=== PATIENT | female | born 1955 | race Caucasian/White ===

== ENCOUNTER 2020-05-05 17:29 | Emergency (ER) | payer MEDICARE, MEDICAID, SELFPAY ==
--- NOTE | ~2020-05-05 | CT_ITS ---
EXAMINATION: CT brain wo con EXAM DATE: 05/05/2020 19:37 INDICATION: Headache. Neck pain. TECHNIQUE: Spiral CT of the head was performed without contrast. Axial, coronal and sagittal images were reviewed. The dose-length product (DLP) for this examination was 605.33 mGy-cm. The exposure w as tailored according to patient size, and iterative reconstruction (ASIR) was used as additional dos e reduction technique. Comparison is made to prior examination from 10/31/2016. FINDINGS: There is no acute intraparenchymal hemorrhage. No evidence of intraparenchymal brain mass lesion. No evidence of acute infarction. There is no mass effect or midline shift. The ventricles are normal in size. There are no extra-axial collections. There are no acute calvarial fractures. T he orbits are unremarkable. Soft tissue is unremarkable. The visualized sinuses and mastoid air jimena ls are well aerated. IMPRESSION: 1. No acute intracranial findings. Reviewed, dictated and finalized at location A.
--- NOTE | ~2020-05-05 | CT_ITS ---
EXAMINATION: CT cervical spine [facility] EXAM DATE: 05/05/2020 19:37 INDICATION: Neck pain. Prior surgery. TECHNIQUE: Spiral CT of the cervical spine was performed without contrast. Axial images were reviewe d. Coronal and sagittal reformatted images were also reviewed. The dose-length product (DLP) for thi s examination was 509.01 mGy-cm. The exposure was tailored according to patient size (auto mA exposu re control), and iterative reconstruction (ASIR) was used as additional dose reduction technique. ere is no prior study for comparison. FINDINGS: No endplate erosive change, no evidence of discitis/osteomyelitis. Posterior elements are f used at the C2-3 level. There is moderate reversal of the normal cervical lordosis which may be posit ional or spasm. There is moderate to severe disc disease at C3-4, moderate at C2-3 and C4-5. The odo ntoid process is intact. The lateral masses of C1 line up with C2. Prevertebral soft tissue and pre- dens space are within normal limits. Level by level evaluation: C2-C3: Disc does not extend beyond the endplate margin. Uncovertebral joint arthropathy: None. Facet joint arthropathy: Fused. Neural foraminal stenosis: No stenosis. Central canal stenosis: No stenosis. C3-C4: There is a mild diffuse disc bulge. Uncovertebral joint arthropathy: Mild to moderate left, mild right. Facet joint arthropathy: Mild bilateral. Neural foraminal stenosis: Mild right. Central canal stenosis: No stenosis. C4-C5: There is a mild diffuse disc bulge. Uncovertebral joint arthropathy: Mild to moderate bilateral. Facet joint arthropathy: Mild to moderate bilateral. Neural foraminal stenosis: No stenosis. Central canal stenosis: No stenosis. C5-C6: There is a mild diffuse disc bulge. Uncovertebral joint arthropathy: Mild to moderate right, mild left. Facet joint arthropathy: Mild bilateral. Neural foraminal stenosis: Mild right. Central canal stenosis: No stenosis. C6-C7: There is a minimal diffuse disc bulge. Uncovertebral joint arthropathy: None. Facet joint arthropathy: Mild bilateral. Neural foraminal stenosis: No stenosis. Central canal stenosis: No stenosis. C7-T1: Disc does not extend beyond the endplate margin. Uncovertebral joint arthropathy: None. Facet joint arthropathy: Mild to moderate bilateral. Neural foraminal stenosis: No stenosis. Central canal stenosis: No stenosis. IMPRESSION: 1. C2-3 posterior fusion, moderate to severe disc disease. 2. Otherwise overall mild to moderate spondylosis. Reviewed, dictated and finalized at location A.
[2020-05-05 17:31] VITALS: BP 162/75; PULSE 70; RESP 18; TEMP 36.1; O2SAT 98
--- NOTE | 2020-05-05 18:50 | ED.HA ---
HPI - Headache General Chief Complaint: Headache Stated Complaint: headache & neck pain x 3 months Time Seen by Provider: 05/05/20 18:39 Source: patient Mode of arrival: ambulatory Limitations: no limitations History of Present Illness HPI Narrative: This is a 65-year-old female that presents emergency department for headaches x3 months. Does report history of migraines. Reports her headaches have been worse than usual. Reports minimal relief with [id number] medication. Also reports neck pain. Reports of history of cervical spine surgery. No new injuries or trauma. Denies fever, vision changes, numbness, weakness, or stiff neck. Related Data Allergies Allergy/AdvReac Type Severity Reaction Status Date / Time ampicillin Allergy Unknown Hives Verified 05/05/20 18:54 codeine Allergy Unknown Vomiting Verified 05/05/20 18:54 Penicillins Allergy Unknown Hives Verified 05/05/20 18:54 Review of Systems Review of Systems: Narrative: CONSTITUTIONAL: Denies fever EYES: Denies visual changes GASTROINTESTINAL: Denies vomiting MUSCULOSKELETAL: Reports joint pain and myalgia. NEUROLOGIC: Reports headache. Denies numbness, or weakness. All systems reviewed & are unremarkable except as noted in HPI and below PMFSH Past Medical History Medical History (Updated 05/05/20 @ 20:51 by Venecia Valle PA-C) History of depression History of hyperlipidemia History of hypertension History of thyroid cancer Surgical History Surgical History (Updated 05/05/20 @ 18:53 by Venecia Valle PA-C) History of cervical spinal surgery Family History Family History (Updated 09/02/18 @ 09:53 by DOCTOR UNKNOWN) Father Family history of cardiovascular disease Family history of sleep apnea Mother Family history of cardiovascular disease Social History Social History (Updated 05/05/20 @ 18:54 by Venecia Valle PA-C) Smoking status: Never smoker Substance use: current Substance use type: marijuana Exam Narrative: Exam Narrative: GENERAL: Well-appearing, well-nourished, and in no acute distress. HEAD: Normocephalic, atraumatic. EYES: PERRLA and EOMI. ENT: Nares clear, no rhinorrhea or epistaxis. Mucous membranes moist. Oropharynx without tonsillar hypertrophy exudate or other lesions. Bilateral TMs pearly chisholm non-bulging NECK: Supple. No adenopathy or masses. Tender to palpation of the trapezius musculature bilaterally CHEST: Clear to auscultation. No respiratory distress. No wheezes rales or rhonchi HEART: Regular rate and rhythm. No murmur heard. Normal peripheral pulses. EXTREMITIES: Normal range of motion. No edema. Strength equal in bilateral upper extremities (5/5) SKIN: Warm, dry, no rash. NEURO: No focal deficits. Alert and oriented x3. Cranial nerves II through XII grossly intact. Normal [id number] PSYCH: Normal mood and affect Course Vital Signs Vital signs: Vital Signs Temperature 97.0 F L 05/05/20 17:31 Pulse Rate 70 05/05/20 17:31 Respiratory Rate 18 05/05/20 17:31 Blood Pressure 162/75 H 05/05/20 17:31 Pulse Oximetry 98 05/05/20 17:31 Temperature 97.0 F L 05/05/20 17:31 Pulse Rate 70 05/05/20 17:31 Respiratory Rate 18 05/05/20 17:31 Blood Pressure 162/75 H 05/05/20 17:31 Pulse Oximetry 98 05/05/20 17:31 MDM - Headache MDM Narrative Medical decision making narrative: Patient presents to the emergency department for headache and neck pain. She is afebrile and nontoxic-appearing. Patient is neurologically intact. Reports relief with migraine cocktail. CT scan of the brain is without acute findings. CT scan of the cervical spine shows intact C2/3 posterior fusion. No acute findings. Patient was updated on case findings. She is stable and felt appropriate for further outpatient evaluation. Reports she would like to follow-up with a neurologist for her migraines. She will be given Dr. Esqueda for follow-up. She was given warnings to return to the ER Imag
[2020-05-05] MEDS: METOCLOPRAMIDE HCL INJ 10 MG/2 ML VIAL IV PUSH (19:00)
[2020-05-05] MEDS: diphenhydrAMINE HCl INJ 50 MG/ML VIAL 25 MG IV PUSH (19:00)
[2020-05-05] MEDS: KETOROLAC 30 MG/ML VIAL (*BKC) IV PUSH (19:00)
[2020-05-05] MEDS: SODIUM CHLORIDE 0.9% IV 1,000 ML 999 ML IV CONT (19:02)
[2020-05-05 20:48] VITALS: BP 128/66; PULSE 58; RESP 20; O2SAT 97
== END 2020-05-05 21:15 | disposition home or self-care (01) ==
PROVIDERS: Emergency Provider Emergency Medicine; PCP Emergency Medicine
DX: G43.909 Migraine, unspecified, not intractable, without status migrainosus (principal); F32.9 Major depressive disorder, single episode, unspecified; E78.5 Hyperlipidemia, unspecified; I10 Essential (primary) hypertension
CPT/HCPCS: 70450; 72125; 96361; 96365; 96375; 99284; J0131; J1100; J1200; J1885; J2765; J7030

== ENCOUNTER 2020-12-07 15:53 | Outpatient (CLI) | payer MEDICARE, MEDICAID, SELFPAY ==
--- NOTE | ~2020-12-07 | MM_ITS ---
EXAMINATION: MM screening [facility] BI w kathy HISTORY: Screening TECHNIQUE: Craniocaudal and mediolateral oblique 3-D tomosynthesis images were obtained and synthetic 2-D images were generated. CAD analysis was submitted and interpreted. COMPARISON: Comparison to multiple prior studies sequentially, with oldest reviewed study dated 10/2009. BREAST PARENCHYMAL COMPOSITION: There are scattered areas of fibroglandular density. FINDINGS: There is no evidence of suspicious mass, calcification, or architectural distortion to sugg est malignancy in either breast. There has been no suspicious interval change. IMPRESSION: 1. No mammographic evidence of malignancy. 2. Recommend routine screening mammography in one year. BI-RADS Category 1: Negative Reviewed, dictated and finalized at location A.
== END 2020-12-07 15:54 | disposition home or self-care (01) ==
LOC: ANHIMG 15:59
PROVIDERS: PCP Emergency Medicine; Visit Provider Emergency Medicine
DX: Z12.31 Encounter for screening mammogram for malignant neoplasm of breast (principal)
CPT/HCPCS: 77063; 77067

== ENCOUNTER → 2021-08-20 00:20 | Outpatient (CLI) | payer MEDICARE, MEDICAID, SELFPAY ==
[2021-08-20 19:57] LABS: SARS-CoV-2 RNA PCR Negative
== END ==
PROVIDERS: PCP Emergency Medicine; Visit Provider Emergency Medicine
DX: R05.9 Cough, unspecified (principal); Z20.822 Contact with and (suspected) exposure to COVID-19
CPT/HCPCS: C9803; U0003; U0005

== ENCOUNTER → 2021-10-01 10:51 | Outpatient (CLI) | payer MEDICARE, MEDICAID, SELFPAY ==
[2021-10-02 16:23] LABS: SARS-CoV-2 RNA PCR Negative
== END ==
PROVIDERS: PCP Emergency Medicine; Visit Provider Emergency Medicine
DX: J06.9 Acute upper respiratory infection, unspecified (principal); Z20.822 Contact with and (suspected) exposure to COVID-19
CPT/HCPCS: C9803; U0003; U0005

== ENCOUNTER 2022-04-07 07:31 | Outpatient (CLI) | payer MEDICARE, MEDICAID, SELFPAY ==
--- NOTE | 2022-05-02 14:02 | WPDSLEEPSTUD ---
Sleep Study Date of Study: 04/07/22 Ordering Provider: Anjel Shah APRN Interpreting Physician: Kusum Duffy MD Sleep Study Type: Split Polysomnogram Height: 1.73 m Weight: 111.13 kg Body Mass Index: 37.2 Neck Circumference (inches): 16.5 [place]: 0 Reason for Sleep Study She has obstructive sleep apnea, her machine is really old, needs repeat testing * 09/28/2017 CPAP titration; optimum pressure at 7cm H2O. Was not started on treatment. Seen Dr. Hernandez during this time. * 08/2018 Split night PSG moderate TESSA, AHI 20.7, loud continuous snowing and multiple oxygen desaturations. Difficult titration with CPAP. * 09/2018 CPAP/BiPAP Titration - inadequate titration with CPAP, then a BiPAP titration was attempted. Significant central apnea were noted, exacerbated more with BiPAP. * 02/2019 Repeat Bilevel Titration again shows no optimal pressure, increased number of central apneas which worsened with BiPAP. ASV recommended. * 05/2019 ASV Titration was inadequate. Central apneas were controlled, obstructive hypopneas remained. Apnea-hypopnea index remained elevated between 22 and 32 at the higher pressures. Sleep efficiency was not satisfactory. * 02/05/19 Echo: EF 70%, moderate aortic stenosis Sleep History Margret Stallings is a 67 year old female with a history of obstructive sleep apnea with treatment emergent central apnea, previously called complex sleep apnea. She has worn CPAP as well as BiPAP There is also a family history with her dad using PAP therapy. She occasionally awakens from sleep feeling short of breath. She does not awaken at night with heartburn, belching or coughing. She constantly snores and it is really loud. She constantly has trouble sleeping with a cold and wakes up gasping for breath at night. She constantly has breathing problems at night observed by others. She constantly sweats at night and notices her heart pounding or beating irregularly at night. She does no fall asleep during the day, does not fall asleep involuntarily or while driving. She does not have loss of muscle tone with strong emotion. She does not have daytime difficulties due to excessive sleepiness. She does not feel paralyzed on waking or falling asleep, nor does she have vivid dreams on waking or falling asleep. Occasionally she feels frayed to go to sleep. She occasionally has nightmares, occasionally remembers her dreams. She occasionally has racing thoughts. She occasionally feels sad, depressed and anxious. She does not have muscular tension. She does not notice parts of her body jerking. She does not kick at night. She does not have crawling and aching feelings in her legs. She does not have any kind of leg pain at night. She does not have morning jaw pain. She does not grind her teeth at night. She is not awakened by pain at night. She does not wake up feeling stiff in the morning. She does not wake up with sore achy muscles. She occasionally wakes up with pain in the neck and spine. She has constant morning headaches, fatigue, and nightmares. Normal bedtime is 9:30 p.m., falling asleep within 10 minutes, waking once at night to go to the bathroom. She wakes in the morning by 10:00 a.m.. Her weekend schedule is the same. She estimates getting 12 hours of sleep at night. She does not take naps. A short nap is not refreshing. She feels better in the evening compared other times of day. She never awakens feeling refreshed. Habits: Never smoked tobacco. No caffeine, alcohol or recreational drugs. [facility] Past Medical History Medical History Arthritis Bipolar 1 disorder Bipolar disease, chronic Body mass index [BMI] 37.0-37.9, adult (09/02/18) Diabetes 1.5, managed as type 2 Essential hypertension FHx: cholecystectomy Glaucoma Gout History of depression History of hyperlipidemia History of hypertension History of IBS History of thyroid cancer Migraine TESSA (obstructi
[2022-05-02 18:59] VITALS: BMI 37.2
== END 2022-04-08 06:27 | disposition home or self-care (01) ==
LOC: ANHCSM 07:33
PROVIDERS: PCP Emergency Medicine; Visit Provider Nurse Practitioner Family
DX: G47.9 Sleep disorder, unspecified (principal); G47.31 Primary central sleep apnea
CPT/HCPCS: 95811

== ENCOUNTER 2022-06-06 10:41 | Emergency (ER) | payer MEDICARE, MEDICAID, SELFPAY ==
--- NOTE | ~2022-06-06 | XR_ITS ---
EXAMINATION: XR chest 1V portable DATE: 06/06/2022 12:55 INDICATION: Tremor. TECHNIQUE: A single frontal view of the chest was obtained. COMPARISON: Chest 2 views 05/28/2019 FINDINGS: There is mild atelectasis in the lower lung zones. No pleural effusion or pneumothorax. Car diomegaly is noted. IMPRESSION: 1. Mild atelectasis in the lower lung zones. 2. Cardiomegaly. Reviewed, dictated and finalized at location A.
--- NOTE | ~2022-06-06 | CT_ITS ---
EXAMINATION: CT brain wo con INDICATION: Tremors COMPARISON: 05/05/2020 TECHNIQUE: Standard unenhanced head CT. The dose-length product (DLP) was 529.67 mGy-cm. The mA was a djusted according to patient size. Iterative reconstruction technique was employed. FINDINGS: There is no acute intraparenchymal hemorrhage. No evidence of mass lesion. No evidence of a cute infarction. There is mild periventricular and subcortical hypodensity probably related to small vessel ischemic disease. There is mild prominence of the sulci and ventricles related to cerebral atr ophy. Intracranial calcified cerebral atherosclerosis is noted. There are no extra-axial collections. There is no mass effect or midline shift. The orbits and soft tissues are unremarkable. The visualiz ed sinuses and mastoid air cells are well aerated. IMPRESSION: 1. No acute intracranial abnormality. 2. Age related findings. Reviewed, dictated and finalized at location B.
[2022-06-06 10:44] VITALS: BP 156/93; PULSE 97; RESP 16; TEMP 36.4; O2SAT 99
[2022-06-06 11:57] VITALS: BP 182/82; PULSE 65; RESP 14; O2SAT 99
--- NOTE | 2022-06-06 12:06 | ED.NEUROSD ---
HPI - Neuro Symptoms/Deficit General Chief Complaint: Neuro Symptoms/Deficit Stated Complaint: tremors for 3 weeks Time Seen by Provider: 06/06/22 12:03 Source: patient Mode of arrival: ambulatory Limitations: no limitations History of Present Illness HPI Narrative: The patient is a 67-year-old female with a history of hypertension, hyperlipidemia, thyroid cancer, hypothyroidism, acid reflux, presenting to the emergency department for evaluation of tremor activity. Patient states that she has had tremors constantly over the past 3 weeks. She states that she has all over body tremors without associated numbness, tingling, weakness. She has been ambulatory without recent fall or injury. She denies headache, vision changes, chest pain, cough or shortness of breath. Patient was seen by her primary care physician today and referred to this facility for evaluation. Patient states that there is a history of Parkinson's dementia in her family. She denies any recent illnesses or medication changes. Related Data Home Medications Medication Instructions Recorded Confirmed amlodipine 10 mg tablet 10 mg PO DAILY 01/11/21 03/28/22 atorvastatin 40 mg tablet 40 mg PO DAILY 01/11/21 03/28/22 brimonidine 0.2 %-timolol 0.5 % 1 drp EACH EYE Q12H 01/11/21 03/28/22 eye drops (Combigan) carvedilol 6.25 mg tablet 6.25 mg PO Q12H 01/11/21 03/28/22 diclofenac sodium 75 mg 75 mg PO BID 01/11/21 03/28/22 tablet,delayed release duloxetine 20 mg capsule,delayed 20 mg PO BID 01/11/21 03/28/22 release levothyroxine 125 mcg capsule 125 mcg PO DAILY 01/11/21 03/28/22 losartan 100 mg tablet 100 mg PO DAILY 01/11/21 03/28/22 lurasidone 20 mg tablet (Latuda) 10 mg PO DAILY 01/11/21 03/28/22 pantoprazole 40 mg tablet,delayed 40 mg PO QAM 01/11/21 03/28/22 release timolol maleate 0.25 % eye drops 1 drp EACH EYE Q12H 01/11/21 03/28/22 travoprost 0.004 % eye drops 1 drp EACH EYE QPM 01/11/21 03/28/22 (Travatan Z) trazodone 50 mg tablet 50 mg PO QHS PRN 01/11/21 03/28/22 Allergies Allergy/AdvReac Type Severity Reaction Status Date / Time ampicillin Allergy Unknown Hives Verified 06/06/22 11:57 codeine Allergy Unknown Vomiting Verified 06/06/22 11:57 Penicillins Allergy Unknown Hives Verified 06/06/22 11:57 Review of Systems Review of Systems: CONSTITUTIONAL: Denies fever, chills, or sweats. EYES: Denies visual changes, redness, or discharge. ENT: Denies rhinorrhea, congestion, sore throat, or otalgia. CARDIOVASCULAR: Denies chest pain, palpitations, or edema. RESPIRATORY: Denies cough or dyspnea. GASTROINTESTINAL: Denies abdominal pain, nausea, vomiting, or diarrhea. GENITOURINARY: Denies dysuria or hematuria. SKIN: Denies rash or itching. MUSCULOSKELETAL: Denies back pain, joint pain, or myalgia. NEUROLOGIC: Denies headache, numbness, or weakness. Reports tremors of the upper and lower extremities, thorax PMFSH Past Medical History Medical History Arthritis Bipolar 1 disorder Bipolar disease, chronic Body mass index [BMI] 37.0-37.9, adult (09/02/18) Diabetes 1.5, managed as type 2 Essential hypertension FHx: cholecystectomy Glaucoma Gout History of depression History of hyperlipidemia History of hypertension History of IBS History of thyroid cancer Migraine TESSA (obstructive sleep apnea) Shingles Thyroid cancer Surgical History Surgical History H/O abdominal hysterectomy History of ankle surgery History of cervical spinal surgery History of left knee replacement S/P right unicompartmental knee replacement Family History Family History Father Family history of cardiovascular disease Family history of sleep apnea Mother Family history of cardiovascular disease Social History Social History Smoking status: C
--- NOTE | 2022-06-06 12:19 | ECG_ITS ---
Rate GA QRSd QT QTc P QRS T 66 213 86 403 424 33 0 15 SINUS RHYTHM WITH FIRST DEGREE AV BLOCK CANNOT RULE OUT SEPTAL INFARCT, AGE INDETERMINATE BASELINE ARTIFACT- I, II, AVR, AVL, V1 ABNORMAL ECG COMPARED TO ECG 05/28/2019 11:52:02 SINUS RHYTHM NOW PRESENT FIRST DEGREE AV BLOCK NOW PRESENT MYOCARDIAL INFARCT FINDING NOW PRESENT Electronically Signed On 06-06-2022 13:39:46 CDT by Luis Carlos SAXENA
--- NOTE | 2022-06-06 12:26 | PC.NURSE ---
Pt to CT.
[2022-06-06 12:47] VITALS: BP 144/77; PULSE 67; RESP 14; O2SAT 98
[2022-06-06 12:56] LABS: Basophils Percent Auto 0.4 % (0.2-1.2); Eosinophils Absolute Auto 0.2 K/mm3 (0-0.3); Eosinophils Percent Auto 2.2 % (0-4.4); Hematocrit 40.2 % (37.0-47.0); Hemoglobin 13.2 g/dL (12.0-15.0); Immature Granulocyte Absolute 0.01 K/mm3 (0.00-0.031); Immature Granulocyte Percent A 0.1 % (0-0.5); Lymphocytes Absolute Auto 3.93 K/mm3 (0.9-3.2); Lymphocytes Percent Auto 54.2 % (18.3-44.2); Mean Corpuscular HGB Conc 32.8 g/dl (32-36); Mean Corpuscular Hemoglobin 28.8 pg (26-34); Mean Corpuscular Volume 87.8 fl (80-100); Mean Platelet Volume 10.1 fl (7.4-10.4); Monocytes Absolute Auto 0.8 K/mm3 (0.1-0.6); Neutrophils Absolute Auto 2.3 K/mm3 (1.3-6.7); Neutrophils Percent Auto 32.1 % (45.5-73.1); Platelet Count Result 232 k/mm3 (150-375); Red Blood Count 4.58 M/mm3 (4.2-5.4); Red Cell Distribution Width 14.2 % (11.5-14.5); White Blood Count 7.3 K/mm3 (4.5-10.0)
[2022-06-06 13:02] LABS: Alanine Aminotransferase 20 U/L (6-35); Albumin Level 4.2 g/dL (3.5-5.1); Alkaline Phosphatase 84 U/L (38-126); Anion Gap 11 mmol/L (8-16); Aspartate Amino Transferase 23 U/L (14-36); Bilirubin,Total 0.5 mg/dL (0.2-1.3); Blood Urea Nitrogen 17 mg/dL (7-17); Calcium 9.2 mg/dL (8.4-10.2); Carbon Dioxide 27 mmol/L (22-30); Chloride 103 mmol/L (98-107); Estimated CRCL calculation 57 ml/min; Estimated Glomerular Filt Rate 49; Glucose 92 mg/dL (65-110); Potassium 3.9 mmol/L (3.4-5.0); Sodium 141 mmol/L (137-145)
[2022-06-06 13:14] LABS: Troponin I < 0.012 ng/mL (0.000-0.034)
[2022-06-06 14:11] VITALS: BP 151/64; PULSE 66; RESP 16; O2SAT 99
[2022-06-06 14:20] VITALS: BP 161/76; PULSE 93; RESP 14; O2SAT 96
== END 2022-06-06 14:20 | disposition home or self-care (01) ==
PROVIDERS: Emergency Provider Emergency Medicine; PCP Emergency Medicine
DX: R25.1 Tremor, unspecified (principal); I10 Essential (primary) hypertension; E78.5 Hyperlipidemia, unspecified; K21.9 Gastro-esophageal reflux disease without esophagitis; E03.9 Hypothyroidism, unspecified; F31.9 Bipolar disorder, unspecified; E13.9 Other specified diabetes mellitus without complications; H40.9 Unspecified glaucoma; M10.9 Gout, unspecified; G47.33 Obstructive sleep apnea (adult) (pediatric); Z85.850 Personal history of malignant neoplasm of thyroid; F17.200 Nicotine dependence, unspecified, uncomplicated; F12.90 Cannabis use, unspecified, uncomplicated
CPT/HCPCS: 36415; 70450; 71045; 80053; 84484; 85025; 93005; 99284

== ENCOUNTER → 2022-06-23 09:07 | Outpatient (CLI) | payer MEDICARE, MEDICAID, SELFPAY ==
--- NOTE | ~2022-06-23 | DEXA_ITS ---
Bone Density Report Name: EDY BENNETT Age: 67 Sex: Female Ethnicity: White Date of : 1955 Indication: postmenopausal; screening for osteoporosis; parental hip fracture; height loss; prior fracture; hysterectomy; Referring Provider: JOHANNA MADERA Study: Bone densitometry was performed. Exam Date: June 23, 2022 Accession number: [id number] Bone Density: Region BMD T-score Z-score Classification AP Spine (L1-L4) 0.878 -1.5 0.5 Osteopenia Femoral Neck (Left) 0.686 -1.5 0.2 Osteopenia Total Hip (Left) 0.788 -1.3 0.1 Osteopenia Femoral Neck (Right) 0.624 -2.0 -0.3 Osteopenia Total Hip (Right) 0.737 -1.7 -0.3 Osteopenia Total Hip Mean 0.763 -1.5 -0.1 Osteopenia World Health Organization criteria for BMD impression classify patients as: Normal (T-score at or above -1.0), Osteopenia (T-score between -1.0 and -2.5), or Osteoporosis (T-score at or below -2.5). 10-year Fracture Risk: FRAX not reported because: Prior hip or vertebral fracture Clinical Information Provided by Patient: Have had a previous hip or vertebral fracture Has had a low trauma fracture Parent has had a hip fracture Has the following medical conditions: Hysterectomy, Thyroid cancer 2009, Stage 3 Kidney disease, IBS-no meds Patient maximum height was 69 Menopause Age: 27 No regular weight bearing exercise Onset of menses at age 12 Number of children 1 Impression: The patient has low bone mass, based on the Right Femoral Neck T-score. The patient has risk factors, including: parental hip fracture, previous fracture. Discussion: INCREASED RISK OF FRACTURE DUE TO HISTORY OF FRACTURE. The patient's previous fracture puts the patient at high risk of a future fracture. In untreated patients, the risk of osteoporotic fracture increases approximately two-fold for each 1.0 SD decrease in T-score. Low bone density is not the only risk factor for fracture; also consider factors such as patient's age, frailty or poor health, risk of falling, risk of injury, previous osteoporotic fracture, family history of osteoporosis, cigarette smoking, low body weight, etc. Not everyone with a low trauma fracture has osteoporosis; osteomalacia and other metabolic bone disorders should also be considered. Patients who have osteoporosis should be evaluated for specific diseases and conditions (secondary causes) that may cause or contribute to bone loss and fracture risk. National Osteoporosis Foundation (NOF) recommends pharmacologic intervention for patients with a prior hip or vertebral fracture regardless of BMD T-score. The patient should follow a healthful lifestyle (good nutrition with adequate calcium and vitamin D, and appropriate weight-bearing exercise). Follow-Up: Consider a repeat BMD and Vertebral Fracture Assessment (VFA) exam in 2 years or sooner i
== END ==
PROVIDERS: PCP Emergency Medicine; Visit Provider Emergency Medicine
DX: M81.0 Age-related osteoporosis without current pathological fracture (principal); M85.88 Other specified disorders of bone density and structure, other site; M85.852 Other specified disorders of bone density and structure, left thigh; M85.851 Other specified disorders of bone density and structure, right thigh
CPT/HCPCS: 77080

== ENCOUNTER 2022-08-02 10:51 | Emergency (ER) | payer MEDICARE, MEDICAID, SELFPAY ==
--- NOTE | ~2022-08-02 | XR_ITS ---
EXAMINATION: XR ankle RT min 3V DATE: 08/02/2022 11:40 INDICATION: Right ankle pain and swelling. TECHNIQUE: 4 views of right ankle were obtained. COMPARISON: None. FINDINGS: Bone alignment is normal. No fracture. There is mild ankle joint osteoarthritis. There is m ild midfoot osteoarthritis. There is an enthesophyte at plantar aspect of calcaneal tuberosity. Ankle soft tissue swelling is noted. IMPRESSION: 1. Mild polyarticular osteoarthritis. Reviewed, dictated and finalized at location A. EL ENGINE ENGINEER
--- NOTE | ~2022-08-02 | XR_ITS ---
EXAMINATION: XR foot RT min 3V DATE: 08/02/2022 11:40 INDICATION: Right foot pain and swelling. TECHNIQUE: 4 views of right foot were obtained. COMPARISON: None. FINDINGS: Bone alignment is normal. No fracture. There is mild osteoarthritis of first and second met atarsophalangeal joints and many of the midfoot joints and interphalangeal joints. There is an enthes ophyte at plantar aspect of calcaneal tuberosity. IMPRESSION: 1. Mild polyarticular osteoarthritis. Reviewed, dictated and finalized at location A. NT SOLUTIONS MANAGER
--- NOTE | ~2022-08-02 | US_ITS ---
EXAMINATION: US venous doppler LE RT DATE: 08/02/2022 13:52 INDICATION: right foot/ankle swelling, elevated d dimer . TECHNIQUE: Grayscale images without and with compression and Doppler images of the right lower extrem ity veins were obtained. COMPARISON: None FINDINGS: The right common femoral vein, profunda (deep) femoral vein, femoral vein, popliteal vein, peroneal v ein, and posterior tibial veins are patent. IMPRESSION: 1. Patent right lower extremity veins. No evidence of deep venous thrombosis. Reviewed, dictated and finalized at location K. COVERER
[2022-08-02 11:21] VITALS: BP 146/78; PULSE 79; RESP 15; TEMP 36.4; O2SAT 100
--- NOTE | 2022-08-02 11:30 | PC.NURSE ---
Pt to XRAY via w/c at this time.
--- NOTE | 2022-08-02 12:24 | ED.LOWEXIN ---
HPI - Extremity Injury (Lower) General Chief Complaint: Extremity Injury, Lower Stated Complaint: Right foot pain after fall Time Seen by Provider: 08/02/22 11:41 History of Present Illness HPI Narrative: 67-year-old female with a history of gout presents to the emergency room for evaluation of right foot and ankle pain that has been present for 2 weeks. Patient denies any known injury or trauma. States that she saw her primary care physician 10 days ago for the same issue. [facility] PCP collected a uric acid level which was within normal range. Patient states has been taking Tylenol with no relief of symptoms. Currently on allopurinol for gout Related Data Home Medications Medication Instructions Recorded Confirmed amlodipine 10 mg tablet 10 mg PO DAILY 01/11/21 06/28/22 atorvastatin 40 mg tablet 40 mg PO DAILY 01/11/21 06/28/22 brimonidine 0.2 %-timolol 0.5 % 1 drp EACH EYE Q12H 01/11/21 06/28/22 eye drops (Combigan) carvedilol 6.25 mg tablet 6.25 mg PO Q12H 01/11/21 06/28/22 diclofenac sodium 75 mg 75 mg PO BID 01/11/21 06/28/22 tablet,delayed release duloxetine 20 mg capsule,delayed 20 mg PO BID 01/11/21 06/28/22 release levothyroxine 125 mcg capsule 125 mcg PO DAILY 01/11/21 06/28/22 losartan 100 mg tablet 100 mg PO DAILY 01/11/21 06/28/22 lurasidone 20 mg tablet (Latuda) 10 mg PO DAILY 01/11/21 06/28/22 pantoprazole 40 mg tablet,delayed 40 mg PO QAM 01/11/21 06/28/22 release timolol maleate 0.25 % eye drops 1 drp EACH EYE Q12H 01/11/21 06/28/22 travoprost 0.004 % eye drops 1 drp EACH EYE QPM 01/11/21 06/28/22 (Travatan Z) trazodone 50 mg tablet 50 mg PO QHS PRN 01/11/21 06/28/22 Allergies Allergy/AdvReac Type Severity Reaction Status Date / Time ampicillin Allergy Unknown Hives Verified 08/02/22 11:25 codeine Allergy Unknown Vomiting Verified 08/02/22 11:25 Penicillins Allergy Unknown Hives Verified 08/02/22 11:25 Review of Systems Review of Systems: CONSTITUTIONAL: Denies fever, chills, or sweats. EYES: Denies visual changes, redness, or discharge. ENT: Denies rhinorrhea, congestion, sore throat, or otalgia. CARDIOVASCULAR: Denies chest pain, palpitations, or edema. RESPIRATORY: Denies cough or dyspnea. GASTROINTESTINAL: Denies abdominal pain, nausea, vomiting, or diarrhea. GENITOURINARY: Denies dysuria or hematuria. SKIN: Denies rash or itching. MUSCULOSKELETAL: Reports pain and swelling to right ankle and right foot NEUROLOGIC: Denies headache, numbness, dizziness, or weakness. PSYCHIATRIC: Denies anxiety or depression. [facility] Past Medical History Medical History Arthritis Bipolar 1 disorder Bipolar disease, chronic Body mass index [BMI] 37.0-37.9, adult (09/02/18) Diabetes 1.5, managed as type 2 Essential hypertension FHx: cholecystectomy Glaucoma Gout History of depression History of hyperlipidemia History of hypertension History of IBS History of thyroid cancer Migraine TESSA (obstructive sleep apnea) Shingles Thyroid cancer Surgical History Surgical History H/O abdominal hysterectomy History of ankle surgery History of cervical spinal surgery History of left knee replacement S/P right unicompartmental knee replacement Family History Family History Father Family history of cardiovascular disease Family history of sleep apnea Mother Family history of cardiovascular disease Social History Social History Smoking status: Never smoker Smokeless tobacco user: other Substance use: current Substance use type: marijuana Exam Narrative: GENERAL: Well-appearing, well-nourished, no physical limitations, and in no acute distress. HEAD: Normocephalic, atraumatic. EYES: Conjunctivae normal, PERRLA and EOMI. CHEST: Clear to auscultation. No respiratory distre
[2022-08-02 12:55] LABS: Alanine Aminotransferase 18 U/L (6-35); Albumin Level 4.3 g/dL (3.5-5.1); Alkaline Phosphatase 82 U/L (38-126); Anion Gap 6 mmol/L (8-16); Aspartate Amino Transferase 21 U/L (14-36); Bilirubin,Total 0.6 mg/dL (0.2-1.3); Blood Urea Nitrogen 15 mg/dL (7-17); Calcium 9.6 mg/dL (8.4-10.2); Carbon Dioxide 34 mmol/L (22-30); Chloride 101 mmol/L (98-107); Estimated CRCL calculation 52 ml/min; Estimated Glomerular Filt Rate 45; Glucose 88 mg/dL (65-110); Potassium 4.2 mmol/L (3.4-5.0); Sodium 141 mmol/L (137-145)
[2022-08-02 13:04] LABS: NT Pro B Type Natriuretic Pept 47 pg/mL (5-100)
[2022-08-02 13:17] LABS: D Dimer 1.19 ug/mL (<0.48)
[2022-08-02 13:46] VITALS: BP 138/88; PULSE 84; RESP 17; O2SAT 97
== END 2022-08-02 14:30 | disposition home or self-care (01) ==
PROVIDERS: Emergency Provider Nurse Practitioner Family; PCP Emergency Medicine
DX: M10.9 Gout, unspecified (principal); I10 Essential (primary) hypertension; E13.39 Other specified diabetes mellitus with other diabetic ophthalmic complication; H42 Glaucoma in diseases classified elsewhere; E78.5 Hyperlipidemia, unspecified; Z85.850 Personal history of malignant neoplasm of thyroid; G47.33 Obstructive sleep apnea (adult) (pediatric); K58.9 Irritable bowel syndrome, unspecified; F31.9 Bipolar disorder, unspecified; Z90.710 Acquired absence of both cervix and uterus; Z96.652 Presence of left artificial knee joint; M19.071 Primary osteoarthritis, right ankle and foot
CPT/HCPCS: 36415; 73610; 73630; 80053; 83880; 85380; 93971; 96372; 99284; J1100

== ENCOUNTER 2023-01-17 09:53 | Outpatient (CLI) | payer MEDICARE, MEDICAID, SELFPAY ==
--- NOTE | ~2023-01-17 | XR_ITS ---
XR chest 2V DATE: 01/17/2023 10:30 INDICATION: Cough for one week TECHNIQUE: PA and lateral views COMPARISON: 06/06/2022 portable AP chest borderline heart size. FINDINGS: borderline heart size. Aortic arch calcification. No hilar or mediastinal enlargement. No p ulmonary infiltrate or consolidation, pleural effusion or pulmonary vascular congestion or pneumothor ax. There is diffuse osteopenia. Surgical clips, right upper quadrant, consistent with cholecystectomy. IMPRESSION: Borderline heart size No active pulmonary disease Osteopenia Status post cholecystectomy Reviewed, dictated and finalized at location A.
[2023-01-17 11:25] LABS: Cholesterol 134 mg/dL (0-200); HDL Direct 45 mg/dL; Triglycerides 125 mg/dL (<150)
[2023-01-17 11:36] LABS: LDL Cholesterol Direct 56 mg/dL
[2023-01-17 11:41] LABS: Hemoglobin A1C 5.7 % (<5.7)
[2023-01-17 11:42] LABS: Creatinine Urine 289.6 mg/dL
[2023-01-17 11:46] LABS: MALB Creatinine Ratio 12.2 mg/g (0-30); Microalbumin Urine Random 35.2 mg/L (0-16.7)
[2023-01-17 11:55] LABS: Thyroid Stimulating Hormone 0.089 uIU/mL (0.465-4.680)
[2023-01-17 11:56] LABS: Free T4 Free Thyroxine 1.57 ng/mL (0.78-2.19); Vitamin D 25 Hydroxy 37.4 ng/mL
== END 2023-01-17 09:54 | disposition home or self-care (01) ==
LOC: ANHIMG 10:19
PROVIDERS: PCP Emergency Medicine; Visit Provider Emergency Medicine
DX: R05.9 Cough, unspecified (principal); M85.80 Other specified disorders of bone density and structure, unspecified site; E11.9 Type 2 diabetes mellitus without complications; E78.5 Hyperlipidemia, unspecified; Z90.49 Acquired absence of other specified parts of digestive tract
CPT/HCPCS: 36415; 71046; 80061; 82043; 82306; 83036; 84439; 84443

== ENCOUNTER 2023-02-01 08:57 | Outpatient (CLI) | payer MEDICARE, MEDICAID, SELFPAY ==
--- NOTE | ~2023-02-01 | MM_ITS ---
EXAMINATION: MM screening [facility] BI w kathy HISTORY: Screening mammogram TECHNIQUE: Craniocaudal and mediolateral oblique 3-D tomosynthesis images were obtained and synthetic 2-D images were generated. CAD analysis was submitted and interpreted. COMPARISON: 12/07/2020, 06/19/2018, 05/05/2016 BREAST PARENCHYMAL COMPOSITION: There are scattered areas of fibroglandular density. FINDINGS: Stable focal asymmetry is noted in the upper outer quadrant of the right breast. No suspici ous mass, calcification, or architectural distortion are identified in either breast to suggest malig onesimo. There has been no suspicious interval change. IMPRESSION: 1. No mammographic evidence of malignancy. 2. Recommend routine screening mammography in one year. BI-RADS Category 2: Benign finding(s). Reviewed, dictated and finalized at location A.
== END 2023-02-01 08:58 | disposition home or self-care (01) ==
LOC: ANHIMG 08:58
PROVIDERS: PCP Emergency Medicine; Visit Provider Emergency Medicine
DX: Z12.31 Encounter for screening mammogram for malignant neoplasm of breast (principal)
CPT/HCPCS: 77063; 77067

== ENCOUNTER → 2023-08-01 14:34 | Outpatient (CLI) | payer MEDICARE, MEDICAID, SELFPAY ==
--- NOTE | ~2023-08-01 | XR_ITS ---
EXAMINATION: XR wrist RT min 3V DATE: 08/01/2023 15:01 INDICATION: Right wrist pain. Injury 2 months ago. TECHNIQUE: 4 views of right wrist were obtained. COMPARISON: None. FINDINGS: Bone alignment is normal. No fracture. There is mild osteoarthritis of first carpometacarpa l joint and first and second metacarpophalangeal joints. IMPRESSION: 1. Mild polyarticular osteoarthritis. Reviewed, dictated and finalized at location E. GATION SPECIALIST
--- NOTE | ~2023-08-01 | XR_ITS ---
EXAMINATION: XR forearm RT 2V DATE: 08/01/2023 15:01 INDICATION: Right forearm pain. Injury 2 months ago. TECHNIQUE: 2 views of right forearm were obtained. COMPARISON: None. FINDINGS: Bone alignment is normal. No fracture. There is mild osteoarthritis of first carpometacarpa l joint. No elbow joint effusion. IMPRESSION: 1. No fracture. Reviewed, dictated and finalized at location E. INTERN IMPRESSION: 1. No fracture.
== END ==
PROVIDERS: PCP Emergency Medicine; Referring Provider Emergency Medicine; Visit Provider Emergency Medicine
DX: M19.031 Primary osteoarthritis, right wrist (principal)
CPT/HCPCS: 73090; 73110

== ENCOUNTER 2024-11-02 10:53 | Emergency (ER) | payer MEDICARE, MEDICAID, SELFPAY ==
--- NOTE | ~2024-11-02 | XR_ITS ---
EXAMINATION: XR chest 2V DATE: 11/02/2024 11:32 INDICATION: Shortness of breath with cough TECHNIQUE: PA and lateral views of the chest were obtained. COMPARISON: Chest radiograph dated 01/17/2023 FINDINGS: Unchanged small calcified nodules in the right middle lobe consistent with old granulomatous disease. The lungs remain otherwise clear with no focal airspace opacities, pulmonary edema, pleural effusion or pneumothorax. Heart size is normal. Aortic valve repair. Visualized bones and soft tissues are un remarkable. IMPRESSION: 1. No acute cardiopulmonary disease. Reviewed, dictated and finalized at location [facility]. [facility]
--- NOTE | 2024-11-02 10:55 | ECG_ITS ---
Test Date: 2024-11-02 10:58:10 Measurements Intervals [place] Rate: 60 P: 55 IN: 213 QRS: -16 QRSD: 101 T: 30 QT: 428 QTc: 428 Interpretive Statements SINUS RHYTHM WITH FIRST DEGREE AV BLOCK CANNOT R/O SEPTAL INFARCT, AGE INDETERMINATE ABNORMAL ECG No previous ECG available for comparison Electronically Signed On 11-02-2024 11:08:18 DIVIDEND CLERK by Luis Carlos Arrington D.O.
--- OUTSIDE RECORDS SUMMARY | 2024-11-02 10:56 | XMS_ITS | Continuity of Care Document ---
Author Organization [facility] Address [address] [place] [address] Phone Care Team Providers Care Travel Journalist Name Role Phone Shahid Spivey Unavailable Unavailable Procedures Procedure Date Office/outpatient Visit, Est Optic Nerve Topography-Professional Optic Nerve Topography-Professional Optic Nerve Topography Optic Nerve Topography Visual Field Examination-Professional Mason Visual Field Examination(s) Office/outpatient Visit, Est Optic Nerve Head Eval Dilated Retinal Exam W Interpretation No Script Office/outpatient Visit, Est Optic Nerve Head Eval No Script Visual Field Examination(s) Eye Exam, New Patient Corneal Pachymetry Refraction Advance Directives Directive Yes / No Effective Date File Name No Information Encounters Encounter Description Practice Location Reason(s) For Visit Diagnoses Date Provider Providers Copied on Encounter Office/outpat ient Visit, Est [facility] [place] [facility], [address], [place], [place], [id number], [place] tel:[phone] [facility] No Information 0-201 0 Patric Shahid. [address], [place], [address], [place]. tel:[phone] [facility] [place] [facility], [address], [place], [place], [id number], [place] tel:[phone] SEC [facility] No Information 3-201 0 Krishnasamy Shahid. [address], [place], [place], [facility], [place]. tel:[phone] Referring Provider: Shahid mistry, [facility] [address], [place], [facility]. tel:[phone] [facility], [address], [place], [place], [id number], [place] tel:[phone] [facility] No Information 0 Krishnasamy Shahid. [address], [place], [place], [facility], [place]. tel:[phone] Referring Provider: Shahid mistry, [facility] [address], [place], [facility]. tel:[phone] [facility], [address], [place], [place], [id number], [place] tel:[phone] SEC [facility] No Information 0 Krishnasamy Shahid. [facility] [address] [place], [place], [facility], [place]. tel:[phone] Referring Provider: Shahid mistry, [facility] [address], [place], [facility]. tel:[phone] [facility], [address], [place], [place], [id number], [place] tel:[phone] SEC [facility] No Information 0 Krishnasamy Shahid. [address] [place], [place], [facility], [place]. tel:[phone] Referring Provider: Shahid mistry, [facility] [address], [facility]. tel:[phone] Office/outpat ient Visit, [facility], [address] [place] [address] [address], [place], [place], [id number], [place] tel:[phone] [facility] [place] No Information 5-201 0 Krishnasamy Shahid. [address] [place] [address], [facility], [place]. tel:[phone] [facility]pat ient [facility], [facility], [address] [place] [address] [address], [place], [place], [id number], [place] tel:[phone] SEC [facility] No Information 4-200 9 Krishnasamy Shahid. [address] [place] [address], [facility], [place]. tel:[phone] [facility], [address] [place] [address] [address], [place], [place], [id number], [place] tel:[phone] SEC [facility] No Information 8-200 9 Krishnasamy Shahid. [address] [place] [address], [facility], [place]. tel:[phone] Referring Provider: Shahid mistry, [address] [place] [address], [facility]. tel:[phone] [facility], [address] [place] [address] [address], [place], [place], [id number], [place] tel:[phone] SEC [facility] No Information 7-200 8 Krishnasamy Shahid. [address] [place] [address], [facility], [place]. tel:[phone] Referring Provider: Shahid mistry, [address] [place] [address], [facility]. tel:[phone] Family History Family Member Type Diagnosis Age At Onset No Information Payers Payer name Insurance type Covered democrat ID Authoriza tion(s) Medicare [facility] [id number] Medicaid [facility] [id number] Social History Type Description Quantity Date Captured Comments Sex Female Smoking Status No Information Chief Complaint And Reason For Visit No Information Reason For Referral Reason For Referral No Information History Of Present Illness Encounter Date Complaint History Of Prese nt Illness No Information Functional Status Date Functional Assessmen t No Information Instructions Date Instruction Additional Infor mation No Information Assessments Type Assessment Date No Information Patient Care Teams Name Effective Dates (start - stop) Status Members No Information
--- OUTSIDE RECORDS SUMMARY | 2024-11-02 10:56 | XMS_ITS | Clinical Summary ---
Author Organization [facility] Address [address] [place] [address] Care Team Providers Care Channel Marketing Manager Name Role Phone Idalmis Khan Provider Primary Care Provider Unavailable Allergies Active Allergy Reactions Criticality Noted Date Comments Ampicillin Rash Low 02/06/2017 Codeine Nausea and Vomiting Low 02/06/2017 Penicillins Rash Low 02/06/2017 Medications lisinopril (PRINIVIL) 20 mg tablet Take 20 mg by mouth daily. Active lamoTRIgine (LaMICtal) 200 mg tablet Take 200 mg by mouth daily. Active lithium carbonate 300 mg tablet Take 300 mg by mouth every 12 hours . Active amLODIPine (NORVASC) 10 mg tablet Take 5 mg by mouth daily . Active LORazepam (ATIVAN) 1 mg tablet Take 1 mg by mouth every 8 hours as needed for Anxiety. Active traZODone (DESYREL) 100 mg tablet Take 200 mg by mouth daily at bedtime. Active venlafaxine (EFFEXOR XR) 150 mg Extended Release 24 hour capsule Take 150 mg by mouth daily. Active QUEtiapine (SEROquel) 50 mg tablet Take 100 mg by mouth daily . Active allopurinol (ZYLOPRIM) 300 mg tablet Take 300 mg by mouth daily. Active SYNTHROID 137 mcg tablet Take 1 Tablet (137 mcg) by mouth daily installation & maintenance executive. 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 Family History Medical History Relation Name Comments Diabetes Father Heart Disease Father Hypertension Mother Healthy Sister Relation Name Status Comments Father Mother Alive Sister Alive Social History Tobacco Use Types Packs/Day Years Used Date Smoking Tobacco: Former Cigarettes Comments:marijuana Alcohol Use Standard Drinks/Week Comments No 0 (1 standard drink = 0.6 oz pur e alcohol) Comments No Sex and Gender Information Value Date Recorded Sex Assigned at Not on file Legal Sex Female 10:54 AM CDT Gender Identity Not on file Sexual Orientation Not on file Last Filed Vital Signs Vital Sign Reading Time Taken Comments Blood Pressure 145/74 10/17/2017 11:26 AM SIDEHAND Pulse 62 10/17/2017 11:26 AM SIDEHAND Temperature 36.8 C (98.3 F) 10/17/2017 11:26 AM SIDEHAND Respiratory Rate 18 07/18/2017 9:18 AM CDT Oxygen Saturation - - Inhaled Oxygen Concentration - - Weight 115.2 kg (254 lb) 10/17/2017 11:26 AM SIDEHAND Height 175.3 cm (5' 9 ) 10/17/2017 11:26 AM SIDEHAND Body Mass Index 37.51 10/17/2017 11:26 AM SIDEHAND Plan of Treatment Health Maintenance Due Date Last Done Comments DTAP/TDAP/TD VACCINES (1 - Tdap) 1973 BREAST CANCER SCREENING 1994 FIT-DNA Q 3 years 1999 FIT/FOBT Q 1 year 1999 Flex Sig/CT Colonography Q 5 years 1999 PNEUMOCOCCAL VACCINE 65+ YEARS (1 of 1 - PCV) 02/01/20 04 ZOSTER VACCINE (1 of 2) 02/01/2004 OSTEOPOROSIS SCREENING 2019 INFLUENZA VACCINE (#1) 2024 COLORECTAL SCREENING 08/21/2028 08/21/2018 Colorectal Cancer Screening 08/21/2028 RSV VACCINE (60+ or ) (1 - 1-dose 75+ series) 2029 Insurance MEDICARE PART A AND B Care Teams Channel Marketing Manager Relationship Specialty Start Date End Date Idalmis Khan Provider PCP - General 10/17/17
--- OUTSIDE RECORDS SUMMARY | 2024-11-02 10:56 | XMS_ITS | Clinical Summary ---
Author Organization [facility] Address [address] [place] [address] Phone Care Team Providers Care Rabies Inspector Name Role Phone Anders Kendrick MD Primary Care Provider [phone] Allergies Active Allergy Reactions Criticality Noted Date Comments Ampicillin 06/26/2019 Codeine 06/26/2019 Penicillins 06/26/2019 Medications Medication Sig Dispensed Refills Start Date End Date Status levothyroxine (SYNTHROID) 125 MCG tablet Take 125 mcg by mouth daily 06/27/2018 Active pantoprazole (PROTONIX) 40 MG EC tablet Take 40 mg by mouth daily 04/17/2019 Active losartan (COZAAR) 100 MG tablet Take 100 mg by mouth daily Active docusate sodium (COLACE) 100 MG capsule Take 100 mg by mouth 2 (two) times a day Active aspirin (ST RIA) 81 MG EC tablet Take 81 mg by mouth 1 (one) time each day Active Dulaglutide (Trulicity) 1.5 MG/0.5ML solution pen-injector Inject under the skin Active carvedilol (COREG) 6.25 MG tablet Take 6.25 mg by mouth 2 (two) times a day with meals Active DULoxetine (CYMBALTA) [address] capsule Take 20 mg by mouth 1 (one) time each day Do not crush or chew. Active NIFEdipine CC (ADALAT CC) 30 MG 24 hr tablet Take 30 mg by mouth 1 (one) time each day before breakfast Do not crush, chew, or split. Active TraZODone & Diet Manage Prod (TRAZAMINE PO) Take by mouth Active lurasidone (LATUDA) 40 MG tablet Take 40 mg by mouth 1 (one) time each day with breakfast Active Dentifrices (BIOTENE DRY MOUTH DT) Apply to teeth Active alendronate (FOSAMAX) 35 MG tablet Take 35 mg by mouth every 7 (seven) days Take in the morning with a full glass of water, on an empty stomach, and do not take anything else by mouth or lie down for the next 30 min. Active allopurinol (ZYLOPRIM) 100 MG tablet Take 100 mg by mouth 1 (one) time each day Active BIOTIN PO Take 500 mg by mouth 1 (one) time each day Active Active Problems Problem Noted Date Diagnosed Date Chronic kidney disease 03/07/2021 Diabetes mellitus 07/01/2019 Essential (primary) hypertension 07/01/2019 Resolved Problems Problem Noted Date Diagnosed Date Resolved Date Urinary incontinence 03/07/2021 023 [place]y stopped 10/28/2019 03/07/2021 Abnormal renal function test 07/01/2019 03/07/2021 Family History Medical History Relation Comments Diabetes Father Cancer Mother Relation Status Comments Father Mother Social History Tobacco Use Types Packs/Day Years Used Date Smoking Tobacco: Unknown Smokeless Tobacco: Never Alcohol Use Standard Drinks/Week Comments Never 0 (1 standard drink = 0.6 oz pur e alcohol) AUDIT-C Answer Date Recorded Frequency of Alcohol Consumption Never 06/26/2019 Average Number of Drinks Not on file 019 Frequency of Binge Drinking Not on file 11/2018 Sex and Gender Information Value Date Recorded Sex Assigned at Not on file Gender Identity Not on file Sexual Orientation Not on file Last Filed Vital Signs Vital Sign Reading Time Taken Comments Blood Pressure 149/75 01/02/2023 1:03 PM CDT Pulse 67 09/06/2021 1:07 PM EDUCATIONAL INSTITUTION CURATOR Temperature 36.4 C (97.6 F) 09/06/2021 1:07 PM EDUCATIONAL INSTITUTION CURATOR Respiratory Rate - - Oxygen Saturation - - Inhaled Oxygen Concentration - - Weight 111 kg (245 lb) 01/02/2023 1:03 PM CDT Height 172.7 cm (5' 8 ) 01/01/2023 1:08 PM CDT Body Mass Index 37.25 01/01/2023 1:08 PM CDT Plan of Treatment Health Maintenance Due Date Last Done Comments Pneumococcal PPSV23/PCV13 65 + Years / High and Highest Risk (1 of 4 - PCV) 02/01/1960 Diabetic Foot Exam 02/01/1964 Ophthalmology Exam 02/01/1964 Influenza Vaccine (#1) 2024 Care Teams Rabies Inspector Relationship Specialty Start Date End Date Anders Kendrick MD PCP - General 05/29/19
--- OUTSIDE RECORDS SUMMARY | 2024-11-02 10:56 | XMS_ITS | Referral Summary ---
Author Organization [facility] Address [address] [place] [address] Care Team Providers Care Customer Marketing Assistant Name Role Phone Anders Kendrick MD Primary Care Provider [phone] Ryne Hoffman MD Unavailable [phone] 1 Allergies Active Allergy Reactions Criticality Noted Date Comments Adhesive Itching Low 05/02/2018 Transparent tape causes a rash Ampicillin Codeine Hydrocodone-Acetaminophen Itching High 12/11/2018 Opioids - Morphine Analogues Penicillins Rash Medium 11/09/2020 Medications traZODone (DESYREL) 100 mg tablet Take 1 tablet (100 mg total) by mouth nightly 0 04/01/2018 Active Trulicity 0.75 mg/0.5 mL pen injector Inject 0.5 mL (0.75 mg total) under the skin once a week On Sunday11/22/2021 Active losartan (COZAAR) 100 mg tablet Take 1 tablet (100 mg total) by mouth every morning 11/29/2021 Active rosuvastatin (CRESTOR) 40 mg tablet Take 1 tablet (40 mg total) by mouth every morning 11/26/[address] (CYMBALTA) 20 mg capsule Take 1 capsule (20 mg total) by mouth every morning 10/05/2021 Active Latuda 40 mg tablet Take 1 tablet (40 mg total) by mouth nightly 11/23/2021 Active Jardiance 10 mg tablet Take 1 tablet (10 mg total) by mouth every morning 11/06/2023 Active carvediloL (COREG) 12.5 mg tablet Take 1 tablet (12.5 mg total) by mouth 2 (two) times a day 12/24/2023 Active aspirin 81 mg chewable tabletIndicatio ns:coronary artery disease Take 1 tablet (81 mg total) by mouth daily 90 tablet 3 03/20/2024 Active clopidogreL (PLAVIX) 75 mg tabletIndicatio ns:coronary artery disease Take 1 tablet (75 mg total) by mouth daily 90 tablet 3 03/20/2024 5 Active levothyroxine (SYNTHROID) 137 mcg tablet TAKE 1 TABLET BY MOUTH EVERY MORNING. 90 tablet 3 06/06/2024 Active Active Problems Problem Noted Date Diagnosed Date S/P TAVR (transcatheter aortic valve replacement ) 03/18/2024 Atherosclerosis of renal artery 03/11/2024 Angina pectoris 03/11/2024 Chest pain, unspecified 03/11/2024 Malignant tumor of thyroid gland 03/11/2024 Overview (03/11/2024): s/p iodine ablation and thyroidectomy Aortic stenosis, severe 03/04/2024 CHF (congestive heart failure) ([facility]) 024 Pain in both feet 01/22/2024 Dyslipidemia 01/21/2024 Assessment & Plan (01/21/2024 2:48 PM CDT): Discussed lifestyle modifications Continue statin therapy Will check lipid panel Asthma 08/29/2023 Enthesopathy of hip region 08/29/2023 Obstructive sleep apnea syndrome 08/29/2023 Osteoarthritis 08/29/2023 Pyuria 08/29/2023 Radiotherapy follow-up 08/29/2023 Synovitis and tenosynovitis 08/29/2023 Urinary incontinence 08/29/2023 Urinary tract infectious disease 08/29/2023 Right wrist pain 08/29/2023 De Quervain's disease (radial styloid tenosynovi tis) 08/29/2023 Contusion of right shoulder 06/28/2023 Impingement syndrome of right shoulder region Pain in joint of right shoulder 05/31/2023 Sprain of left ankle 03/15/2023 Peroneal tendinitis of right lower extremity Chronic diastolic heart failure 08/08/2022 Diabetic peripheral neuropathy (CMS/HCC) 022 Hammer toe 07/13/2022 Soft tissue lesion of foot 11/23/2021 Dry skin 06/13/2021 Chronic kidney disease 03/07/2021 Dystrophia unguium 12/13/2020 Chest pain 10/07/2020 Foot callus 10/28/2019 Diabetes mellitus 07/01/2019 Assessment & Plan (01/21/2024 2:48 PM CDT): On Trulicity Will check renal function, A1c , lipid profile and BMP Essential (primary) hypertension 07/01/2019 Post-surgical hypothyroidism 04/02/2019 Assessment & Plan (01/21/2024 2:49 PM CDT): Continue current levothyroxine dose. Will check thyroid function test and adjust levothyroxine dose accordingly. TSH goal lower normal Assessment & Plan (07/24/2022 3:34 PM CDT): Continue current levothyroxine dose. Assessment & Plan (07/20/2020 12:05 PM CDT): Patient reports having labs drawn on 07/[facility], will follow- up these lab results. TSH goal is lower end of normal Last TSH 07/05/20: 0.113 (low) Patient reports feeling hot most of the time. - will decrease levothyroxine dose 150 -> 125 mcg daily - repeat thyroid function tests in 3 months Assessment & Plan (06/08/2020 1:57 PM CDT): Will check TSH today and adjust dose accordingly TSH goal is lower normal Assessment & Plan (04/02/2019 1:53 PM CDT): Continue levothyroxine 150 mcg daily Will check TSH today and adjust dose accordingly TSH goal is lower normal Thyroid cancer 04/02/2019 Assessment & Plan (07/20/2020 10:17 AM CDT): Patient reports having labs drawn last week to check biochemical markers including thyroid tumor markers. Will follow-up lab results. - thyroid ultrasound ordered Assessment & Plan (06/08/2020 2:04 PM CDT): Will check biochemical markers including thyroid tumor markers Will arrange for labs and in person visit for further discussion of patient concerns - she was scheduled for Zoom call today and she is facing difficulty with the technology - we switched on phone call Mrs Stallings prefers in person visit to discuss more - Will arrange for this and will review labs as well then Assessment & Plan (04/02/2019 2:40 PM CDT): Will check biochemical markers including thyroid tumor markers Obtain neck US for evaluation of neck Nonrheumatic aortic valve stenosis 02/25/2019 Marijuana smoker 01/27/2019 Anxiety disorder 10/30/2018 Attention deficit hyperactivity disorder 019 Gout 10/30/2018 Headache 10/30/2018 Hypercholesterolemia 10/30/2018 Depressive disorder 10/29/2018 Depression 07/22/2018 Intrinsic sphincter deficiency (ISD) 07/16/2018 Overactive bladder 07/16/2018 Cerebrovascular accident (CVA) 03/17/2018 Aortic stenosis 10/02/2017 Palpitations 09/12/2017 Shortness of breath 09/12/2017 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 Cancer Staging:Clinical:Stage I(cT1, cNX, cM0, Age at diagnosis: < 55 years) - Signed by Tejal Claudio, NUCLEAR WASTE PROCESS OPERATOR on 04/09/2018 Assessment & Plan (01/21/2024 2:50 PM CDT): No evidence of tumor recurrence so far pending this year tumor markers Given right LNs on exam and patient noted for last 2 months, will obtain neck US Obtain Tg/Tg Abs as well as TFT Assessment & Plan (07/24/2022 3:34 PM CDT): No evidence of tumor recurrence so far pending this year tumor markers TFT at goal Follow up labs in one year Morbid obesity with BMI of 40.0-44.9, adult 02/23 Myofascial pain 03/17/2016 Rectocele 03/17/2016 Female stress incontinence 03/17/2016 Hypothyroidism 01/03/2012 Sleep apnea 08/21/2011 Overview (03/11/2024): Mild TESSA Nontoxic single thyroid nodule 07/14/2009 Mixed hypercholesterolemia and hypertriglyceride dianne 09/24/1960 Resolved Problems Problem Noted Date Diagnosed Date Resolved Date 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 No 03/19/2024 Social Connection and Isolat ion Panel [NHANES] Answer Date Recorded In a typical week, how many times do you talk on the phone with family, friends, or neighbors? More than three times a week 03/19/2024 How often do you get togethe r with friends or relatives? More than three times a week 03/19/2024 How often do you attend chur ch or sikh services? Never 03/19/2024 Do you belong to any clubs o r organizations such as tenriism groups, unions, fraternal or athletic groups, or school groups? No 03/19/2024 How often do you attend meet ings of the clubs or organizations you belong to? Never 03/19/2024 Are you , , di vorced, , never , or living with a partner? 03/19/2024 AUDIT-C Answer Date Recorded Q1: How often do you have a drink containing alcohol? Never 03/18/2024 Q2: How many drinks containi ng alcohol do you have on a typical day when you are drinking? Patient does not drink Q3: How often do you have si x or more drinks on one occasion? Never 03/18/2024 Overall Financial Resource Strain (CARDIA) Answe r Date Recorded How hard is it for you to pa y for the very basics like food, housing, medical care, and heating? Not hard at all 03/19/2024 Hunger Vital Sign Answer Date Recorded Within the past 12 months, y ou worried that your food would run out before you got the money to buy more. Never true 03/19/20 24 Within the past 12 months, t he food you bought just didn't last and you didn't have money to get more. Never true 03/19/2024 PRAPARE - Transportation Answer Date Re corded In the past 12 months, has l ack of transportation kept you from medical appointments or from getting medications? No 02/23 In the past 12 months, has l ack of transportation kept you from meetings, work, or from getting things needed for daily living? No 03/19/2024 Housing Stability Vital Sign Answer Eleazar e Recorded In the last 12 months, was t here a time when you were not able to pay the mortgage or rent on time? No 03/19/2024 In the past 12 months, how m any times have you moved where you were living? 1 03/19/2024 At any time in the past 12 m [facility], were you homeless or living in a fpc (including now)? No 03/19/2024 Personal Safety Answer Date Recorded Have you ever been in or are you currently in a harmful physical or emotional relationship or is someone making you feel afraid or unsafe? Denies 03/18/2024 Comments No Sex and Gender Information Value Date Recorded Sex Assigned at Not on file Legal Sex Female 3:38 AM [employer] Gender Identity Female 04/07/2020 7:32 PM CDT Sexual Orientation Straight 04/07/2020 7: 32 PM CDT Last Filed Vital Signs Vital Sign Reading Time Taken Comments Blood Pressure 163/67 03/19/2024 12:07 PM CDT Pulse 61 03/19/2024 8:00 AM CDT Temperature 36.3 C (97.3 F) 03/19/2024 4:50 AM CDT Respiratory Rate 16 03/19/2024 12:07 PM CDT Oxygen Saturation 94% 03/19/2024 12:07 PM CDT Inhaled Oxygen Concentration - - Weight 105.2 kg (232 lb) 03/18/2024 4:09 PM CDT Height 172.7 cm (5' 7.99 ) 03/18/2024 4:09 PM CD T Body Mass Index 35.28 03/18/2024 4:09 PM CDT Plan of Treatment Not on file Medical Devices Implanted Type Area Tax Services Manager Device Identifier Shelf Expiration Date Model / Serial / Lot [employer] System Closure Repair Femoral Artery Suture Mediated Perclose Prostyle 38473-70 - [id number] Implanted:Qty: 1 on 03/18/2024 by Ryne Hoffman MD at [facility] [employer] 12/22/2025 [id number] / / [id number] [employer] Closure Repair Femoral Artery Suture Mediated Perclose Prostyle 76604-15 - [id number] Implanted:Qty: 1 on 03/18/2024 by Ryne Hoffman MD at [facility] [employer] 12/22/2025 [id number] / / [id number] [id number] Valve Aortic Trnscath Shaggy 3 Ultra Resilia 23mm [id number] - [id number] - [id number] Implanted:Qty: 1 on 03/18/2024 by Ryne Hoffman MD at [facility] [employer] 04/11/2026 [id number] / [id number] / [employer] System Closure Repair Femoral Artery Suture Mediated Perclose Prostyle 90590-06 - [id number] Implanted:Qty: 1 on 03/18/2024 by Ryne Hoffman MD at [facility] [employer] 12/22/2025 [id number] / / [id number] Procedures Procedure Name Priority Date/Time Associated Diagnosis Comments LIPID PANEL Routine 03/19/2024 9:27 PM CDT EGFR Routine 03/19/2024 5:00 AM CDT HEMOGLOBIN A1C Routine 03/11/2024 9:42 AM CDT Pre-operative exam Type 2 diabetes mellitus with other specified complication, without long-term current use of insulin (HCC) from Last 3 Months or Most Recently Relevant to Health Maintenance Results * Lipid Panel (03/19/2024 9:27 PM CDT) us Historical Provider LAB BLOOD ORDERABLES Jeannie l Result EXTERNAL LAB * (ABNORMAL) eGFR (03/19/2024 5:00 AM CDT) eGFR 44(L) >=60 mL/min/1. 73 m2 Comment: Interpretive Data Reference Interval Normal >/= 90 mL/min/1.73m2 Mildly decreased* 60 - 89 mL/min/1.73m2 Mildly to moderately decreased 45 - 59 mL/min/1.73m2 Moderately to severely decreased 30 - 44 mL/min/1.73m2 Severely decreased 15 - 29 mL/min/1.73m2 Kidney Failure < 15 mL/min/1.73m2 *Relative to young adult level Estimated glomerular filtration rate is determined by the 2020 CKD-EPI equation recommended by the National Kidney Foundation (A Unifying Approach to GFR Estimation: Recommendations of the NKF-ASK Task Force on Reassessing the Inclusion of Race in Diagnosing Kidney Disease, JASN 2020). The CKD-EPI equation should not be used for patients with unstable renal function and has not been validated in children and those over 70. Current interpretive data was last reviewed 2021. Blood 03/19/2024 5:00 AM CDT 03/19/2024 5:20 AM CDT Ryne Hoffman MD LAB BLOOD ORDERABLES Final Resu lt Performing Organization Address City/[facility]/ZIP Co de Phone Number JACKIE COHEN [id number] [place] [address] * Hemoglobin A1c (03/11/2024 9:42 AM CDT) Hgb A1C 5.3 4.0 - 5.6 % Estimated Average Glucose 105 mg/dL JACKIE COHEN Comment: The ADA recommends reporting an estimated Average Glucose (eAG) with all Hemoglobin A1c results using the equation derived from a study of 507 normal and diabetic adults. Minority populations were underrepresented and children were not included. (Diabetes Care 31:8768-2435, 2008). The eAG is not equivalent to a fasting glucose. Blood 03/11/2024 9:42 AM CDT 03/11/2024 9:45 AM CDT Ryne Hoffman MD LAB BLOOD ORDERABLES Final Resu lt JACKIE COHEN [id number] Department [place] [address] from Last 3 Months or Most Recently Relevant to Health Maintenance Insurance [employer] MED[employer]ARE SOLUTIONS IDPA MEDICARE Responsys MEDICARE SOLUTIONS IDPA Advance Directives For more information, please contact: [phone] Healthcare Agents on File Name Relationship Healthcare Agent Relationshi p Communication Brenda Kelechi Sister Health Care Agent Care Teams Customer Marketing Assistant Relationship Specialty Start Date End Date Anders Kendrick MD PCP - General Emergency Medicine 01/01/19 Ryne Hoffman MD [address] [place] [address] Consulting Physician Interventional Cardiology 03/19/24
--- OUTSIDE RECORDS SUMMARY | 2024-11-02 10:56 | XMS_ITS | CONTINUITY OF CARE DOCUMENT ---
Author Name rancho, rancho Address Unknown Organization [facility] Address [address] [place] [address] Phone [phone] Care Team Providers Care Motion Picture Actor Name Role Phone Alonzo Zaragoza MD Unavailable JOHANNA MADERA MD Unavailable [phone] JOHANNA MADERA MD Unavailable [phone] PROBLEMS Condition Status Date Provider Notes ANGINA PECTORIS completed - Khanh Chaudhari MD HTN ESSENTIAL - 09/03 RENAL DUP NEG active Silverio Hess Hypercholesterolemia, mixed active Khanh Chaudhari MD OBESITY active ? Khanh Chaudhari MD SLEEP APNEA active Khanh Chaudhari MD CHEST PAIN-08/06 NUC NEG active ? 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 Symptoms significantly better and she is very happy. CVA active Alonzo Zaragoza MD Diastolic heart failure, chronic active Alonzo Zaragoza MD ENCOUNTERS Date Type Provider Location Encounter Diag nosis 5 - 5 In-person encounter Office Visit Alonzo Zaragoza MD [place] [facility] 7 - 7 In-person encounter Office Visit Ryne Hoffman MD [facility] Aortic stenosis s/p 23 S3 Reselia 9 - 0 In-person encounter Office Visit Alonzo Zaragoza MD [place] [facility] 6 - 6 In-person encounter Office Visit Alonzo Zaragoza MD [place] [facility] 3 - 3 In-person encounter Office Visit Alonzo Zaragoza MD [place] [facility] 4 - 5 In-person encounter Office Visit Alonzo Zaragoza MD [place] [facility] 6 - 8 In-person encounter Office Visit Alonzo Zaragoza MD [place] [facility] 5 - 5 In-person encounter Office Visit Alonzo Zaragoza MD [place] [facility] Diastolic heart failure, chronic 6 - 6 In-person encounter Office Visit Alonzo Zaragoza MD [place] [facility] 0 - 0 In-person encounter Office Visit Alonzo Zaragoza MD [place] [facility] CVA 9 - 1 In-person encounter Office Visit Alonzo Zaragoza MD [place] [facility] 1 - 3 In-person encounter Office Visit Khanh Chaudhari MD [place] [facility] Aortic stenosis s/p 23 S3 Reselia 0 - 2 In-person encounter Office Visit Khanh Chaudhari MD [place] [facility] ANGINA PECTORISHTN ESSENTIAL - 09/03 RENAL DUP NEGHypercholesterolemia, mixedRENAL ARTERY STENOSIS-09/03 KATHERYN DUP NEGShortness of breathPalpitationsHypothyroidism 5 - 2 In-person encounter Office Visit Khanh Chaudhari MD [facility] 0 - 1 In-person encounter Office Visit Khanh Chaudhari MD [facility] 5 - 5 In-person encounter Office Visit Khanh Chaudhari MD [facility] 8 - 4 In-person encounter Office Visit Khanh Chaudhari MD [place] [facility] 0 - 1 In-person encounter Office Visit Khanh Chaudhari MD [place] [facility] 3 - 4 In-person encounter Office Visit Khanh Chaudhari MD [place] [facility] HTN ESSENTIAL - 09/03 RENAL DUP NEGCHEST PAIN-08/06 NUC NEG 1 - 4 In-person encounter Office Visit Khanh Chaudhari MD [facility] 7 - 7 In-person encounter Office Visit Khanh Chaudhari MD [facility] 1 - 1 In-person encounter Office Visit Khanh Chaudhari MD [facility] DIABETES MELLITUS, TYPE II, CONTROLLED 2 - 2 In-person encounter Office Visit Khanh Chaudhari MD [facility] 8 - 8 In-person encounter Office Visit Khanh Chaudhari MD [facility] SLEEP APNEACHEST PAIN-08/06 NUC NEG 9 - 9 In-person encounter Office Visit Khanh Chaudhari MD [facility] HTN ESSENTIAL - 09/03 RENAL DUP NEGHypercholesterolemia, mixedOBESITY VITAL SIGNS Date Observation Value Provider Body Mass Index (Ratio) 33.81 kg/m2 Claudy Zaragoza MD blood pressure, diastolic 95 mm[Hg] Elena Lamb blood pressure, systolic 153 mm[Hg] Cristela Lamb oxygen saturation, oximetry 96 % Tiffany Lamb respiratory rate E&M 12 /min Tiffany Lamb pulse rate 54 /min Tiffany Lamb weight E&M 229 [lb_av] Tiffany Lamb height E&M 69 [in_i] Tiffany Lamb blood pressure, cuff size regular Elena alva Adonis Body Mass Index (Ratio) 35.14 kg/m2 David Hoffman MD blood pressure, cuff size large Ke virginiai Leetomjimmy blood pressure, diastolic 70 mm[Hg] Ke rri Katrinajimmy blood pressure, systolic 116 mm[Hg] Mor ri Debbie oxygen saturation, oximetry 97 % Jina Debbie respiratory rate E&M 16 /min Jina Larissa [facility] pulse rate 70 /min Jina Alex [facility] weight E&M 238 [lb_av] Jina Alex height E&M 69 [in_i] Jina Alex Body Mass Index (Ratio) 34.99 kg/m2 Claudy Zaragoza MD blood pressure, diastolic 91 mm[Hg] Ja rret blood pressure, systolic 158 mm[Hg] Jar ret pulse rate 57 /min Eric ergabriella y blood pressure, cuff size regular Ja rret respiratory rate E&M 14 /min Eric oxygen saturation, oximetry 96 % Eric weight E&M 237 [lb_av] Eric da y height E&M 69 [in_i] Eric erda y Body Mass Index (Ratio) 34.55 kg/m2 Claudy Zaragoza MD blood pressure, cuff size regular Ja rret blood pressure, diastolic 88 mm[Hg] Ja rret blood pressure, systolic 143 mm[Hg] Jar ret pulse rate 61 /min Eric y oxygen saturation, oximetry 94 % Eric respiratory rate E&M 16 /min Eric weight E&M 234 [lb_av] Eric y height E&M 69 [in_i] Eric y Body Mass Index (Ratio) 35.59 kg/m2 Claudy Zaragoza MD blood pressure, cuff size regular rret blood pressure, diastolic 94 mm[Hg] Ja rret blood pressure, systolic 180 mm[Hg] Jar ret pulse rate 64 /min Eric oxygen saturation, oximetry 96 % Eric respiratory rate E&M 12 /min Eric weight E&M 241 [lb_av] Eric height E&M 69 [in_i] Eric y Body Mass Index (Ratio) 36.32 kg/m2 Claudy Zaragoza MD blood pressure, diastolic 95 mm[Hg] Jigna nkLog blood pressure, systolic 182 mm[Hg] Laura kLogic blood pressure, cuff size regular rret blood pressure, diastolic 95 mm[Hg] Ja rret blood pressure, systolic 182 mm[Hg] Jar ret pulse rate 58 /min Eric y oxygen saturation, oximetry 94 % Eric respiratory rate E&M 16 /min Eric weight E&M 246 [lb_av] Eric y height E&M 69 [in_i] Eric y Body Mass Index (Ratio) 37.06 kg/m2 Claudy Zaragoza MD blood pressure, diastolic 97 mm[Hg] St shasta Howell blood pressure, systolic 167 mm[Hg] Vasile sage Howell oxygen saturation, oximetry 68 % Tejalsage Howell pulse rate 92 /min Tejalsage Howell respiratory rate E&M 18 /min Tejal lee weight E&M 251 [lb_av] Tejalsage Howell height E&M 69 [in_i] Tejalsage Howell Body Mass Index (Ratio) 34.70 kg/m2 Claudy Zaragoza MD blood pressure, diastolic 86 mm[Hg] St shasta Howell blood pressure, systolic 172 mm[Hg] Vasile Howell oxygen saturation, oximetry 95 % Tejal Howell pulse rate 70 /min Tejal Howell weight E&M 235 [lb_av] Tejalsage Howell respiratory rate E&M 16 /min Tejal lee height E&M 69 [in_i] Tejal Howell Body Mass Index (Ratio) 37.80 kg/m2 Claudy Zaragoza MD blood pressure, cuff size large Ia benjamín [place] blood pressure, diastolic 76 mm[Hg] Ia benjamín [place] blood pressure, systolic 130 mm[Hg] [facility] [place] oxygen saturation, oximetry 99 % Gaby [place] pulse rate 69 /min Gaby low respiratory rate E&M 16 /min Padma [place] weight E&M 256 [lb_av] Gaby low height E&M 69 [in_i] Gaby low Body Mass Index (Ratio) 38.10 kg/m2 Claudy Zaragoza MD blood pressure, cuff size regular Cy brenna Dias blood pressure, diastolic 80 mm[Hg] Cy brenna Dias blood pressure, systolic 144 mm[Hg] April Dias oxygen saturation, oximetry 94 % Edelmira Dias respiratory rate E&M 16 /min Edelmira Dias pulse rate 63 /min Edelmira tiwari weight E&M 258 [lb_av] Edelmira Suoth l height E&M 69 [in_i] Edelmira tiwari Body Mass Index (Ratio) 37.80 kg/m2 Claudy Zaragoza MD blood pressure, diastolic 80 mm[Hg] Jigna nkLogodalys blood pressure, systolic 130 mm[Hg] Laura kLog blood pressure, resting No Dorian carmen Krzysztof blood pressure, diastolic 80 mm[Hg] jeremy Blankenship blood pressure, systolic 130 mm[Hg] She [facility] Blankenship pulse rate 82 /min Rigo Obdulia aquino oxygen saturation, oximetry 95 % Rigo Blankenship respiratory rate E&M 18 /min Shirley fernández Krzysztof weight E&M 256 [lb_av] Rigo Obdulia aquino height E&M 69 [in_i] Rigo Steiner aquino Body Mass Index (Ratio) 37.51 kg/m2 Suleiman Hess blood pressure, diastolic, left arm 70 mm [Hg] blood pressure, systolic, left arm 130 mm [Hg] blood pressure, diastolic, right arm 60 m m[Hg] Trueam blood pressure, systolic, right arm 138 m m[Hg] True blood pressure, diastolic 60 mm[Hg] Ki ll blood pressure, systolic 138 mm[Hg] Salvador lorenzo Keller oxygen saturation, oximetry 97 % [place] Keller respiratory rate E&M 16 /min True Keller pulse rate 69 /min [place] weight E&M 254 [lb_av] [place] Keller height E&M 69 [in_i] [facility] Body Mass Index (Ratio) 37.95 kg/m2 Suleiman ruiz [facility] blood pressure, resting Yes [facility] blood pressure, cuff size large Ke rri [facility] blood pressure, diastolic 85 mm[Hg] Ke rri [facility] blood pressure, systolic 160 mm[Hg] Mor zackery Galomethodist [facility] oxygen saturation, oximetry 98 % Jina Debbie respiratory rate E&M 20 /min Jina G lesleymethodist [facility] pulse rate 88 /min Jina Johnson [facility] weight E&M 257 [lb_av] Jina Johnson [facility] height E&M 69 [in_i] Jina Johnson [facility] pulse rate #2 82 [facility] blood pressure, yarbrough tolic, second observation 90 mm[Hg] [facility] blood pressure, syst olic, second observation 132 mm[Hg] [facility] oxygen saturation, oximetry 97 % [facility] pulse rate 88 /min [facility] blood pressure, diastolic 92 mm[Hg] Vi ctoria blood pressure, systolic 129 mm[Hg] Florencio benson [facility] pulse rate #2 79 [facility] blood pressure, yarbrough tolic, second observation 92 mm[Hg] [facility] blood pressure, syst olic, second observation 164 mm[Hg] [facility] oxygen saturation, oximetry 98 % Josseline Tebid pulse rate 85 /min Josseline Tebid blood pressure, diastolic 96 mm[Hg] Vi ctoria Tebid blood pressure, systolic 172 mm[Hg] Florencio kelley Tebid pulse rate #2 79 Josseline Tebid blood pressure, yarbrough tolic, second observation 83 mm[Hg] Josseline Tebid blood pressure, syst olic, second observation 167 mm[Hg] Josseline Tebid oxygen saturation, oximetry 98 % Jsoseline Tebid pulse rate 79 /min Josseline Tebid blood pressure, diastolic 83 mm[Hg] Vi ctoria Tebid blood pressure, systolic 167 mm[Hg] Florencio kelley Tebid pulse rate #2 71 [place] Tebid blood pressure, yarbrough tolic, second observation 82 mm[Hg] Josseline Tebid blood pressure, syst olic, second observation 137 mm[Hg] Josseline Tebid oxygen saturation, oximetry 98 % Josseline Tebid pulse rate 76 /min Josseline Tebid blood pressure, diastolic 85 mm[Hg] Vi ctoria Tebid blood pressure, systolic 144 mm[Hg] Florencio kelley Tebid pulse rate #2 67 [place] Tebid blood pressure, yarbrough tolic, second observation 88 mm[Hg] Josseline Tebid blood pressure, syst olic, second observation 166 mm[Hg] Josseline Tebid oxygen saturation, oximetry 98 % Josseline Tebid pulse rate 79 /min [place] Tebid blood pressure, diastolic 91 mm[Hg] Vi ctoria Tebid blood pressure, systolic 173 mm[Hg] Florencio kelley Tebid pulse rate #2 66 [place] Tebid blood pressure, yarbrough tolic, second observation 85 mm[Hg] [facility], syst olic, second observation 155 mm[Hg] [facility], oximetry 98 % Josseline pulse rate 65 /min Jenks d blood pressure, diastolic 82 mm[Hg] Vi [facility] Tebid blood pressure, systolic 184 mm[Hg] Florencio kelley Tebid pulse rate #2 70 [facility] blood pressure, yarbrough tolic, second observation 91 mm[Hg] [facility] blood pressure, syst olic, second observation 142 mm[Hg] [facility] oxygen saturation, oximetry 98 % [facility] pulse rate 75 /min [facility] blood pressure, diastolic 108 mm[Hg] Vi [facility] Ted blood pressure, systolic 170 mm[Hg] Florencio kelley Tebid pulse rate #2 61 [place] blood pressure, yarbrough tolic, second observation 92 mm[Hg] [facility] blood [facility], syst olic, second observation 161 mm[Hg] [facility] oxygen saturation, oximetry 97 % [place] pulse rate 65 /min [facility] blood pressure, diastolic 95 mm[Hg] Vi [facility] Tebid blood pressure, systolic 160 mm[Hg] Florencio kelley Tebid blood pressure, diastolic 90 mm[Hg] Ke rri Debbie blood pressure, systolic 160 mm[Hg] Mor Lewis pulse rate 69 /min Jina zuleta oxygen saturation, oximetry 97 % Jina Lewis respiratory rate E&M 16 /min Jina corea Body Mass Index (Ratio) 41.05 kg/m2 Nataliya Lewis weight E&M 278 [lb_av] Jina Johnson song Body Mass Index (Ratio) 39.72 kg/m2 Anea migue [facility] blood pressure, diastolic, left arm 98 mm [Hg] Aneatris [facility] blood pressure, systolic, left arm 155 mm [Hg] Aneatris [facility] blood pressure, diastolic, right arm 104 mm[Hg] Aneatris [facility] blood pressure, systolic, right arm 182 m m[Hg] Aneatris [facility] blood pressure, diastolic 98 mm[Hg] An eatris [facility] blood pressure, systolic 155 mm[Hg] Ane atris [facility] pulse rate 82 /[facility] oxygen saturation, oximetry 98 % [facility] respiratory rate E&M 18 /[facility] weight E&M 269 [lb_av] [facility] Body Mass Index (Ratio) 39.87 kg/m2 [facility] blood pressure, diastolic 89 mm[Hg] An mauricioris [facility] blood pressure, systolic 150 mm[Hg] Ane atris [facility] pulse rate 81 /min [facility] oxygen saturation, oximetry 97 % [facility] respiratory rate E&M 18 /[facility] weight E&M 270 [lb_av] [facility] Body Mass Index (Ratio) 40.75 kg/m2 Dorian Khanna CORRECTIONAL COUNSELOR weight E&M 276 [lb_av] Joyce Khanna NP blood pressure, diastolic, left arm 100 m m[Hg] Brindanatalie Servin blood pressure, systolic, left arm 204 mm [Hg] Brinda Servin blood pressure, diastolic, right arm 102 mm[Hg] Brinda Servin blood pressure, systolic, right arm 199 m m[Hg] Brinda Servin Body Mass Index (Ratio) 41.20 kg/m2 Jenny redd Servin blood pressure, diastolic 100 mm[Hg] Me rose Servin blood pressure, systolic 204 mm[Hg] Arianne estrada Servin pulse rate 80 /min Brinda Servin oxygen saturation, oximetry 96 % Brinda Servin respiratory rate E&M 16 /min Brinda Servin weight E&M 279 [lb_av] Brinda Servin blood pressure, diastolic 96 mm[Hg] Mason Duke RN blood pressure, systolic 177 mm[Hg] Carlos Duke RN pulse rate 84 /min Carlos Duke RN oxygen saturation, oximetry 96 % Carlos Chavarriasergo PAYNE respiratory rate E&M 16 /min Carlos Delia june RN Body Mass Index (Ratio) 42.09 kg/m2 Carlos Duke RN weight E&M 284 [lb_av] Carlos Duke RN Body Mass Index (Ratio) 40.96 kg/m2 Kwame joel Pepe blood pressure, diastolic, left arm 89 mm [Hg] Ramos Pepe blood pressure, systolic, left arm 162 mm [Hg] Ramos Pepe blood pressure, diastolic, right arm 105 mm[Hg] Ramos Pepe blood pressure, systolic, right arm 170 m m[Hg] Ramos Pepe blood pressure, diastolic 89 mm[Hg] Phipps Pepe blood pressure, systolic 162 mm[Hg] Dangelo rachel Pepe pulse rate 79 /min Ramos Pepe oxygen saturation, oximetry 97 % Ramos Pepe respiratory rate E&M 16 /min Ramos Pepe weight E&M 276.38 [lb_av] Ramos vieyra orthostatic blood pr essure, sitting, left arm, diastolic 88 [place] orthostatic blood pr essure, sitting, left arm, systolic 134 [place] orthostatic blood pr essure, sitting, right arm, diastolic 88 [facility] ess[facility], sitting, right arm, systolic 148 [facility] oxygen [facility], oximetry 93 % [facility] respiratory rate E&M 20 /min [place] pulse rate 91 /min [facility] height E&M 69 [in_i] [facility] height in centimeters E&M 175.26 cm Bhumika duron [facility] blood pressure, diastolic 96 mm[Hg] Adam Lewis blood pressure, systolic 173 mm[Hg] Mor Lewis pulse rate 65 /min Jina zuleta oxygen saturation, oximetry 96 % Jina Lewis respiratory rate E&M 16 /min Jina corea weight E&M 286.2 [lb_av] Jina smith JNC systolic blood pressure goal 130 m m/[Hg] Lacretia Derian HUGHES Body Mass Index (Ratio) 44.31 kg/m2 Lacr etia Menard CORRECTIONAL COUNSELOR weight E&M 299 [lb_av] Lacretia Jignesh s [employer]RECTIONAL COUNSELOR height E&M 69 [in_i] Lacretia Jignesh s [employer]RECTIONAL COUNSELOR pulse rate 70 /min Lacretia Jignesh s CORRECTIONAL COUNSELOR blood pressure, cuff size large La deondre Derian CORRECTIONAL COUNSELOR blood pressure, diastolic 100 mm[Hg] La cretia Derian CORRECTIONAL COUNSELOR blood pressure, systolic 150 mm[Hg] Lac retia Derian CORRECTIONAL COUNSELOR blood pressure, diastolic, left arm 83 mm [Hg] Carlos Duke RN blood pressure, systolic, left arm 153 mm [Hg] Carlos Duke RN blood pressure, diastolic, right arm 87 m m[Hg] Carlos Duke RN blood pressure, systolic, right arm 166 m m[Hg] Carlos Duke RN blood pressure, diastolic 83 mm[Hg] Mason Duke RN blood pressure, systolic 153 mm[Hg] Carlos Leilani RN pulse rate 69 /min Carlos Chavarrias RN oxygen saturation, oximetry 96 % Carlos Leilani RN respiratory rate E&M 18 /min Carlos june RN weight E&M 293 [lb_av] Carlos Duke RN blood pressure, diastolic, left arm 92 mm [Hg] [place] blood pressure, systolic, left arm 152 mm [Hg] [place] blood pressure, diastolic, right arm 92 m m[Hg] [place] blood pressure, systolic, right arm 156 m m[Hg] [place] blood pressure, diastolic 92 mm[Hg] Bhumika seph [place] blood pressure, systolic 156 mm[Hg] Chris eph [place] pulse rate 69 /min [place] oxygen saturation, oximetry 97 % [place] respiratory rate E&M 20 /min [place] weight E&M 284 [lb_av] [place] oxygen saturation, oximetry 97 % Carlos Duke RN blood pressure, diastolic, left arm 72 mm [Hg] Gail Jon blood pressure, systolic, left arm 136 mm [Hg] Gail Jon blood pressure, diastolic, right arm 72 m m[Hg] Gail Jon blood pressure, systolic, right arm 148 m m[Hg] Gail Jon blood pressure, diastolic 72 mm[Hg] Ca julio Jon blood pressure, systolic 136 mm[Hg] Keagan Jon pulse rate 70 /min Gail Jon respiratory rate E&M 20 /min Gail kemp weight E&M 269 [lb_av] Gail Danay ALLERGIES Allergy Name Onset Date Reaction Criticality Status MORPHINE Low Criticality active CODEINE Low Criticality active PENICILLIN Low Criticality active RESULTS Date Observation Value Provider Reference Range Interpretation Location lipoprotein, beta, serum, point, quantitative, calculated 113 mg/dL LinkLog[facility] 0-99 High HDL cholesterol, serum 54 mg/dL [facility] >39 triglyceride, serum, random 123 mg/dL [facility] 0-149 cholesterol, serum 189 mg/dL [facility] [phone]/11 /07 pro brain natriuretic peptide 191 pg/mL [facility] 0-301 alanine aminotransferase (SGPT), serum 19 1/L [facility] 0-32 aspartate aminotransferase (SGOT), serum 18 1/L [facility] 0-40 alkaline phosphatase, serum 47 1/L [facility] 44-121 bilirubin, serum, total 0.4 mg/dL [facility] 0.0-1.2 globulin, serum 2.7 [facility] 1.5-4.5 albumin, serum 4.1 g/dL [facility] 3.9-4.9 protein, total, serum 6.8 g/dL [facility] 6.0-8.5 calcium, serum 9.7 mg/dL [facility] 8.7-10.3 carbon dioxide, venous blood 25 mmol/L [facility] 20-29 chloride, serum 103 mmol/L [facility] 96-106 potassium, serum 4.4 mmol/L [facility] 3.5-5.2 sodium, serum 140 mmol/L [facility] [phone]/11 /07 urea nitrogen/creatinine ratio, serum 14 [facility] 12-28 creatinine, serum 1.38 mg/dL [facility] 0.57-1.00 High urea nitrogen, blood 20 mg/dL [facility] 8-27 blood glucose, random 97 mg/dL [facility] 70-99 hemoglobin A1C, blood, as % of total hemoglobin 5.8 % [facility] 4.8-5.6 High Estimated Glomerular Filtration Rate (calc) 38 mL/min/{ 1.73_m2} [facility] >=60 Low C, [place] [address] NT-pro BNP 135 [facility] <=300 Normal C, [place] [address] aspartate aminotransferase (SGOT), serum 22 1/L [facility] 10-45 Normal C, [place] [address] alanine aminotransferase (SGPT), serum 16 1/L [facility] 7-45 Normal C, [place] [address] Alkaline phosphatase 45 [facility] 40-130 Normal C, [place] [address] albumin, serum 4.2 g/dL [facility] 3.5-5.0 Normal C, [place] [id number] protein, total, serum 7.3 g/dL [facility] 6.5-8.5 Normal C, [place] [address] bilirubin, serum, total 0.6 mg/dL [facility] 0.1-1.2 Normal C, [place] [address] calcium, serum 9.6 mg/dL [facility] 8.5-10.3 Normal C, [place] [address] blood glucose, random 93 mg/dL [facility] 70-199 Normal C, [place] [address] creatine, serum 1.48 mg/dL [facility] 0.60-1.10 High C, [place] [address] urea nitrogen, blood 15 mg/dL [facility] 6-25 Normal C, [place] [address] anion gap, serum 11 mmol/L [facility] 2-15 Normal C, [place] [address] carbon dioxide, venous blood 25 mmol/L [facility] 22-32 Normal C, [place] [address] chloride, serum 105 mmol/L [facility] 97-110 Normal C, [place] [address] potassium, serum 4.0 MMOL/L [facility] 3.3-4.9 Normal C, [place] [address] sodium, serum 141 mmol/L [facility] 135-145 Normal C, [place] [address] activated partial thromboplastin time (aPTT) 33 s [facility] 28-38 Normal C, [place] [address] international normalized ratio (INR) 0.98 [facility] 0.90-1.20 Normal C, [place] [address] prothrombin time (patient) 11.2 s [facility] 10.3-13.7 Normal C, [place] [address] Absolute Basophils 0.0 K/CUMM [facility] 0.0-0.1 Normal C, [place] [address] Absolute Monocytes 0.7 K/CUMM [facility] 0.2-0.8 Normal , [place] [address] Absolute Lymphocytes 2.3 K/CUMM [facility] 0.8-3.3 Normal C, [place] [address] Absolute Neutrophils 2.9 K/CUMM [facility] 1.5-6.5 Normal C, [place] [address] nucleated red blood cells as percent of blood leukocytes 0.00 K/CUMM [facility] 0.00-0.01 Normal red blood cell distribution width, size density 48.1 fL [facility] 35.7-48.1 Normal mean corpuscular hemoglobin concentration, RBC 32.0 G/DL [facility] 32.3-35.7 Low mean corpuscular hemoglobin, RBC 29.1 pg [facility] 27.1-33.3 Normal mean corpuscular volume, RBC 91.1 fL [facility] 81.3-96.4 Normal erythrocyte count, whole blood 4.70 M/CUMM [facility] 3.90-5.20 Normal mean platelet volume 10.9 fL [facility] 9.1-12.3 Normal platelet count 224 10*3/uL [facility] 150-400 Normal hematocrit, blood 42.8 % [facility] 35.6-45.5 Normal hemoglobin, blood 13.7 g/dL [facility] 11.9-15.5 Normal platelet count 235 10*3/mm3 [facility] [place] hematocrit, blood 40.7 % [facility] [place] creatinine, serum 1.24 mg/dL [facility] [place] potassium, serum 3.9 mmol/L [facility] [place] sodium, serum 142 mmol/L [facility] anion gap, serum 12.1 [facility] [place] estimated glomerular filtration rate 51 mL/min [facility] [place] potassium, serum 3.1 mmol/L [facility] calcium, serum 9.1 mg/dL [facility] blood glucose, fasting 104 mg/dL [facility] creatinine, serum 1.16 mg/dL [facility] urea nitrogen, blood 16.5 mg/dL [facility] carbon dioxide, serum, total 29 mmol/L [facility] chloride, serum 104 mmol/L Ofelia Yun sodium, serum 141 mmol/L Ofelia Yun platelet count 216 10*3/uL [facility] red blood cell distribution width 13.8 % Ofelia Yun mean corpuscular hemoglobin concentration, RBC 32.8 g/dL Ofelia Yun mean corpuscular hemoglobin, RBC 28.8 pg Ofelia Yun mean corpuscular volume, RBC 97.9 fL Ofelia Yun hematocrit, blood 38.4 % Ofelia Yun hemoglobin, blood 12.6 g/dL Ofelia Yun erythrocyte (RBC) count 4.37 10*6/mm3 Ofelia Yun monocytes as percent of blood leukocytes 9.6 % Ofelia Yun lymphocytes as percent of blood leukocytes 37.7 % Ofelia Yun leukocyte count, blood 6.9 10*3/mm3 Ofelia Yun HISTORY OF MEDICATION USE Medication Status Instructions Dates Provider Indications Com ments nystatin 100,000 unit/gram cream active APPLY TO AFFECTED AREA TWICE A DAY 10/23 Tiffany Lamb aspirin 81 mg tablet,delayed release (DR/EC) active Take 1 Tablet (81 mg) by mouth daily. 04/01 Beny Mosher NP clopidogrel 75 mg tablet active TAKE ONE TABLET BY MOUTH DAILY Diflucan 100 mg tablet completed 1 tablet once a day 01/07 - 04/01 Beny Mosher NP nystatin 100,000 unit/gram cream completed Apply to affected areas twice daily 01/07 - 04/01ret Jardiance 10 mg tablet active Take 1 tablet by mouth once a day 11/06 Disha Hopeulicadelaide 0.75 mg/0.5 mL pen injector active INJECT THE CONTENTS OF 1 PEN UNDER THE SKIN ONCE WEEKLY 10/23 Tiffany Lamb fenofibrate 160 mg tablet active Take 1 tablet by mouth once a day 10/30 Alonzo Ramadan MD Trulicity 0.75 mg/0.5 mL pen injector completed INJECT THE CONTENTS OF 1 PEN (0.75MG) UNDER THE SKIN ONCE WEEKLY - 10[facility]23 [facility] mg/0.5 mL pen injector completed INJECT 0.75MG UNDER THE SKIN ONCE WEEKLY 03/23 - Eric Duque carvedilol 12.5 mg tablet active TAKE 1 TABLET BY MOUTH TWICE A DAY 02/06 [facility] 0.75 mg/0.5 mL pen injector completed INJECT THE CONTENTS OF 1 PEN UNDER THE SKIN ONCE WEEKLY 09/30 - 03/23 Faiza Arias Trulicity 0.75 mg/0.5 mL pen injector completed INJECT CONTENTS OF 1 PEN SUBCUTANEOUSLY ONCE A WEEK 01/11 - 09/30 Marah Villagran Trulicity 0.75 mg/0.5 mL pen injector completed INJECT 1 PEN SUBCUTANEOUSLY ONCE A WEEK - 01/11 Alexandra Sotelo Trulicity 0.75 mg/0.5 mL pen injector completed Inject 1 pen injector subcutaneously once a week 05/03 - Alonzo Zaragoza MD Cymbalta 20 mg capsule,delayed release(DR/EC) active capsule by mouth once a day 03/22 Alonzo Zaragoza MD losartan 100 mg tablet active Take 1 tablet by mouth once a day 03/22 Alonzo Zaragoza MD nifedipine 30 mg tablet extended release active 1 tablet by mouth once a day 03/22 Alonzo Zaragoza MD diclofenac sodium 75 mg tablet,delayed release (DR/EC) active tablet by mouth twice a day 03/22 Alonzo Zaragoza MD pantoprazole 40 mg tablet,delayed release (DR/EC) active tablet by mouth once a day 03/22 Alonzo Zaragoza MD carvedilol 6.25 mg tablet completed 1 tablet by mouth twice a day 03/22 - 02/06 Alonzo Zaragoza MD Latuda 40 mg tablet active 1 tablet by mouth every night 03/22 Alonzo Zaragoza MD divalproex 125 mg capsule, delayed rel sprinkle completed 4 capsule by mouth twice a day - 11/06 Eric Duque LISINOPRIL 20 MG ORAL TABLET completed 1 tab daily - 03/22 Alonzo Zaragoza MD atorvastatin 40 mg tablet active 1 tablet by mouth every night Edelmira Dias TIMOLOL MALEATE 0.5 % OPHTHALMIC GEL FORMING SOLUTION completed as directed 11/13 - True Keller QUETIAPINE FUMARATE 50 MG ORAL TABLET completed take one pill at bedtime - True Keller LITHIUM CARBONATE 300 MG ORAL CAPSULE completed take one pill twice a day 11/13 - True Keller LORAZEPAM 0.5 MG ORAL TABLET completed take 2 pills a day 11/13 - True Keller DIOVAN HCT 160-12.5 MG ORAL TABLET completed One tab daily 12/21 - 04/12 Jina Lewis ALLOPURINOL 300 MG ORAL TABLET completed take one pill a day 11/13 - 03/22 Alonzo Zaragoza MD LAMICTAL ODT 200 MG ORAL TABLET DISINTEGRATING completed take one pill at bedtime 11/13 - True Keller COZAAR 100 MG ORAL TABLET completed ONE TAB. DAILY 03/20 - Ramos Pepe TESSALON 200 MG CAPS completed one pill every 8 hours when needed 03/20 - Ramos Pepe VENTOLIN HFA 108 (90 BASE) MCG/ACT INHALATION AEROSOL SOLUTION completed 2 puffs a day when needed 03/20 - 04/12 Jina Lewis AMLODIPINE BESYLATE 10 MG ORAL TABLET completed One tablet daily - 03/22 Alonzo Zaragoza MD HYDROCHLOROTHIAZIDE 25 MG ORAL TABLET completed ONE TAB DAILY 11/05 - Ramos Pepe VENLAFAXINE HCL ER 150 MG ORAL TABLET EXTENDED RELEASE 24 HOUR completed take one pill a day 11/13 - True Keller GEODON CAPSULE completed 2 tabs daily - 04/12 Jina Lewis CRESTOR 40 MG ORAL TABLET completed ONE TAB. DAILY - Ramos Pepe COREG 25 MG ORAL TABLET completed ONE TAB. TWICE DAILY 03/20 - Ramos Pepe VITAMIN D 41433 IU TABS (CHOLECALCIFEROL TABS) completed 1 ON SUNDAY - 04/12 Aneatris Brown PER MED LIST VISTARIL 50 MG ORAL CAPSULE completed TWICE DAILY - 04/12 Aneatris Brown PER MED LIST FLUTICASONE PROPIONATE NASAL SPRAY 50 MG completed DIRECTED - Ramos Pepe ADVAIR DISKUS 100-50 MCG/DOSE INHALATION AEROSOL POWDER BREATH ACTIVATED completed 1 puff twice daily - 04/12 Jina Lewis per med list levothyroxine 112 mcg tablet active 1 tablet by mouth once a day 01/02 Alonzo Zaragoza MD per med list ABILIFY 20 MG ORAL TABLET completed one tablet once daily - 04/12 [place] INDOMETHACIN 50 MG ORAL CAPSULE completed 1 every 8 hours as needed - Ramos Pepe trazodone 100 mg tablet active 1 tablet by mouth every night Edelmira Dias per med list CELEXA 40 MG ORAL TABLET completed 1 TAB. DAILY - 04/12 Aneatris Brown per med list METFORMIN HCL 1000 MG ORAL TABLET completed 1 tablet by mouth twice daily - 04/12 Jina Lewis per med list OMEPRAZOLE 20 MG ORAL CAPSULE DELAYED RELEASE completed Two tabs daily - 04/12 Aneatris Brown per med list SOCIAL HISTORY Date Observation Value Provider personal history of marijuana use yes Alonzo Zaragoza MD drug use no Alonzo Low alcohol use no Alonzo Low passive cigarette sm pattie exposure no Alonzo Zaragoza MD smoking status Never smoker Alonzo Zaragoza MD personal history of marijuana use yes Beny Bauerreri CORRECTIONAL COUNSELOR drug use no Beny Bonareri CORRECTIONAL COUNSELOR alcohol use no Beny Bonareri CORRECTIONAL COUNSELOR passive cigarette sm pattie exposure no Beny Bonareri CORRECTIONAL COUNSELOR smoking status Never smoker Beny Reynoldsr i CORRECTIONAL COUNSELOR personal history of marijuana use yes Alonzo Zaragoza MD drug use no Alonzo Low alcohol use no Alonzo Low passive cigarette sm pattie exposure no Alonzo Zaragoza MD smoking status Never smoker Alonzo Zaragoza MD personal history of marijuana use yes Disha Ventimiglia [facility] drug use no Disha Ventimig arnol [facility] alcohol use no Disha Ventimig arnol [facility] passive cigarette sm pattie exposure no Disha Ventimiglia [facility] smoking status Never smoker Disha Ventim iglia [facility] social history reviewed E&M revi ewed - no changes required Alonzo Zaragoza MD social history E&M Marital Statu s: Single L pennie alone E thnicity: R egular Exercise - no Smoking History: P franco has never smoked. Alonzo Zaragoza MD social history reviewed E&M revi ewed - no changes required Alonzo Zaragoza MD exercise type chores Tejal Howell physical exercise, frequency, days per week 3 /wk Tejal Howell caffeine use, averag e drinks per day 0 /d Tejal Howell passive cigarette sm pattie exposure no Tejal Howell smoking status Never smoker eTjal Howell social history E&M Marital Statu s: Single L pennie alone E thnicity: R egular Exercise - no Smoking History: P franco has never smoked. Alonzo Zaragoza MD social history reviewed E&M revi ewed - no changes required Alonzo Zaragoza MD exercise type chores Tejal Dante physical exercise, frequency, days per week 3 /wk Tejal Dante caffeine use, averag e drinks per day 0 /d Tejal Dante passive cigarette sm pattie exposure no Tejal Dante smoking status Never smoker Tejal Dante social history E&M Marital Statu s: Single L pennie alone E thnicity: R egular Exercise - no Smoking History: P franco has never smoked. Alonzo Zaragoza MD social history reviewed E&M revi ewed - no changes required Alonzo Zaragoza MD exercise type chores Gaby Sandie nd physical exercise, frequency, days per week 3 /wk Gaby Washington caffeine use, averag e drinks per day 0 /d Gaby [place] passive cigarette sm pattie exposure no Gaby Felix smoking status Never smoker Gaby Husam gaston social history E&M Marital Statu s: Single L pennie alone E thnicity: R egular Exercise - no Smoking History: P franco has never smoked. Alonzo Zaragoza MD social history reviewed E&M revi ewed - no changes required Alonzo Zaragoza MD exercise type chores Edelmira aiken physical exercise, frequency, days per week 3 /wk Edelmira Dias caffeine use, averag e drinks per day 0 /d Edelmira Dias passive cigarette sm pattie exposure no Edelmira Dias smoking status Never smoker Edelmira padilla social history E&M Marital Statu s: Single L pennie alone E thnicity: R egular Exercise - no Smoking History: P atient has never smoked. Alonzo Zaragoza MD social history reviewed E&M revi ewed - no changes required Alonzo Zaragoza MD exercise type chores Rigo pereabronte physical exercise, frequency, days per week 3 /wk Sherkeitha Blankenship caffeine use, averag e drinks per day 0 /d Sherkeitha Blankenship passive cigarette sm pattie exposure no Sheradamitha Blankenship smoking status Never smoker Rigo Barraza [facility] social history reviewed E&M revi ewed - no changes required Khanh Chaudhari MD number of grandchildren Khanh Chaudhari MD [facility] exercise type chores [facility] physical exercise, frequency, days per week 3 /wk [place] Keller alcohol use no [place] Keller caffeine use, averag e drinks per day 0 /d True Keller drug use no [place] Keller passive cigarette sm pattie exposure no [place] Keller smoking status Never smoker True Lo m exercise type chores Ольга Culclager physical exercise, frequency, days per week 3 /wk Ольга Culclager caffeine use, averag e drinks per day 0 /d Ольга Culclager smoking status Never smoker Ольга Culclage r social history reviewed E&M revi ewed - no changes required Silverio Hess social history E&M Marital Statu s: Single L pennie alone E thnicity: R egular Exercise - no Smoking History: P atmichael has never smoked. Silverio Hess smoking status Never smoker Jina osorio social history reviewed E&M revi ewed - no changes required Khanh Chaudhari MD alcohol use no Jina Galonatalya zuleta smoking status Never smoker Jina Chung devon physical exercise, frequency, days per week no Archana Blunt caffeine use, averag e drinks per day no Archana Blunt drug use no Archana Blunt passive cigarette sm pattie exposure no Archana Blunt smoking status Never smoker Archana Blunt social history reviewed E&M revi ewed - no changes required Archana Blunt social history E&M Marital Statu s: Single L pennie alone E thnicity: R egular Exercise - no Smoking History: Marisela franco has never smoked. Joyce Khanna NP smoking status Never smoker Joyce Leonidas tiwari NP social history reviewed E&M revi ewed - no changes required Archana Blunt physical exercise, frequency, days per week no Brinda Servin caffeine use, averag e drinks per day no Brinda Servin drug use no Brinda Steinerann passive cigarette sm pattie exposure no Brinda Servin smoking status Never smoker Brinda Quan alberto social history reviewed E&M reviewed Carlos Duke RN social history reviewed E&M reviewed Khanh Chaudhari MD drug use no Ramos Pepe passive cigarette sm pattie exposure no Ramos Pepe smoking status never smoker Ramos vieyra drug use none Khanh Chaudhari MD social history reviewed E&M reviewed Khanh Chaudhari MD smoking status never Lorna Ayers els, NP social history reviewed E&M reviewed Lorna Menard NP smoking status Non-Smoker Carlos Duke RN social history reviewed E&M reviewed Carlos Duke RN social history E&M Marital Statu s: Single L pennie alone E thnicity: Carlos Duke RN social history reviewed E&M reviewed Carlos Duke RN physical exercise, frequency, days per week no [employer] caffeine use, averag e drinks per day no [employer] physical exercise, frequency, days per week no [employer] caffeine use, averag e drinks per day no [employer] MENTAL STATUS Date Observation Value Provider energy level yes Josseline Tebid energy level yes Josseline Tebid energy level yes Josseline Tebid energy level yes Josseline Tebid energy level yes Josseline Tebid energy level no Josseline Tebid energy level no Josseline Tebid energy level no Josseline Tebid assessment of judgme nt and insight E&M Alert and oriented to time, place and person. Mood and affect are normal. Carlos Duke RN assessment of judgme nt and insight E&M Alert and oriented to time, place and person. Mood and affect are normal. Khanh Chaudhari MD assessment of judgme nt and insight E&M Alert and oriented to time, place and person. Mood and affect are normal. Khanh Chaudhari MD assessment of judgme nt and insight E&M Alert and oriented to time, place and person. Mood and affect are normal. Lorna Menard NP assessment of judgme nt and insight E&M Alert and oriented to time, place and person. Mood and affect are normal. Carlos Duke RN assessment of judgme nt and insight E&M Alert and oriented to time, place and person. Mood and affect are normal. Khanh Chaudhari MD assessment of judgme nt and insight E&M Alert and oriented to time, place and person. Mood and affect are normal. Carlos Duke RN FAMILY HISTORY Family Member Condition Mother Family History of Ot her Medical Problems Mother Family History of Co ronary Artery Disease: Father Family History of Hy pertension: Father Family History of Di abetes: Father Family History of Co ronary Artery Disease: INSURANCE PROVIDERS Payer name Policy type / Coverage type [place] red libertarian ID [id number] COMPLETE CARE [id number] (PPO C-SNP) [employer] insurance [employer] [id number] [facility] Medicaid 0 [id number] ADVANCE DIRECTIVES Name Date DISCUSSED - NO DECISION MADE TREATMENT PLAN Date Name Performer [id number],S, Alonzo dominguez MD [id number],S, Alonzo dominguez MD [id number],S, Alonzo dominguez MD [id number],S, Alonzo dominguez MD [id number],S, Alonzo dominguez MD [id number],W,N ow severe. Will need R/L cath and then likely TAVR. Area 0.8 by ECHO, was 1.3 a year ago. Alonzo Zaragoza MD [id number],S,T he patient is using CPAP on a regular basis. The patient has been benefiting from therapy and should continue use. Alonzo Zaragoza MD [id number],S, Alonzo dominguez MD [id number],S, Alonzo dominguez MD [id number],S, Alonzo dominguez MD [id number],S, Alonzo dominguez MD [id number],S,Recheck ECHO in 6 months Alonzo Zaragoza MD [id number],S, Alonzo dominguez MD [id number],C,T he patient is using CPAP on a regular basis. The patient has been benefiting from therapy and should continue use. Alonzo Zaragoza MD [id number],S, Alonzo dominguez MD [id number],B, Alonzo dominguez MD [id number],S, Alonzo dominguez MD [id number],S, Alonzo dominguez MD [id number],C,Check PFTs Ra french Zaragoza MD [id number],S, Alonzo dominguez MD [id number],C,T he patient is using CPAP on a regular basis. The patient has been benefiting from therapy and should continue use. Alonzo Zaragoza MD [id number],S, Alonzo dominguez MD [id number],S, Alonzo dominguez MD [id number],B, Alonzo dominguez MD [id number],C,V tye mild. Follow with yearly ECHO Alonzo Zaragoza MD [id number],S, Alonzo dominguez MD [id number],B, Alonzo dominguez MD [id number],S,[facility]. Alonzo Zaragoza MD [id number],S, Alonzo dominguez MD [id number],S,M oderate by ECHO. F/U ECHO in 1 year. Alonzo Zaragoza MD [id number],S,N ever received CPAP. Will do split night study. Alonzo Zaragoza MD [id number],S, Alonzo dominguez MD [id number],S,Stress test a nd ECHO Alonzo Zaragoza MD [id number],B, Alonzo dominguez MD [id number],S,Check ECHO Ra french Zaragoza MD Cardiology:Did not t ana meds today. BP running normal at home. Alonzo Zaragoza MD Cardiology: H er updated medication list for this problem includes: Aspirin 81 Mg Tablet,delayed Release (dr/ec) (Aspirin) ..... Take 1 tablet (81 mg) by mouth daily. Trulicity 0.75 Mg/0.5 Ml Pen Injector (Dulaglutide) ..... Inject the contents of 1 pen under the skin once weekly Jardiance 10 Mg Tablet (Empagliflozin) ..... Take 1 tablet by mouth once a day Losartan 100 Mg Tablet (Losartan) ..... Take 1 tablet by mouth once a day Alonzo Zaragoza MD Cardiology Alonzo Zaragoza MD Cardiology Alonzo Zaragoza MD Cardiology:Will check some labs. Alonzo Zaragoza MD Cardiology:ECHO toda y shows the AVR to be functioning normally and no AI. EF normal. F /U 6 months Alonzo Zaragoza MD Cardiology Ryne Hoffman MD Cardiology Ryne Hoffman MD Cardiology Ryne Hoffman MD Cardiology: H er updated medication list for this problem includes: Aspirin 81 Mg Tablet,delayed Release (dr/ec) (Aspirin) ..... Take 1 tablet (81 mg) by mouth daily. Trulicity 0.75 Mg/0.5 Ml Pen Injector (Dulaglutide) ..... Inject the contents of 1 pen under the skin once weekly Jardiance 10 Mg Tablet (Empagliflozin) ..... Take 1 tablet by mouth once a day Losartan 100 Mg Tablet (Losartan) ..... Take 1 tablet by mouth once a day Beny Mosher NP Cardiology: T he patient is using CPAP on a regular basis. The patient has been benefiting from therapy and should continue use. Beny Mosher NP Cardiology: S /p Successful transfemoral access TAVR with 23 mm Coates sapiens S3 resilient valve. W ill get an echo in 6 months to follow up. Beny Mosher NP Cardiology: B P today: 158/91 P rior BP: 143/88 (01/08/2024) Her updated medication list for this problem includes: Aspirin 81 Mg Tablet,delayed Release (dr/ec) (Aspirin) ..... Take 1 tablet (81 mg) by mouth daily. Carvedilol 12.5 Mg Tablet (Carvedilol) ..... Take 1 tablet by mouth twice a day Losartan 100 Mg Tablet (Losartan) ..... Take 1 tablet by mouth once a day Nifedipine 30 Mg Tablet Extended Release (Nifedipine) ..... 1 tablet by mouth once a day Beny Mosher NP Cardiology: c linically appears compensated Beny Mosher NP Cardiology Alonzo Zaragoza MD Cardiology Alonzo Zaragoza MD Cardiology Alonzo Zaragoza MD Cardiology Alonzo Zaragoza MD Cardiology:Needs TAVR Alonzo andrea MD Cardiology:Triglycer ides 425 last check L DL DNR o n fenofibrate and statin at this time W ill update lipids H er updated medication list for this problem includes: Fenofibrate 160 Mg Tablet (Fenofibrate) ..... Take 1 tablet by mouth once a day Atorvastatin 40 Mg Tablet (Atorvastatin) ..... 1 tablet by mouth every night Dishatracy Olivas [facility] Cardiology: H er updated medication list for this problem includes: Trulicity 0.75 Mg/0.5 Ml Pen Injector (Dulaglutide) ..... Inject the contents of 1 pen under the skin once weekly Losartan 100 Mg Tablet (Losartan) ..... Take 1 tablet by mouth once a day [place] Brendon [facility] Cardiology:The patie nt is using CPAP on a regular basis. The patient has been benefiting from therapy and should continue use. [facility] Cardiology:BP elevat ed today reports well controlled at home w ill have her bring recording readings to next visit a [place] Schneideridance and monitor H er updated medication list for this problem includes: Carvedilol 12.5 Mg Tablet (Carvedilol) ..... Take 1 tablet by mouth twice a day Losartan 100 Mg Tablet (Losartan) ..... Take 1 tablet by mouth once a day Nifedipine 30 Mg Tablet Extended Release (Nifedipine) ..... 1 tablet by mouth once a day Dishatracy Caseyjuan m [facility] Cardiology:mod-moder ately severe based on recent cath h er JAVAN was 1.[address] talked with TAVR coordinator and given her severity of her symptoms will begin work up for possible replacement Dishatracy Caseyjuan m [facility] Cardiology:she has c ontinued SOB that limits activity H as been progressive over the last couple of weeks S he had LHC 09/15 that showed normal coronaries and mod-severe w ill update labs to look for any volume overload a dd Jardiance d/t her continued SOB and diastolic dysfunction H er updated medication list for this problem includes: Carvedilol 12.5 Mg Tablet (Carvedilol) ..... Take 1 tablet by mouth twice a day Losartan 100 Mg Tablet (Losartan) ..... Take 1 tablet by mouth once a day Nifedipine 30 Mg Tablet Extended Release (Nifedipine) ..... 1 tablet by mouth once a day Dishatracy Olivas [facility] Cardiology Alonzo Zaragoza MD Cardiology Alonzo Zaragoza MD Cardiology Alonzo Zaragoza MD Cardiology Alonzo Zaragoza MD Cardiology Alonzo Zaragoza MD Cardiology:Now sever e. Will need R/L cath and then likely TAVR. Area 0.8 by ECHO, was 1.3 a year ago. Alonzo Zaragoza MD Cardiology:The patie nt is using CPAP on a regular basis. The patient has been benefiting from therapy and should continue use. Alonzo Zaragoza MD Cardiology Alonzo Zaragoza MD Cardiology Alonzo Zaragoza MD Cardiology Alonzo Zaragoza MD Cardiology Alonzo Zaragoza MD Cardiology:Recheck ECHO in 6 mon ths Alonzo Zaragoza MD Cardiology Alonzo Zaragoza MD Cardiology:The patie nt is using CPAP on a regular basis. The patient has been benefiting from therapy and should continue use. Alonzo Zaragoza MD Cardiology Alonzo Zaragoza MD Cardiology Alonzo Zaragoza MD Cardiology Alonzo Zaragoza MD Cardiology Alonzo Zaragoza MD Cardiology:Check PFTs Alonzo andrea MD Cardiology Alonzo Zaragoza MD Cardiology:The patie nt is using CPAP on a regular basis. The patient has been benefiting from therapy and should continue use. Alonzo Zaragoza MD Cardiology Alonzo Zaragoza MD Cardiology Alonzo Zaragoza MD Cardiology Alonzo Zaragoza MD Cardiology:Very mild. Follow wit h yearly ECHO Alonzo Zaragoza MD Cardiology follow up Alonzo vieyra MD Cardiology follow up Alonzo vieyra MD Cardiology follow up :Start Trulicity for weight loss and DM. Alonzo Zaragoza MD Cardiology follow up Alonzo vieyra MD Cardiology follow up :Moderate by ECHO. F/U ECHO in 1 year. Alonzo Zaragoza MD Cardiology:Never rec eived CPAP. Will do split night study. Alonzo Zaragoza MD Cardiology Alonzo Zaragoza MD Cardiology:Stress test and ECHO Alonzo Zaragoza MD Cardiology Alonzo Zaragoza MD Cardiology:Check ECHO Alonzo andrea MD Cardiology:BP today: 138/60 P rior BP: 160/85 (09/12/2017) Her updated medication list for this problem includes: Lisinopril 20 Mg Oral Tablet (Lisinopril) ..... 1 tab daily Amlodipine Besylate 10 Mg Oral Tablet (Amlodipine besylate) ..... One tablet daily Silverio Hess Cardiology:Orders: C omplete Echo (CPT-54202) Silverio Deshawn Cardiology:Referred to pulmonary clinic. Silverio Deshawn Cardiology Follow up :BP today: 160/85 P rior BP: 129/92 (09/02/2015) Her updated medication list for this problem includes: Amlodipine Besylate 10 Mg Oral Tablet (Amlodipine besylate) ..... One tablet daily Khanh Chaudhari MD Cardiology Follow up :She states thyroid function was checked by PMD and was normal. Khanh Chaudhari MD Cardiology Follow up :Orders: S leep Study Titration (CPT-02721) Khanh Chaudhari MD Cardiology Follow up :Orders: M obile Cardiac Tele (CPT-39137) Khanh Chaudhari MD Cardiology Follow up :Orders: S NOMED-CT: [id number] Current Medications Documented ([id number]) E KG (CPT-13985) C omplete Echo (CPT-04746) S TR - Nuclear (CPT-90045) Khanh Chaudhari MD Cardiology Follow up :Orders: S NOMED-CT: [id number] Current Medications Documented (SCT-[id number]) E KG (CPT-44788) C omplete Echo (CPT-77242) S TR - Nuclear (CPT-02090) Khanh Chaudhari MD Cardiology Follow up (LF) Khanh Chaudhari MD Cardiology Follow up (LF):BP today: 160/90 P rior BP: 155/98 (12/21/2014) Khanh Chaudhari MD Cardiology Follow up (LF):Myoview scan was negative. She continues to have chest tightness. That may be caused by microvascular angina. We will try ECP treatment. This patient has angina (defined as chest pain, chest discomfort, or pain in arms, neck, jaw, shoulder, or back, and may include symptoms of shortness of breath, fatigue, dizziness, nausea, or diaphoresis) of [place] Cardiovascular Society Class III (defined as symptoms with everyday living activities, i.e. moderate limitation) or [place] Cardiovascular Society Class IV (defined as inability to perform any activity without angina or angina at rest, i.e. severe limitation). This patient?s angina is disabling and in my opinion is not readily amenable to surgical intervention by PTCA or cardiac bypass because the patient's coronary anatomy is not readily amenable to such procedures. Khanh Chaudhari MD HTN visit:BP at goal today. She does have a 2/6 GENIE that has not been previously mentioned. Will assess with echo. Continue current medications for BP. H er updated medication list for this problem includes: Norvasc 10 Mg Tabs (Amlodipine besylate) ..... One tab. daily Joyce Khanna CORRECTIONAL COUNSELOR Date Name COMPREHENSIVE METABO LIC PANEL, W/EGFR HEMOGLOBIN A1c LIPID PANEL PROBNP, N TERMINAL Complete Echo Complete Echo LIPID PANEL PROBNP, N TERMINAL BASIC METABOLIC PANE L W/EGFR CT Angio, abdomen an d pelvis CT Angio Chest (Aort a) CT Cardiac with cont rast (Pre-Ablation) PROTHROMBIN TIME WIT H INR LIPID PANEL CBC (INCLUDES DIFF/P LT) BASIC METABOLIC PANE L W/EGFR CRP, high sensitivit y HEMOGLOBIN A1c LIPID PANEL PROBNP, N TERMINAL Complete Echo DLCO - 80670 FRC - 21805 FVC - 90746 PROBNP, N TERMINAL BASIC METABOLIC PANE L W/EGFR LIPID PANEL Complete Echo Sleep Study - split night Stress Regadenoson Complete Echo Complete Echo Sleep Study Titratio n Mobile Cardiac Tele STR - Nuclear Complete Echo ECP - Medicare STR - Nuclear Complete Echo STR - Nuclear Renal Artery Duplex Complete Echo Stress Test - Nuclea r HISTORY OF PROCEDURES Procedure Date Procedure Name Provider Procedure Notes S tatus Complex e/m visit add on Alonzo Zaragoza MD completed Complex e/m visit add on Ryne Hoffman MD completed EKG Alonzo Zaragoza MD complete d EKG Alonzo Zaragoza MD complete d EKG Khanh Chaudhari MD completed Stress EKG Alonzo Zaragoza MD complete d Regadenoson, 4 units Khanh Chaudhari MD completed Cardiolite, 2 units Khanh Chaudhari MD c ompleted SPECT Images Tavon Monaco MD complet ed Event Monitor Khanh Chaudhari MD complet ed SNOMED-CT: 99459635 Physical Exam, Performed: Pulse Exam of Foot Khanh Chaudhari MD completed EKG Khanh Chaudhari MD completed SNOMED-CT: [id number] [id number] Current Medications Documented Khanh Chaudhari MD completed SNOMED-CT: [id number] Smoking Cessation Counseling Khanh Chaudhari MD completed SNOMED-CT: 86650527 Physical Exam, Performed: Pulse Exam of Foot Khanh Chaudhari MD completed SNOMED-CT: 517201751 424425 Current Medications Documented Khanh Chaudhari MD completed EKG Khanh Chaudhari MD completed EKG Khanh Chaudhari MD completed EKG Khanh Chaudhari MD completed ePrescribe - Check t his box if eRx is used Khanh Chaudhari MD completed EKG Khanh Chaudhari MD completed
--- OUTSIDE RECORDS SUMMARY | 2024-11-02 10:56 | XMS_ITS | Encounter Summary ---
Author Organization [facility] Address [address] [place] [address] Care Team Providers Care Fire Safety Inspector Name Role Phone Miscellaneous, Not In File Primary Care Provider Unavailable Minh Lobato MD Unavailable [phone] Unknown, Notinfile Primary Care Provider Unavail able Anders Kendrick MD Primary Care Provider [phone] Ryne Hoffman MD Unavailable [phone] Encounter Details Date Type Department Care Team (Late st Contact Info) Description 08/23/2010 Orders Only [facility] Health Information Management [address] [place] [address] Scanning, Provider Social History Tobacco Use Types Packs/Day Years Used Date Smoking Tobacco: Never Assessed Comments Unknown Sex and Gender Information Value Date Recorded Sex Assigned at Not on file 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 Gender Identity Female 04/07/2020 7:32 PM CDT Sexual Orientation Straight 04/07/2020 7: 32 PM CDT documented as of this encounter Plan of Treatment Not on file documented as of this encounter Procedures Procedure Name Priority Date/Time Associated Diagnosis Comments CARDIOLOGY DOCUMENT SCAN 08/23/2010 documented in this encounter Results * SCAN - CARDIOLOGY (08/23/2010) Anatomical Region Laterality Modality Other us Provider Scanning CV CARDIAC SERVICES PROCEDURES Final Result documented in this encounter Visit Diagnoses Not on filedocumented in this encounter Care Teams Fire Safety Inspector Relationship Specialty Start Date End Date Miscellaneous, Not In File PCP - General 11/13/16 12/25/18 Unknown, Notinfile PCP - General 12/26/18 12/31/18 Anders Kendrick MD PCP - General Emergency Medicine 01/01/19 Minh Lobato MD Radiation Oncologist Radiation Oncology 04/09/18 4 Ryne Hoffman MD [address] [place] [address] Consulting Physician Interventional Cardiology 03/19/24 documented as of this encounter
--- OUTSIDE RECORDS SUMMARY | 2024-11-02 10:56 | XMS_ITS | Clinical Summary ---
Author Organization [facility] Address [address] [place], [address] [address] Phone Care Team Providers Care Cardboard Inserter Name Role Phone John Street APRN, SHAD Primary Care P roronnieder Social History Tobacco Use Types Packs/Day Years Used Date Smoking Tobacco: Never Assessed Comments Unknown Sex and Gender Information Value Date Recorded Sex Assigned at Not on file Legal Sex Female 10:49 PM CDT Gender Identity Not on file Sexual Orientation Not on file Plan of Treatment Health Maintenance Due Date Last Done Comments DEXA Bone Density 1955 Hepatitis C Virus (HCV) Screening 1955 TdaP Immunization 1955 Colonoscopy 1999 Colorectal Cancer Screening 1999 Cologuard 02/01/2004 Immunochemical Fecal Occult Blood 02/01/2004 Mammogram 02/01/2004 Pneumococcal Immunization (5 0+ years) (1 of 1 - PCV) 02/01/2004 Zoster Immunization (1 of 2) 02/01/2004 Influenza Immunization (#1) 2024 SARS-COV-2 Immunization ( - 2023-25 season) 2024 Respiratory Syncytial Virus (RSV) Immunization (Adult) (1 - 1-dose 75+ series) 2029 Hepatitis B Immunization Aged Out No longer eligible based on patient's age to complete this topic Meningococcal Immunization (ACWY) Aged Out No longer eligible based on patient's age to complete this topic Rotavirus Immunization Aged Out No lo nger eligible based on patient's age to complete this topic Insurance MEDICARE Member Subscriber Plan / Payer (Ef fective for All Dates) Name:Margret Stallings Member ID:[id number] Relation to Subscriber:Self Name:Margret Stallings Subscriber ID:[id number] Payer ID:[id number] Group ID:Not on file Type:Not on file Address: [facility] [address] [employer] - Improved Affordable Healthcare [facility] [place] [address] MEDICAID [place] Care Teams Cardboard Inserter Relationship Specialty Start Date End Date John Street, TRICIA, HOTEL SERVICE SUPERVISOR [address] [place] [address] [place] [address] PCP - General Advanced Practice Nurse 05/01/18
--- OUTSIDE RECORDS SUMMARY | 2024-11-02 10:56 | XMS_ITS | Clinical Summary ---
Author Organization [facility] Address [address] [place] [address] Care Team Providers Care Editing Internship Name Role Phone Anders Kendrick MD Primary Care Provider [phone] Ryne Hoffman MD Unavailable [phone] Allergies Active Allergy Reactions Criticality Noted [...] stenosis, severe 03/04/2024 CHF (congestive heart failure) ([facility]) 024 Pain in both feet 01/22/2024 Dyslipidemia [...] 54 years) - Signed by Tejal Claudio, BAT PERSON on 04/09/2018 Assessment & Plan (01/21/2024 2:50 [...] Resolved Date 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 Surgical History Surgery Date Site/Laterality Comments CA TOTAL ABDOMINAL HYSTERECT W/WO RMVL TUBE OVARY Hysterectomy - (Added by TW Conv) APPENDECTOMY Appendectomy - (Added by TW Conv) THYROIDECTOMY 09/24/2009 - 09/23/2010 Bilateral REPLACEMENT TOTAL KNEE 09/24/2009 - 09/23/2010 Left states during the surgery and went to ICU HYSTERECTOMY 09/24/1981 - 09/23/1982 NECK SURGERY 09/24/1982 - 09/23/1983 neck infusion FLUORO GUIDED ASPIRATION KNE E LEFT CHOLECYSTECTOMY JOINT REPLACEMENT EYE SURGERY STENTS PLACED BOTH EYES OTHER SURGICAL HISTORY 02/27/2024 NAIF Medical History Medical History Date Comments Hypertension Chronic kidney disease STAGE 2 Aortic stenosis Depression Bipolar disorder (HCC) Suicide attempt (HCC) GERD (gastroesophageal reflux disease) Anxiety Arthritis osteoarthritis Cancer (CMS/HCC) (HCC) THYROID Glaucoma Type 2 diabetes mellitus (HCC) Sleep apnea Crohn's disease (CMS/HCC) (HCC) Diverticulosis Diverticulitis Chronic constipation CHF (congestive heart failure) (CMS/HCC) (HCC) Thyroid nodule follicular thyro id carcinoma Hypothyroidism post-op Rectocele OAB (overactive bladder) ADHD (attention deficit hyperactivity disorder) CVA (cerebral vascular accident) (HCC) Diabetic peripheral neuropathy (CMS/HCC) (HCC) Asthma PONV (postoperative nausea and vomiting) Family History Medical History Relation Name Comments Diabetes Father Nuno Stallings Heart disease Father Nuno Stallings Hypertension Father Nuno Stallings defibrillator Father Nuno Stallings Cancer Mother Janell Stallings breast Hypertension Mother Janell Stallings pacemaker Mother Janell Stallings Relation Name Status Comments Father Nuno Stallings Mother Janell Stallings Alive Sister Alive Social History Tobacco Use Types Packs/Day Years Used Date Smoking Tobacco: Never Smokeless Tobacco: Never Tobacco Cessation:Counseling Given: Not Answered Alcohol Use Standard Drinks/Week Comments No 0 (1 standard drink = 0.6 oz pur e alcohol) [facility] Utilities Answer Date Recorded In the past 12 months has [employer] gas, oil, or water [facility] [employer] threatened to shut off services in your [...] often do you attend chur ch or synagogue services? Never 03/19/2024 Do you belong to any clubs o r organizations such as yazidi groups, unions, fraternal or athletic groups, or [...] any time in the past 12 m [facility], were you homeless or living in a longterm (including now)? No 03/19/2024 Personal Safety Answer Date Recorded Have you ever been in or are you currently in a harmful physical or emotional relationship or is someone making you feel afraid or unsafe? 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 Gender Identity Female 04/07/2020 7:32 PM CDT Sexual Orientation Straight 04/07/2020 7: 32 PM CDT Obstetrics History Last Filed Vital Signs Vital Sign Reading [...] 03/18/2024 4:09 PM CDT Plan of Treatment Health Maintenance Due Date Last Done Comments Albumin Creatinine Ratio, Urine 1954 Breast Cancer Screening-Mammogram 1954 Colon Cancer Screening-Colonoscopy 1954 Depression Screening 1954 Hepatitis C Screening 1954 Osteoporosis Screening-Bone Density Scan 1954 Dilated Eye Exam 1954 Foot Exam 1954 Pneumococcal vaccine 65+ (1 of 2 - PCV) 02/01/1960 DTaP/Tdap/Td Vaccine (1 - Tdap) 1965 Hepatitis B Screening 02/01/1972 Zoster Vaccine (2 of 3) 09/19/2017 07/25/2017 Well Visit 65+ 2019 Influenza Vaccine (#1) 2024 9, 07/25/2017, 07/28/2015, Additional history exists Hemoglobin A1C 09/10/2024 03/11/2024 Fall Risk Assessment 03/19/2025 03/19/2024 Lipid Panel 03/19/2025 03/19/2024, 02/22, 02/25/2019 eGFR 03/19/2025 03/19/2024, 03/11/2024 Medical Devices Implanted Type Area Airdrop Systems Technician Device Identifier Shelf Expiration Date Model / Serial / Lot [employer] System Closure Repair Femoral Artery Suture Mediated Perclose Prostyle 58528-96 - [id number] Implanted:Qty: 1 on 03/18/2024 by Ryne Hoffman MD at [facility] [employer] 12/22/2025 [id number] / / [id number] [employer] System Closure Repair Femoral Artery Suture Mediated Perclose Prostyle 69420-37 - [id number] Implanted:Qty: 1 on 03/18/2024 by Ryne Hoffman MD at [facility] [employer] 12/22/2025 [id number] / / [id number] [id number] Valve Aortic Trnscath Shaggy 3 Ultra Resilia 23mm [id number] - [id number] - [id number] Implanted:Qty: 1 on 03/18/2024 by Ryne Hoffman MD at [facility] [employer] 04/11/2026 [id number] / [id number] / [employer] System Closure Repair Femoral Artery Suture Mediated Perclose Prostyle 31205-34 - [id number] Implanted:Qty: 1 on 03/18/2024 by Ryne Hoffman MD at [facility] [employer] 12/22/2025 [id number] / / [id number] Procedures Procedure Name Priority Date/Time Associated Diagnosis [...] * Lipid Panel (03/19/2024 9:27 PM CDT) Historical Provider LAB BLOOD ORDERABLES Jeannie l Result Performing Organization Address City/[facility] Co de Phone Number EXTERNAL LAB * (ABNORMAL) eGFR (03/19/2024 5:00 [...] ORDERABLES Final Resu lt Performing Organization Address City/[facility]/ZIP Co de Phone Number JACKIE COHEN [address] Department [place] [address] * Hemoglobin A1c (03/11/2024 9:42 AM CDT) Hgb A1C 5.3 4.0 - 5.6 % Estimated Average Glucose 105 mg/dL JACKIE COHEN Comment: The ADA recommends reporting an estimated Average Glucose (eAG) with all Hemoglobin A1c results using the equation derived from a study of 507 normal and diabetic adults. Minority populations were underrepresented and children were not included. (Diabetes Care 31:7275-7676, 2008). The eAG is not equivalent to a fasting glucose. Blood 03/11/2024 9:42 AM CDT 03/11/2024 9:45 AM CDT us Ryne Hoffman MD LAB BLOOD ORDERABLES Final Resu lt JACKIE [address] Department [place] [address] from Last 3 Months or Most Recently Relevant to Health Maintenance Insurance [employer] MEDICARE SOLUTIONS [employer] MEDICARE SOLUTIONS MEDICARE [employer] [facility] Advance Directives For more information, please contact: [phone] Healthcare Agents on File Name Relationship Healthcare Agent Relationshi p Communication Brenda Kelechi Sister Health Care Agent Care Teams Editing Internship Relationship Specialty Start Date End Date Anders Kendrick MD PCP - General Emergency Medicine 01/01/19 Ryne Hoffman MD [address] [place] [address] Consulting Physician Interventional Cardiology 03/19/24
--- OUTSIDE RECORDS SUMMARY | 2024-11-02 10:56 | XMS_ITS | Referral Summary ---
Author Organization [facility] [employer] Address [address] [place] [address] Care Team Providers Care Order Runner Name Role Phone Anders Kendrick MD Primary Care Provider Source Comments [facility],non-owned Affiliates and Associated Physician Practices is amultiple site organization consisting of ambulatory clinics and hospital sitesin [place], [place], [place] and [place]. This disclosure is being madepursuant to the Care Everywhere program and may not contain all information available regarding this patient. Last updated 18.[facility] [employer] Allergies Active Allergy Reactions Criticality Noted Date Comments Adhesive Sensitivity Itching 05/02/2018 Transparent tape causes a rash Ampicillin Itching,Rash Medium 03/17/2016 Codeine Nausea and/or Vomiting Low 03/17/2016 Codeine Nausea and/or Vomiting 02/06/2017 Penicillins Itching,Rash Medium 03/17/2016 Hydrocodone-Acetaminoph en Itching High 12/11/2018 Medications * Be aware that medications may not be up to date on this document. Alwaysverify current medications with the patient. Medication Sig Dispensed Refills Start Date End Date Status levothyroxine (SYNTHROID) 137 MCG tablet Take 1 tablet by mouth every morning 30 tablet 3 03/23/2018 Active traZODone (DESYREL) 100 MG tablet TAKE 1 TABLET BY MOUTH EVERYDAY AT BEDTIME 30 tablet 1 04/28/2020 Active carvedilol (COREG) 6.25 MG tablet Take 2 (two) tablets by mouth 2 times daily with morning and evening meal 04/11/2020 Active DULoxetine (Cymbalta) 20 MG capsule Take 1 (one) capsule by mouth once daily 02/19/2023 Active losartan (Cozaar) 100 MG tablet Take 1 (one) tablet by mouth once daily 08/14/2022 Active NIFEdipine CR 24hr (Adalat CC) 30 MG tablet Take 1 (one) tablet by mouth daily before breakfast Active rosuvastatin (Crestor) 40 MG tablet Take 1 (one) tablet by mouth once daily 10/28/2022 Active lurasidone (Latuda) 40 MG tablet Take 1 (one) tablet by mouth 11/23/2021 Active Biotin 5000 MCG Take 1 (one) capsule by mouth once daily Active allopurinol (Zyloprim) 100 MG tablet Take 1 (one) tablet by mouth once daily 07/25/2022 Active mirabegron ER 24hr (Myrbetriq) 50 MG tablet Take 1 (one) tablet by mouth once daily 30 tablet 2 04/06/2023 Active Active Problems Problem Noted Date Diagnosed Date Chest pain 10/07/2020 Hypertensive disorder 10/07/2020 Hip pain 10/07/2020 Knee pain 10/07/2020 Osteoarthrosis 10/07/2020 Thyroid cancer 04/02/2019 Overview (10/07/2020): Last Assessment & Plan: Patient reports having labs drawn last week to check biochemical markers including thyroid tumor markers. Will follow-up lab results. 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 Overactive bladder 07/16/2018 Cerebrovascular accident (CVA) 03/17/2018 Follicular carcinoma of thyroid gland 02/06/2017 Urge incontinence 03/17/2016 Rectocele 03/17/2016 Myofascial pain 03/17/2016 Morbid obesity with BMI of 40.0-44.9, adult 02/23 Female stress incontinence 03/17/2016 Hypothyroidism 01/03/2012 Resolved Problems Problem Noted Date Diagnosed Date Resolved Date Major depressive disorder, r ecurrent severe without psychotic features 05/02/2018 07/22/2018 Current episode of major dep ressive disorder without prior episode 05/01/2018 07/22/2018 Social History Tobacco Use Types Packs/Day Years Used Date Smoking Tobacco: Never Smokeless Tobacco: Never Alcohol Use Standard Drinks/Week Comments No 0 (1 standard drink = 0.6 oz pur e alcohol) Sex and Gender Information Value Date Recorded Sex Assigned at Not on file Gender Identity Female 05/01/2018 5:09 PM CDT Sexual Orientation Not on file Last Filed Vital Signs Vital Sign Reading Time Taken Comments Blood Pressure 169/80 04/06/2023 11:09 AM CDT Pulse 58 04/06/2023 11:09 AM CDT Temperature 36.6 C (97.9 F) 04/06/2023 11:09 AM CDT Respiratory Rate 20 05/14/2020 3:17 AM CDT Oxygen Saturation 98% 04/06/2023 11:09 AM CDT Inhaled Oxygen Concentration - - Weight 111.1 kg (245 lb) 04/06/2023 11:09 AM CDT Height 172.7 cm (5' 8 ) 04/06/2023 11:09 AM CDT Body Mass Index 37.25 04/06/2023 11:09 AM CDT Functional Status Functional Status Response Date of Assess ment Is person deaf or have serious hearing difficult y? No 05/02/2018 Is person blind or have serious difficulty seein g? No 05/02/2018 Does person have serious dif ficulty walking/climbing stairs? No 05/02/2018 Does person have difficulty dressing/bathing? No 05/02/2018 Does person have difficulty doing errands alone? No 05/02/2018 Cognitive Status Response Date of Assessm ent Does person have difficulty concentrating/remembering/making decisions? No 05/02/2018 Plan of Treatment Not on file Procedures Procedure Name Priority Date/Time Associated Diagnosis Comments COMPREHENSIVE METABOLIC PANEL STAT 05/14/2020 1:16 AM CDT from Last 3 Months or Most Recently Relevant to Health Maintenance Results * (ABNORMAL) COMPREHENSIVE METABOLIC PANEL (05/14/2020 1:16 AM CDT) BUN 16 7 - 26 mg/dL 05/14/2020 1:51 AM CDT [facility] Creatinine 1.0 0.6 - 1.2 mg/dL 05/14/2020 1:51 AM [facility] Sodium 139 136 - 145 mmol/L 05/14/2020 1:51 AM [facility] Potassium 3.7 3.5 - 4.5 mmol/L 05/14/2020 1:51 AM [facility] Chloride 100 98 - 107 mmol/L 05/14/2020 1:51 AM [facility] CO2 25 22 - 29 mmol/L 05/14/2020 1:51 AM [facility] Glucose 106 70 - 115 mg/dL 05/14/2020 1:51 AM [facility] Calcium 9.2 8.4 - 10.2 mg/dL 05/14/2020 1:51 AM [facility] Protein Total 7.3 6.0 - 8.3 g/dL 05/14/2020 1:51 AM [facility] Albumin 3.9 3.4 - 5.0 g/dL 05/14/2020 1:51 AM [facility] Bilirubin Total 0.6 0.2 - 1.2 mg/dL 05/14/2020 1:51 AM [facility] Alkaline Phosphatase 98 40 - 150 Units/L 05/14/2020 1:51 AM [facility] ALT 13 0 - 55 Units/L 05/14/2020 1:51 AM [facility] AST 15 5 - 34 Units/L 05/14/2020 1:51 AM [facility] Anion Gap 18 8 - 18 05/14/2020 1:51 AM [facility] BUN/Creatinine Ratio 16 7 - 23 05/14/2020 1:51 AM [facility] Osmolality Calculated 290 270 - 300 mOsm/kg 05/14/2020 1:51 AM [facility] Albumin/Globulin Ratio 1.1 1.1 - 2.3 05/14/2020 1:51 AM [facility] eGFR 55(L) >60 mL/min/1.7 3 m2 05/14/2020 1:51 AM [facility] Blood BLOOD SPECIMEN / Unknown Venipuncture / Unknown 05/14/2020 1:16 AM T 05/14/2020 1:30 AM CDT Ismael Shepherd MD LAB - CHEMISTRY MILDRED Daugherty Organization Address City/State/ZIP Co de Phone Number [address] [address], [facility] [phone] from Last 3 Months or Most Recently Relevant to Health Maintenance Advance Directives * Full Code (Latest Code Status on File) Date Activated Date Inactivated Comments 05/02/2018 4:55 AM 05/02/2018 1:16 PM * Full Code Date Activated Date Inactivated Comments 05/02/2018 2:19 AM 05/02/2018 4:55 AM * Full Code Date Activated Date Inactivated Comments 03/17/2018 1:23 AM 03/22/2018 4:01 PM Care Teams Order Runner Relationship Specialty Start Date End Date Anders Kendrick MD [address] [address] [facility] - General 05/21/18
--- OUTSIDE RECORDS SUMMARY | 2024-11-02 10:56 | XMS_ITS | Patient Health Summary ---
Author Organization [facility] Address [address] [place] [address] Care Team Providers Care Testing Specialist Name Role Phone Anders Kendrick MD Primary Care Provider [phone] Note from [facility],non-owned Affiliates and Associated Physician Practices is amultiple site organization consisting of ambulatory clinics and hospital sitesin [place], [place], [place] and [place]. This disclosure is being madepursuant to the Care Everywhere program and may not contain all information available regarding this patient. Last updated 18.[facility] Allergies * Adhesive Sensitivity(Itching) * Ampicillin(Itching,Rash) -Medium Criticality * Codeine(Nausea and/or Vomiting) -Low Criticality * Codeine(Nausea and/or Vomiting) * Penicillins(Itching,Rash) -Medium Criticality * Hydrocodone-Acetaminophen(Itching) -High Criticality Medications * Be aware that medications may not be up to date on this document. Alwaysverify current medications with the patient. * levothyroxine (SYNTHROID) 137 MCG tablet(Started 03/23/2018) Take 1 tablet by mouth every morning 3 refills remaining * traZODone (DESYREL) 100 MG tablet(Started 04/28/2020) TAKE 1 TABLET BY MOUTH EVERYDAY AT BEDTIME 1 refill by 04/28/2021 * carvedilol (COREG) 6.25 MG tablet(Started 04/11/2020) Take 2 (two) tablets by mouth 2 times daily with morning and evening meal * DULoxetine (Cymbalta) 20 MG capsule(Started 02/19/2023) Take 1 (one) capsule by mouth once daily * losartan (Cozaar) 100 MG tablet(Started 08/14/2022) Take 1 (one) tablet by mouth once daily * NIFEdipine CR 24hr (Adalat CC) 30 MG tablet Take 1 (one) tablet by mouth daily before breakfast * rosuvastatin (Crestor) 40 MG tablet(Started 10/28/2022) Take 1 (one) tablet by mouth once daily * lurasidone (Latuda) 40 MG tablet(Started 11/23/2021) Take 1 (one) tablet by mouth * Biotin 5000 MCG Take 1 (one) capsule by mouth once daily * allopurinol (Zyloprim) 100 MG tablet(Started 07/25/2022) Take 1 (one) tablet by mouth once daily * mirabegron ER 24hr (Myrbetriq) 50 MG tablet(Started 04/06/2023) Take 1 (one) tablet by mouth once daily 2 refills by 04/05/2024 Active Problems Problem Noted Date Diagnosed Date Chest pain 10/07/2020 Hypertensive disorder 10/07/2020 Hip pain 10/07/2020 Knee pain 10/07/2020 Osteoarthrosis 10/07/2020 Thyroid cancer 04/02/2019 Marijuana smoker 01/27/2019 Depression 07/22/2018 Intrinsic sphincter [...] Mass Index 37.25 04/06/2023 11:09 AM CDT Procedures * LAB RESULTS ORDER(Performed 05/29/2023) * NV MSR PVR U&/BLADD CAPCTY US NON(Performed 04/06/2023) Performed for Urge incontinence * URINALYSIS AUTO - POINT OF CARE (AMB) [facility](Performed 04/06/2023) Performed for Urge incontinence * NV SYNTHETIC IMPLNT URINARY 1ML(Performed 10/12/2020) Performed for Stress incontinence * NV ENDOSCOPIC INJECTION/IMPLANT(Performed 10/12/2020) Performed for Stress incontinence * NV INSERT NON-INDWELLING BLADDER(Performed 10/07/2020) Performed for Urinary retention, Stress incontinence, Urge incontinence * URINALYSIS AUTO - POINT OF CARE (AMB) [facility](Performed 10/07/2020) Performed for Urinary retention, Stress incontinence, Urge incontinence * CT ANGIO BRAIN AND NECK(Performed 05/14/2020) Performed for Acute nonintractable headache, unspecified headache type * COMPREHENSIVE METABOLIC PANEL(Performed 05/14/2020) * CBC W AUTO DIFFERENTIAL(Performed 05/14/2020) * CT CERVICAL SPINE WO CONTRAST(Performed 05/14/2020) Performed for Acute nonintractable headache, unspecified headache type * CT HEAD WO CONTRAST(Performed 05/14/2020) Performed for Acute nonintractable headache, unspecified headache type * XR THORACIC SPINE 2VW(Performed 12/11/2018) Performed for Neck pain * XR LUMBAR SPINE 2 OR 3VW(Performed 12/11/2018) Performed for Neck pain * XR CERVICAL SPINE 2 OR 3VW(Performed 12/11/2018) Performed for Neck pain * GLUCOSE - POINT OF CARE(Performed 05/02/2018) * URINE MICROSCOPIC ONLY REFLEX TO CULTURE(Performed 05/01/2018) * URINE DRUG SCREEN IMMUNOASSAY(Performed 05/01/2018) * URINALYSIS REFLEX MICROSCOPIC REFLEX CULTURE(Performed 05/01/2018) * CULTURE URINE(Performed 05/01/2018) * COMPREHENSIVE METABOLIC PANEL(Performed 05/01/2018) * CBC W/O DIFFERENTIAL(Performed 05/01/2018) * GLUCOSE - POINT OF CARE(Performed 03/22/2018) * GLUCOSE - POINT OF CARE(Performed 03/22/2018) * CBC W/O DIFFERENTIAL(Performed 03/22/2018) * BASIC METABOLIC PANEL (CALCIUM TOTAL)(Performed 03/22/2018) * GLUCOSE - POINT OF CARE(Performed 03/22/2018) * GLUCOSE - POINT OF CARE(Performed 03/21/2018) * GLUCOSE - POINT OF CARE(Performed 03/21/2018) * GLUCOSE - POINT OF CARE(Performed 03/21/2018) * GLUCOSE - POINT OF CARE(Performed 03/21/2018) * CBC W/O DIFFERENTIAL(Performed 03/21/2018) * BASIC METABOLIC PANEL (CALCIUM TOTAL)(Performed 03/21/2018) * GLUCOSE - POINT OF CARE(Performed 03/21/2018) * GLUCOSE - POINT OF CARE(Performed 03/20/2018) * GLUCOSE - POINT OF CARE(Performed 03/20/2018) * GLUCOSE - POINT OF CARE(Performed 03/20/2018) * GLUCOSE - POINT OF CARE(Performed 03/20/2018) * CBC W/O DIFFERENTIAL(Performed 03/20/2018) * BASIC METABOLIC PANEL (CALCIUM TOTAL)(Performed 03/20/2018) * GLUCOSE - POINT OF CARE(Performed 03/20/2018) * GLUCOSE - POINT OF CARE(Performed 03/19/2018) * GLUCOSE - POINT OF CARE(Performed 03/19/2018) * GLUCOSE - POINT OF CARE(Performed 03/19/2018) * GLUCOSE - POINT OF CARE(Performed 03/19/2018) * CBC W/O DIFFERENTIAL(Performed 03/19/2018) * BASIC METABOLIC PANEL (CALCIUM TOTAL)(Performed 03/19/2018) * GLUCOSE - POINT OF CARE(Performed 03/18/2018) * GLUCOSE - POINT OF CARE(Performed 03/18/2018) * GLUCOSE - POINT OF CARE(Performed 03/18/2018) * ECHO COMPLETE(Performed 03/18/2018) * GLUCOSE - POINT OF CARE(Performed 03/18/2018) * CBC W/O DIFFERENTIAL(Performed 03/18/2018) * BASIC METABOLIC PANEL (CALCIUM TOTAL)(Performed 03/18/2018) * GLUCOSE - POINT OF CARE(Performed 03/17/2018) * GLUCOSE - POINT OF CARE(Performed 03/17/2018) * TROPONIN I(Performed 03/17/2018) * GLUCOSE - POINT OF CARE(Performed 03/17/2018) * CARDIAC EKG ORDER(Performed 03/17/2018) * GLUCOSE - POINT OF CARE(Performed 03/17/2018) * TROPONIN I(Performed 03/17/2018) * PHOSPHORUS BLOOD(Performed 03/17/2018) * MAGNESIUM BLOOD(Performed 03/17/2018) * TROPONIN I(Performed 03/17/2018) * CBC W/O DIFFERENTIAL(Performed 03/17/2018) * BASIC METABOLIC PANEL (CALCIUM TOTAL)(Performed 03/17/2018) * HEMOGLOBIN A1C(Performed 03/17/2018) * LIPID PROFILE(Performed 03/17/2018) * GLUCOSE - POINT OF CARE(Performed 03/17/2018) * OT EVAL AND TREAT(Performed 03/17/2018) * URINE DRUG SCREEN IMMUNOASSAY(Performed 03/16/2018) * URINALYSIS W/MICROSCOPIC NO CULTURE(Performed 03/16/2018) * EKG 12-LEAD(Performed 03/16/2018) Performed for Cerebrovascular accident (CVA), unspecified mechanism (HCC) * TYPE + SCREEN PANEL(Performed 03/16/2018) * TSH(Performed 03/16/2018) * LITHIUM LEVEL(Performed 03/16/2018) * PT-INR [facility](Performed 03/16/2018) * COMPREHENSIVE METABOLIC PANEL(Performed 03/16/2018) * CBC W AUTO DIFFERENTIAL(Performed 03/16/2018) * CT ANGIO BRAIN AND NECK(Performed 03/16/2018) Performed for Cerebrovascular accident (CVA), unspecified mechanism (HCC) * CREATININE BLOOD - POCT (IP) [facility](Performed 03/16/2018) Performed for Cerebrovascular accident (CVA), unspecified mechanism (HCC) * CT BRAIN STROKE(Performed 03/16/2018) Performed for Cerebrovascular accident (CVA), unspecified mechanism (HCC) * GLUCOSE - POINT OF CARE(Performed 03/16/2018) * URINALYSIS - POINT OF CARE (AMB) [facility](Performed 11/23/2016) * CULTURE URINE COMPREHENSIVE(Performed 11/23/2016) * URINALYSIS - POINT OF CARE (AMB) [facility](Performed 03/17/2016) * CULTURE URINE COMPREHENSIVE(Performed 03/17/2016) Results * LAB RESULTS ORDER (05/29/2023) 05/29/2023 Narrative 05/29/2023 Ordered by an unspecified provider. Scanned Document LAB - THERAPEUTIC DR [place] MONITORING ORDERABLES * NV MSR PVR U&/BLADD CAPCTY US NON (04/06/2023 11:38 AM CDT) Narrative María Norris - 04/06/2023 11:38 AM CDT María Norris 04/06/2023 11:38 AM Bladder scan completed. 0ml post void residual. Eliza Mcneill DO PROCEDURE/MINOR GARCIA RGICAL ORDERABLES * URINALYSIS AUTO - POINT OF CARE (AMB) [facility] (04/06/2023 11:37 AM CDT) Only the most recent of2 resultswithin the time period is included. Glucose UA - [facility] [address] Bilirubin UA POCT - [facility] [address] Ketones UA POCT - [facility] [address] Specific Lagrange UA 1.[address] [facility] [address] Blood Urine POCT +- [facility] [address] pH UA 5.[address] [facility] [address] Protein UA +- [facility] [address] Urobilinogen UA - [facility] [address] Nitrite UA - [facility] [address] WBC UA - [facility] [address] Urine URINE / Unknown 04/06/2023 1 1:37 AM CDT Eliza Mcneill DO LAB - POINT OF CAR E ORDERABLES [facility] [address] [place] [address], [facility] [phone] * NV ENDOSCOPIC INJECTION/IMPLANT, NV SYNTHETIC IMPLNT URINARY 1ML (10/12/2020 1:59 PM CIVIL ENGINEERING TEACHER) Narrative Radha Mejia Che, MD - 10/12/2020 1:59 PM CIVIL ENGINEERING TEACHER Radha Mejia Che, MD 10/12/2020 2:04 PM Periurethral Bulking Procedure Note Indications: Intrinsic sphincteric deficiency. Procedure Details The patient had been seen and diagnosed with intrinsic sphincteric deficiency. Her options were discussed, and she was offered periurethral bulking. Her risks, benefits, and alternatives were discussed with emphasis on the possibility of failure, infection and difficulty urinating. She had urodynamic findings consistent with intrinsic sphincteric deficiency with a valsalva leak point pressure (VLPP) of less than or equal to 100 cm of water. If offered contingent, she had been allergy tested with contingent at least 30 days prior to the procedure and did not have an allergic reaction. The patient was placed in a supine position in the procedure chair in the urodynamic suite. Her urethra was prepped with Betadine unless she was allergic to topical iodine. Her bladder was then emptied of the residual urine and tested for an infection via dipstick. If negative, the procedure continued. A 15 degree rigid cystoscopy using the Storz injection system was used with a non-coring disposable needle to apply the material. It was placed in 3 points, at 1, 3, and 7 o'clock. There was good hemostasis. The total amount of material used was 0.5 cc of coaptite. The lot number was [id number], and the expiration date was 06/01/2023. She tolerated the procedure and was allowed to void in the bathroom. She was able to do so easily and was discharged from the office with detailed instructions. Condition: Good Plan: The patient was advised to void every 2 hours at least in the next 6 hours. She was asked to call if unable to void, has pain, has a fever or with any concerns. She will follow up in 3 months. Radha Mejia MD PROCEDURE/MINOR SURG ICAL ORDERABLES * NV INSERT NON-INDWELLING BLADDER (10/07/2020 8:57 AM CIVIL ENGINEERING TEACHER) Narrative Radha Mejia Che, MD - 10/07/2020 8:57 AM CIVIL ENGINEERING TEACHER Radha Mejia Che, MD 10/07/2020 8:58 AM The patient was prepped with betadine (or with hibiclens or other antiseptic agent if allergic to topical iodine). She understood the rationale for the procedure and agreed to the procedure. A 14F short female catheter was then advanced into the urethra and urine was collected for bedside urinalysis as well as a urine culture and/or formal urinalysis as needed. The post void residual is as noted in the progress note, as are results of the dipstick taken. The patient tolerated the procedure well. Radha Mejia MD PROCEDURE/MINOR SURG ICAL ORDERABLES * CT ANGIO BRAIN AND NECK (05/14/2020 2:25 AM CDT) Only the most recent of2 resultswithin the time period is included. Anatomical Region Laterality Modality Head Computed Tomogra phy 05/14/2020 3:20 PM CDT Impressions 05/14/2020 5:45 PM CDT IMPRESSION: 1.No acute intracranial hemorrhage. 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 There is moderate stenosis of the left cavernous sinus internal carotid artery. 3.Otherwise, no large arterial occlusions or significant stenoses identified in the head or neck. Dictated by Arnel Olson M.D. This report was approved by Arnel Olson M.D. on 05/14/2020 5:45 PM . I, Dr. RHETT JOSEPH have personally reviewed and interpreted this examination/study. This report was electronically signed by RHETT JOSEPH on 05/14/2020 5:45 PM . Narrative 05/14/2020 5:[address] ANGIO BRAIN AND NECK DATE: 05/14/2020 2:25 AM EXAMINATION: 1. Computed tomographic (CT) angiography of the head without and with contrast 2. CT angiography of the neck with contrast HISTORY: R51: Acute nonintractable headache, unspecified headache type TECHNIQUE: CT of the head was performed without contrast according to standard protocol. Then CT angiography of the head and neck was obtained after the uneventful administration of 100 mL Isovue 370 intravenous contrast. Three dimensional postprocessing was performed by the technologist and sent to the workstation for review. COMPARISON: CT angiogram brain and neck dated 03/16/2018 FINDINGS: Non-angiographic findings: No acute intra- or extra-axial fluid collections are identified. There is mild cerebral volume loss with associated ex vacuo ventricular dilatation. The basilar cisterns are patent. No mass effect or midline shift is seen. A redemonstration of suspected faint hypodensity in the posterior left basal ganglia which is nonspecific and may represent artifact, component of small vessel ischemic disease or ischemia. The barrett-white matter differentiation otherwise appears normal. The visualized portions of the orbits, paranasal sinuses, and mastoids appear normal. No acute fracture is identified. No soft tissue abnormalities are identified in the neck. There are postoperative findings of a posterior spinal fixation at C2-C3 posterior elements. There are scattered linear and groundglass opacities in both lungs. Angiographic findings: The visible aortic arch appears normal. The configuration of the brachiocephalic vessels is typical. There is atherosclerotic calcification of the innominate and subclavian arteries. The right common and internal carotid arteries as well as the right carotid bifurcation appear normal. The left common and internal carotid arteries as well as the left carotid bifurcation appear normal. Retropharyngeal coarse of the carotid bifurcations is noted. The cervical vertebral arteries appear normal. There is atherosclerotic disease involving the distal internal carotid arteries with moderate stenosis of the left supraclinoid internal carotid artery.. The anterior and middle cerebral arteries appear normal. The distal vertebral arteries appear normal. The basilar artery and posterior cerebral arteries appear normal. No aneurysms, vascular occlusions, or intracranial stenoses are identified. Procedure Note Rhett Joseph MD - 05/14/2020 CT ANGIO BRAIN AND NECK DATE: 05/14/2020 2:25 AM EXAMINATION: 1. Computed tomographic (CT) angiography of the head without and with contrast 2. CT angiography of the neck with contrast HISTORY: R51: Acute nonintractable headache, unspecified headache type TECHNIQUE: CT of the head was performed without contrast according to standard protocol. Then CT angiography of the head and neck was obtained after the uneventful administration of 100 mL Isovue 370 intravenous contrast. Three dimensional postprocessing was performed by the technologist and sent to the workstation for review. COMPARISON: CT angiogram brain and neck dated 03/16/2018 FINDINGS: Non-angiographic findings: No acute intra- or extra-axial fluid collections are identified. Thereis mild cerebral volume loss with associated ex vacuo ventriculardilatation. The basilar cisterns are patent. No mass effect or midline shift isseen. A redemonstration of suspected faint hypodensity in the posterior left basal ganglia which is nonspecific and may represent artifact, component of small vessel ischemic disease or ischemia. The barrett-white matter differentiation otherwise appears normal. The visualized portions of the orbits, paranasal sinuses, and mastoids appear normal. No acute fracture is identified. No soft tissue abnormalities are identified in the neck. There are postoperative findings of a posterior spinal fixation at C2-C3 posterior elements. There are scattered linear and groundglass opacities in both lungs. Angiographic findings: The visible aortic arch appears normal. The configuration of the brachiocephalic vessels is typical. There is atheroscleroticcalcification of the innominate and subclavian arteries. The right common and internal carotid arteries as well as the right carotid bifurcation appear normal. The left common and internal carotid arteries as well as the leftcarotid bifurcation appear normal. Retropharyngeal coarse of the carotid bifurcations is noted. The cervical vertebral arteries appear normal. There is atherosclerotic disease involving the distal internal carotid arteries with moderate stenosis of the left supraclinoid internalcarotid artery.. The anterior and middle cerebral arteries appear normal. The distal vertebral arteries appear normal. The basilar artery andposterior cerebral arteries appear normal. No aneurysms, vascular occlusions, or intracranial stenoses are identified. IMPRESSION: 1.No acute intracranial hemorrhage. 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 There is moderate stenosis of the left cavernous sinus internal carotid artery. 3.Otherwise, no large arterial occlusions or significant stenoses identified in the head or neck. Dictated by Arnel Olson M.D. This report was approved by Arnel Olson M.D. on 05/14/2020 5:45PM . IDr. RHETT have personally reviewed and interpreted this examination/study. This report was electronically signed by RHETT JOSEPH on05/14/2020 5:45 PM . Kirk Freed MD CT ORDERABLES * (ABNORMAL) CBC W AUTO DIFFERENTIAL (05/14/2020 1:16 AM T) Only the most recent of2 resultswithin the time period is included. WBC 8.6 3.5 - 10.5 10 3/uL 05/14/2020 1:32 AM [facility] RBC 4.60 3.90 - 5.00 10 6/uL 05/14/2020 1:32 AM [facility] Hemoglobin 13.4 12.0 - 15.5 g/dL 05/14/2020 1:32 AM [facility] Hematocrit 40.6 35.0 - 45.0 % 05/14/2020 1:32 AM [facility] MCV 88.3 81.0 - 97.0 fL 05/14/2020 1:32 AM [facility] MCH 29.1 28.0 - 34.0 pg 05/14/2020 1:32 AM [facility] MCHC 33.0 32.0 - 36.0 g/dL 05/14/2020 1:32 AM [facility] Platelet Count 244 150 - 400 10 3/uL 05/14/2020 1:32 AM [facility] RDW-SD 44.6 36.0 - 50.0 fL 05/14/2020 1:32 AM [facility] RDW-CV 13.8 11.2 - 14.8 % 05/14/2020 1:32 AM [facility] MPV 10.6 9.3 - 12.8 fL 05/14/2020 1:32 AM [facility] nRBC Absolute 0.00 0 10 3/uL 05/14/2020 1:32 AM [facility] nRBC Auto 0.0 0 /100 WBC 05/14/2020 1:32 AM [facility] Neutrophils % 43.0 35.0 - 70.0 % 05/14/2020 1:32 AM [facility] Lymphocytes % 43.4 19.7 - 55.1 % 05/14/2020 1:32 AM [facility] Monocytes % 10.0 3.0 - 15.0 % 05/14/2020 1:32 AM [facility] Eosinophils % 2.8 0.0 - 6.0 % 05/14/2020 1:32 AM [facility] Basophil % 0.3 0.0 - 1.5 % 05/14/2020 1:32 AM [facility] Neutrophils Absolute 3.7 1.6 - 7.0 10 3/uL 05/14/2020 1:32 AM [facility] Lymphocyte Absolute 3.7(H) 0.8 - 2.9 10 3/uL 05/14/2020 1:32 AM [facility] Monocytes Absolute 0.86(H) 0.14 - 0.66 10 3/uL 05/14/2020 1:32 AM [facility] Eosinophils Absolute 0.24 0.00 - 0.45 10 3/uL 05/14/2020 1:32 AM [facility] Basophils Absolute 0.03 0.00 - 0.06 10 3/uL 05/14/2020 1:32 AM [facility] Immature Granulocytes % 0.5 0.0 - 1.0 % 05/14/2020 1:32 AM [facility] Blood BLOOD SPECIMEN / Unknown Venipuncture / Unknown 05/14/2020 1:16 AM CDT 05/14/2020 1:30 AM CDT Ismael Shepherd MD LAB - HEMATOLOGY ORD ERABLES [address] [address] [phone] * (ABNORMAL) COMPREHENSIVE METABOLIC PANEL (05/14/2020 1:16 AM CDT) Only the most recent of3 resultswithin the time period is included. BUN 16 7 - 26 mg/dL 05/14/2020 1:51 AM [facility] Creatinine 1.0 0.6 - 1.2 mg/dL 05/14/2020 1:51 AM [facility] Sodium 139 136 - 145 mmol/L 05/14/2020 1:51 AM [facility] Potassium 3.7 3.5 - 4.5 mmol/L 05/14/2020 1:51 AM [facility] Chloride 100 98 - 107 mmol/L 05/14/2020 1:51 AM [facility] CO2 25 22 - 29 mmol/L 05/14/2020 1:51 AM [facility] Glucose 106 70 - 115 mg/dL 05/14/2020 1:51 AM [facility] Calcium 9.2 8.4 - 10.2 mg/dL 05/14/2020 1:51 AM [facility] Protein Total 7.3 6.0 - 8.3 g/dL 05/14/2020 1:51 AM [facility] Albumin 3.9 3.4 - 5.0 g/dL 05/14/2020 1:51 AM [facility] Bilirubin Total 0.6 0.2 - 1.2 mg/dL 05/14/2020 1:51 AM [facility] Alkaline Phosphatase 98 40 - 150 Units/L 05/14/2020 1:51 AM [facility] ALT 13 0 - 55 Units/L 05/14/2020 1:51 AM [facility] AST 15 5 - 34 Units/L 05/14/2020 1:51 AM [facility] Anion Gap 18 8 - 18 05/14/2020 1:51 AM [facility] BUN/Creatinine Ratio 16 7 - 23 05/14/2020 1:51 AM [facility] Osmolality Calculated 290 270 - 300 mOsm/kg 05/14/2020 1:51 AM [facility] Albumin/Globulin Ratio 1.1 1.1 - 2.3 05/14/2020 1:51 AM [facility] eGFR 55(L) >60 mL/min/1.7 3 m2 05/14/2020 1:51 AM [facility] Blood BLOOD SPECIMEN / Unknown Venipuncture / Unknown 05/14/2020 1:16 AM CDT 05/14/2020 1:30 AM T Ismael Shepherd MD LAB - CHEMISTRY MILDRED [place] [facility] Organization Address City/State/ZIP Co de Phone Number [address] [address], [facility] [phone] * CT CERVICAL SPINE WO CONTRAST (05/14/2020 12:48 AM CDT) Anatomical Region Laterality Modality Spine Computed Tomogra phy 05/14/2020 8:52 AM CDT Impressions 05/14/2020 11:48 AM CDT IMPRESSION: 1.No acute intracranial hemorrhage, midline shift, or significant mass effect. 2.Subtle hypodensity in the posterior aspect of the left basal ganglia may represent age-indeterminate ischemia. Clinical correlation is recommended. 3.No evidence of acute fracture in the cervical spine. COMMUNICATION: Communicated with: Dr. Forrester by Dr. Joseph on 05/14/2020 at 11:30 AM. Dictated by Tony Leblanc MD (Medical Reimbursement Specialist) This report was approved by Tony Leblanc on 05/14/2020 11:48 AM . I, Dr. REHTT JOSEPH have personally reviewed and interpreted this examination/study. This report was electronically signed by RHETT JOSEPH on 05/14/2020 11:48 AM . Narrative 05/14/2020 11:[address] HEAD WO CONTRAST, CT CERVICAL SPINE WO CONTRAST EXAMINATION: 1.Computed tomography (CT) of the head without contrast 2.CT of the cervical spine without contrast DATE: 05/14/2020 12:48 AM HISTORY: R51: Acute nonintractable headache, unspecified headache type TECHNIQUE: CT of the head and cervical spine was performed without contrast according to standard protocol. COMPARISON: CT brain dated 03/16/2018, x-rays cervical spine dated 12/11/2018. FINDINGS: Head: No acute intra- or extra-axial fluid collections are identified. There is mild cerebral volume loss with associated ex vacuo ventricular dilatation. Mild asymmetrically larger left lateral ventricle compared to the right lateral ventricle may represent a normal variant or more likely reflect mild ex vacuo dilatation. The basilar cisterns are patent. No mass effect or midline shift is seen. Slightly prominent focal low-attenuation along the posteromedial basal ganglia/lateral left thalamus, (series 4, image 18-19) is nonspecific but may represent age-indeterminate ischemia. The barrett-white matter differentiation otherwise appears normal. Periventricular white matter hypoattenuation is indicative of chronic small vessel ischemic disease. There is vascular calcification of the carotid siphons. No acute calvarial fracture is identified. The orbits appear normal. The paranasal sinuses are clear, the right frontal sinus is not pneumatized. The mastoid air cells are clear. No soft tissue abnormality is identified. Cervical spine: There has been a previous posterior spinal fusion of C2-C3 with hardware around the posterior elements, which appears intact. Trace anterolisthesis of C2 on C3. There is redemonstration of kyphosis of the cervical spine, centered at C3-C4. Vertebral bodies are normal in height without evidence of acute fracture. There are degenerative changes of the inferior endplate of the C3 vertebral body and superior endplate of the C4 vertebral body. Other than middle atlantoaxial joint osteoarthritis, the craniocervical junction appears normal. There is mild degenerative disc disease. No central canal stenosis is seen. There are varying degrees of mild facet osteoarthritis. There are varying degrees of mild uncovertebral joint osteoarthritis No significant neural foraminal stenosis is seen. No soft tissue abnormality is identified. Procedure Note Rhett Joseph MD - 05/14/2020 CT HEAD WO CONTRAST, CT CERVICAL SPINE WO CONTRAST EXAMINATION: 1.Computed tomography (CT) of the head without contrast 2.CT of the cervical spine without contrast DATE: 05/14/2020 12:48 AM HISTORY: R51: Acute nonintractable headache, unspecified headache type TECHNIQUE: CT of the head and cervical spine was performed without contrast according to standard protocol. COMPARISON: CT brain dated 03/16/2018, x-rays cervical spine dated 12/11/2018. FINDINGS: Head: No acute intra- or extra-axial fluid collections are identified. Thereis mild cerebral volume loss with associated ex vacuo ventriculardilatation. Mild asymmetrically larger left lateral ventricle compared to the right lateral ventricle may represent a normal variant or more likely reflect mild ex vacuo dilatation. The basilar cisterns are patent. No masseffect or midline shift is seen. Slightly prominent focal low-attenuation along the posteromedial basal ganglia/lateral left thalamus, (series 4, image 18-19) is nonspecific but may represent age-indeterminate ischemia. The barrett-white matter differentiation otherwise appears normal. Periventricular white matter hypoattenuation is indicative of chronic small vessel ischemic disease. There is vascular calcification of the carotid siphons. No acute calvarial fracture is identified. The orbits appear normal. The paranasal sinuses are clear, the right frontal sinusis not pneumatized. The mastoid air cells are clear. No soft tissue abnormality is identified. Cervical spine: There has been a previous posterior spinal fusion of C2-C3 with hardware around the posterior elements, which appears intact. Traceanterolisthesis of C2 on C3. There is redemonstration of kyphosis of the cervical spine, centered at C3-C4. Vertebral bodies are normal in height withoutevidence of acute fracture. There are degenerative changes of the inferiorendplate of the C3 vertebral body and superior endplate of the C4 vertebral body. Other than middle atlantoaxial joint osteoarthritis, the craniocervical junction appears normal. There is mild degenerative disc disease. No central canal stenosis is seen. There are varying degrees of mild facet osteoarthritis. There are varying degrees of mild uncovertebral joint osteoarthritis No significant neural foraminal stenosis is seen. No soft tissue abnormality is identified. IMPRESSION: 1.No acute intracranial hemorrhage, midline shift, or significant mass effect. 2.Subtle hypodensity in the posterior aspect of the left basal gangliamay represent age-indeterminate ischemia. Clinical correlation isrecommended. 3.No evidence of acute fracture in the cervical spine. COMMUNICATION: Communicated with: Dr. Forrester by Dr. Joseph on05/14/2020 at 11:30 AM. Dictated by Tony Leblanc MD (Medical Reimbursement Specialist) This report was approved by Tony Leblanc on 05/14/2020 11:48 AM . I, Dr. RHETT JOSEPH have personally reviewed and interpreted this examination/study. This report was electronically signed by RHETT JOSEPH on05/14/2020 11:48 AM . Ismael Shepherd MD CT ORDERABLES * CT HEAD WO CONTRAST (05/14/2020 12:48 AM CDT) Anatomical Region Laterality Modality Head Computed Tomogra phy 05/14/2020 8:52 AM CDT Impressions 05/14/2020 11:48 AM CDT IMPRESSION: 1.No acute intracranial hemorrhage, midline shift, or significant mass effect. 2.Subtle hypodensity in the posterior aspect of the left basal ganglia may represent age-indeterminate ischemia. Clinical correlation is recommended. 3.No evidence of acute fracture in the cervical spine. COMMUNICATION: Communicated with: Dr. Forrester by Dr. Joseph on 05/14/2020 at 11:30 AM. Dictated by Tony Leblanc MD (Medical Reimbursement Specialist) This report was approved by Tony Leblanc on 05/14/2020 11:48 AM . I, Dr. RHETT JOSEPH have personally reviewed and interpreted this examination/study. This report was electronically signed by RHETT JOSEPH on 05/14/2020 11:48 AM . Narrative 05/14/2020 11:[address] HEAD WO CONTRAST, CT CERVICAL SPINE WO CONTRAST EXAMINATION: 1.Computed tomography (CT) of the head without contrast 2.CT of the cervical spine without contrast DATE: 05/14/2020 12:48 AM HISTORY: R51: Acute nonintractable headache, unspecified headache type TECHNIQUE: CT of the head and cervical spine was performed without contrast according to standard protocol. COMPARISON: CT brain dated 03/16/2018, x-rays cervical spine dated 12/11/2018. FINDINGS: Head: No acute intra- or extra-axial fluid collections are identified. There is mild cerebral volume loss with associated ex vacuo ventricular dilatation. Mild asymmetrically larger left lateral ventricle compared to the right lateral ventricle may represent a normal variant or more likely reflect mild ex vacuo dilatation. The basilar cisterns are patent. No mass effect or midline shift is seen. Slightly prominent focal low-attenuation along the posteromedial basal ganglia/lateral left thalamus, (series 4, image 18-19) is nonspecific but may represent age-indeterminate ischemia. The barrett-white matter differentiation otherwise appears normal. Periventricular white matter hypoattenuation is indicative of chronic small vessel ischemic disease. There is vascular calcification of the carotid siphons. No acute calvarial fracture is identified. The orbits appear normal. The paranasal sinuses are clear, the right frontal sinus is not pneumatized. The mastoid air cells are clear. No soft tissue abnormality is identified. Cervical spine: There has been a previous posterior spinal fusion of C2-C3 with hardware around the posterior elements, which appears intact. Trace anterolisthesis of C2 on C3. There is redemonstration of kyphosis of the cervical spine, centered at C3-C4. Vertebral bodies are normal in height without evidence of acute fracture. There are degenerative changes of the inferior endplate of the C3 vertebral body and superior endplate of the C4 vertebral body. Other than middle atlantoaxial joint osteoarthritis, the craniocervical junction appears normal. There is mild degenerative disc disease. No central canal stenosis is seen. There are varying degrees of mild facet osteoarthritis. There are varying degrees of mild uncovertebral joint osteoarthritis No significant neural foraminal stenosis is seen. No soft tissue abnormality is identified. Procedure Note Rhett Joseph MD - 05/14/2020 CT HEAD WO CONTRAST, CT CERVICAL SPINE WO CONTRAST EXAMINATION: 1.Computed tomography (CT) of the head without contrast 2.CT of the cervical spine without contrast DATE: 05/14/2020 12:48 AM HISTORY: R51: Acute nonintractable headache, unspecified headache type TECHNIQUE: CT of the head and cervical spine was performed without contrast according to standard protocol. COMPARISON: CT brain dated 03/16/2018, x-rays cervical spine dated 12/11/2018. FINDINGS: Head: No acute intra- or extra-axial fluid collections are identified. Thereis mild cerebral volume loss with associated ex vacuo ventriculardilatation. Mild asymmetrically larger left lateral ventricle compared to the right lateral ventricle may represent a normal variant or more likely reflect mild ex vacuo dilatation. The basilar cisterns are patent. No masseffect or midline shift is seen. Slightly prominent focal low-attenuation along the posteromedial basal ganglia/lateral left thalamus, (series 4, image 18-19) is nonspecific but may represent age-indeterminate ischemia. The barrett-white matter differentiation otherwise appears normal. Periventricular white matter hypoattenuation is indicative of chronic small vessel ischemic disease. There is vascular calcification of the carotid siphons. No acute calvarial fracture is identified. The orbits appear normal. The paranasal sinuses are clear, the right frontal sinusis not pneumatized. The mastoid air cells are clear. No soft tissue abnormality is identified. Cervical spine: There has been a previous posterior spinal fusion of C2-C3 with hardware around the posterior elements, which appears intact. Traceanterolisthesis of C2 on C3. There is redemonstration of kyphosis of the cervical spine, centered at C3-C4. Vertebral bodies are normal in height withoutevidence of acute fracture. There are degenerative changes of the inferiorendplate of the C3 vertebral body and superior endplate of the C4 vertebral body. Other than middle atlantoaxial joint osteoarthritis, the craniocervical junction appears normal. There is mild degenerative disc disease. No central canal stenosis is seen. There are varying degrees of mild facet osteoarthritis. There are varying degrees of mild uncovertebral joint osteoarthritis No significant neural foraminal stenosis is seen. No soft tissue abnormality is identified. IMPRESSION: 1.No acute intracranial hemorrhage, midline shift, or significant mass effect. 2.Subtle hypodensity in the posterior aspect of the left basal gangliamay represent age-indeterminate ischemia. Clinical correlation isrecommended. 3.No evidence of acute fracture in the cervical spine. COMMUNICATION: Communicated with: Dr. Forrester by Dr. Joseph on05/14/2020 at 11:30 AM. Dictated by Tony Leblanc MD (Medical Reimbursement Specialist) This report was approved by Tony Leblanc on 05/14/2020 11:48 AM . I, Dr. RHETT JOSEPH have personally reviewed and interpreted this examination/study. This report was electronically signed by RHETT JOSEPH on05/14/2020 11:48 AM . Ismael Shepherd MD CT ORDERABLES * XR THORACIC SPINE 2VW (12/11/2018 2:02 PM CDT) Anatomical Region Laterality Modality Spine Radiographic Missy ging 12/11/2018 2:49 PM CDT Impressions 12/12/2018 11:51 AM CDT IMPRESSION: 1. Cervical spine: Jtjd-yj-ioqfruhx multilevel degenerative disc and joint disease. Cervical kyphosis status post instrumented C2-3 posterior element fusion. 2. Thoracic spine: Mild degenerative changes. 3. Lumbar spine: Mild degenerative changes. Report dictated by Williams Stephenson MD (residential driver). IDr. DEBRA have personally reviewed and interpreted this examination/study. This report was electronically signed by DEBRA COUCH on 12/12/2018 11:51 AM . Narrative 12/12/2018 11:51 AM CDT EXAMINATION: 1. Cervical spine, 2 views 2. Thoracic spine, 2 views 3. Lumbar spine, 2 views HISTORY: Neck and back pain COMPARISON: No prior study is available for comparison at the time of this dictation. FINDINGS: Cervical spine: Instrumented fusion is noted along the posterior elements of C2 and C3. There is focal cervical kyphosis centered at C3-C4. No listhesis is seen. Mild to moderate multilevel degenerative disc and joint disease is present, most pronounced at C3-C4. No acute compression fracture is identified. No prevertebral soft tissue swelling is seen. Thoracic spine: The upper thoracic vertebrae are not well-seen on the lateral projection due to superimposition of shoulders. The spinal alignment is maintained. No acute compression fracture is identified in the visible thoracic spine. The intervertebral disc spaces are maintained. Small osteophytes are noted. Lumbar spine: Mild dextrocurvature is noted. There is no listhesis. Mild multilevel degenerative changes are present with small osteophytes. No acute compression fractures identified. The vertebral body heights and intervertebral disc spaces are preserved. The sacroiliac joints are not widened. Procedure Note Debra Couch MD - 12/12/2018 EXAMINATION: 1. Cervical spine, 2 views 2. Thoracic spine, 2 views 3. Lumbar spine, 2 views HISTORY: Neck and back pain COMPARISON: No prior study is available for comparison at the time of this dictation. FINDINGS: Cervical spine: Instrumented fusion is noted along the posterior elements of C2 and C3. There is focal cervical kyphosis centered at C3-C4. No listhesis isseen. Mild to moderate multilevel degenerative disc and joint disease is present, most pronounced at C3-C4. No acute compression fracture is identified. No prevertebral soft tissue swelling is seen. Thoracic spine: The upper thoracic vertebrae are not well-seen on the lateral projection due to superimposition of shoulders. The spinal alignment is maintained. No acute compression fracture is identified in the visible thoracicspine. The intervertebral disc spaces are maintained. Small osteophytes are noted. Lumbar spine: Mild dextrocurvature is noted. There is no listhesis. Mild multilevel degenerative changes are present with small osteophytes. No acute compression fractures identified. The vertebral body heights and intervertebral disc spaces are preserved. The sacroiliac joints are not widened. IMPRESSION: 1. Cervical spine: Frne-dd-xqniwquj multilevel degenerative disc andjoint disease. Cervical kyphosis status post instrumented C2-3 posteriorelement fusion. 2. Thoracic spine: Mild degenerative changes. 3. Lumbar spine: Mild degenerative changes. Report dictated by Williams Stephenson MD (residential driver). Dr. DEBRA Banerjee have personally reviewed and interpreted this examination/study. This report was electronically signed by DEBRA COUCH on 12/12/201811:51 AM . Zahraashon Guzman PA-[facility] ING ORDERABLES * XR LUMBAR SPINE 2 OR 3VW (12/11/2018 2:01 PM CDT) Anatomical Region Laterality Modality Spine Radiographic Missy ging 12/11/2018 2:4 9 PM CDT Impressions 12/12/2018 11:51 AM CDT IMPRESSION: 1. Cervical spine: Pyzw-ot-lmepfgvd multilevel degenerative disc and joint disease. Cervical kyphosis status post instrumented C2-3 posterior element fusion. 2. Thoracic spine: Mild degenerative changes. 3. Lumbar spine: Mild degenerative changes. Report dictated by Williams Stephenson MD (residential driver). Dr. DEBRA Banerjee have personally reviewed and interpreted this examination/study. This report was electronically signed by DEBRA COUCH on 12/12/2018 11:51 AM . Narrative 12/12/2018 11:51 AM CDT EXAMINATION: 1. Cervical spine, 2 views 2. Thoracic spine, 2 views 3. Lumbar spine, 2 views HISTORY: Neck and back pain COMPARISON: No prior study is available for comparison at the time of this dictation. FINDINGS: Cervical spine: Instrumented fusion is noted along the posterior elements of C2 and C3. There is focal cervical kyphosis centered at C3-C4. No listhesis is seen. Mild to moderate multilevel degenerative disc and joint disease is present, most pronounced at C3-C4. No acute compression fracture is identified. No prevertebral soft tissue swelling is seen. Thoracic spine: The upper thoracic vertebrae are not well-seen on the lateral projection due to superimposition of shoulders. The spinal alignment is maintained. No acute compression fracture is identified in the visible thoracic spine. The intervertebral disc spaces are maintained. Small osteophytes are noted. Lumbar spine: Mild dextrocurvature is noted. There is no listhesis. Mild multilevel degenerative changes are present with small osteophytes. No acute compression fractures identified. The vertebral body heights and intervertebral disc spaces are preserved. The sacroiliac joints are not widened. Procedure Note Debra Couch MD - 12/12/2018 EXAMINATION: 1. Cervical spine, 2 views 2. Thoracic spine, 2 views 3. Lumbar spine, 2 views HISTORY: Neck and back pain COMPARISON: No prior study is available for comparison at the time of this dictation. FINDINGS: Cervical spine: Instrumented fusion is noted along the posterior elements of C2 and C3. There is focal cervical kyphosis centered at C3-C4. No listhesis isseen. Mild to moderate multilevel degenerative disc and joint disease is present, most pronounced at C3-C4. No acute compression fracture is identified. No prevertebral soft tissue swelling is seen. Thoracic spine: The upper thoracic vertebrae are not well-seen on the lateral projection due to superimposition of shoulders. The spinal alignment is maintained. No acute compression fracture is identified in the visible thoracicspine. The intervertebral disc spaces are maintained. Small osteophytes are noted. Lumbar spine: Mild dextrocurvature is noted. There is no listhesis. Mild multilevel degenerative changes are present with small osteophytes. No acute compression fractures identified. The vertebral body heights and intervertebral disc spaces are preserved. The sacroiliac joints are not widened. IMPRESSION: 1. Cervical spine: Wizx-bx-yytclxjk multilevel degenerative disc andjoint disease. Cervical kyphosis status post instrumented C2-3 posteriorelement fusion. 2. Thoracic spine: Mild degenerative changes. 3. Lumbar spine: Mild degenerative changes. Report dictated by Williams Stephenson MD (residential driver). I, Dr. DEBRA COUCH have personally reviewed and interpreted this examination/study. This report was electronically signed by DEBRA COUCH on 12/12/201811:51 AM . Zahraa Guzman PA-C DIAGNOSTIC IMAG ING ORDERABLES * XR CERVICAL SPINE 2 OR 3VW (12/11/2018 1:42 PM CDT) Anatomical Region Laterality Modality Spine Radiographic Missy ging 12/11/2018 2:49 PM CDT Impressions 12/12/2018 11:51 AM CDT IMPRESSION: 1. Cervical spine: Tdht-fy-ztzcnpiy multilevel degenerative disc and joint disease. Cervical kyphosis status post instrumented C2-3 posterior element fusion. 2. Thoracic spine: Mild degenerative changes. 3. Lumbar spine: Mild degenerative changes. Report dictated by Williams Stephenson MD (residential driver). I, Dr. DEBRA COUCH have personally reviewed and interpreted this examination/study. This report was electronically signed by DEBRA COUCH on 12/12/2018 11:51 AM . Narrative 12/12/2018 11:51 AM CDT EXAMINATION: 1. Cervical spine, 2 views 2. Thoracic spine, 2 views 3. Lumbar spine, 2 views HISTORY: Neck and back pain COMPARISON: No prior study is available for comparison at the time of this dictation. FINDINGS: Cervical spine: Instrumented fusion is noted along the posterior elements of C2 and C3. There is focal cervical kyphosis centered at C3-C4. No listhesis is seen. Mild to moderate multilevel degenerative disc and joint disease is present, most pronounced at C3-C4. No acute compression fracture is identified. No prevertebral soft tissue swelling is seen. Thoracic spine: The upper thoracic vertebrae are not well-seen on the lateral projection due to superimposition of shoulders. The spinal alignment is maintained. No acute compression fracture is identified in the visible thoracic spine. The intervertebral disc spaces are maintained. Small osteophytes are noted. Lumbar spine: Mild dextrocurvature is noted. There is no listhesis. Mild multilevel degenerative changes are present with small osteophytes. No acute compression fractures identified. The vertebral body heights and intervertebral disc spaces are preserved. The sacroiliac joints are not widened. Procedure Note Debra Couch MD - 12/12/2018 EXAMINATION: 1. Cervical spine, 2 views 2. Thoracic spine, 2 views 3. Lumbar spine, 2 views HISTORY: Neck and back pain COMPARISON: No prior study is available for comparison at the time of this dictation. FINDINGS: Cervical spine: Instrumented fusion is noted along the posterior elements of C2 and C3. There is focal cervical kyphosis centered at C3-C4. No listhesis isseen. Mild to moderate multilevel degenerative disc and joint disease is present, most pronounced at C3-C4. No acute compression fracture is identified. No prevertebral soft tissue swelling is seen. Thoracic spine: The upper thoracic vertebrae are not well-seen on the lateral projection due to superimposition of shoulders. The spinal alignment is maintained. No acute compression fracture is identified in the visible thoracicspine. The intervertebral disc spaces are maintained. Small osteophytes are noted. Lumbar spine: Mild dextrocurvature is noted. There is no listhesis. Mild multilevel degenerative changes are present with small osteophytes. No acute compression fractures identified. The vertebral body heights and intervertebral disc spaces are preserved. The sacroiliac joints are not widened. IMPRESSION: 1. Cervical spine: Tvuo-yv-oxozktud multilevel degenerative disc andjoint disease. Cervical kyphosis status post instrumented C2-3 posteriorelement fusion. 2. Thoracic spine: Mild degenerative changes. 3. Lumbar spine: Mild degenerative changes. Report dictated by Williams Stephenson MD (residential driver). I, Dr. DEBRA COUCH have personally reviewed and interpreted this examination/study. This report was electronically signed by DEBRA COUCH on 12/12/201811:51 AM . Zahraa Guzman PA-C DIAGNOSTIC IMAG ING ORDERABLES * (ABNORMAL) GLUCOSE - POINT OF CARE (05/02/2018 1:54 AM CDT) Only the most recent of28 resultswithin the time period is included. Glucose WB/POC 126(H) 70 - 106 mg/dL 05/02/2018 8:15 AM CDT [facility] Specimen Type CAPILLARY BLOOD 05/02/2018 8:15 AM CDT [facility] Blood BLOOD SPECIMEN / Unknown 05/02/2018 1:54 AM CDT 05/02/2018 8:15 AM CDT Brice Lynn MD LAB - POINT OF CARE ORDERABLES [facility] [address] [place] [address] * (ABNORMAL) URINE MICROSCOPIC ONLY REFLEX TO CULTURE (05/01/2018 5:12 PM CDT) Reflex Status Culture to follow 05/01/2018 5:28 PM CDT [facility] RBC UA 0-5 None Seen, 0-5 # /hpf 05/01/2018 5:28 PM CDT [facility] WBC UA 51-100(A) None Seen, 0-5 # /hpf 05/01/2018 5:28 PM CDT [facility] Bacteria UA None Seen None Seen 05/01/2018 5:28 PM CDT [facility] Squamous Epithelial Cells 3-5 None Seen, 0-2, 3-5 /hpf 05/01/2018 5:28 PM CDT [facility] Mucus UA 1+ /LPF 05/01/2018 5:28 PM CDT [facility] Urine URINE SPECIMEN OBTAINED BY CLEAN CATCH PROCEDURE / Unknown Collection / Unknown 05/01/2018 5:12 PM CDT 05/01/2018 5:18 PM CDT Narrative [facility] - 05/01/2018 5:28 PM CDT Kristofer Story MD LAB - URINALYSIS ORD ERABLES [facility] [address] [place] [address] * (ABNORMAL) URINALYSIS REFLEX MICROSCOPIC REFLEX CULTURE (05/01/2018 5:12 PM CDT) Color UA Yellow Straw, Yellow 05/01/2018 5:28 PM CDT [facility] Clarity UA Slt Cloudy(A) Clear 05/01/2018 5:28 PM CDT [facility] Glucose UA Negative Negative 05/01/2018 5:28 PM CDT [facility] Bilirubin UA Negative Negative 05/01/2018 5:28 PM CDT [facility] Ketone UA Negative Negative 05/01/2018 5:28 PM CDT [facility] Specific [place] UA 1.018 1.005 - 1.030 05/01/2018 5:28 PM CDT [facility] Blood UA Negative Negative 05/01/2018 5:28 PM CDT [facility] pH UA 6.0 5.0 - 8.0 pH 05/01/2018 5:28 PM CDT [facility] Protein UA Negative Negative 05/01/2018 5:28 PM CDT [facility] Urobilinogen UA Negative Negative mg/dL 05/01/2018 5:28 PM CDT [facility] Nitrite UA Negative Negative 05/01/2018 5:28 PM CDT [facility] Leukocyte UA 2+(A) Negative 05/01/2018 5:28 PM CDT [facility] Urine Microscopy Urine microscopy to follow 05/01/2018 5:28 PM CDT [facility] Reflex Status Culture to follow 05/01/2018 5:28 PM CDT [facility] Urine URINE SPECIMEN OBTAINED BY CLEAN CATCH PROCEDURE / Unknown Collection / Unknown 05/01/2018 5:12 PM CDT 05/01/2018 5:18 PM CDT Narrative [facility] - 05/01/2018 5:28 PM CDT Kristofer Story MD LAB - URINALYSIS ORD ERABLES Performing Organization Address City/Va Hospital/ZIP Co de Phone Number [facility] [address] [place] [address] * CULTURE URINE (05/01/2018 5:12 PM CDT) [facility] Culture Urine More than 2 organisms seen at >=10,000 CFU/mL. Recollect if clinically indicated. KIMO 05/02/2018 1:47 PM CDT [facility] Urine URINE SPECIMEN OBTAINED BY CLEAN CATCH PROCEDURE / Unknown Collection / Unknown 05/01/2018 5:12 PM CDT 05/01/2018 5:18 PM CDT Kristofer Story MD LAB - MICROBIOLOGY O RDERABLES Performing Organization Address City/Va Hospital/ZIP Co de Phone Number [facility] [address] [phone] * (ABNORMAL) DRUG SCREEN TOX URINE PANEL (05/01/2018 5:12 PM CDT) Only the most recent of2 resultswithin the time period is included. [facility] Amphetamines Screen Urine Not Detected Not Detected 05/01/2018 5:36 PM CDT [facility] Barbiturates Screen Urine Not Detected Not Detected 05/01/2018 5:36 PM CDT [facility] Benzodiazepines Screen Urine Not Detected Not Detected 05/01/2018 5:36 PM CDT [facility] Cannabinoids Screen Urine Detected(A) Not Detected 05/01/2018 5:36 PM CDT [facility] Cocaine Screen Urine Not Detected Not Detected 05/01/2018 5:36 PM CDT [facility] Methadone Screen Urine Not Detected Not Detected 05/01/2018 5:36 PM CDT [facility] Opiate Screen Urine Not Detected Not Detected 05/01/2018 5:36 PM CDT [facility] Phencyclidine Screen Urine Not Detected Not Detected 05/01/2018 5:36 PM CDT [facility] Urine URINE / Unknown Collection / Unknown 05/01/2018 5:12 PM CDT 05/01/2018 5:18 PM CDT Narrative [facility] - 05/01/2018 5:36 PM CDT This drug screen is designed for MEDICAL purposes only. It is not to be used for legal purposes, including but not limited to worker's comp, police investigations, occupational issues, child custody, etc. Any positive result is only presumptive and must be confirmed with a separate confirmatory test ordered by the physician. Drug Screening Test Cutoff Values: AMPHETAMINES 1000 ng/mL BARBITURATES 200 ng/mL BENZODIAZEPINES 200 ng/mL CANNABINOIDS(THC) 50 ng/mL COCAINE 300 ng/mL METHADONE 300 ng/mL OPIATES 300 ng/mL PHENCYCLIDINE(PCP)25 ng/mL Kristofer Story MD LAB - URINE CHEMISTR Y ORDERABLES [facility] [address] [place] [address] * CBC W/O DIFFERENTIAL (05/01/2018 5:11 PM CDT) Only the most recent of7 resultswithin the time period is included. WBC 9.8 4.4 - 10.7 x10E9/L 05/01/2018 5:21 PM CDT [facility] RBC 4.80 3.80 - 5.20 x10E12/L 05/01/2018 5:21 PM CDT [facility] Hemoglobin 14.0 12.0 - 15.6 gm/dL 05/01/2018 5:21 PM CDT [facility] Hematocrit 43.0 35.9 - 45.5 % 05/01/2018 5:21 PM CDT [facility] MCV 89.6 80.7 - 98.3 fl 05/01/2018 5:21 PM CDT [facility] MCH 29.2 26.7 - 34.0 pg 05/01/2018 5:21 PM CDT [facility] MCHC 32.6 30.8 - 35.9 gm/dL 05/01/2018 5:21 PM CDT [facility] Platelet Count 263 153 - 416 x10E9/L 05/01/2018 5:21 PM CDT [facility] RDW-CV 13.2 12.1 - 14.9 % 05/01/2018 5:21 PM CDT [facility] MPV 11.0 9.4 - 12.9 fl 05/01/2018 5:21 PM CDT [facility] Blood BLOOD SPECIMEN / Unknown Venipuncture / Unknown 05/01/2018 5:11 PM CDT 05/01/2018 5:18 PM CDT Kristofer Story MD LAB - HEMATOLOGY ORD ERABLES Performing Organization Address City/State/[facility] Co de Phone Number [facility] [address] [place] [address] * (ABNORMAL) BASIC METABOLIC PANEL (CALCIUM TOTAL) (03/22/2018 6:14 AM CDT) Only the most recent of6 resultswithin the time period is included. BUN 17 7 - 26 mg/dL 03/22/2018 6:56 AM [facility] Creatinine 1.3(H) 0.6 - 1.2 mg/dL 03/22/2018 6:56 AM [facility] Sodium 139 136 - 145 mmol/L 03/22/2018 6:56 AM [facility] Potassium 3.9 3.5 - 4.5 mmol/L 03/22/2018 6:56 AM [facility] Chloride 102 98 - 107 mmol/L 03/22/2018 6:56 AM [facility] CO2 28 22 - 29 mmol/L 03/22/2018 6:56 AM [facility] Glucose 111 70 - 115 mg/dL 03/22/2018 6:56 AM [facility] Calcium 9.7 8.4 - 10.2 mg/dL 03/22/2018 6:56 AM CDT [facility] Anion Gap 13 8 - 18 03/22/2018 6:56 AM CDT [facility] BUN/Creatinine Ratio 13 7 - 23 03/22/2018 6:56 AM CDT [facility] Osmolality Calculated 290 270 - 300 mOsm/kg 03/22/2018 6:56 AM CDT [facility] eGFR 41(L) >60 mL/min/1.7 3 m2 03/22/2018 6:56 AM CDT [facility] Blood BLOOD SPECIMEN / Unknown Lab Venipuncture / Unknown 03/22/2018 6:14 AM CDT 03/22/2018 6:30 AM CDT Justin Miner MD LAB - CHEMISTRY [place] Performing Organization Address [facility] Hospital/ZIP Co de Phone Number [address] [phone] * ECHO W DOPPLER AND COLOR FLOW (03/18/2018 9:42 AM CDT) Anatomical Region Laterality Modality Color Flow Doppl er 03/18/2018 8:16 AM CDT Narrative Procedure Note Deysi Self MD - 03/18/2018 Justin Miner MD ECHOCARDIOGRAPHY RAD IANT * TROPONIN I (03/17/2018 4:42 PM CDT) Only the most recent of3 resultswithin the time period is included. Troponin I <0.010 <0.032 ng/mL 03/17/2018 5:30 PM CDT [facility] Blood BLOOD SPECIMEN / Unknown Lab Venipuncture / Unknown 03/17/2018 4:42 PM CDT 03/17/2018 5:04 PM CDT Justin Miner MD LAB - CHEMISTRY [place] Performing Organization Address City/Va Hospital/ZIP Co de Phone Number [address] [phone] * CARDIAC EKG ORDER (03/17/2018 8:15 AM CDT) Narrative 03/17/2018 8:15 AM CDT Ordered by an unspecified provider. Scanned Document CARDIAC SERVICES ORD ERABLES * HEMOGLOBIN A1C (03/17/2018 3:47 AM CDT) Hemoglobin A1c 5.4 4.4 - 6.3 % 03/17/2018 9:44 AM CDT [facility] Estimated Average Glucose 108 mg/dL 03/17/2018 9:44 AM CDT [facility] Comment: HbA1c Interpretation: Treatment target values recommended by ADA and other clinical organizations should be used to evaluate metabolic control in patients. Treatment Target Values: Normal : < 5.7% Pre-diabetes: 5.7-6.4% Diabetes: Equal to or greater than 6.5% Reference: [place] [employer] Standards of Care in Diabetes -2014 In patients 70 years and older consider HbA1c target range of 7.0-7.5% Reference: Diabetes Mellitus in Older People: Position Statement on behalf of the International Association of Gerontology and Geriatrics (IAGG), the Diabetes Working Libertarian for Older People (EDWPOP), and the International Task Force of Experts in Diabetes. Tera Serra, et al. J [place] [employer]. 2012 Test results diagnostic of diabetes should be repeated for confirmation. The Tosoh G8 assay for the measurement of HbA1c is a National Glycohemoglobin Standardization Program (NGSP)certified method. Results for patients with HbE disease should be interpreted with caution as this hemoglobinopathy has been shown to interfere with the Tosoh G8 assay. Whole Blood BLOOD SPECIMEN WITH EDTA / Unknown 03/17/2018 3:47 AM CDT 03/17/2018 3:53 AM CDT Justin Miner MD LAB - CHEMISTRY ORDMary Jane PALMA [facility] [address] [place], [place] [address] [phone] * PHOSPHORUS BLOOD (03/17/2018 3:47 AM CDT) Phosphorus 3.7 2.3 - 4.7 mg/dL 03/17/2018 4:17 AM CDT [facility] Blood BLOOD SPECIMEN / Unknown 03/17/2018 3:47 AM CDT 03/17/2018 3:53 AM CDT Justin Miner MD LAB - CHEMISTRY [place] Performing Organization Address [facility] Hospital/ZIP Co de Phone Number [address] [phone] * MAGNESIUM BLOOD (03/17/2018 3:47 AM CDT) Magnesium 1.7 1.6 - 2.6 mg/dL 03/17/2018 4:22 AM T [facility] Blood BLOOD SPECIMEN / Unknown 03/17/2018 3:47 AM CDT 03/17/2018 3:53 AM CDT Justin Miner MD LAB - CHEMISTRY [place] Performing Organization Address City/Va Hospital/ZIP Co de Phone Number [address] [phone] * LIPID PROFILE (03/17/2018 3:47 AM CDT) Cholesterol Total 152 <200 mg/dL 03/17/2018 4:22 AM [facility] HDL 46 >40 mg/dL 03/17/2018 4:22 AM [facility] Comment: ATP III Classification of HDL Cholesterol: <40 mg/dL: Considered a major risk factor. >60 mg/dL: Considered a negative risk factor. LDL Calculated 81 <100 mg/dL 03/17/2018 4:22 AM [facility] Comment: ATP III Classification of LDL Cholesterol: <100 mg/dL: Optimal 100 - 129 mg/dL: Near Optimal/Above Optimal 130 - 159 mg/dL: Borderline High 160 - 189 mg/dL: High >190 mg/dL: Very High Triglycerides 127 <150 mg/dL 03/17/2018 4:22 AM [facility] Comment: ATP III Classification of Triglycerides: <150 mg/dL: Normal 150 - 199 mg/dL: Borderline High 200 - 400 mg/dL: High >500 mg/dL: Very High Blood BLOOD SPECIMEN / Unknown 03/17/2018 3:47 AM CDT 03/17/2018 3:53 AM CDT Justin Miner MD LAB - CHEMISTRY [place] [facility] [address] [phone] * (ABNORMAL) URINALYSIS W/MICROSCOPIC NO CULTURE (03/16/2018 8:30 PM CDT) Color UA Yellow Straw, Yellow, Colorless, Light Yellow 03/16/2018 8:46 PM [facility] Clarity UA Hazy(A) Clear 03/16/2018 8:46 PM [facility] Specific [place] UA 1.012 1.001 - 1.030 03/16/2018 8:46 PM [facility] pH UA 6.5 5.0 - 8.0 03/16/2018 8:46 PM [facility] Protein UA Negative <=20 mg/dL 03/16/2018 8:46 PM [facility] Glucose UA Negative Negative mg/dL 03/16/2018 8:46 PM [facility] Ketone UA Negative Negative mg/dL 03/16/2018 8:46 PM [facility] Bilirubin UA Negative Negative mg/dL 03/16/2018 8:46 PM [facility] Blood UA Negative Negative 03/16/2018 8:46 PM [facility] Nitrite UA Negative Negative 03/16/2018 8:46 PM [facility] Leukocyte Esterase Negative Negative 03/16/2018 8:46 PM [facility] Urobilinogen UA <2.0 <2.0 mg/dL 8 8:46 PM [facility] RBC UA <1 0 - 8 /HPF 03/16/2018 8:46 PM [facility] WBC UA 1 0 - 2 /HPF 03/16/2018 8:46 PM [facility] Bacteria UA Rare Rare, Occasional, None /HPF 03/16/2018 8:46 PM [facility] Squamous Epithelial Cells UA 11(H) 0 - 1 /HPF 03/16/2018 8:46 PM CDT [facility] Urine URINE SPECIMEN OBTAINED BY CLEAN CATCH PROCEDURE / Unknown Collection / Unknown 03/16/2018 8:30 PM CDT 03/16/2018 8:30 PM CDT Letty Howell MD LAB - URINALYSIS ORD ERABLES Performing Organization Address [facility] Hospital/ZIP Co de Phone Number [facility] [address] [phone] * EKG 12-LEAD (03/16/2018 8:15 PM CDT) Ventricular Rate 64 BPM [facility] Atrial Rate 64 BPM [facility] P-R Interval 198 ms [facility] QRS Duration ms 100 ms [facility] Q-T Interval ms 422 ms [facility] QTC Calculation (Bezet) 435 ms [facility] Calculated P [place] 20 degrees [facility] Calculated R [place] 7 degrees [facility] Calculated T [place] 22 degrees [facility] Interpretation EKG Normal sinus rhythm~Norm al ECG~No previous ECGs available~C onfirmed by Howard PANIAGUA, JESS ([id number]), managing editor Nicolas Fernandez ([id number]) on 04/03/2018 11:19:36 AM [facility] 03/16/2018 8:15 PM CDT 04/03/2018 11:19 AM CDT Kirk Freed MD ECG ORDERABLES Performing Organization Address [facility] Co de Phone Number [facility] * PT-INR [facility] (03/16/2018 7:53 PM CDT) PT 12.3 12.1 - 14.8 Seconds 03/16/2018 8:12 PM CDT [facility] INR 0.9 See Comment 03/16/2018 8:12 PM CDT [facility] Comment: The suggested therapeutic range for standard coumadin (warfarin) therapy is an INR of 2.0-3.0. For high-risk patients (Mechanical Mitral Valve Prosthesis, etc.), the suggested prophylactic therapeutic range is an INR of 2.5-3.5. Blood BLOOD SPECIMEN / Unknown Venipuncture / Unknown 03/16/2018 7:53 PM CDT 03/16/2018 7:57 PM CDT Kirk Freed MD LAB - COAGULATION OR DERABLES Performing Organization Address [facility]/ZIP Co de Phone Number [address] [phone] * TYPE + SCREEN PANEL (03/16/2018 7:53 PM CDT) [facility] Antibody Screen NEG 8 8:34 PM CDT [facility] ABO Rh A POS 03/16/2018 8:34 PM CDT [facility] Blood Bank BLOOD SPECIMEN / Unknown Venipuncture / Unknown 03/16/2018 7:53 PM CDT 03/16/2018 7:59 PM CDT Kirk Freed MD LAB - BLOOD BANK ORD ERABLES Performing Organization Address [facility] Co de Phone Number [facility] [address] [place] [address] * LITHIUM LEVEL (03/16/2018 7:53 PM CDT) [facility] [place], trough 0.76 0.50 - 1.20 mmol/L 03/16/2018 8:22 PM CDT [facility] Blood BLOOD SPECIMEN / Unknown Venipuncture / Unknown 03/16/2018 7:53 PM CDT 03/16/2018 7:57 PM CDT Letty Howell MD LAB - CHEMISTRY ORDMary Jane PALMA Performing Organization Address [facility]/ZIP Co de Phone Number [address] [phone] * TSH (03/16/2018 7:53 PM CDT) [facility] TSH 0.886 0.350 - 4.940 uIU/mL 03/16/2018 8:41 PM CDT [facility] Blood BLOOD SPECIMEN / Unknown Venipuncture / Unknown 03/16/2018 7:53 PM CDT 03/16/2018 7:57 PM CDT Letty Howell MD LAB - CHEMISTRY ORDE RABLES Performing Organization Address [facility] Co de Phone Number [facility] [address] [place] [address], [facility] [phone] * (ABNORMAL) CREATININE BLOOD - POCT (IP) [facility] (03/16/2018 7:24 PM CDT) Creatinine POCT 1.22 0.3 - 1.3 mg/dL [facility] eGFR POCT 47(A) 60 ml/min [facility] Blood BLOOD SPECIMEN / Unknown 03/16/2018 7:24 PM CDT Letty Howell MD LAB - POINT OF CARE ORDERABLES Performing Organization Address [facility] Co de Phone Number [facility] [address] [place] [address] * CT BRAIN STROKE PROTOCOL (03/16/2018 7:03 PM CDT) Anatomical Region Laterality Modality Head Computed Tomogra phy 03/16/2018 7:20 PM CDT Impressions 03/17/2018 11:45 AM CDT IMPRESSION: 1. No acute intracranial hemorrhage, midline shift, or significant mass effect. I, Dr. ELEAZAR BARRETT have personally reviewed and interpreted this examination/study. This report was electronically signed by ELEAZAR BARRETT on 03/17/2018 11:45 AM . Narrative 03/17/2018 11:45 AM CDT EXAMINATION: Computed tomography (CT) of the head without contrast HISTORY: Code Stroke TECHNIQUE: CT of the head was performed without contrast according to standard protocol. FINDINGS: No prior study is available for comparison at the time of this dictation. No acute intra- or extra-axial fluid collections are identified. There is mild cerebral volume loss with associated ex vacuo ventricular dilatation. The basilar cisterns are patent. No mass effect or midline shift is seen. The barrett-white matter differentiation is normal. Periventricular white matter hypoattenuation is indicative of chronic small vessel ischemic disease. There is vascular calcification of the carotid siphons. The visualized portions of the orbits, paranasal sinuses, and mastoids appear normal. No acute fracture is identified. Procedure Note Eleazar Barrett MD - 03/17/2018 EXAMINATION: Computed tomography (CT) of the head without contrast HISTORY: Code Stroke TECHNIQUE: CT of the head was performed without contrast according to standard protocol. FINDINGS: No prior study is available for comparison at the time of this dictation. No acute intra- or extra-axial fluid collections are identified. Thereis mild cerebral volume loss with associated ex vacuo ventriculardilatation. The basilar cisterns are patent. No mass effect or midline shift isseen. The barrett-white matter differentiation is normal. Periventricular white matter hypoattenuation is indicative of chronic small vessel ischemic disease. There is vascular calcification of the carotid siphons. The visualized portions of the orbits, paranasal sinuses, and mastoidsappear normal. No acute fracture is identified. IMPRESSION: 1. No acute intracranial hemorrhage, midline shift, or significant mass effect. I, Dr. ELEAZAR BARRETT have personally reviewed and interpreted this examination/study. This report was electronically signed by ELEAZAR BARRETT on 03/17/201811:45 AM . Kirk Freed MD CT ORDERABLES * URINALYSIS - POINT OF CARE (AMB) [facility] (11/23/2016) Only the most recent of2 resultswithin the time period is included. Glucose UA neg [facility] Bilirubin UA POCT neg [facility] Ketones UA POCT neg [facility] Specific [place] UA 1.010 [facility] Blood Urine POCT neg [facility] pH UA 5.0 [facility] Protein UA neg [facility] Urobilinogen UA neg [facility] Nitrite UA neg [facility] WBC UA neg [facility] Urine specimen (specimen) 11/23/2016 Radha Mejia MD LAB - POINT OF CARE ORDERABLES [facility] * CULTURE URINE COMPREHENSIVE (11/23/2016) Only the most recent of2 resultswithin the time period is included. Culture SEE NOTE [facility] ([facility]) Comment: CULTURE, URINE, SPECIAL MICRO NUMBER: [id number] TEST STATUS: FINAL SPECIMEN SOURCE: URINE SPECIMEN QUALITY: ADEQUATE RESULT: No Growth REPORT COMMENT: PREFERRED LAB:->[facility] Test Performed at: [facility] [id number] MANUELA HILTON MD Urine specimen (specimen) 11/23/2016 11/23/2016 11:16 PM [employer] Narrative [facility] ([facility]) - 11/26/2016 6:00 AM [employer] Preferred Lab:->[facility] Kayla Mejia MD LAB - MICROBIOLOGY O RDERABLES [facility] Care Teams Testing Specialist Relationship Specialty Start Date End Date Anders Kendrick MD [address] [place] [address] [address] [place] [address] PCP - General 05/21/18
--- OUTSIDE RECORDS SUMMARY | 2024-11-02 10:56 | XMS_ITS | Clinical Summary ---
Author Organization [facility] Address [address] [place] [address] Care Team Providers Care Airplane Pilot Crop Dusting Name Role Phone Anders Kendrick MD Primary Care Provider [phone] Source Comments [facility],non-owned Affiliates and Associated Physician Practices is amultiple site organization consisting of ambulatory clinics and hospital sitesin [place], [place]. This disclosure is being madepursuant to the Care Everywhere program and may not contain all information available regarding this patient. Last updated 18.[facility] Allergies Active Allergy Reactions Criticality Noted Date [...] ressive disorder without prior episode 05/01/2018 07/22/2018 Family History Medical History Relation Name Comments Diabetes - Type 2 Father Cancer - Breast Mother Osteoporosis Mother Relation Name Status Comments Father Mother Social History Tobacco [...] Mass Index 37.25 04/06/2023 11:09 AM CDT Plan of Treatment Health Maintenance Due Date Last Done Comments BONE DENSITY TESTING 1955 COLOGUARD (AGES 45-75) - COLON CA SCREENING 1954 COLON MONITORING 1954 COLONOSCOPY - COLON CA SCREENING 1954 CT COLONOGRAPHY - COLON CA SCREENING 1954 Colorectal Cancer Screening 1954 FIT - COLON CA SCREENING 1954 FLEX SIG - COLON CA SCREENING 1954 MAMMOGRAM 1954 HEPATITIS C SCREENING 01/27/1972 DTAP/TDAP/TD VACCINES (1 - Tdap) 1973 PNEUMOCOCCAL VACCINE 50+ (1 of 1 - PCV) 02/01/2004 ZOSTER VACCINE (1 of 2) 02/01/2004 SCREENING FOR DIABETES 05/14/2023 0, 05/02/2018, 05/01/2018, Additional history exists COVID-19 VACCINE (1 - 2023- season) 2024 INFLUENZA VACCINE (#1) 2024 DEPRESSION SCREENING 09/24/2024 MEDICARE AWV CALENDAR YEAR 2024 Respiratory Syncytial Virus (RSV) Vaccine Pt: or over 60 yrs (1 - 1-dose 75+ series) 2029 HEPATITIS B VACCINE Aged Out No longe r eligible based on patient's age to complete this topic HIB VACCINE Aged Out No longer eligi ble based on patient's age to complete this topic HPV VACCINE Aged Out No longer eligi ble based on patient's age to complete this topic MENINGOCOCCAL (Group B) VACCINE Aged Out No longer eligible based on patient's age to complete this topic MENINGOCOCCAL VACCINE Aged Out No pierre brett eligible based on patient's age to complete this topic Procedures Procedure Name Priority Date/Time Associated Diagnosis Comments COMPREHENSIVE METABOLIC PANEL STAT 05/14/2020 1:16 AM CDT from Last 3 Months or Most Recently Relevant to Health Maintenance Results * (ABNORMAL) COMPREHENSIVE METABOLIC PANEL (05/14/2020 1:16 AM CDT) BUN 16 7 - 26 mg/dL 05/14/2020 1:51 AM [facility] Creatinine 1.0 0.6 - 1.2 mg/dL 05/14/2020 1:51 AM [facility] Sodium 139 136 - 145 mmol/L 05/14/2020 1:51 AM [facility] Potassium 3.7 3.5 - 4.5 mmol/L 05/14/2020 1:51 AM [facility] Chloride 100 98 - 107 mmol/L 05/14/2020 1:51 AM [facility] CO2 25 22 - 29 mmol/L 05/14/2020 1:51 AM [facility] Glucose 106 70 - 115 mg/dL 05/14/2020 1:51 AM [facility] Calcium 9.2 8.4 - 10.2 mg/dL 05/14/2020 1:51 AM [facility] Protein Total 7.3 6.0 - 8.3 g/dL 05/14/2020 1:51 AM [facility] Albumin 3.9 3.4 - 5.0 g/dL 05/14/2020 1:51 AM [facility] Bilirubin Total 0.6 0.2 - 1.2 mg/dL 05/14/2020 1:51 AM [facility] Alkaline Phosphatase 98 40 - 150 Units/L 05/14/2020 1:51 AM [facility] ALT 13 0 - 55 Units/L 05/14/2020 1:51 AM [facility] AST 15 5 - 34 Units/L 05/14/2020 1:51 AM [facility] Anion Gap 18 8 - 18 05/14/2020 1:51 AM [facility] BUN/Creatinine Ratio 16 7 - 23 05/14/2020 1:51 AM [facility] Osmolality Calculated 290 270 - 300 mOsm/kg 05/14/2020 1:51 AM [facility] Albumin/Globulin Ratio 1.1 1.1 - 2.3 05/14/2020 1:51 AM [facility] eGFR 55(L) >60 mL/min/1.7 3 m2 05/14/2020 1:51 AM [facility] Blood BLOOD SPECIMEN / Unknown Venipuncture / Unknown 05/14/2020 1:16 AM CDT 05/14/2020 1:30 AM [facility] Ismael Shepherd MD LAB - CHEMISTRY MILDR[facility] Organization Address City/State/ZIP Co de Phone Number [facility] [address] [place] [id number] [phone] from Last 3 Months or Most Recently Relevant to Health Maintenance Advance Directives * Full Code (Latest Code Status on File) Date Activated Date Inactivated Comments 05/02/2018 4:55 AM 05/02/2018 1:16 PM * Full Code Date Activated Date Inactivated Comments 05/02/2018 2:19 AM 05/02/2018 4:55 AM * Full Code Date Activated Date Inactivated Comments 03/17/2018 1:23 AM 03/22/2018 4:01 PM Care Teams Airplane Pilot Crop Dusting Relationship Specialty Start Date End Date Anders Kendrick MD [address] [facility] [address] [place] [address] PCP - General 05/21/18
--- OUTSIDE RECORDS SUMMARY | 2024-11-02 10:56 | XMS_ITS ---
Author Organization [facility] Address [address] [place] [address] Care Team Providers Care Trade Promotion Analyst Name Role Phone Anders Kendrick MD Primary Care Provider [phone] Ryne Hoffman MD Unavailable [phone] Active Problems Problem Noted Date Diagnosed Date S/P TAVR (transcatheter aortic valve replacement ) 03/18/2024 Atherosclerosis of renal artery 03/11/2024 Angina pectoris 03/11/2024 Chest pain, unspecified 03/11/2024 Malignant tumor of thyroid gland 03/11/2024 Overview (03/11/2024): s/p iodine ablation and thyroidectomy Aortic stenosis, severe 03/04/2024 CHF (congestive heart failure) ([facility]) 024 Pain in both feet 01/22/2024 Dyslipidemia [...] < 55 years) - Signed by Tejal Claudio NP on 04/09/2018 Assessment & Plan (01/21/2024 2:50 [...] 07/14/2009 Mixed hypercholesterolemia and hypertriglyceride dianne 09/24/1960 Current Oncology Plans No current plan information found. Past Plans No past plan information found. Radiation Treatments * No radiation treatments are documented for this patient in [facility]. Treatments may have been administered in another system. 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
--- OUTSIDE RECORDS SUMMARY | 2024-11-02 10:56 | XMS_ITS ---
Author Organization [facility] Address [address] [place] [address] Care Team Providers Care Automobile Detailer Name Role Phone Anders Kendrick MD Primary Care Provider [phone] Active Problems Problem Noted Date Diagnosed Date [...] 02/23 Female stress incontinence 03/17/2016 Hypothyroidism 01/03/2012 Current Oncology Plans No current plan information found. Past Plans No past plan information found. Radiation Treatments * No radiation treatments are documented for this patient in Epic. Treatments may have been administered in another system. Lifetime Dose Tracking * Chemical Lifetime Dose Automatic Entry Manual Entr y Dose Length Product 2,464 mGy-cm 2,464 mGy-cm 0 mGy-cm Resolved Problems Problem Noted Date Diagnosed Date Resolved Date Major depressive disorder, r ecurrent severe without psychotic features 05/02/2018 07/22/2018 Current episode of major dep ressive disorder without prior episode 05/01/2018 07/22/2018
--- OUTSIDE RECORDS SUMMARY | 2024-11-02 10:56 | XMS_ITS | Encounter Summary ---
Author Organization [facility] Address [address] [place] [address] Phone Care Team Providers Care News Reporter Name Role Phone Minh Lobato MD Unavailable [phone] Anders Kendrick MD Primary Care Provider [phone] Ryne Hoffman MD Unavailable [phone] Encounter Details Date Type Department Care Team (Latest Contact Info) Description 07/05/2020 Orders Only [facility] Scanning, Provider Social History Tobacco Use Types Packs/Day Years Used Date Smoking Tobacco: Never Smokeless Tobacco: Never Alcohol Use Standard Drinks/Week Comments No 0 (1 standard drink = 0.6 oz pur e alcohol) Comments No Sex and Gender Information Value Date Recorded Sex Assigned at Not on file Legal Sex Female 3:38 AM DIRECTOR PAYER Gender Identity Female 04/07/2020 7:32 PM CDT Sexual Orientation Straight 04/07/2020 7: 32 PM CDT documented as of this encounter Plan of Treatment Not on file documented as of this encounter Procedures Procedure Name Priority Date/Time Associated Diagnosis Comments SCAN - LABS 07/05/2020 documented in this encounter Results * SCAN - LABS (07/05/2020) us Provider Scanning Final Result documented in this encounter Visit Diagnoses Not on filedocumented in this encounter Care Teams News Reporter Relationship Specialty Start Date End Date Anders Kendrick MD PCP - General Emergency Medicine 01/01/19 Minh Lobato MD Radiation Oncologist Radiation Oncology 04/09/18 4 Ryne Hoffman MD [address] [place] [address] Consulting Physician Interventional Cardiology 03/19/24 documented as of this encounter
[2024-11-02 11:08] VITALS: BP 151/75; PULSE 62; RESP 20; TEMP 36.6; O2SAT 90
[2024-11-02 11:15] LABS: Basophils Percent Auto 0.7 % (0.2-1.2); Eosinophils Absolute Auto 0.2 K/mm3 (0-0.3); Eosinophils Percent Auto 3.3 % (0-4.4); Hemoglobin 14.5 g/dL (12.0-15.0); Immature Granulocyte Absolute 0.01 K/mm3 (0.00-0.031); Immature Granulocyte Percent A 0.2 % (0-0.5); Lymphocytes Absolute Auto 2.68 K/mm3 (0.9-3.2); Lymphocytes Percent Auto 44.2 % (18.3-44.2); Mean Corpuscular Hemoglobin 29.8 pg (26-34); Mean Corpuscular Volume 90.5 fl (80-100); Mean Platelet Volume 10.8 fl (7.4-10.4); Monocytes Absolute Auto 0.6 K/mm3 (0.1-0.6); Monocytes Percent Auto 9.7 % (2.6-8.5); Neutrophils Absolute Auto 2.5 K/mm3 (1.3-6.7); Neutrophils Percent Auto 41.9 % (45.5-73.1); Platelet Count Result 200 k/mm3 (150-375); Red Blood Count 4.86 M/mm3 (4.2-5.4); Red Cell Distribution Width 14.1 % (11.5-14.5); White Blood Count 6.1 K/mm3 (4.5-10.0)
[2024-11-02 11:27] LABS: Alanine Aminotransferase 26 U/L (6-35); Alkaline Phosphatase 61 U/L (38-126); Anion Gap 8 mmol/L (4-12); Aspartate Amino Transferase 26 U/L (14-36); Bilirubin,Total 0.6 mg/dL (0.2-1.3); Blood Urea Nitrogen 23 mg/dL (7-17); Calcium 9.4 mg/dL (8.4-10.2); Carbon Dioxide 28 mmol/L (22-30); Chloride 103 mmol/L (98-107); Estimated Glomerular Filt Rate 39; Glucose 116 mg/dL (65-110); Sodium 139 mmol/L (137-145)
[2024-11-02 12:00] LABS: Influenza A QL RT-PCR Negative (Negative); Influenza B QL RT-PCR Negative (Negative); RSV RNA, RT-PCR Negative (Negative); SARS-CoV-2 RNA PCR Negative (Negative)
[2024-11-02 12:35] VITALS: O2SAT 99
--- OUTSIDE RECORDS SUMMARY | 2024-11-02 12:37 | XMS_ITS ---
Author Organization [facility] Address [address] [place] [address] Care Team Providers Care Rn Clinical Quality Name Role Phone Anders Kendrick MD Primary Care Provider [phone] Ryne Hoffman MD Unavailable [phone] Active Problems Problem Noted Date Diagnosed Date S/P TAVR (transcatheter aortic valve replacement ) 03/18/2024 Atherosclerosis of renal artery 03/11/2024 Angina pectoris 03/11/2024 Chest pain, unspecified 03/11/2024 Malignant tumor of thyroid gland 03/11/2024 Overview (03/11/2024): s/p iodine ablation and thyroidectomy Aortic stenosis, severe 03/04/2024 CHF (congestive heart failure) ([facility]) 024 Pain in both feet 01/22/2024 [...] treatments are documented for this patient in [facility]. Treatments may have been administered in another system. 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
--- OUTSIDE RECORDS SUMMARY | 2024-11-02 12:37 | XMS_ITS | Clinical Summary ---
Author Organization [facility] Address [address] [place] [address] Care Team Providers Care Documentation Clerk Name Role Phone Anders Kendrick MD Primary Care Provider [phone] Ryne Hoffman MD Unavailable [phone] Allergies Active Allergy Reactions Criticality Noted [...] (congestive heart failure) ([facility]) 024 Pain in both feet 01/22/2024 [...] 54 years) - Signed by Tejal Claudio, SILK WINDING MACHINE OPERATOR on 04/09/2018 Assessment & Plan (01/21/2024 [...] 04/02/2019 Surgical History Surgery Date Site/Laterality Comments [place] TOTAL ABDOMINAL HYSTERECT W/WO RMVL TUBE OVARY [...] drink = 0.6 oz pur e alcohol) [facility] Utilities Answer Date Recorded In the past 12 months has [employer] gas, oil, or water [employer] threatened to shut off services in your [...] often do you attend chur ch or baptism services? Never 03/19/2024 Do you belong to any clubs o r organizations such as taoist groups, unions, fraternal or athletic groups, or [...] any time in the past 12 m [facility], were you homeless or living in a long-term (including now)? No 03/19/2024 Personal Safety Answer Date Recorded Have you ever been in or are you currently in a harmful physical or emotional relationship or is someone making you feel afraid or unsafe? 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 Gender Identity Female 04/07/2020 7:32 PM CDT [...] 03/19/2024, 03/11/2024 Medical Devices Implanted Type Area Shell Trim Tool Setter Device Identifier Shelf Expiration Date Model / Serial / Lot [employer] System Closure Repair Femoral Artery Suture Mediated Perclose Prostyle 91697-78 - [id number] Implanted:Qty: 1 on 03/18/2024 by Ryne Hoffman MD at [facility] [employer] 12/22/2025 [id number] / / [id number] [employer] System Closure Repair Femoral Artery Suture Mediated Perclose Prostyle 38863-52 - [id number] Implanted:Qty: 1 on 03/18/2024 by Ryne Hoffman MD at [facility] [employer] 12/22/2025 [id number] / / [id number] [employer] Valve Aortic Trnscath Shaggy 3 Ultra Resilia 23mm [id number] - [id number] - [id number] Implanted:Qty: 1 on 03/18/2024 by Ryne Hoffman MD at [facility] [employer] 04/11/2026 [id number] / [id number] / [employer] System Closure Repair Femoral Artery Suture Mediated Perclose Prostyle 08557-50 - [id number] Implanted:Qty: 1 on 03/18/2024 by Ryne Hoffman MD at [facility] [employer] 12/22/2025 [id number] / / [id number] Procedures Procedure Name Priority Date/Time Associated Diagnosis [...] ORDERABLES Jeannie l Result Performing Organization Address City/[facility] Co de Phone Number EXTERNAL LAB [...] ORDERABLES Final Resu lt Performing Organization Address City/[facility]/ZIP Co de Phone Number JACKIE COHEN [address] Department [place] [address] * Hemoglobin A1c (03/11/2024 9:42 AM CDT) Hgb A1C 5.3 4.0 - 5.6 % Estimated Average Glucose 105 mg/dL JACKIE [facility]HEN Comment: The ADA recommends reporting an estimated Average Glucose (eAG) with all Hemoglobin A1c results using the equation derived from a study of 507 normal and diabetic adults. Minority populations were underrepresented and children were not included. (Diabetes Care 31:8973-7921, 2008). The eAG is not equivalent to a fasting glucose. Blood 03/11/2024 9:42 AM CDT 03/11/2024 9:45 AM CDT us Ryne Hoffman MD LAB BLOOD ORDERABLES Final Resu lt JACKIE [address] Department [place] [address] from Last 3 Months or Most Recently Relevant to Health Maintenance Insurance [employer] MEDICARE SOLUTIONS [employer] MEDICARE SOLUTIONS MEDICARE [email or web address] [facility] Advance Directives For more information, please contact: [phone] Healthcare Agents on File Name Relationship Healthcare Agent Relationshi p Communication Brenda Kelechi Sister Health Care Agent Care Teams Documentation Clerk Relationship Specialty Start Date End Date Anders Kendrick MD PCP - General Emergency Medicine 01/01/19 Ryne Hoffman MD [address] [place] [address] Consulting Physician Interventional Cardiology 03/19/24
[2024-11-02 12:38] VITALS: BP 170/90; PULSE 67; RESP 20; O2SAT 98
--- OUTSIDE RECORDS SUMMARY | 2024-11-02 12:38 | XMS_ITS | Encounter Summary ---
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
--- OUTSIDE RECORDS SUMMARY | 2024-11-02 12:38 | XMS_ITS | Referral Summary ---
Author Organization [facility] Address [address] [place] [address] Care Team Providers Care Pipe Smoking Machine Offbearer Name Role Phone Anders Kendrick MD Primary Care Provider [phone] Ryne Hoffman MD Unavailable [phone] Allergies Active Allergy Reactions Criticality Noted [...] stenosis, severe 03/04/2024 CHF (congestive heart failure) ([facility]) 024 Pain in both feet [...] 54 years) - Signed by Tejal Claudio, DEVELOPMENT REP on 04/09/2018 Assessment & Plan (01/21/2024 2:50 [...] drink = 0.6 oz pur e alcohol) [facility] Utilities Answer Date Recorded In the [...] often do you attend chur ch or advent services? Never 03/19/2024 Do you belong to any clubs o r organizations such as mandaeism groups, unions, fraternal or athletic groups, or [...] any time in the past 12 m [facility], were you homeless or living in a mcc (including now)? No 03/19/2024 Personal Safety Answer Date Recorded Have you ever been in or are you currently in a harmful physical or emotional relationship or is someone making you feel afraid or unsafe? Denies 03/18/2024 Comments No Sex and Gender Information Value Date Recorded Sex Assigned at Not on file Legal Sex Female 3:38 AM X RAY PHYSICIAN Gender Identity Female 04/07/2020 7:32 PM CDT [...] on file Medical Devices Implanted Type Area Raschel Knitting Machine Operator Device Identifier Shelf Expiration Date Model / Serial / Lot [employer] System Closure Repair Femoral Artery Suture Mediated Perclose Prostyle 71521-59 - [id number] Implanted:Qty: 1 on 03/18/2024 by Ryne Hoffman MD at [facility] [employer] 12/22/2025 [id number] / / [id number] [employer] System Closure Repair Femoral Artery Suture Mediated Perclose Prostyle 72313-73 - [id number] Implanted:Qty: 1 on 03/18/2024 by Ryne Hoffman MD at [facility] [employer] 12/22/2025 [id number] / / [id number] [employer] Valve Aortic Trnscath Shaggy 3 Ultra Resilia 23mm [id number] - [id number] - [id number] Implanted:Qty: 1 on 03/18/2024 by Ryne Hoffman MD at [facility] [employer] 04/11/2026 [id number] / [id number] / [employer] System Closure Repair Femoral Artery Suture Mediated Perclose Prostyle 72251-87 - [id number] Implanted:Qty: 1 on 03/18/2024 by Ryne Hoffman MD at [facility] [employer] 12/22/2025 [id number] / / [id number] Procedures Procedure Name Priority Date/Time Associated Diagnosis [...] ORDERABLES Final Resu lt Performing Organization Address City/[facility]/ZIP Co de Phone Number JACKIE COHEN [address] [place] [address] * Hemoglobin A1c (03/11/2024 9:42 AM CDT) Hgb A1C 5.3 4.0 - 5.6 % Estimated Average Glucose 105 mg/dL JACKIE COHEN Comment: The ADA recommends reporting an estimated Average Glucose (eAG) with all Hemoglobin A1c results using the equation derived from a study of 507 normal and diabetic adults. Minority populations were underrepresented and children were not included. (Diabetes Care 31:9919-4837, 2008). The eAG is not equivalent to a fasting glucose. Blood 03/11/2024 9:42 AM CDT 03/11/2024 9:45 AM CDT Ryne Hoffman MD LAB BLOOD ORDERABLES Final Resu lt JACKIE COHEN [address] [place] [address] from Last 3 Months or Most Recently Relevant to Health Maintenance Insurance [employer] MED[employer]ARE SOLUTIONS [employer] MEDICARE [employer] MEDICARE SOLUTIONS [employer] Advance Directives For more information, please contact: [phone] Healthcare Agents on File Name Relationship Healthcare Agent Relationshi p Communication Brenda Kelechi Sister Health Care Agent Care Teams Pipe Smoking Machine Offbearer Relationship Specialty Start Date End Date Anders Kendrick MD PCP - General Emergency Medicine 01/01/19 Ryne Hoffman MD [address] [place] [address] Consulting Physician Interventional Cardiology 03/19/24
--- OUTSIDE RECORDS SUMMARY | 2024-11-02 12:38 | XMS_ITS | Continuity of Care Document ---
Author Organization [facility] Address [address] [facility] [address] [place] [address] Phone Care Team Providers Care Fleecer Name Role Phone Shahid Spivey Unavailable Unavailable [...] Copied on Encounter Office/outpat ient Visit, Est [facility], [address], [place], [place], [id number], [place] tel:[phone] [facility] [place] No Information 0-201 0 Patric Shahid. [address] [facility] [address], [place], [address], [place]. tel:[phone] [facility], [address], [place], [place], [id number], [place] tel:[phone] [facility] No Information 3-201 0 Krishnasamy Shahid. [address], [place], [place], [facility], [place]. tel:[phone] Referring Provider: Shahid mistry, [facility] [address], [place], [place], [facility]. tel:[phone] [facility], [address], [place], [place], [id number], [place] tel:[phone] [facility] No Information 0 Krishnasamy Shahid. [address], [place], [place], [facility], [place]. tel:[phone] Referring Provider: Shahid mistry, [facility] [address], [place], [place], [facility]. tel:[phone] [facility], [address], [place], [place], [id number], [place] tel:[phone] [facility] No Information 0 Krishnasamy Shahid. [facility] [address], [place], [facility], [place]. tel:[phone] Referring Provider: Shahid mistry, [facility] [address], [place], [place], [facility]. tel:[phone] [facility], [address], [place], [place], [id number], [place] tel:[phone] [facility] No Information 0 Krishnasamy Shahid. [address], [place], [facility], [place]. tel:[phone] Referring Provider: Shahid mistry, [facility], [facility]. tel:[phone] Office/outpat ient Visit, [facility], [id number] [place] [address] [address], [place], [place], [id number], [place] tel:[phone] [facility] [place] No Information 5-201 0 Krishnasamy Shahid. [address] [place] [address], [facility], [place]. tel:[phone] [facility]pat [facility], [facility], [id number] [place] [address] [address], [place], [place], [id number], [place] tel:[phone] [facility] No Information 4-200 9 Krishnasamy Shahid. [address] [place] [address], [facility], [place]. tel:[phone] [facility], [address] [place] [address] [address], [place], [place], [id number], [place] tel:[phone] [facility] No Information 8-200 9 Krishnasamy Shahid. [address] [place] [address], [facility], [place]. tel:[phone] Referring Provider: Shahid mistry, [address] [place] [address], [facility]. tel:[phone] [facility], [address] [place] [address] [address], [place], [place], [id number], [place] tel:[phone] [facility] No Information 7-200 8 Krishnasamy Shahid. [address] [place] [address], [facility], [place]. tel:[phone] Referring Provider: Shahid mistry, [address] [place] [address], [facility]. tel:[phone] Family History Family Member Type Diagnosis Age At Onset No Information Payers Payer name Insurance type Covered democrat ID Authoriza tion(s) Medicare [facility] [id number] Medicaid [facility] [id number] Social History Type Description Quantity Date Captured [...]
--- OUTSIDE RECORDS SUMMARY | 2024-11-02 12:38 | XMS_ITS | Clinical Summary ---
Author Organization [facility] Address [address] [place] [address] Care Team Providers Care Veneer Stock Grader Name Role Phone Idalmis Khan Provider Primary [...] 1 Tablet (137 mcg) by mouth daily cyber reverse engineer. 90 Tablet 3 10/18/2017 Active Active Problems [...] Comments Blood Pressure 145/74 10/17/2017 11:26 AM CUSTOMS DIRECTOR Pulse 62 10/17/2017 11:26 AM CUSTOMS DIRECTOR Temperature 36.8 C (98.3 F) 10/17/2017 11:26 AM CUSTOMS DIRECTOR Respiratory Rate 18 07/18/2017 9:18 AM CDT Oxygen Saturation - - Inhaled Oxygen Concentration - - Weight 115.2 kg (254 lb) 10/17/2017 11:26 AM CUSTOMS DIRECTOR Height 175.3 cm (5' 9 ) 10/17/2017 11:26 AM CUSTOMS DIRECTOR Body Mass Index 37.51 10/17/2017 11:26 AM CUSTOMS DIRECTOR Plan of Treatment Health Maintenance Due Date [...] MEDICARE PART A AND B Care Teams Veneer Stock Grader Relationship Specialty Start Date End Date Idalmis Khan Provider PCP - General 10/17/17
--- OUTSIDE RECORDS SUMMARY | 2024-11-02 12:38 | XMS_ITS | Patient Health Summary ---
Author Organization [facility] Address [address] [place] [address] Care Team Providers Care Behavioral Health Care Manager Name Role Phone Anders Kendrick MD Primary Care Provider [phone] Note from [facility],non-owned Affiliates and Associated Physician Practices is amultiple site organization consisting of ambulatory clinics and hospital sitesin [place], [place], [place]. This disclosure is being madepursuant to the Care Everywhere program and may not contain all information available regarding this patient. Last updated 18.[facility] Allergies * Adhesive Sensitivity(Itching) [...] Procedures * LAB RESULTS ORDER(Performed 05/29/2023) * SC MSR PVR U&/BLADD CAPCTY US NON(Performed 04/06/2023) Performed for Urge incontinence * URINALYSIS AUTO - POINT OF CARE (AMB) [facility](Performed 04/06/2023) Performed for Urge incontinence * SC SYNTHETIC IMPLNT URINARY 1ML(Performed 10/12/2020) Performed for Stress incontinence * SC ENDOSCOPIC INJECTION/IMPLANT(Performed 10/12/2020) Performed for Stress incontinence * SC INSERT NON-INDWELLING BLADDER(Performed 10/07/2020) Performed for Urinary [...] - THERAPEUTIC DR [place] MONITORING ORDERABLES * SC MSR PVR U&/BLADD CAPCTY US NON (04/06/2023 [...] - [facility] [address] Specific [place] UA 1.[address] [facility] [address] Blood [...] ORDERABLES [facility] [address] [place] [address], [facility] [phone] * SC ENDOSCOPIC INJECTION/IMPLANT, SC SYNTHETIC IMPLNT URINARY 1ML (10/12/2020 1:59 PM BALL POINTS INSPECTOR) Narrative Radha Mejia Che, MD - 10/12/2020 1:59 PM BALL POINTS INSPECTOR Radha Mejia Che, MD 10/12/2020 2:04 PM [...] cc of coaptite. The lot number was [id number], and the expiration date was 06/01/2023. She [...] Mejia MD PROCEDURE/MINOR SURG ICAL ORDERABLES * SC INSERT NON-INDWELLING BLADDER (10/07/2020 8:57 AM BALL POINTS INSPECTOR) Narrative Radha Mejia Che, MD - 10/07/2020 8:57 AM BALL POINTS INSPECTOR Radha Mejia Che, MD 10/07/2020 8:58 AM [...] in the head or neck. Dictated by Arenl Olson M.D. This report was approved by [...] - 10.5 10 3/uL 05/14/2020 1:32 AM [facility] RBC 4.60 3.90 - 5.00 10 6/uL 05/14/2020 1:32 AM [facility] Hemoglobin 13.4 12.0 - 15.5 g/dL 05/14/2020 1:32 AM [facility] Hematocrit 40.6 35.0 - 45.0 % 05/14/2020 1:32 AM [facility] MCV 88.3 81.0 - 97.0 fL 05/14/2020 1:32 AM [facility] MCH 29.1 28.0 - 34.0 pg 05/14/2020 1:32 AM [facility] MCHC 33.0 32.0 - 36.0 g/dL 05/14/2020 1:32 AM [facility] Platelet Count 244 150 - 400 10 3/uL 05/14/2020 1:32 AM [facility] RDW-SD 44.6 36.0 - 50.0 fL 05/14/2020 1:32 AM [facility] RDW-CV 13.8 11.2 - 14.8 % 05/14/2020 1:32 AM [facility] MPV 10.6 9.3 - 12.8 fL 05/14/2020 1:32 AM [facility] nRBC Absolute 0.00 0 10 3/uL 05/14/2020 1:32 AM [facility] nRBC Auto 0.0 0 /100 WBC 05/14/2020 1:32 AM [facility] Neutrophils % 43.0 35.0 - 70.0 % 05/14/2020 1:32 AM [facility] Lymphocytes % 43.4 19.7 - 55.1 % 05/14/2020 1:32 AM [facility] Monocytes % 10.0 3.0 - 15.0 % 05/14/2020 1:32 AM [facility] Eosinophils % 2.8 0.0 - 6.0 % 05/14/2020 1:32 AM [facility] Basophil % 0.3 0.0 - 1.5 % 05/14/2020 1:32 AM [facility] Neutrophils Absolute 3.7 1.6 - 7.0 10 3/uL 05/14/2020 1:32 AM [facility] Lymphocyte Absolute 3.7(H) 0.8 - 2.9 10 3/uL 05/14/2020 1:32 AM [facility] Monocytes Absolute 0.86(H) 0.14 - 0.66 10 3/uL 05/14/2020 1:32 AM [facility] Eosinophils Absolute 0.24 0.00 - 0.45 10 3/uL 05/14/2020 1:32 AM [facility] Basophils Absolute 0.03 0.00 - 0.06 10 3/uL 05/14/2020 1:32 AM [facility] Immature Granulocytes % 0.5 0.0 - 1.0 % 05/14/2020 1:32 AM [facility] Blood BLOOD SPECIMEN / Unknown Venipuncture / Unknown 05/14/2020 1:16 AM CDT 05/14/2020 1:30 AM CDT Ismael Shepherd MD LAB - HEMATOLOGY ORD ERABLES [address] [id number] [phone] * (ABNORMAL) COMPREHENSIVE METABOLIC PANEL (05/14/2020 1:16 AM CDT) Only the most recent of3 resultswithin the time period is included. BUN 16 7 - 26 mg/dL 05/14/2020 1:51 AM [facility] Creatinine 1.0 0.6 - 1.2 mg/dL 05/14/2020 1:51 AM [facility] Sodium 139 136 - 145 mmol/L 05/14/2020 1:51 AM [facility] Potassium 3.7 3.5 - 4.5 mmol/L 05/14/2020 1:51 AM [facility] Chloride 100 98 - 107 mmol/L 05/14/2020 1:51 AM [facility] CO2 25 22 - 29 mmol/L 05/14/2020 1:51 AM [facility] Glucose 106 70 - 115 mg/dL 05/14/2020 1:51 AM [facility] Calcium 9.2 8.4 - 10.2 mg/dL 05/14/2020 1:51 AM [facility] Protein Total 7.3 6.0 - 8.3 g/dL 05/14/2020 1:51 AM [facility] Albumin 3.9 3.4 - 5.0 g/dL 05/14/2020 1:51 AM [facility] Bilirubin Total 0.6 0.2 - 1.2 mg/dL 05/14/2020 1:51 AM [facility] Alkaline Phosphatase 98 40 - 150 Units/L 05/14/2020 1:51 AM [facility] ALT 13 0 - 55 Units/L 05/14/2020 1:51 AM [facility] AST 15 5 - 34 Units/L 05/14/2020 1:51 AM [facility] Anion Gap 18 8 - 18 05/14/2020 1:51 AM [facility] BUN/Creatinine Ratio 16 7 - 23 05/14/2020 1:51 AM [facility] Osmolality Calculated 290 270 - 300 mOsm/kg 05/14/2020 1:51 AM [facility] Albumin/Globulin Ratio 1.1 1.1 - 2.3 05/14/2020 1:51 AM [facility] eGFR 55(L) >60 mL/min/1.7 3 m2 05/14/2020 1:51 AM [facility] Blood BLOOD SPECIMEN / Unknown Venipuncture / Unknown 05/14/2020 1:16 AM CDT 05/14/2020 1:30 AM T Ismael Shepherd MD LAB - CHEMISTRY [place] [facility] Organization Address City/State/ZIP Co de Phone Number [address] [address], [facility] [phone] * CT CERVICAL SPINE WO CONTRAST (05/14/2020 [...] 11:30 AM. Dictated by Tony Leblanc MD (Blindstitch Lapel Padder) This report was approved by Tony Leblanc [...] 11:30 AM. Dictated by Tony Leblanc MD (Blindstitch Lapel Padder) This report was approved by Tony Leblanc [...] 11:30 AM. Dictated by Tony Leblanc MD (Blindstitch Lapel Padder) This report was approved by Tony Leblanc [...] 11:30 AM. Dictated by Tony Leblanc MD (Blindstitch Lapel Padder) This report was approved by Tony Leblanc [...] 11:51 AM CDT IMPRESSION: 1. Cervical spine: Fhof-tk-uydgloae multilevel degenerative disc and joint disease. Cervical kyphosis status post instrumented C2-3 posterior element fusion. 2. Thoracic spine: Mild degenerative changes. 3. Lumbar spine: Mild degenerative changes. Report dictated by Williams Stephenson MD (radiology orderly). IDr. DEBRA have personally reviewed and interpreted [...] are not widened. IMPRESSION: 1. Cervical spine: Iftk-ki-qpqiiyjz multilevel degenerative disc andjoint disease. Cervical kyphosis status post instrumented C2-3 posteriorelement fusion. 2. Thoracic spine: Mild degenerative changes. 3. Lumbar spine: Mild degenerative changes. Report dictated by Williams Stephenson MD (radiology orderly). Dr. DEBRA Banerjee have personally reviewed and interpreted this examination/study. This report was electronically signed by DEBRA COUCH on 12/12/201811:51 AM . Zahraashon Guzman PA-Terence DIAGNOSTIC IMAG ING ORDERABLES * XR LUMBAR SPINE 2 OR 3VW (12/11/2018 2:01 PM CDT) Anatomical Region Laterality Modality Spine Radiographic Missy ging 12/11/2018 2:4 9 PM CDT Impressions 12/12/2018 11:51 AM CDT IMPRESSION: 1. Cervical spine: Jcid-gt-bkehujpb multilevel degenerative disc and joint disease. Cervical kyphosis status post instrumented C2-3 posterior element fusion. 2. Thoracic spine: Mild degenerative changes. 3. Lumbar spine: Mild degenerative changes. Report dictated by Williams Stephenson MD (radiology orderly). Dr. DEBRA Banerjee have personally reviewed and [...] are not widened. IMPRESSION: 1. Cervical spine: Kcip-ko-fflxhqms multilevel degenerative disc andjoint disease. Cervical kyphosis status post instrumented C2-3 posteriorelement fusion. 2. Thoracic spine: Mild degenerative changes. 3. Lumbar spine: Mild degenerative changes. Report dictated by Williams Stephenson MD (radiology orderly). I, Dr. DEBRA COUCH have personally reviewed and interpreted this examination/study. This report was electronically signed by DEBRA COUCH on 12/12/201811:51 AM . Zahraa Guzman PA-C DIAGNOSTIC IMAG ING ORDERABLES * XR CERVICAL SPINE 2 OR 3VW (12/11/2018 1:42 PM CDT) Anatomical Region Laterality Modality Spine Radiographic Missy ging 12/11/2018 2:49 PM CDT Impressions 12/12/2018 11:51 AM CDT IMPRESSION: 1. Cervical spine: Tdyo-jk-mgisapgu multilevel degenerative disc and joint disease. Cervical kyphosis status post instrumented C2-3 posterior element fusion. 2. Thoracic spine: Mild degenerative changes. 3. Lumbar spine: Mild degenerative changes. Report dictated by Williams Stephenson MD (radiology orderly). I, Dr. DEBRA COUCH have personally reviewed [...] joints are not widened. Procedure Note Debra oCuch MD - 12/12/2018 EXAMINATION: 1. Cervical spine, [...] are not widened. IMPRESSION: 1. Cervical spine: Sssz-ft-oqsecyzp multilevel degenerative disc andjoint disease. Cervical kyphosis status post instrumented C2-3 posteriorelement fusion. 2. Thoracic spine: Mild degenerative changes. 3. Lumbar spine: Mild degenerative changes. Report dictated by Williams Stephenson MD (radiology orderly). I, Dr. DEBRA COUCH have personally reviewed and interpreted this examination/study. This report was electronically signed by DEBRA COUCH on 12/12/201811:51 AM . Zahraa Guzman PA-C DIAGNOSTIC IMAG ING ORDERABLES * (ABNORMAL) GLUCOSE - POINT OF CARE (05/02/2018 1:54 AM CDT) Only the most recent of28 resultswithin the time period is included. Glucose WB/POC 126(H) 70 - 106 mg/dL 05/02/2018 8:15 AM CDT [facility] Specimen Type CAPILLARY BLOOD 05/02/2018 8:15 AM CDT [facility] Blood BLOOD SPECIMEN / Unknown 05/02/2018 1:54 AM CDT 05/02/2018 8:15 AM CDT Brice Lynn MD LAB - POINT OF CARE ORDERABLES [facility] [address] [place] [address] * (ABNORMAL) URINE MICROSCOPIC ONLY REFLEX TO CULTURE (05/01/2018 5:12 PM CDT) Reflex Status Culture to follow 05/01/2018 5:28 PM CDT [facility] RBC UA 0-5 None Seen, 0-5 # /hpf 05/01/2018 5:28 PM CDT [facility] WBC UA 51-100(A) None Seen, 0-5 # /hpf 05/01/2018 5:28 PM CDT [facility] Bacteria UA None Seen None Seen 05/01/2018 5:28 PM CDT [facility] Squamous Epithelial Cells 3-5 None Seen, 0-2, 3-5 /hpf 05/01/2018 5:28 PM CDT [facility] Mucus UA 1+ /LPF 05/01/2018 5:28 PM CDT [facility] Urine URINE SPECIMEN OBTAINED BY CLEAN CATCH PROCEDURE / Unknown Collection / Unknown 05/01/2018 5:12 PM CDT 05/01/2018 5:18 PM CDT Narrative [facility] - 05/01/2018 5:28 PM CDT Kristofer Story MD LAB - URINALYSIS ORD ERABLES [facility] [address] [place] [address] * (ABNORMAL) URINALYSIS REFLEX MICROSCOPIC REFLEX CULTURE (05/01/2018 5:12 PM CDT) Color UA Yellow Straw, Yellow 05/01/2018 5:28 PM CDT [facility] Clarity UA Slt Cloudy(A) Clear 05/01/2018 5:28 PM CDT [facility] Glucose UA Negative Negative 05/01/2018 5:28 PM CDT [facility] Bilirubin UA Negative Negative 05/01/2018 5:28 PM CDT [facility] Ketone UA Negative Negative 05/01/2018 5:28 PM CDT [facility] Specific [place] UA 1.018 1.005 - 1.030 05/01/2018 5:28 PM CDT [facility] Blood UA Negative Negative 05/01/2018 5:28 PM CDT [facility] pH UA 6.0 5.0 - 8.0 pH 05/01/2018 5:28 PM CDT [facility] Protein UA Negative Negative 05/01/2018 5:28 PM CDT [facility] Urobilinogen UA Negative Negative mg/dL 05/01/2018 5:28 PM CDT [facility] Nitrite UA Negative Negative 05/01/2018 5:28 PM CDT [facility] Leukocyte UA 2+(A) Negative 05/01/2018 5:28 PM CDT [facility] Urine Microscopy Urine microscopy to follow 05/01/2018 5:28 PM CDT [facility] Reflex Status Culture to follow 05/01/2018 5:28 PM CDT [facility] Urine URINE SPECIMEN OBTAINED BY CLEAN CATCH PROCEDURE / Unknown Collection / Unknown 05/01/2018 5:12 PM CDT 05/01/2018 5:18 PM CDT Narrative [facility] - 05/01/2018 5:28 PM CDT Kristofer Story MD LAB - URINALYSIS ORD ERABLES Performing Organization Address City/[facility]/ZIP Co de Phone Number [facility] [address] [place] [address] * CULTURE URINE (05/01/2018 5:12 PM CDT) [facility] Culture Urine More than 2 organisms seen at >=10,000 CFU/mL. Recollect if clinically indicated. KIMO 05/02/2018 1:47 PM CDT [facility] Urine URINE SPECIMEN OBTAINED BY CLEAN CATCH PROCEDURE / Unknown Collection / Unknown 05/01/2018 5:12 PM CDT 05/01/2018 5:18 PM CDT Kristofer Story MD LAB - MICROBIOLOGY O RDERABLES Performing Organization Address City/[facility]/ZIP Co de Phone Number [facility] [address] [phone] * (ABNORMAL) DRUG SCREEN TOX URINE PANEL (05/01/2018 5:12 PM CDT) Only the most recent of2 resultswithin the time period is included. [facility] Amphetamines Screen Urine Not Detected Not Detected 05/01/2018 5:36 PM CDT [facility] Barbiturates Screen Urine Not Detected Not Detected 05/01/2018 5:36 PM CDT [facility] Benzodiazepines Screen Urine Not Detected Not Detected 05/01/2018 5:36 PM CDT [facility] Cannabinoids Screen Urine Detected(A) Not Detected 05/01/2018 5:36 PM CDT [facility] Cocaine Screen Urine Not Detected Not Detected 05/01/2018 5:36 PM CDT [facility] Methadone Screen Urine Not Detected Not Detected 05/01/2018 5:36 PM CDT [facility] Opiate Screen Urine Not Detected Not Detected 05/01/2018 5:36 PM CDT [facility] Phencyclidine Screen Urine Not Detected Not Detected 05/01/2018 5:36 PM CDT [facility] Urine URINE / Unknown Collection / Unknown 05/01/2018 5:12 PM CDT 05/01/2018 5:18 PM CDT Narrative [facility] - 05/01/2018 5:36 PM CDT [...] MD LAB - URINE CHEMISTR Y ORDERABLES [facility] [address] [place] [address] * CBC W/O DIFFERENTIAL (05/01/2018 5:11 PM CDT) Only the most recent of7 resultswithin the time period is included. WBC 9.8 4.4 - 10.7 x10E9/L 05/01/2018 5:21 PM CDT [facility] RBC 4.80 3.80 - 5.20 x10E12/L 05/01/2018 5:21 PM CDT [facility] Hemoglobin 14.0 12.0 - 15.6 gm/dL 05/01/2018 5:21 PM CDT [facility] Hematocrit 43.0 35.9 - 45.5 % 05/01/2018 5:21 PM CDT [facility] MCV 89.6 80.7 - 98.3 fl 05/01/2018 5:21 PM CDT [facility] MCH 29.2 26.7 - 34.0 pg 05/01/2018 5:21 PM CDT [facility] MCHC 32.6 30.8 - 35.9 gm/dL 05/01/2018 5:21 PM CDT [facility] Platelet Count 263 153 - 416 x10E9/L 05/01/2018 5:21 PM CDT [facility] RDW-CV 13.2 12.1 - 14.9 % 05/01/2018 5:21 PM CDT [facility] MPV 11.0 9.4 - 12.9 fl 05/01/2018 5:21 PM CDT [facility] Blood BLOOD SPECIMEN / Unknown Venipuncture / Unknown 05/01/2018 5:11 PM CDT 05/01/2018 5:18 PM CDT Kristofer Story MD LAB - HEMATOLOGY ORD ERABLES Performing Organization Address City/State/[facility] Co de Phone Number [facility] [address] [place] [address] * (ABNORMAL) BASIC METABOLIC PANEL (CALCIUM TOTAL) (03/22/2018 6:14 AM CDT) Only the most recent of6 resultswithin the time period is included. BUN 17 7 - 26 mg/dL 03/22/2018 6:56 AM [facility] Creatinine 1.3(H) 0.6 - 1.2 mg/dL 03/22/2018 6:56 AM [facility] Sodium 139 136 - 145 mmol/L 03/22/2018 6:56 AM [facility] Potassium 3.9 3.5 - 4.5 mmol/L 03/22/2018 6:56 AM [facility] Chloride 102 98 - 107 mmol/L 03/22/2018 6:56 AM [facility] CO2 28 22 - 29 mmol/L 03/22/2018 6:56 AM [facility] Glucose 111 70 - 115 mg/dL 03/22/2018 6:56 AM [facility] Calcium 9.7 8.4 - 10.2 mg/dL 03/22/2018 6:56 AM CDT [facility] Anion Gap 13 8 - 18 03/22/2018 6:56 AM CDT [facility] BUN/Creatinine Ratio 13 7 - 23 03/22/2018 6:56 AM CDT [facility] Osmolality Calculated 290 270 - 300 mOsm/kg 03/22/2018 6:56 AM CDT [facility] eGFR 41(L) >60 mL/min/1.7 3 m2 03/22/2018 6:56 AM CDT [facility] Blood BLOOD SPECIMEN / Unknown Lab Venipuncture / Unknown 03/22/2018 6:14 AM CDT 03/22/2018 6:30 AM CDT Justin Miner MD LAB - CHEMISTRY [place] Performing Organization Address [facility]/ZIP Co de Phone Number [address] [phone] * ECHO W DOPPLER AND COLOR FLOW [...] <0.010 <0.032 ng/mL 03/17/2018 5:30 PM CDT [facility] Blood BLOOD SPECIMEN / Unknown Lab Venipuncture / Unknown 03/17/2018 4:42 PM CDT 03/17/2018 5:04 PM CDT Justin Miner MD LAB - CHEMISTRY [place] Performing Organization Address City/[facility]/ZIP Co de Phone Number [address] [phone] * CARDIAC EKG ORDER (03/17/2018 8:15 AM CDT) Narrative 03/17/2018 8:15 AM CDT Ordered by an unspecified provider. Scanned Document CARDIAC SERVICES ORD ERABLES * HEMOGLOBIN A1C (03/17/2018 3:47 AM CDT) Hemoglobin A1c 5.4 4.4 - 6.3 % 03/17/2018 9:44 AM CDT [facility] Estimated Average Glucose 108 mg/dL 03/17/2018 9:44 AM CDT [facility] Comment: HbA1c Interpretation: Treatment target values recommended by ADA and other clinical organizations should be used to evaluate metabolic control in patients. Treatment Target Values: Normal : < 5.7% Pre-diabetes: 5.7-6.4% Diabetes: Equal to or greater than 6.5% Reference: [place] [employer] Standards of Care in Diabetes -2014 In patients 70 years and older consider HbA1c target range of 7.0-7.5% Reference: Diabetes Mellitus in Older People: Position Statement on behalf of the International Association of Gerontology and Geriatrics (IAGG), the Diabetes Working Democrat for Older People (EDWPOP), and the International Task Force of Experts in Diabetes. Tera Serra, et al. J [place]. 2012 Test results diagnostic [...] MD LAB - CHEMISTRY ORDMary Jane [place] [address] [place], [place] [address] [phone] * PHOSPHORUS BLOOD (03/17/2018 3:47 AM CDT) Phosphorus 3.7 2.3 - 4.7 mg/dL 03/17/2018 4:17 AM CDT [facility] Blood BLOOD SPECIMEN / Unknown 03/17/2018 3:47 AM CDT 03/17/2018 3:53 AM CDT Jsutin Miner MD LAB - CHEMISTRY [place] Performing Organization Address [facility]/ZIP Co de Phone Number [address] [phone] * MAGNESIUM BLOOD (03/17/2018 3:47 AM CDT) Magnesium 1.7 1.6 - 2.6 mg/dL 03/17/2018 4:22 AM T [facility] Blood BLOOD SPECIMEN / Unknown 03/17/2018 3:47 AM CDT 03/17/2018 3:53 AM CDT Justin Miner MD LAB - CHEMISTRY [place] Performing Organization Address City/[facility]/ZIP Co de Phone Number [address] [phone] * LIPID PROFILE (03/17/2018 3:47 AM CDT) Cholesterol Total 152 <200 mg/dL 03/17/2018 4:22 AM [facility] HDL 46 >40 mg/dL 03/17/2018 4:22 AM [facility] Comment: ATP III Classification of HDL Cholesterol: <40 mg/dL: Considered a major risk factor. >60 mg/dL: Considered a negative risk factor. LDL Calculated 81 <100 mg/dL 03/17/2018 4:22 AM [facility] Comment: ATP III Classification of LDL Cholesterol: <100 mg/dL: Optimal 100 - 129 mg/dL: Near Optimal/Above Optimal 130 - 159 mg/dL: Borderline High 160 - 189 mg/dL: High >190 mg/dL: Very High Triglycerides 127 <150 mg/dL 03/17/2018 4:22 AM [facility] Comment: ATP III Classification of Triglycerides: <150 mg/dL: Normal 150 - 199 mg/dL: Borderline High 200 - 400 mg/dL: High >500 mg/dL: Very High Blood BLOOD SPECIMEN / Unknown 03/17/2018 3:47 AM CDT 03/17/2018 3:53 AM CDT Justin Miner MD LAB - CHEMISTRY [place] [facility] [address] [phone] * (ABNORMAL) URINALYSIS W/MICROSCOPIC NO CULTURE (03/16/2018 8:30 PM CDT) Color UA Yellow Straw, Yellow, Colorless, Light Yellow 03/16/2018 8:46 PM [facility] Clarity UA Hazy(A) Clear 03/16/2018 8:46 PM [facility] Specific [place] UA 1.012 1.001 - 1.030 03/16/2018 8:46 PM [facility] pH UA 6.5 5.0 - 8.0 03/16/2018 8:46 PM [facility] Protein UA Negative <=20 mg/dL 03/16/2018 8:46 PM [facility] Glucose UA Negative Negative mg/dL 03/16/2018 8:46 PM [facility] Ketone UA Negative Negative mg/dL 03/16/2018 8:46 PM [facility] Bilirubin UA Negative Negative mg/dL 03/16/2018 8:46 PM [facility] Blood UA Negative Negative 03/16/2018 8:46 PM [facility] Nitrite UA Negative Negative 03/16/2018 8:46 PM [facility] Leukocyte Esterase Negative Negative 03/16/2018 8:46 PM [facility] Urobilinogen UA <2.0 <2.0 mg/dL 8 8:46 PM [facility] RBC UA <1 0 - 8 /HPF 03/16/2018 8:46 PM [facility] WBC UA 1 0 - 2 /HPF 03/16/2018 8:46 PM [facility] Bacteria UA Rare Rare, Occasional, None /HPF 03/16/2018 8:46 PM [facility] Squamous Epithelial Cells UA 11(H) 0 - 1 /HPF 03/16/2018 8:46 PM CDT [facility] Urine URINE SPECIMEN OBTAINED BY CLEAN CATCH PROCEDURE / Unknown Collection / Unknown 03/16/2018 8:30 PM CDT 03/16/2018 8:30 PM CDT Letty Howell MD LAB - URINALYSIS ORD ERABLES Performing Organization Address [facility]/ZIP Co de Phone Number [facility] [address] [phone] * EKG 12-LEAD (03/16/2018 8:15 PM CDT) Ventricular Rate 64 BPM [facility] Atrial Rate 64 BPM [facility] P-R Interval 198 ms [facility] QRS Duration ms 100 ms [facility] M[facility] Q-T Interval ms 422 ms [facility] M[facility] QTC Calculation (Bezet) 435 ms [facility] M[facility] Calculated P [place] 20 degrees [facility] M[facility] Calculated R [place] 7 degrees [facility] M[facility] Calculated T [place] 22 degrees [facility] MUSE Interpretation EKG Normal sinus rhythm~Norm al ECG~No previous ECGs available~C onfirmed by Howard PANIAGUA, JESS ([id number]), loan expeditor Nicolas Fernandez ([id number]) on 04/03/2018 11:19:36 AM [facility] MUSE 03/16/2018 8:15 PM CDT 04/03/2018 11:19 AM CDT Kirk Freed MD ECG ORDERABLES Performing Organization Address [facility] Co de Phone Number [facility] MUSE * PT-INR [facility] (03/16/2018 7:53 PM CDT) PT 12.3 12.1 - 14.8 Seconds 03/16/2018 8:12 PM CDT [facility] INR 0.9 See Comment 03/16/2018 8:12 PM CDT [facility] Comment: The suggested therapeutic range for standard coumadin (warfarin) therapy is an INR of 2.0-3.0. For high-risk patients (Mechanical Mitral Valve Prosthesis, etc.), the suggested prophylactic therapeutic range is an INR of 2.5-3.5. Blood BLOOD SPECIMEN / Unknown Venipuncture / Unknown 03/16/2018 7:53 PM CDT 03/16/2018 7:57 PM CDT Kirk Freed MD LAB - COAGULATION OR DERABLES Performing Organization Address [facility]/ZIP Co de Phone Number [address] [phone] * TYPE + SCREEN PANEL (03/16/2018 7:53 PM CDT) [facility] Antibody Screen NEG 8 8:34 PM CDT [facility] BLOOD BANK LAB ABO Rh A POS 03/16/2018 8:34 PM CDT [facility] LAB Blood Bank BLOOD SPECIMEN / Unknown Venipuncture / Unknown 03/16/2018 7:53 PM CDT 03/16/2018 7:59 PM CDT Kirk Freed MD LAB - BLOOD BANK ORD ERABLES Performing Organization Address [facility] Co de Phone Number [facility] BLOOD [facility] LAB [address] [place] [address] * LITHIUM LEVEL (03/16/2018 7:53 PM CDT) [facility] [place], trough 0.76 0.50 - 1.20 mmol/L 03/16/2018 8:22 PM CDT [facility] Blood BLOOD SPECIMEN / Unknown Venipuncture / Unknown 03/16/2018 7:53 PM CDT 03/16/2018 7:57 PM CDT Letty Howell MD LAB - CHEMISTRY ORDMary Jane PALMA Performing Organization Address [facility]/ZIP Co de Phone Number [address] [phone] * TSH (03/16/2018 7:53 PM CDT) [facility] TSH 0.886 0.350 - 4.940 uIU/mL 03/16/2018 8:41 PM CDT [facility] Blood BLOOD SPECIMEN / Unknown Venipuncture / Unknown 03/16/2018 7:53 PM CDT 03/16/2018 7:57 PM CDT Letty Howell MD LAB - CHEMISTRY ORDE RABLES Performing Organization Address [facility] Co de Phone Number [facility] [address] [place] [address], [facility] [phone] * (ABNORMAL) CREATININE BLOOD - POCT (IP) [facility] (03/16/2018 7:24 PM CDT) Creatinine POCT 1.22 0.3 - 1.3 mg/dL [facility] POCT TESTING eGFR POCT 47(A) 60 ml/min [facility] POCT TESTING Blood BLOOD SPECIMEN / Unknown 03/16/2018 7:24 PM CDT Letty Howell MD LAB - POINT OF CARE ORDERABLES Performing Organization Address [facility] Co de Phone Number [facility] POCT TESTING [address] [place] [address] * CT BRAIN STROKE PROTOCOL (03/16/2018 7:03 [...] time period is included. Glucose UA neg [facility] Bilirubin UA POCT neg [facility] Ketones UA POCT neg [facility] Specific [place] UA 1.010 [facility] Blood Urine POCT neg [facility] pH UA 5.0 [facility] Protein UA neg [facility] Urobilinogen UA neg [facility] Nitrite UA neg [facility] WBC UA neg [facility] Urine specimen (specimen) 11/23/2016 Radha Mejia MD LAB - POINT OF CARE ORDERABLES [facility] * CULTURE URINE COMPREHENSIVE (11/23/2016) Only the most recent of2 resultswithin the time period is included. Culture SEE NOTE [facility] ([facility] Comment: CULTURE, URINE, SPECIAL MICRO NUMBER: [id number] TEST STATUS: FINAL SPECIMEN SOURCE: URINE SPECIMEN QUALITY: ADEQUATE RESULT: No Growth REPORT COMMENT: PREFERRED LAB:->[facility] Test Performed at: [facility] [id number] MANUELA HILTON MD Urine specimen (specimen) 11/23/2016 11/23/2016 11:16 PM BALL POINTS INSPECTOR Narrative [facility] ([facility]) - 11/26/2016 6:00 AM BALL POINTS INSPECTOR Preferred Lab:->[facility] Kayla Mejia MD LAB - MICROBIOLOGY O RDERABLES [facility] ([facility] Care Teams Behavioral Health Care Manager Relationship Specialty Start Date End Date Anders Kendrick MD [address] [place] [address] [address] [place] [address] PCP - General 05/21/18
--- OUTSIDE RECORDS SUMMARY | 2024-11-02 12:38 | XMS_ITS | Clinical Summary ---
Author Organization [facility] Address [address] [place] [address] Phone Care Team Providers Care [employer]ort [employer] Name Role Phone Anders Kendrick MD Primary Care Provider [phone] Allergies Active Allergy Reactions Criticality Noted Date [...] Date Resolved Date Urinary incontinence 03/07/2021 023 [place] stopped 10/28/2019 03/07/2021 Abnormal renal function test [...] PM CDT Pulse 67 09/06/2021 1:07 PM SEW OUT OPERATOR Temperature 36.4 C (97.6 F) 09/06/2021 1:07 PM SEW OUT OPERATOR Respiratory Rate - - Oxygen Saturation - [...] 02/01/1965 Influenza Vaccine (#1) 2024 Care Teams [employer] Relationship Specialty Start Date End Date Anders Kendrick MD PCP - General 05/29/19
--- OUTSIDE RECORDS SUMMARY | 2024-11-02 12:38 | XMS_ITS | CONTINUITY OF CARE DOCUMENT ---
Author Name rancho, rancho Address Unknown Organization [facility] Address [address] [place] [address] Phone [phone] Care Team Providers Care Account Supervisor Name Role Phone Alonzo Zaragoza MD Unavailable [phone] JOHANNA MADERA MD Unavailable [phone] JOHANNA MADERA MD Unavailable [phone] PROBLEMS Condition Status Date Provider Notes ANGINA PECTORIS completed - Khanh Chaudhari MD HTN ESSENTIAL - 09/03 RENAL DUP NEG active Silverio Hess Hypercholesterolemia, mixed active Khanh Chaudhari MD OBESITY active ? Khanh Chaudhari MD SLEEP APNEA active Khanh Chaudhari MD CHEST PAIN-08/06 NUC NEG active ? Khanh Chaudhari MD RENAL ARTERY STENOSIS-09/03 KATHERYN DUP NEG completed - Silverio Hess DIABETES MELLITUS, TYPE II, CONTROLLED active Lorna Menard PUBLICATIONS EDITOR Shortness of breath active Khanh Chaudhari MD [...] In-person encounter Office Visit Alonzo Zaragoza MD [place] [facility] 7 - 7 In-person encounter Office Visit Ryne Hoffman MD [facility] Aortic stenosis s/p 23 S3 Reselia 9 - 0 In-person encounter Office Visit Alonzo Zaragoza MD [place] [facility] 6 - 6 In-person encounter Office Visit Alonzo Zaragoza MD [place] [facility] 3 - 3 In-person encounter Office Visit Alonzo Zaragoza MD [place] [facility] 4 - 5 In-person encounter Office Visit Alonzo Zaragoza MD [place] [facility] [place] [facility] 6 - 8 In-person encounter Office Visit Alonzo Zaragoza MD [place] [facility] 5 - 5 In-person encounter Office Visit Alonzo Zaragoza MD [place] [facility] Diastolic heart failure, chronic 6 - 6 In-person encounter Office Visit Alonzo Zaragoza MD [place] [facility] 0 - 0 In-person encounter Office Visit Alonzo Zaragoza MD [place] [facility] CVA 9 - 1 In-person encounter Office Visit Alonzo Zaragoza MD [place] [facility] 1 - 3 In-person encounter Office Visit Khanh Chaudhari MD [place] [facility] Aortic stenosis s/p 23 S3 Reselia 0 - 2 In-person encounter Office Visit Khanh Chaudhari MD [place] [facility] ANGINA PECTORISHTN ESSENTIAL - 09/03 RENAL DUP NEGHypercholesterolemia, mixedRENAL ARTERY STENOSIS-09/03 KATHERYN DUP NEGShortness of breathPalpitationsHypothyroidism 5 - 2 In-person encounter Office Visit Khanh Chaudhari MD [place] [facility] [place] [facility] 0 - 1 In-person encounter Office Visit Khanh Chaudhari MD [place] [facility] 5 - 5 In-person encounter Office Visit Khanh Chaudhari MD [facility] 8 - 4 In-person encounter Office Visit Khanh Chaudhari MD [place] [facility] 0 - 1 In-person encounter Office Visit Khanh Chaudhari MD [place] [facility] [place] [facility] 3 - 4 In-person encounter Office Visit Khanh Chaudhari MD [place] [facility] HTN ESSENTIAL - 09/03 RENAL DUP NEGCHEST PAIN-08/06 NUC NEG 1 - 4 In-person encounter Office Visit Khanh Chaudhari MD [place] [facility] 7 - 7 In-person encounter Office Visit Khanh Chaudhari MD [place] [facility] 1 - 1 In-person encounter Office Visit Khanh Chaudhari MD [place] [facility] [place] [facility] DIABETES MELLITUS, TYPE II, CONTROLLED 2 - 2 In-person encounter Office Visit Khanh Chaudhari MD [place] [facility] 8 - 8 In-person encounter Office Visit Khanh Chaudhari MD [facility] SLEEP APNEACHEST PAIN-08/06 NUC NEG 9 - 9 In-person encounter Office Visit Khanh Chaudhari MD [place] [facility] HTN ESSENTIAL - 09/03 RENAL DUP [...] respiratory rate E&M 16 /min Jina Larissa [facility] pulse rate 70 /min Jina Alex [facility] weight E&M 238 [lb_av] Jina Alex height [...] Zaragoza MD blood pressure, cuff size large Ca benjamín [place] blood pressure, diastolic 76 mm[Hg] Ca benjamín [place] blood pressure, systolic 130 mm[Hg] [facility] [place] oxygen saturation, oximetry 99 % Gaby [...] Edelmira tiwari weight E&M 258 [lb_av] Edelmira South l height E&M 69 [in_i] Edelmira tiwari Body Mass Index (Ratio) 37.80 kg/m2 Claudy Zaragoza MD blood pressure, diastolic 80 mm[Hg] Jigna nkLogodalys blood pressure, systolic 130 mm[Hg] Laura kLog blood pressure, resting No Dorian carmen Krzysztof blood pressure, diastolic 80 mm[Hg] jeremy Blankenship blood pressure, systolic 130 mm[Hg] She [facility] clinics[facility] Blankenship pulse rate 82 /min Rigo Obdulia [...] lorenzo Keller oxygen saturation, oximetry 97 % Hadley Keller respiratory rate E&M 16 /min True Keller pulse rate 69 /min Hadley weight E&M 254 [lb_av] Hadley Keller height E&M 69 [in_i] [facility] Body Mass Index (Ratio) 37.95 kg/m2 Suleiman ruiz [facility] blood pressure, resting Yes [facility] blood pressure, cuff size large Ke [facility], diastolic 85 mm[Hg] Ke rri [facility] blood pressure, systolic 160 mm[Hg] Mor zackery [facility] oxygen saturation, oximetry 98 % Jina Debbie respiratory rate E&M 20 /min Jina G [facility] pulse rate 88 /min Jina Johnson [facility] weight E&M 257 [lb_av] Jina Johnson [facility] height E&M 69 [in_i] Jina Johnson [facility] pulse rate #2 82 [facility] blood pressure, yarbrough tolic, second observation 90 mm[Hg] [facility] blood pressure, syst olic, second observation 132 mm[Hg] [facility] oxygen saturation, oximetry 97 % [facility] pulse rate 88 /min [facility] blood pressure, diastolic 92 mm[Hg] Vi ctoria blood pressure, systolic 129 mm[Hg] Florencio benson [facility] pulse rate #2 79 [facility] blood pressure, yarbrough tolic, second observation 92 mm[Hg] [facility] blood pressure, syst olic, second observation 164 mm[Hg] [facility] oxygen saturation, oximetry 98 % Josseline Tebid [...] % Josseline Tebid pulse rate 79 /min Josseline Tebid blood pressure, diastolic 83 mm[Hg] Vi ctoria Tebid blood pressure, systolic 167 mm[Hg] Florencio kelley Tebid pulse rate #2 71 [place] Tebid blood pressure, yarbrough tolic, second observation 82 mm[Hg] Josseline Tebid blood pressure, syst olic, second observation 137 mm[Hg] Josseline Tebid oxygen saturation, oximetry 98 % Josseline Tebid pulse rate 76 /min Josseline Tebid blood pressure, diastolic 85 mm[Hg] Vi ctoria Tebid blood pressure, systolic 144 mm[Hg] Florencio kelley Tebid pulse rate #2 67 [place] Tebid blood pressure, yarbrough tolic, second observation 88 mm[Hg] Josseline Tebid blood pressure, syst olic, second observation 166 mm[Hg] Josseline Tebid oxygen saturation, oximetry 98 % Josseline Tebid pulse rate 79 /min [place] Tebid blood pressure, diastolic 91 mm[Hg] Vi ctoria Tebid blood pressure, systolic 173 mm[Hg] Florencio kelley Tebid pulse rate #2 66 [place] Tebid blood pressure, yarbrough tolic, second observation 85 mm[Hg] [facility], syst olic, second observation 155 mm[Hg] [facility] saturation, oximetry 98 % Josseline pulse rate 65 /min [place] d blood pressure, diastolic 82 mm[Hg] Vi [facility] Tebid blood pressure, systolic 184 mm[Hg] Florencio kelley Tebid pulse rate #2 70 [facility] blood pressure, yarbrough tolic, second observation 91 mm[Hg] [facility] blood pressure, syst olic, second observation 142 mm[Hg] [facility] oxygen saturation, oximetry 98 % [facility] pulse rate 75 /min [facility] blood pressure, diastolic 108 mm[Hg] Vi [facility] Ted blood pressure, systolic 170 mm[Hg] Florencio kelley Tebid pulse rate #2 61 [place] blood pressure, yarbrough tolic, second observation 92 mm[Hg] [facility] blood pressure, syst olic, second observation 161 mm[Hg] [facility] oxygen saturation, oximetry 97 % [place] pulse rate 65 /min [facility] blood pressure, diastolic 95 mm[Hg] Vi gifford [...] Mass Index (Ratio) 39.72 kg/m2 Anea migue [facility] blood pressure, diastolic, left arm 98 mm [Hg] Aneatris [facility] blood pressure, systolic, left arm 155 mm [Hg] Aneatris [facility] blood pressure, diastolic, right arm 104 mm[Hg] Aneatris [facility] blood pressure, systolic, right arm 182 m m[Hg] Aneatris [facility] blood pressure, diastolic 98 mm[Hg] An eatris [facility] blood pressure, systolic 155 mm[Hg] Ane atris [facility] pulse rate 82 /min [facility] oxygen saturation, oximetry 98 % [facility] respiratory rate E&M 18 /min [facility] weight E&M 269 [lb_av] [facility] Body Mass Index (Ratio) 39.87 kg/m2 [facility] migue [facility] blood pressure, diastolic 89 mm[Hg] An mauricioris [facility] blood pressure, systolic 150 mm[Hg] Ane atris [facility] pulse rate 81 /min [facility] oxygen saturation, oximetry 97 % [facility] respiratory rate E&M 18 /min [facility] weight E&M 270 [lb_av] [facility] Body Mass Index (Ratio) 40.75 kg/m2 Dorian Khanna PUBLICATIONS EDITOR weight E&M 276 [lb_av] Joyce Khanna NP [...] pr essure, sitting, right arm, diastolic 88 [facility] blood pr essure, sitting, right arm, systolic 148 [facility] oxygen saturation, oximetry 93 % [facility] respiratory rate E&M 20 /min [place] pulse rate 91 /min [facility] height E&M 69 [in_i] [facility] height in centimeters E&M 175.26 cm Bhumika duron [place] blood pressure, diastolic 96 mm[Hg] Adam Lewis blood pressure, systolic 173 mm[Hg] Mor Lewis pulse rate 65 /min Jina zuleta oxygen saturation, oximetry 96 % Jina Lewis respiratory rate E&M 16 /min Jina corea weight E&M 286.2 [lb_av] Jina smith JNC systolic blood pressure goal 130 m m/[Hg] Lacretia Derian HUGHES Body Mass Index (Ratio) 44.31 kg/m2 Lacr etia Mneard PUBLICATIONS EDITOR weight E&M 299 [lb_av] Lacretia Jignesh s PUBLICATIONS EDITOR height E&M 69 [in_i] Lacretia Jignesh s PUBLICATIONS EDITOR pulse rate 70 /min Lacretia Jignesh s PUBLICATIONS EDITOR blood pressure, cuff size large La deondre Derian PUBLICATIONS EDITOR blood pressure, diastolic 100 mm[Hg] La cretia Derian PUBLICATIONS EDITOR blood pressure, systolic 150 mm[Hg] Lac retia Derian PUBLICATIONS EDITOR blood pressure, diastolic, left arm 83 mm [...] LinkLogic 0-149 cholesterol, serum 189 mg/dL LinkLogic 042-725 9860/11 /07 pro brain natriuretic peptide 191 pg/mL [...] LinkLogic 3.5-5.2 sodium, serum 140 mmol/L [employer] 705-021 3796/11 /07 urea nitrogen/creatinine ratio, serum 14 LinkLogic 12-28 creatinine, serum 1.38 mg/dL [facility] 0.57-1.00 High urea nitrogen, blood 20 mg/dL [facility] 8-27 blood glucose, random 97 mg/dL [facility]ic 70-99 hemoglobin A1C, blood, as % of total hemoglobin 5.8 % Link[facility]ic 4.8-5.6 High Estimated Glomerular Filtration Rate (calc) 38 mL/min/{ 1.73_m2} LinkLogic >=60 Low C, [place] [address] NT-pro BNP 135 LinkLogic <=300 Normal C, [place] [address] aspartate aminotransferase (SGOT), serum 22 1/L LinkLog[facility] 10-45 Normal C, [place] [address] alanine aminotransferase (SGPT), serum 16 1/L LinkLogic 7-45 Normal C, [place] [address] Alkaline phosphatase 45 LinkLogic 40-130 Normal C, [place] [address] albumin, serum 4.2 g/dL Link[facility] 3.5-5.0 Normal C, [place] [address] protein, total, serum 7.3 g/dL LinkLog[facility] 6.5-8.5 Normal C, [place] [address] bilirubin, serum, total 0.6 mg/dL LinkLogic 0.1-1.2 Normal C, [place] [address] calcium, serum 9.6 mg/dL [facility]Logic 8.5-10.3 Normal C, [place] [address] blood glucose, random 93 mg/dL LinkLogic 70-199 Normal C, [place] [address] creatine, serum 1.48 mg/dL LinkLogic 0.60-1.10 High C, [place] [address] urea nitrogen, blood 15 mg/dL LinkLogic 6-25 Normal C, [place] [address] anion gap, serum 11 mmol/L LinkLogic 2-15 Normal C, [place] [address] carbon dioxide, venous blood 25 mmol/L Link[facility]ic 22-32 Normal C, [place] [address] chloride, serum 105 mmol/L [facility]ic 97-110 Normal C, [place] [address] potassium, serum 4.0 MMOL/L LinkLogic 3.3-4.9 Normal C, [place] [address] sodium, serum 141 mmol/L LinkLogic 135-145 Normal C, [place] [address] activated partial thromboplastin time (aPTT) 33 s LinkLogic 28-38 Normal C, [place] [address] international normalized ratio (INR) 0.98 LinkLogic 0.90-1.20 Normal C, [place] [address] prothrombin time (patient) 11.2 s LinkLogic 10.3-13.7 Normal C, [place] [address] Absolute Basophils 0.0 K/CUMM LinkLogic 0.0-0.1 Normal C, [place] [address] Absolute Monocytes 0.7 K/CUMM LinkLogic 0.2-0.8 Normal , [place] [address] Absolute Lymphocytes 2.3 K/CUMM LinkLogic 0.8-3.3 Normal C, [place] [address] Absolute Neutrophils 2.9 K/CUMM LinkLogic 1.5-6.5 Normal C, [place] [address] nucleated red blood cells as percent of [...] LinkLogic 11.9-15.5 Normal platelet count 235 10*3/mm3 [facility] hematocrit, blood 40.7 % [facility] creatinine, serum 1.24 mg/dL [facility] potassium, serum 3.9 mmol/L [facility] sodium, serum 142 mmol/L [facility]ending [facility] Yun anion gap, serum 12.1 [facility] estimated glomerular filtration rate 51 mL/min [facility] potassium, serum 3.1 mmol/L [facility] calcium, serum 9.1 mg/dL [facility] blood glucose, fasting 104 mg/dL [facility] creatinine, serum 1.16 mg/dL [facility] urea nitrogen, blood 16.5 mg/dL [facility] carbon dioxide, serum, total 29 mmol/L [facility] chloride, serum 104 mmol/L Ofelia [...] THE SKIN ONCE WEEKLY - 10/23 [facility] Tr[facility] 0.75 mg/0.5 mL pen injector completed INJECT 0.75MG UNDER THE SKIN ONCE WEEKLY 03/23 - Eric Duque carvedilol 12.5 mg tablet active TAKE 1 TABLET BY MOUTH TWICE A DAY 02/06 [facility] Trulicity 0.75 mg/0.5 mL pen injector [...] DAILY 03/20 - Ramos Pepe VITAMIN D 54055 IU TABS (CHOLECALCIFEROL TABS) completed 1 ON [...] history of marijuana use yes Beny Bauerreri PUBLICATIONS EDITOR drug use no Beny Bonareri PUBLICATIONS EDITOR alcohol use no Beny Bonareri PUBLICATIONS EDITOR passive cigarette sm pattie exposure no Beny Bonareri PUBLICATIONS EDITOR smoking status Never smoker Beny Reynoldsr i PUBLICATIONS EDITOR personal history of marijuana use yes Alonzo Zaragoza MD drug use no Alonzo Low alcohol use no Alonzo Low passive cigarette sm pattie exposure no Alonzo Zaragoza MD smoking status Never smoker Alonzo Zaragoza MD personal history of marijuana use yes Disha Ventimiglia [facility] drug use no Disha Ventimig arnol [facility] alcohol use no Disha Ventimig arnol [facility] passive cigarette sm pattie exposure no Disha Ventimiglia [facility] smoking status Never smoker Disha Ventim iglia [facility] social history reviewed E&M revi ewed - [...] no Tejal Howell smoking status Never smoker Tejal Howell social history E&M Marital Statu s: [...] Alonzo Zaragoza MD exercise type chores Rigo pereala habra physical exercise, frequency, days per week 3 /wk Sherkeitha Blankenship caffeine use, averag e drinks per day 0 /d Sherkeitha Blankenship passive cigarette sm pattie exposure no Sheradamitha Blankenship smoking status Never smoker Rigo Barraza [facility] social history reviewed E&M revi ewed - no changes required Khanh Chaudhari MD number of grandchildren Khanh Chaudhari MD Silvia [facility] exercise type chores [facility] physical exercise, frequency, days per week 3 /wk Hadley Keller alcohol use no Hadley Keller caffeine use, averag e drinks per day 0 /d True Keller drug use no Hadley Keller passive cigarette sm pattie exposure no Hadley Keller smoking status Never smoker True Lo [...] Payer name Policy type / Coverage type [place] [employer] party ID [id number] COMPLETE CARE [id number] (PPO C-SNP) [employer] insurance [employer] [id number] [facility] [place] Medicaid 0 [id number] ADVANCE DIRECTIVES Name Date DISCUSSED - NO DECISION MADE TREATMENT PLAN Date Name Performer [id number],S, Alonzo dominguez MD [id number],S, Alonzo dominguez MD [id number],S, Alonzo dominguez MD [id number],S, Alonzo dominguez MD [id number],S, Alonzo dominguez MD [id number],W,N ow severe. Will need R/L cath and then likely TAVR. Area 0.8 by ECHO, was 1.3 a year ago. Alonzo Zaragoza MD [id number],S,T he patient is using CPAP on a regular basis. The patient has been benefiting from therapy and should continue use. Alonzo Zaragoza MD [id number],S, Alonzo dominguez MD [id number],S, Alonzo dominguez MD [id number],S, Alonzo dominguez MD [id number],S, Alonzo dominguez MD [id number],S,Recheck ECHO in 6 months Alonzo Zaragoza MD [id number],S, Alonzo dominguez MD [id number],C,T he patient is using CPAP on a regular basis. The patient has been benefiting from therapy and should continue use. Alonzo Zaragoza MD [id number],S, Alonzo dominguez MD [id number],B, Alonzo dominguez MD [id number],S, Alonzo dominguez MD [id number],S, Alonzo dominguez MD [id number],C,Check PFTs Ra french Zaragoza MD [id number],S, Alonzo dominguez MD [id number],C,T he patient is using CPAP on a regular basis. The patient has been benefiting from therapy and should continue use. Alonzo Zaragoza MD [id number],S, Alonzo dominguez MD [id number],S, Alonzo dominguez MD [id number],B, Alonzo dominguez MD [id number],C,V tye mild. Follow with yearly ECHO Alonzo Zaragoza MD [id number],S, Alonzo dominguez MD [id number],B, Alonzo dominguez MD [id number],S,S tart [facility] for [facility] and DM. Alonzo Zaragoza MD [id number],S, Alonzo dominguez MD [id number],S,M oderate by ECHO. F/U ECHO in 1 year. Alonzo Zaragoza MD [id number],S,N ever received CPAP. Will do split night study. Alonzo Zaragoza MD [id number],S, Alonzo dominguez MD [id number],S,Stress test a nd ECHO Alonzo Zaragoza MD [id number],B, Alonzo dominguez MD [id number],S,Check ECHO Ra french Zaragoza MD Cardiology:Did not [...] Zaragoza MD Cardiology Alonzo Zaragoza MD Cardiology Alonoz Zaragoza MD Cardiology:Will check some labs. Alonzo [...] tablet by mouth every night Dishatracy Olivas [facility] Cardiology: H er updated medication list for this problem includes: Trulicity 0.75 Mg/0.5 Ml Pen Injector (Dulaglutide) ..... Inject the contents of 1 pen under the skin once weekly Losartan 100 Mg Tablet (Losartan) ..... Take 1 tablet by mouth once a day Kingman Brendon [facility] Cardiology:The patie nt is using CPAP on a regular basis. The patient has been benefiting from therapy and should continue use. [facility] Cardiology:BP elevat ed today reports well controlled [...] mouth once a day Dishatracy Caseyjuan m [facility] Cardiology:mod-moder ately severe based on recent cath h er JAVAN was 1.[address] talked with TAVR coordinator and given her severity of her symptoms will begin work up for possible replacement Dishatracy Caseyjuan m [facility] Cardiology:she has c ontinued SOB that limits [...] by mouth once a day Dishatracy Olivas [facility] Cardiology Alonzo Zaragoza MD Cardiology Alonzo Zaragoza [...] daily Silverio Hess Cardiology:Orders: C omplete Echo (CPT-80771) Silverio Deshawn Cardiology:Referred to pulmonary clinic. Silverio [...] Follow up :Orders: S leep Study Titration (CPT-45408) Khanh Chaudhari MD Cardiology Follow up :Orders: M obile Cardiac Tele (CPT-00762) Khanh Chaudhari MD Cardiology Follow up :Orders: S NOMED-CT: [id number] Current Medications Documented (SCT-[id number]) E KG (CPT-54901) C omplete Echo (CPT-40717) S TR - Nuclear (CPT-41590) Khanh Chaudhari MD Cardiology Follow up :Orders: S NOMED-CT: [id number] Current Medications Documented (SCT-[id number]) E KG (CPT-57935) C omplete Echo (CPT-65741) S TR - Nuclear (CPT-61732) Khanh Chaudhari MD Cardiology Follow up (LF) [...] breath, fatigue, dizziness, nausea, or diaphoresis) of [place] Cardiovascular Society Class III (defined as symptoms with everyday living activities, i.e. moderate limitation) or [place] Cardiovascular Society Class IV (defined as inability [...] besylate) ..... One tab. daily Joyce Khanna PUBLICATIONS EDITOR Date Name COMPREHENSIVE METABO LIC PANEL, W/EGFR [...] PROBNP, N TERMINAL Complete Echo DLCO - 88595 FRC - 46383 FVC - 14673 PROBNP, N TERMINAL BASIC METABOLIC PANE L [...] Monitor Khanh Chaudhari MD complet ed SNOMED-CT: 01562370 Physical Exam, Performed: Pulse Exam of Foot Khanh Chaudhari MD completed EKG Khanh Chaudhari MD completed SNOMED-CT: 794791083 559827 Current Medications Documented Khanh Chaudhari MD completed SNOMED-CT: 583144589 Smoking Cessation Counseling Khanh Chaudhari MD completed SNOMED-CT: 07796934 Physical Exam, Performed: Pulse Exam of Foot Khanh Chaudhari MD completed SNOMED-CT: 122159461 473808 Current Medications Documented Khanh Chaudhari MD completed EKG Khanh Chaudhari MD completed EKG Khanh Chaudhari MD completed EKG Khanh Chaudhari MD completed ePrescribe - Check t his box if eRx is used Khanh Chaudhari MD completed EKG Khanh Chaudhari MD completed
--- OUTSIDE RECORDS SUMMARY | 2024-11-02 12:38 | XMS_ITS | Clinical Summary ---
Author Organization [facility] [employer] Address [address] [place] [address] Care Team Providers Care Outside Sales Manager Name Role Phone Anders Kendrick MD Primary Care Provider [phone] Source Comments [facility] [employer],non-owned Affiliates and Associated Physician Practices is amultiple site organization consisting of ambulatory clinics and hospital sitesin [place], [place], [place] and [place]. This disclosure is being madepursuant to the Care Everywhere program and may not contain all information available regarding this patient. Last updated 18.[facility] [employer] Allergies Active Allergy Reactions Criticality Noted Date [...] 7 - 26 mg/dL 05/14/2020 1:51 AM [facility] Creatinine 1.0 0.6 - 1.2 mg/dL 05/14/2020 1:51 AM [facility] Sodium 139 136 - 145 mmol/L 05/14/2020 1:51 AM [facility] Potassium 3.7 3.5 - 4.5 mmol/L 05/14/2020 1:51 AM [facility] Chloride 100 98 - 107 mmol/L 05/14/2020 1:51 AM [facility] CO2 25 22 - 29 mmol/L 05/14/2020 1:51 AM [facility] Glucose 106 70 - 115 mg/dL 05/14/2020 1:51 AM [facility] Calcium 9.2 8.4 - 10.2 mg/dL 05/14/2020 1:51 AM [facility] Protein Total 7.3 6.0 - 8.3 g/dL 05/14/2020 1:51 AM [facility] Albumin 3.9 3.4 - 5.0 g/dL 05/14/2020 1:51 AM [facility] Bilirubin Total 0.6 0.2 - 1.2 mg/dL 05/14/2020 1:51 AM [facility] Alkaline Phosphatase 98 40 - 150 Units/L 05/14/2020 1:51 AM [facility] ALT 13 0 - 55 Units/L 05/14/2020 1:51 AM [facility] AST 15 5 - 34 Units/L 05/14/2020 1:51 AM [facility] Anion Gap 18 8 - 18 05/14/2020 1:51 AM [facility] BUN/Creatinine Ratio 16 7 - 23 05/14/2020 1:51 AM [facility] Osmolality Calculated 290 270 - 300 mOsm/kg 05/14/2020 1:51 AM [facility] Albumin/Globulin Ratio 1.1 1.1 - 2.3 05/14/2020 1:51 AM [facility] eGFR 55(L) >60 mL/min/1.7 3 m2 05/14/2020 1:51 AM [facility] Blood BLOOD SPECIMEN / Unknown Venipuncture / Unknown 05/14/2020 1:16 AM CDT 05/14/2020 1:30 AM [facility] Ismael Shepherd MD LAB - CHEMISTRY [facility]DR[facility] [place] [facility] Organization Address City/State/ZIP Co de Phone Number [facility] [address] [place] [id number] [phone] from Last 3 Months or Most Recently Relevant to Health Maintenance Advance Directives * Full Code (Latest Code Status on File) Date Activated Date Inactivated Comments 05/02/2018 4:55 AM 05/02/2018 1:16 PM * Full Code Date Activated Date Inactivated Comments 05/02/2018 2:19 AM 05/02/2018 4:55 AM * Full Code Date Activated Date Inactivated Comments 03/17/2018 1:23 AM 03/22/2018 4:01 PM Care Teams Outside Sales Manager Relationship Specialty Start Date End Date Anders Kendrick MD [address] [facility] [address] [place] [address] PCP - General 05/21/18
--- OUTSIDE RECORDS SUMMARY | 2024-11-02 12:38 | XMS_ITS | Referral Summary ---
Author Organization [facility] [employer] Address [address] [place] [address] Care Team Providers Care Digital Color Press Operator Name Role Phone Anders Kendrick MD Primary Care Provider [phone] Source Comments [facility],non-owned Affiliates and Associated Physician Practices is amultiple site organization consisting of ambulatory clinics and hospital sitesin [place], [place], [place] and [place]. This disclosure is being madepursuant to the Care Everywhere program and may not contain all information available regarding this patient. Last updated 18.[facility] [employer] Allergies Active Allergy Reactions Criticality Noted Date [...] - 26 mg/dL 05/14/2020 1:51 AM CDT [facility] Creatinine 1.0 0.6 - 1.2 mg/dL 05/14/2020 1:51 AM [facility] Sodium 139 136 - 145 mmol/L 05/14/2020 1:51 AM [facility] Potassium 3.7 3.5 - 4.5 mmol/L 05/14/2020 1:51 AM [facility] Chloride 100 98 - 107 mmol/L 05/14/2020 1:51 AM [facility] CO2 25 22 - 29 mmol/L 05/14/2020 1:51 AM [facility] Glucose 106 70 - 115 mg/dL 05/14/2020 1:51 AM [facility] Calcium 9.2 8.4 - 10.2 mg/dL 05/14/2020 1:51 AM [facility] Protein Total 7.3 6.0 - 8.3 g/dL 05/14/2020 1:51 AM [facility] Albumin 3.9 3.4 - 5.0 g/dL 05/14/2020 1:51 AM [facility] Bilirubin Total 0.6 0.2 - 1.2 mg/dL 05/14/2020 1:51 AM [facility] Alkaline Phosphatase 98 40 - 150 Units/L 05/14/2020 1:51 AM [facility] ALT 13 0 - 55 Units/L 05/14/2020 1:51 AM [facility] AST 15 5 - 34 Units/L 05/14/2020 1:51 AM [facility] Anion Gap 18 8 - 18 05/14/2020 1:51 AM [facility] BUN/Creatinine Ratio 16 7 - 23 05/14/2020 1:51 AM [facility] Osmolality Calculated 290 270 - 300 mOsm/kg 05/14/2020 1:51 AM [facility] Albumin/Globulin Ratio 1.1 1.1 - 2.3 05/14/2020 1:51 AM [facility] eGFR 55(L) >60 mL/min/1.7 3 m2 05/14/2020 1:51 AM [facility] Blood BLOOD SPECIMEN / Unknown Venipuncture / Unknown 05/14/2020 1:16 AM T 05/14/2020 1:30 AM CDT Ismael Shepherd MD LAB - CHEMISTRY [place]DR[facility] [place] Organization Address City/State/ZIP Co de Phone Number [address] [address], [facility] [phone] from Last 3 Months or Most Recently Relevant to Health Maintenance Advance Directives * Full Code (Latest Code Status on File) Date Activated Date Inactivated Comments 05/02/2018 4:55 AM 05/02/2018 1:16 PM * Full Code Date Activated Date Inactivated Comments 05/02/2018 2:19 AM 05/02/2018 4:55 AM * Full Code Date Activated Date Inactivated Comments 03/17/2018 1:23 AM 03/22/2018 4:01 PM Care Teams Digital Color Press Operator Relationship Specialty Start Date End Date Anders Kendrick MD [address] [address] [facility] - General 05/21/18
--- OUTSIDE RECORDS SUMMARY | 2024-11-02 12:38 | XMS_ITS | Clinical Summary ---
Author Organization [facility] Address [address] [place], [address] [address] Phone Care Team Providers Care Spike Machine Operator Name Role Phone John Street APRN, SHAD [...] age to complete this topic Insurance MEDICARE MEDICAID [place] Care Teams Spike Machine Operator Relationship Specialty Start Date End Date John Street, TRICIA, QUILTING MACHINE HELPER [address] [place] [address] [place] [address] PCP - General Advanced Practice Nurse 05/01/18
--- OUTSIDE RECORDS SUMMARY | 2024-11-02 12:38 | XMS_ITS ---
Author Organization [facility] Address [address] [place] [address] Care Team Providers Care Associate Quality Engineer Name Role Phone Anders Kendrick MD Primary Care Provider [phone] Active Problems Problem Noted Date Diagnosed Date [...]
--- OUTSIDE RECORDS SUMMARY | 2024-11-02 12:38 | XMS_ITS | Encounter Summary ---
Author Organization [facility] Address [address] [place] [address] Care Team Providers Care Porcelain Slusher Name Role Phone Miscellaneous, Not In File Primary Care Provider Unavailable Minh Lobato MD Unavailable [phone] Unknown, Notinfile Primary Care Provider Unavail able Anders Kendrick MD Primary Care Provider [phone] Ryne Hoffman MD Unavailable [phone] Encounter Details Date Type Department Care Team (Late st Contact Info) Description 08/23/2010 Orders Only [facility] Information Management [address] [place] [address] Scanning, Provider Social History Tobacco Use Types Packs/Day Years Used Date Smoking Tobacco: Never Assessed Comments Unknown Sex and Gender Information Value Date Recorded Sex Assigned at Not on file Legal Sex Female 3:38 AM [employer]DE[employer] Gender Identity Female 04/07/2020 7:32 PM [...] on filedocumented in this encounter Care Teams Porcelain Slusher Relationship Specialty Start Date End Date Miscellaneous, Not In File PCP - General 11/13/16 12/25/18 Unknown, Notinfile PCP - General 12/26/18 12/31/18 Anders Kendrick MD PCP - General Emergency Medicine 01/01/19 Minh Lobato MD Radiation Oncologist Radiation Oncology 04/09/18 4 Ryne Hoffman MD [address] [place] [address] Consulting Physician Interventional Cardiology 03/19/24 documented as of this encounter
--- NOTE | 2024-11-02 13:11 | ED.GENADULT ---
HPI - General Adult General Chief complaint: Shortness of Breath/Dyspnea Stated complaint: cough, sob Time Seen by Provider: 11/02/24 12:34 History of Present Illness HPI narrative: 69-year-old female presents to the emergency department for evaluation for worsening cough and congestion. Patient was started on antibiotics on 10/29, she had been started on doxycycline. Patient reports she has been having worsening cough and shortness of breath and worsening cough when sleeping. Patient denies any current chest pain. Patient does have a history valve replacement and does have history of congestive heart failure. Related Data Home Medications ?Medication ?Instructions ?Recorded ?Confirmed ?Last Taken ?Type carvedilol 6.25 mg tablet 6.25 mg PO Q12H 01/11/21 09/21/23 Unknown History duloxetine 20 mg capsule,delayed 20 mg PO BID 01/11/21 09/21/23 Unknown History release levothyroxine 125 mcg capsule 125 mcg PO DAILY 01/11/21 09/21/23 Unknown History losartan 100 mg tablet 100 mg PO DAILY 01/11/21 09/21/23 Unknown History lurasidone 20 mg tablet (Latuda) 10 mg PO DAILY 01/11/21 09/21/23 Unknown History pantoprazole 40 mg tablet,delayed 40 mg PO QAM 01/11/21 09/21/23 Unknown History release trazodone 50 mg tablet 50 mg PO QHS PRN 01/11/21 09/21/23 Unknown History clopidogrel 75 mg tablet 75 mg PO DAILY 06/06/24 Unknown History dulaglutide 0.75 mg/0.5 mL 0.75 mg subcut WEEKLY 06/06/24 Unknown History subcutaneous pen injector (Trulicity) Allergies Allergy/AdvReac Type Severity Reaction Status Date / Time ampicillin Allergy Unknown Hives Verified 11/02/24 12:39 codeine Allergy Unknown Vomiting Verified 11/02/24 12:39 Penicillins Allergy Unknown Hives Verified 11/02/24 12:39 Review of Systems Review of Systems: All systems reviewed & are unremarkable except as noted in HPI and below PMFSH Past Medical History Medical History Arthritis Bipolar 1 disorder Bipolar disease, chronic Body mass index [BMI] 37.0-37.9, adult (09/02/18) Diabetes 1.5, managed as type 2 Essential hypertension FHx: cholecystectomy Glaucoma Gout History of depression History of hyperlipidemia History of hypertension History of IBS History of thyroid cancer Migraine TESSA (obstructive sleep apnea) Shingles Thyroid cancer Surgical History Surgical History H/O abdominal hysterectomy History of ankle surgery History of cervical spinal surgery History of left knee replacement S/P right unicompartmental knee replacement Family History Family History Father Family history of cardiovascular disease Family history of sleep apnea Mother Family history of cardiovascular disease Social History Social History Smoking status: Never smoker Smokeless tobacco user: other Substance use: current Substance use type: marijuana Exam Narrative: APPEARANCE: Well appearing, no pain, no distress, well-nourished. HEAD: normocephalic, atraumatic. EYES: PERRLA/EOMI, conjunctivae clear. NOSE: Normal no drainage EARS:TMS clear with good light reflex. THROAT: Pharynx clear, no exudate. NECK: Supple. No adenopathy, no masses. RESPIRATORY: Airway patent, respirations nonlabored. Clear to auscultation bilaterally, no rales, rhonchi, wheezing. CARDIOVASCULAR: Regular rate and rhythm without murmurs rubs or gallops. ABDOMINAL: Soft, nontender, nondistended, normal bowel sounds MUSCULOSKELETAL: No significant lower extremity edema NEURO: Alert. Cranial nerves II through XII intact. Good gait. Good coordination SKIN: Warm, dry. Normal Color Course Vital Signs Vital signs: Vital Signs Temperature 97.9 F 11/02/24 11:08 Pulse Rate 62 11/02/24 11:08 Respiratory Rate 20 11/02/24 11:08 Blood Pressure 151/75 H 11/02/24 11:08 Pulse Oximetry 90 11/02/24 11:08 Temperature 97.9 F 11/02/24 11:08 Pulse Rate 58 L 11/02/24 14:33 Respiratory Rate 20 11/02/24 14:33 Blood Pressure 174/98 H 11/02/24 14:33 Pulse Oximetry 100 11/02/24 14:33 Oxygen Delivery Room Air 11/02/24 12:35 Medical Decision Making MDM Narrative Medical decision making narrative: 69-year-old female present to the emergency department for evaluation for persistent cough and shortness breath well being treated for pneumonia. Patient is still taking doxycycline. Patient states he does have worsened cough when lying flat. Patient is currently afebrile with no leukocytosis hemoglobin of 14.5 eyes. Patient has no acute abnormalities on her CMP. Patient does have chronic kidney disease her kidney function is similar to her baseline. Patient's BNP is not elevated. Influenza RSV and COVID were negative. Chest x-ray shows no acute cardiopulmonary abnormality. Patient has no clinical evidence of congestive heart failure at this time. Patient did feel improved with a breathing treatment. Patient states he does have a nebulizer at home. Patient will be described on pain oral to be used with her nebulizer. Patient was also provided Tessalon Perles for cough suppression. Patient does have follow-up scheduled with her primary care physician and with cardiology. All questions concerns were addressed patient was well-appearing at time of discharge. Differential Diagnosis Differential Diagnosis: COVID, RSV, influenza, CHF, pneumonia Vital Signs Vital Signs: Vital Signs Temperature 97.9 F 11/02/24 11:08 Pulse Rate 62 11/02/24 11:08 Respiratory Rate 20 11/02/24 11:08 Blood Pressure 151/75 H 11/02/24 11:08 Pulse Oximetry 90 11/02/24 11:08 Temperature 97.9 F 11/02/24 11:08 Pulse Rate 58 L 11/02/24 14:33 Respiratory Rate 20 11/02/24 14:33 Blood Pressure 174/98 H 11/02/24 14:33 Pulse Oximetry 100 11/02/24 14:33 Oxygen Delivery Room Air 11/02/24 12:35 Lab Data Lab results reviewed: Yes I reviewed the patient's lab results. 11/02/24 11:06 11/02/24 11:06 Labs: Lab Results 11/02/24 Range/Units 11:06 WBC 6.1 (4.5-10.0) K/mm3 RBC 4.86 (4.2-5.4) M/mm3 Hgb 14.5 (12.0-15.0) g/dL Hct 44.0 (37.0-47.0) % MCV 90.5 (80-100) fl MCH 29.8 (26-34) pg MCHC 33.0 (32-36) g/dl RDW 14.1 (11.5-14.5) % Plt Count 200 (150-375) k/mm3 MPV 10.8 H (7.4-10.4) fl Immature Gran % (Auto) 0.2 (0-0.5) % Neut % (Auto) 41.9 L (45.5-73.1) % Lymph % (Auto) 44.2 (18.3-44.2) % [place] % (Auto) 9.7 H (2.6-8.5) % Eos % (Auto) 3.3 (0-4.4) % Baso % (Auto) 0.7 (0.2-1.2) % Lymph # (Auto) 2.68 (0.9-3.2) K/mm3 [place] # (Auto) 0.6 (0.1-0.6) K/mm3 Eos # (Auto) 0.2 (0-0.3) K/mm3 Baso # (Auto) 0.0 (0.0-0.1) K/mm3 Abs Immat Gran (auto) 0.01 (0.00-0.031) K/mm3 Absolute Neuts (auto) 2.5 (1.3-6.7) K/mm3 Absolute Nucleated RBC 0.000 (0.0-0.012) K/mm3 Nucleated RBC % 0.0 (0.0-0.2) % Sodium 139 (137-145) mmol/L Potassium 4.0 (3.4-5.0) mmol/L Chloride 103 (98-107) mmol/L Carbon Dioxide 28 (22-30) mmol/L Anion Gap 8 (4-12) mmol/L BUN 23 H (7-17) mg/dL Creatinine 1.33 H (0.7-1.0) mg/dL Estim Creat Clear Calc Not Reportable Estimated GFR 39 L (59 - ) Glucose 116 H (65-110) mg/dL Calcium 9.4 (8.4-10.2) mg/dL Total Bilirubin 0.6 (0.2-1.3) mg/dL AST 26 (14-36) U/L ALT 26 (6-35) U/L Alkaline Phosphatase 61 (38-126) U/L NT-Pro-B Natriuret Pep 61 (19.9-100) pg/mL Total Protein 8.0 (6.3-8.2) g/dL Albumin 4.0 (3.5-5.1) g/dL Influenza A (RT-PCR) Negative (Negative) Influenza B (RT-PCR) Negative (Negative) RSV (RT-PCR) Negative (Negative) SARS-CoV-2 RNA (RT-PCR) Negative (Negative) Imaging Data Radiologist's impression: Impressions Chest X-Ray 11/02/24 11:47 IMPRESSION: 1. No acute cardiopulmonary disease. Discharge Plan Discharge Clinical Impression: Cough Patient Disposition: Home, Self-Care Condition: Stable Instructions: Antibiotic Form, Dyspnea (ED), Acute Cough (ED) Additional Instructions: Albuterol nebulizer as directed for cough. Continue the antibiotic until completed. Continue to have close follow-up with your primary care physician and with cardiology. If you have any worsening symptoms then please call or return to the emergency department. Patient Language: Togolese Prescriptions: New albuterol sulfate 1.25 mg/3 mL solution for nebulization 1.25 mg inhalation Q8H Qty: 75 0RF benzonatate 100 mg capsule 100 mg PO TID PRN (Reason: cough) Qty: 14 0RF No Action losartan 100 mg tablet 100 mg PO DAILY pantoprazole 40 mg tablet,delayed release (DR/EC) 40 mg PO QAM Latuda 20 mg tablet 10 mg PO DAILY Rx Instructions: must administer with food (at least 350 calories) trazodone 50 mg tablet 50 mg PO QHS PRN duloxetine 20 mg capsule,delayed release(DR/EC) 20 mg PO BID levothyroxine 125 mcg capsule 125 mcg PO DAILY carvedilol 6.25 mg tablet 6.25 mg PO Q12H Rx Instructions: must administer with a meal/food (DME) CPAP Mask See Rx Instructions .Route .MEDSUPPLY Qty: 1 0RF Rx Instructions: CPAP/BIPAP Supplies/Mask (headgear/ tubing/filters) nasal mask DX Code: G47.33 Length of Need: Lifetime DME:IV RESP LUZ ELENA Ho: [id number] Trulicity 0.75 mg/0.5 mL pen injector 0.75 mg subcut WEEKLY clopidogrel 75 mg tablet 75 mg PO DAILY Follow-up/Referrals: Anders Kendrick MD [Primary Care Provider] -
[2024-11-02 13:22] LABS: NT Pro B Type Natriuretic Pept 61 pg/mL (19.9-100)
[2024-11-02] MEDS: ALBUTEROL SULFATE NEB 2.5 MG/3 ML INH INHALATION (13:29)
[2024-11-02 13:31] VITALS: PULSE 59; RESP 20
[2024-11-02 13:38] VITALS: PULSE 55; RESP 20
[2024-11-02 14:33] VITALS: BP 174/98; PULSE 58; RESP 20; O2SAT 100
== END 2024-11-02 14:34 | disposition home or self-care (01) ==
PROVIDERS: Emergency Provider Emergency Medicine; PCP Emergency Medicine
DX: R05.9 Cough, unspecified (principal); J18.9 Pneumonia, unspecified organism; Z20.822 Contact with and (suspected) exposure to COVID-19; I11.0 Hypertensive heart disease with heart failure; I50.9 Heart failure, unspecified; E13.39 Other specified diabetes mellitus with other diabetic ophthalmic complication; H42 Glaucoma in diseases classified elsewhere; E78.5 Hyperlipidemia, unspecified; M19.90 Unspecified osteoarthritis, unspecified site; M10.9 Gout, unspecified; K58.9 Irritable bowel syndrome, unspecified; G47.33 Obstructive sleep apnea (adult) (pediatric); F31.9 Bipolar disorder, unspecified; Z95.2 Presence of prosthetic heart valve; Z96.652 Presence of left artificial knee joint; Z85.850 Personal history of malignant neoplasm of thyroid; Z90.710 Acquired absence of both cervix and uterus; Z79.899 Other long term (current) drug therapy; I44.0 Atrioventricular block, first degree; R94.31 Abnormal electrocardiogram [ECG] [EKG]
CPT/HCPCS: 36415; 71046; 80053; 83880; 85025; 87637; 93005; 94640; 99284

== ENCOUNTER 2025-03-04 07:35 | Outpatient (CLI) | payer MEDICARE, MEDICAID, SELFPAY ==
--- OUTSIDE RECORDS SUMMARY | 2025-03-04 07:39 | XMS_ITS | Clinical Summary ---
Author Organization [facility] Address [address] [place] [address] Care Team Providers Care Shipping Inspector Name Role Phone Anders Kendrick MD Primary Care Provider [phone] Ryne Hoffman MD Unavailable [phone] Allergies Active Allergy Reactions Criticality Noted [...] stenosis, severe 03/04/2024 CHF (congestive heart failure) 02/21/2024 Pain in both feet 01/22/2024 Dyslipidemia 01/21/2024 [...] diastolic heart failure 08/08/2022 Diabetic peripheral neuropathy 07/13/2022 Hammer toe 07/13/2022 Soft tissue lesion of [...] 54 years) - Signed by Tejal Claudio, SAUL on 04/09/2018 Assessment & Plan (01/21/2024 2:50 [...] 04/02/2019 Surgical History Surgery Date Site/Laterality Comments KS TOTAL ABDOMINAL HYSTERECT W/WO RMVL TUBE OVARY [...] (gastroesophageal reflux disease) Anxiety Arthritis osteoarthritis Cancer (HCC) THYROID Glaucoma Type 2 diabetes mellitus (HCC) Sleep apnea Crohn's disease (HCC) Diverticulosis Diverticulitis Chronic constipation CHF (congestive heart failure) (HCC) Thyroid nodule follicular thyro id carcinoma Hypothyroidism post-op Rectocele OAB (overactive bladder) ADHD (attention deficit hyperactivity disorder) CVA (cerebral vascular accident) (HCC) Diabetic peripheral neuropathy (HCC) Asthma PONV (postoperative nausea and vomiting) [...] drink = 0.6 oz pur e alcohol) [facility] Utilities Answer Date Recorded In the past 12 months has e electric, gas, oil, or water company [...] often do you attend chur ch or latter day services? Never 03/19/2024 Do you belong to any clubs o r organizations such as adventism groups, unions, fraternal or athletic groups, or [...] any time in the past 12 m [facility], were you homeless or living in a half-way (including now)? No 03/19/2024 Personal Safety Answer Date Recorded Have you ever been in or are you currently in a harmful physical or emotional relationship or is someone making you feel afraid or unsafe? Denies 03/18/2024 Comments No Sex and Gender Information Value Date Recorded Sex Assigned at Not on file Legal Sex Female 3:38 AM STEWARD/STEWARDESS SECOND CLASS Gender Identity Female 04/07/2020 7:32 PM CDT [...] 4:09 PM CDT Height 172.7 cm (5' 7.99) 03/18/2024 4:09 PM CD T Body Mass Index 35.28 03/18/2024 4:09 PM CDT Plan of Treatment Health Maintenance Due Date Last Done Comments Albumin Creatinine Ratio, Urine 1954 Breast Cancer Screening-Mammogram 1954 Colon Cancer Screening-Colonoscopy 1954 Depression Screening 1954 Hepatitis C Screening 1954 Osteoporosis Screening-Bone Density Scan 1954 Dilated Eye Exam 1954 Foot Exam 1954 DTaP/Tdap/Td Vaccine (1 - Tdap) 1965 Hepatitis B Screening 02/01/1972 Pneumococcal vaccine 65+ (1 of 2 - PCV) 1973 Zoster Vaccine (2 of 3) 09/19/2017 07/25/2017 Well Visit 65+ 2019 Hemoglobin A1C 09/10/2024 03/11/2024, 03/17/2018 Fall Risk Assessment 03/19/2025 03/19/2024 Lipid Panel 03/19/2025 03/19/2024, 02/22, 02/25/2019 eGFR 03/19/2025 03/19/2024, 03/11/2024 Influenza Vaccine (Season Ended) 2025 07/07/2019, 07/25/2017, 07/28/2015, Additional history exists Medical Devices Implanted Type Area Core Composer Feeder Device Identifier Shelf Expiration Date Model / Serial / Lot [employer] System Closure Repair Femoral Artery Suture Mediated Perclose Prostyle 92521-78 - [id number] Implanted:Qty: 1 on 03/18/2024 by Ryne Hoffman MD at [facility] [employer] 12/22/2025 [id number] / / [id number] [employer] System Closure Repair Femoral Artery Suture Mediated Perclose Prostyle 11490-97 - [id number] Implanted:Qty: 1 on 03/18/2024 by Ryne Hoffman MD at [facility] 12/22/2025 [id number] / / [id number] [id number] Valve Aortic Trnscath Shaggy 3 Ultra Resilia 23mm [id number] - [id number] - [id number] Implanted:Qty: 1 on 03/18/2024 by Ryne Hoffman MD at [facility] [employer] 04/11/2026 [id number] / [id number] / [employer] Vascular System Closure Repair Femoral Artery Suture Mediated Perclose Prostyle 17307-04 - [id number] Implanted:Qty: 1 on 03/18/2024 by Ryne Hoffman MD at [facility] 12/22/2025 [id number] / / [id number] Procedures Procedure Name Priority Date/Time Associated Diagnosis [...] ORDERABLES Final Resu lt Performing Organization Address City/[facility]/ZIP Co de Phone Number JACKIE COHEN [address] Department [place] [address] * Hemoglobin A1c (03/11/2024 9:42 AM CDT) Hgb A1C 5.3 4.0 - 5.6 % Estimated Average Glucose 105 mg/dL JACKIE COHEN Comment: The ADA recommends reporting an estimated Average Glucose (eAG) with all Hemoglobin A1c results using the equation derived from a study of 507 normal and diabetic adults. Minority populations were underrepresented and children were not included. (Diabetes Care 31:8956-4228, 2008). The eAG is not equivalent to a fasting glucose. Blood 03/11/2024 9:42 AM CDT 03/11/2024 9:45 AM CDT us Ryne Hoffman MD LAB [place]OD [place] [address] [facility] Department [place] [address] from Last 3 Months or Most Recently Relevant to Health Maintenance Insurance IDMS [facility] MEDICARE AD[facility] Address: [address] [address] [place] [address] IDMS [facility] MEDICARE ADVANTAGE [facility] MEDICARE ADVANTAGE IDPA Advance Directives For more information, please contact: [phone] Healthcare Agents on File Name Relationship Healthcare Agent [facility] Health Care Agent Care Teams Shipping Inspector Relationship Specialty Start Date End Date Anders Kendrick MD PCP - General Emergency Medicine 01/01/19 Ryne Hoffman MD [address] [place] [address] Consulting Physician Interventional Cardiology 03/19/24
--- OUTSIDE RECORDS SUMMARY | 2025-03-04 07:39 | XMS_ITS | Encounter Summary ---
Author Organization [facility] Address [address] [place] [address] Care Team Providers Care Hack Saw Operator Name Role Phone Miscellaneous, Not In File Primary Care Provider Unavailable Minh Lobato MD Unavailable [phone] Unknown, Notinfile Primary Care Provider Unavail able Anders Kendrick MD Primary Care Provider [phone] Ryne Hoffman MD Unavailable [phone] Encounter Details Date Type Department Care Team (Late st Contact Info) Description 08/23/2010 Orders Only [facility] Information Management [address] [place] [address] Scanning, Provider Social History Tobacco Use Types Packs/Day Years Used Date Smoking Tobacco: Never Assessed Comments Unknown Sex and Gender Information Value Date Recorded Sex Assigned at Not on file Legal Sex Female 3:38 AM RETAIL SALES PROFESSIONAL Gender Identity Female 04/07/2020 7:32 PM CDT [...] on filedocumented in this encounter Care Teams Hack Saw Operator Relationship Specialty Start Date End Date Miscellaneous, Not In File PCP - General 11/13/16 12/25/18 Unknown, Notinfile PCP - General 12/26/18 12/31/18 Anders Kendrick MD PCP - General Emergency Medicine 01/01/19 Minh Lobato MD Radiation Oncologist Radiation Oncology 04/09/18 4 Ryne Hoffman MD [address] [place] [address] Consulting Physician Interventional Cardiology 03/19/24 documented as of this encounter
--- OUTSIDE RECORDS SUMMARY | 2025-03-04 07:39 | XMS_ITS | Clinical Summary ---
Author Organization [facility] Address [address] [place] [address] Care Team Providers Care Bicycle Taxi Driver Name Role Phone Idalmis Khan Provider Primary [...] 1 Tablet (137 mcg) by mouth daily can filling and closing machine tender. 90 Tablet 3 10/18/2017 Active Active Problems [...] Comments Blood Pressure 145/74 10/17/2017 11:26 AM CONTRACTING MANAGER Pulse 62 10/17/2017 11:26 AM CONTRACTING MANAGER Temperature 36.8 C (98.3 F) 10/17/2017 11:26 AM CONTRACTING MANAGER Respiratory Rate 18 07/18/2017 9:18 AM CDT Oxygen Saturation - - Inhaled Oxygen Concentration - - Weight 115.2 kg (254 lb) 10/17/2017 11:26 AM CONTRACTING MANAGER Height 175.3 cm (5' 9) 10/17/2017 11:26 AM CONTRACTING MANAGER Body Mass Index 37.51 10/17/2017 11:26 AM CONTRACTING MANAGER Plan of Treatment Health Maintenance Due Date Last Done Comments DTAP/TDAP/TD VACCINES (1 - Tdap) 1973 BREAST CANCER SCREENING 1994 FIT-DNA Q 3 years 1999 FIT/FOBT Q 1 year 1999 Flex Sig/CT Colonography Q 5 years 1999 PNEUMOCOCCAL VACCINE 50+ YEARS (1 of 1 - PCV) 02/01/20 04 ZOSTER VACCINE (1 of 2) 02/01/2004 OSTEOPOROSIS SCREENING 2019 INFLUENZA VACCINE (#1) 2024 COLORECTAL SCREENING 08/21/2028 08/21/2018 Colorectal Cancer Screening 08/21/2028 RSV VACCINE (60+ or ) (1 - 1-dose 75+ series) 2029 Insurance MEDICARE PART A AND B Care Teams Bicycle Taxi Driver Relationship Specialty Start Date End Date Idalmis Khan Provider PCP - General 10/17/17
--- OUTSIDE RECORDS SUMMARY | 2025-03-04 07:39 | XMS_ITS | Encounter Summary ---
Author Organization [facility] Address [address] [place] [address] Phone Care Team Providers Care Check Writer Name Role Phone Minh Lobato MD Unavailable [phone] Anders Kendrick MD Primary Care Provider [phone] Ryne Hoffman MD Unavailable [phone] Encounter Details Date Type Department Care [...] on file Legal Sex Female 3:38 AM MARKETING CONTENT MANAGER Gender Identity Female 04/07/2020 7:32 PM CDT [...] on filedocumented in this encounter Care Teams Check Writer Relationship Specialty Start Date End Date Anders Kendrick MD PCP - General Emergency Medicine 01/01/19 Minh Lobato MD Radiation Oncologist Radiation Oncology 04/09/18 4 Ryne Hoffman MD [address] [place] [address] Consulting Physician Interventional Cardiology 03/19/24 documented as of this encounter
--- OUTSIDE RECORDS SUMMARY | 2025-03-04 07:39 | XMS_ITS | Referral Summary ---
Author Organization [facility] Address [address] [place] [address] Care Team Providers Care Occupational Therapist Home Based Name Role Phone Anders Kendrick MD Primary Care Provider [phone] Ryne Hoffman MD Unavailable [phone] Allergies Active Allergy Reactions Criticality Noted [...] th e electric, gas, oil, or water [employer] threatened to shut off services in your [...] often do you attend chur ch or pentecostalism services? Never 03/19/2024 Do you belong to any clubs o r organizations such as sabianism groups, unions, fraternal or athletic groups, or [...] time in the past 12 m [facility], were you homeless or living in a skilled nursing (including now)? No 03/19/2024 Personal Safety Answer Date Recorded Have you ever been in or are you currently in a harmful physical or emotional relationship or is someone making you feel afraid or unsafe? 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 Gender Identity Female 04/07/2020 7:32 PM CDT [...] on file Medical Devices Implanted Type Area Pressure Sealer And Tester Device Identifier Shelf Expiration Date Model / Serial / Lot [employer] V[employer] System Closure Repair Femoral Artery Suture Mediated Perclose Prostyle 52048-49 - [id number] Implanted:Qty: 1 on 03/18/2024 by Ryne Hoffman MD at [facility] [employer] 12/22/2025 [id number] / [id number] [employer] System Closure Repair Femoral Artery Suture Mediated Perclose Prostyle 62720-05 - [id number] Implanted:Qty: 1 on 03/18/2024 by Ryne Hoffman MD at [facility] [employer] 12/22/2025 [id number] / [id number] [employer] Valve Aortic Trnscath Shaggy 3 Ultra Resilia 23mm [id number] - [id number] - [id number] Implanted:Qty: 1 on 03/18/2024 by Ryne Hoffman MD at [facility] [employer] 04/11/2026 [id number] / [id number] / [employer] Vascular System Closure Repair Femoral Artery Suture Mediated Perclose Prostyle 07878-57 - [id number] Implanted:Qty: 1 on 03/18/2024 by Ryne Hoffman MD at [facility] [employer] 12/22/2025 [id number] / [id number] Procedures Procedure Name Priority Date/Time Associated Diagnosis [...] ORDERABLES Final Resu lt Performing Organization Address [facility] Co de Phone Number JACKIE COHEN [address] [place] [address] * Hemoglobin A1c (03/11/2024 9:42 AM CDT) [facility] Signature Hgb A1C 5.3 4.0 - 5.6 % Estimated Average Glucose 105 mg/dL JACKIE COHEN Comment: The ADA recommends reporting an estimated Average Glucose (eAG) with all Hemoglobin A1c results using the equation derived from a study of 507 normal and diabetic adults. Minority populations were underrepresented and children were not included. (Diabetes Care 31:8545-6317, 2008). The eAG is not equivalent to a fasting glucose. Blood 03/11/2024 9:42 AM CDT 03/11/2024 9:45 AM CDT Ryne Hoffman MD LAB BLOOD ORDERABLES Final Resu lt Performing Organization Address City/[facility] Co de Phone Number JACKIE COEHN [address] [facility] [place] [address] from Last 3 Months or Most Recently Relevant to Health Maintenance Insurance IDPA [facility] MEDICARE ADVANTAGE [facility] MEDICARE Address: [address] [address] [place] [address] IDPA [facility] MEDICARE ADVANTAGE [facility] MEDICARE Address: [address] [address] [place] [address] [facility] MEDICARE ADVANTAGE [facility] MEDICARE Address: [address] [address] [place] [address] [place] [address] Advance Directives For more information, please contact: [phone] Healthcare Agents on File Name Relationship Healthcare Agent Relationshi p Communication Brenda [facility] Care Agent Care Teams Occupational Therapist Home Based Relationship Specialty Start Date End Date Anders Kendrick MD PCP - General Emergency Medicine 01/01/19 Ryne Hoffman MD [address] [place] [address] Consulting Physician Interventional Cardiology 03/19/24
--- OUTSIDE RECORDS SUMMARY | 2025-03-04 07:39 | XMS_ITS ---
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 Past Treatment and Therapy Plans No past plan information found. 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
--- OUTSIDE RECORDS SUMMARY | 2025-03-04 07:40 | XMS_ITS ---
Author Organization [facility] Address [address] [place] [address] Care Team Providers Care Negative Cutter Name Role Phone Anders Kendrick MD Primary Care Provider [phone] Active Problems * This document contains information received from the source organization and may not represent a complete record from that organization. Problem Noted Date Diagnosed Date Chest pain [...] Female stress incontinence 03/17/2016 Hypothyroidism 01/03/2012 Current Treatment and Therapy Plans No current [...]
--- OUTSIDE RECORDS SUMMARY | 2025-03-04 07:40 | XMS_ITS | Continuity of Care Document ---
Author Organization [facility] Address [address] [place] [address] Phone Care Team Providers Care Manager Banquet Name Role Phone Shahid Spivey Unavailable Unavailable [...] Copied on Encounter Office/outpat ient Visit, Est [facility], [address], [place], [place], [id number], [place] tel:[phone] [facility] [place] No Information 0-201 0 Patric Shahid. [address], [place], [address], [place]. tel:[phone] [facility], [address], [place], [place], [id number], [place] tel:[phone] [facility] No Information 3-201 0 Krishnasamy Shahid. [address], [place], [place], [facility], [place]. tel:[phone] Referring Provider: Shahid mistry, [facility] [address], [place], [place], [facility]. tel:[phone] [facility], [address], [place], [place], [id number], [place] tel:[phone] [facility] No Information 0 Krishnasamy Shahid. [address], [place], [place], [facility], [place]. tel:[phone] Referring Provider: Shahid mistry, [facility] [address], [place], [facility]. tel:[phone] [facility], [address], [place], [place], [id number], [place] tel:[phone] [facility] No Information 0 Krishnasamy Shaihd. [facility] [address], [place], [facility], [place]. tel:[phone] Referring Provider: Shahid mistry, [facility] [address], [place], [place], [facility]. tel:[phone] [facility], [address], [place], [place], [id number], [place] tel:[phone] [facility] No Information 0 Krishnasamy Shahid. [address], [place], [facility], [place]. tel:[phone] Referring Provider: Shahid mistry, [facility] [address], [facility]. tel:[phone] Office/outpat ient Visit, [facility], [address] [place] [address] [address], [place], [place], [id number], [place] tel:[phone] [facility] [place] No Information 5-201 0 Krishnasamy Shahid. [address] [place] [address], [facility], [place]. tel:[phone] [facility]pat ient [facility], [facility], [address] [place] [address] [address], [place], [place], [id number], [place] tel:[phone] [facility] [place] No Information 4-200 9 Krishnasamy Shahid. [address] [place] [address], [facility], [place]. tel:[phone] [facility], [address] [place] [address] [address], [place], [place], [id number], [place] tel:[phone] [facility] [place] No Information 8-200 9 Krishnasamy Shahid. [address] [place] [address], [facility], [place]. tel:[phone] Referring Provider: Shahid mistry, [address] [place] [address], [facility]. tel:[phone] [facility], [address] [place] [address] [address], [place], [place], [id number], [place] tel:[phone] [facility] [place] No Information 7-200 8 Krishnasamy Shahid. [address] [place] [address], [facility], [place]. tel:[phone] Referring Provider: Shahid mistry, [address] [place] [address], [facility]. tel:[phone] Family History Family Member Type Diagnosis Age At Onset No Information Payers Payer name Insurance type Covered republican ID Authoriza tion(s) Medicare [facility] [id number] Medicaid [facility] [id number] Social History Type Description Quantity Date Captured [...]
--- OUTSIDE RECORDS SUMMARY | 2025-03-04 07:40 | XMS_ITS | CONTINUITY OF CARE DOCUMENT ---
Author Name rancho, rancho Address Unknown Organization [facility] Address [address] [place] [address] Phone [phone] Care Team Providers Care Child Care Worker Name Role Phone Alonzo Zaragoza MD Unavailable [phone] JOHANNA MADERA MD Unavailable [phone] JOHANNA MADERA MD Unavailable [phone] PROBLEMS Condition Status Date Provider Notes ANGINA [...] MELLITUS, TYPE II, CONTROLLED active Lorna Menard PODIATRIC PHYSICIAN Shortness of breath active Khanh Chaudhari MD Palpitations active Khanh Chaudhari MD Hypothyroidism active Silverio Hess Aortic stenosis s/p 23 S3 Reselia active Ryne Hoffman MD Monitor gradien t closely on follow up echo. Symptoms significantly better and she is very happy. CVA active Alonzo Zaragoza MD Diastolic heart failure, chronic active Alonzo Zaragoza MD ENCOUNTERS Date Type Provider Location Encounter Diag nosis 6 - 6 In-person encounter Office Visit Alonzo Zaragoza MD [facility] 5 - 6 In-person encounter Office Visit Alonzo Zaragoza MD [facility] 5 - 5 In-person encounter Office Visit Alonzo Zaragoza MD [facility] 7 - 7 In-person encounter Office Visit Ryne Hoffman MD [facility] Aortic stenosis s/p 23 S3 Reselia 9 - 0 In-person encounter Office Visit Alonzo Zaragoza MD [facility] 6 - 6 In-person encounter Office Visit Alonzo Zaragoza MD [facility] 3 - 3 In-person encounter Office Visit Alonzo Zaragoza MD [facility] 4 - 5 In-person encounter Office Visit Alonzo Zaragoza MD [facility] 6 - 8 In-person encounter Office Visit Alonzo Zaragoza MD [facility] 5 - 5 In-person encounter Office Visit Alonzo Zaragoza MD [facility] Diastolic heart failure, chronic 6 - 6 In-person encounter Office Visit Alonzo Zaragoza MD [facility] 0 - 0 In-person encounter Office Visit Alonzo Zaragoza MD [facility] CVA 9 - 1 In-person encounter Office Visit Alonzo Zaragoza MD [facility] 1 - 3 In-person encounter Office Visit Khanh Chaudhari MD [facility] Aortic stenosis s/p 23 S3 Reselia 0 - 2 In-person encounter Office Visit Khanh Chaudhari MD [facility] ANGINA PECTORISHTN ESSENTIAL - 09/03 RENAL DUP NEGHypercholesterolemia, mixedRENAL ARTERY STENOSIS-12/11 KATHERYN DUP NEGShortness of breathPalpitationsHypothyroidism 5 - 2 In-person encounter Office Visit Khanh Chaudhari MD [facility] 0 - 1 In-person encounter Office Visit Khanh Chaudhari MD [facility] 5 - 5 In-person encounter Office Visit Khanh Chaudhari MD [facility] 8 - 4 In-person encounter Office Visit Khanh Chaudhari MD [facility] 0 - 1 In-person encounter Office Visit Khanh Chaudhari MD [facility] 3 - 4 In-person encounter Office Visit Khanh Chaudhari MD [facility] HTN ESSENTIAL - 09/03 RENAL DUP NEGCHEST PAIN-08/06 NUC NEG 1 - 4 In-person encounter Office Visit Khanh Chaudhari MD [facility] 7 - 7 In-person encounter Office Visit Khanh Chaudhari MD [facility] 1 - 1 In-person encounter Office Visit Khanh Chaudhari MD [facility] DIABETES MELLITUS, TYPE II, CONTROLLED 2 - 2 In-person encounter Office Visit Khanh Chaudhari MD [facility] 8 - 8 In-person encounter Office Visit Khanh Chaudhari MD [facility] SLEEP APNEACHEST PAIN-08/06 NUC NEG 9 - 9 In-person encounter Office Visit Khanh Chaudhari MD [facility] HTN ESSENTIAL - 09/03 RENAL DUP NEGHypercholesterolemia, mixedOBESITY VITAL SIGNS Date Observation Value Provider Body Mass Index (Ratio) 35.14 kg/m2 Claudy Zaragoza MD blood pressure, diastolic 80 mm[Hg] Jarrell Lamb blood pressure, systolic 142 mm[Hg] Cristela Lamb oxygen saturation, oximetry 97 % Tiffany Lamb pulse rate 61 /min Tiffany [place] respiratory rate E&M 12 /[facility] [lb_av] [facility] height E&M 69 [in_i] [facility] blood pressure, cuff size regular Jarrell alva [place] Body Mass Index (Ratio) 35.44 kg/m2 Claudy Zaragoza MD blood pressure, diastolic 92 mm[Hg] Devonte real [facility] blood pressure, systolic 161 mm[Hg] Johanna nevarez [facility] oxygen saturation, oximetry 97 % Lindsay [facility] pulse rate 57 /min [facility], cuff size regular [facility] weight E&M 240 [lb_av] Lindsay [facility] height E&M 69 [in_i] Lindsay [facility] Body Mass Index (Ratio) 33.81 kg/m2 Claudy Zaragoza MD blood pressure, diastolic 95 mm[Hg] Jarrell alva [place] blood pressure, systolic 153 mm[Hg] [facility] oxygen saturation, oximetry 96 % [facility] respiratory rate E&M 12 /min [facility] pulse rate 54 /min [facility] weight E&M 229 [lb_av] [facility] height E&M 69 [in_i] [facility] blood pressure, cuff size regular [facility] Body Mass Index (Ratio) 35.14 kg/m2 David Hoffman MD blood pressure, cuff size large Ke rri Debbie blood pressure, diastolic 70 mm[Hg] Ke rri Debbie blood pressure, systolic 116 mm[Hg] Mor Galohalleyer oxygen saturation, oximetry 97 % Jina Galosarah respiratory rate E&M 16 /min Jina Dias [place] pulse rate 70 /min Jina Johnson er weight E&M 238 [lb_av] Jina Johnson height E&M 69 [in_i] Jina Johnson Body Mass Index (Ratio) 34.99 kg/m2 Claudy Zaragoza MD blood pressure, diastolic 91 mm[Hg] Mason rr blood pressure, systolic 158 mm[Hg] Jar ret pulse rate 57 /min Eric y blood pressure, cuff size regular Mason respiratory rate E&M 14 /min Eric oxygen saturation, oximetry 96 % Eric weight E&M 237 [lb_av] Eric y height E&M 69 [in_i] Eric y Body Mass Index (Ratio) 34.55 kg/m2 Claudy Zaragoza MD blood pressure, cuff size regular Mason blood pressure, diastolic 88 mm[Hg] rret blood pressure, systolic 143 mm[Hg] Jar ret pulse rate 61 /min Eric y oxygen saturation, oximetry 94 % respiratory rate E&M 16 /min Eric weight E&M 234 [lb_av] Eric y height E&M 69 [in_i] Eric y Body Mass Index (Ratio) 35.59 kg/m2 Claudy Zaragoza MD blood pressure, cuff size regular Ja rret blood pressure, diastolic 94 mm[Hg] Ja rret blood pressure, systolic 180 mm[Hg] Jar ret pulse rate 64 /min Eric oxygen saturation, oximetry 96 % Eric respiratory rate E&M 12 /min Eric weight E&M 241 [lb_av] Eric height E&M 69 [in_i] Eric Body Mass Index (Ratio) 36.32 kg/m2 Claudy Zaragoza MD blood pressure, diastolic 95 mm[Hg] Li nkLog blood pressure, systolic 182 mm[Hg] Laura kLog blood pressure, cuff size regular [facility], [facility] 95 mm[Hg] Ja rret blood pressure, systolic 182 mm[Hg] [facility] pulse rate 58 /min Eric oxygen saturation, oximetry 94 % Eric respiratory rate E&M 16 /min Eric weight E&M 246 [lb_av] Eric height E&M 69 [in_i] Eric y Body Mass Index (Ratio) 37.06 kg/m2 Claudy Zaragoza MD blood pressure, diastolic 97 mm[Hg] St shasta Howell blood pressure, systolic 167 mm[Hg] Vasile Howell oxygen saturation, oximetry 68 % Tejal Howell pulse rate 92 /min Tejal Howell respiratory rate E&M 18 /min Tejalsage lee weight E&M 251 [lb_av] Tejal Dante height E&M 69 [in_i] Tejalsage Howell Body Mass Index (Ratio) 34.70 kg/m2 Claudy Zaragoza MD blood pressure, diastolic 86 mm[Hg] [facility] [place] Dante blood pressure, systolic 172 mm[Hg] Vasile cazares Dante oxygen saturation, oximetry 95 % Tejal Dante pulse rate 70 /min Tejal Dante weight E&M 235 [lb_av] Tejalsage Howell respiratory rate E&M 16 /min Tejalsage lee height E&M 69 [in_i] Tejalsage Howell Body Mass Index (Ratio) 37.80 kg/m2 Claudy Zaragoza MD blood pressure, cuff size large Hi benjamín Felix blood pressure, diastolic 76 mm[Hg] Jacque butts Felix blood pressure, systolic 130 mm[Hg] [facility] Felix oxygen saturation, oximetry 99 % Gaby [place] [...] South l height E&M 69 [in_i] Edelmira South l Body Mass Index (Ratio) 37.80 kg/m2 Claudy Zaragoza MD blood pressure, diastolic 80 mm[Hg] Li nkLogic blood pressure, systolic 130 mm[Hg] Laura kLogic blood pressure, resting No Dorian carmen [place] blood pressure, diastolic 80 mm[Hg] Sh erkflorence [place] blood pressure, systolic 130 mm[Hg] She [facility] centersadaf SteinerBlankenship pulse rate 82 /min Rigo aquino oxygen saturation, oximetry 95 % Rigo [place] respiratory rate E&M 18 /min Shirley [place] weight E&M 256 [lb_av] Rigo Steiner aquino height E&M 69 [in_i] Rigo Steiner aquino Body Mass Index (Ratio) 37.51 kg/m2 Suleiman Hess blood pressure, diastolic, left arm 70 mm [Hg] blood pressure, systolic, left arm 130 mm [Hg] blood pressure, diastolic, right arm 60 m m[Hg] blood pressure, systolic, right arm 138 m m[Hg] blood pressure, diastolic 60 mm[Hg] Ki blood pressure, systolic 138 mm[Hg] Salvador lorenzo [place] oxygen saturation, oximetry 97 % respiratory rate E&M 16 /min pulse rate 69 /min weight E&M 254 [lb_av] height E&M 69 [in_i] Body Mass Index (Ratio) 37.95 kg/m2 Suleiman [place] blood pressure, resting Yes Suleiman ruiz [place] blood pressure, cuff size large [facility], diastolic 85 mm[Hg] Ke rri [facility] blood pressure, systolic 160 mm[Hg] Mor Galobrattleboro memorial hospit[facility]arl oxygen saturation, oximetry 98 % Jina Galobrattleboro memorial hospitalkarl respiratory rate E&M 20 /min Jina suttonbrattleboro memorial hospitalkarl pulse rate 88 /min Jina Johnson [facility] weight E&M 257 [lb_av] Jina Johnosn [facility] height E&M 69 [in_i] Jina Johnson [facility] pulse rate #2 82 [facility] blood pressure, yarbrough tolic, second observation 90 mm[Hg] Josseline d blood pressure, syst olic, second observation 132 mm[Hg] [facility], oximetry 97 % Josseline pulse rate 88 /min Josseline d blood pressure, diastolic 92 mm[Hg] Vi ctoria Tebid blood pressure, systolic 129 mm[Hg] Florencio benson bid pulse rate #2 79 Josseline d blood pressure, yarbrough tolic, second observation 92 mm[Hg] Josseline d blood pressure, syst olic, second observation 164 mm[Hg] [facility], oximetry 98 % Josseline d pulse rate 85 /min Josseline bid blood pressure, diastolic 96 mm[Hg] Vi ctoria Tebid blood pressure, systolic 172 mm[Hg] Florencio kelley bid pulse rate #2 79 Josseline d blood pressure, yarbrough tolic, second observation 83 mm[Hg] Josseline bid blood pressure, syst olic, second observation 167 mm[Hg] [facility], oximetry 98 % Josseline pulse rate 79 /min Josseline d blood pressure, diastolic 83 mm[Hg] Vi ctoria Tebid blood pressure, systolic 167 mm[Hg] Florencio kelley Tebid pulse rate #2 71 [place] d blood pressure, yarbrough tolic, second observation 82 mm[Hg] Josseline d blood pressure, syst olic, second observation 137 mm[Hg] Josseline d oxygen saturation, oximetry 98 % Josseline pulse rate 76 /min [place] blood pressure, diastolic 85 mm[Hg] Vi ctoria Tebid blood pressure, systolic 144 mm[Hg] Florencio kelley Tebid pulse rate #2 67 [place] blood pressure, yarbrough tolic, second observation 88 mm[Hg] [facility] blood pressure, syst olic, second observation 166 mm[Hg] Josseline d oxygen saturation, oximetry 98 % [place] pulse rate 79 /min [place] blood pressure, diastolic 91 mm[Hg] Vi ctoria Tebid blood pressure, systolic 173 mm[Hg] Florencio kelley Tebid pulse rate #2 66 [place] d blood pressure, yarbrough tolic, second observation 85 mm[Hg] [facility], syst olic, second observation 155 mm[Hg] [facility], oximetry 98 % [place] pulse rate 65 /min [facility], diastolic 82 mm[Hg] Vi ctoria Tebid blood pressure, systolic 184 mm[Hg] Florencio kelley Tebid pulse rate #2 70 [facility] blood pressure, yarbrough tolic, second observation 91 mm[Hg] [facility] blood pressure, syst olic, second observation 142 mm[Hg] [facility] oxygen saturation, oximetry 98 % [facility] pulse rate 75 /min [facility] blood pressure, diastolic 108 mm[Hg] Vi [facility] Tebid blood pressure, systolic 170 mm[Hg] Florencio [facility] #2 61 [facility] blood pressure, yarbrough tolic, second observation 92 mm[Hg] [facility] blood pressure, syst olic, second observation 161 mm[Hg] [facility] oxygen saturation, oximetry 97 % [facility] pulse rate 65 /min [facility] blood pressure, diastolic 95 mm[Hg] Vi [facility] blood pressure, systolic 160 mm[Hg] Florencio kelley Tebid blood pressure, diastolic 90 mm[Hg] Ke virginiai Debbie blood pressure, systolic 160 mm[Hg] Mor Lewis pulse rate 69 /min Jina [facility] oxygen saturation, oximetry 97 % Jina Lewis respiratory rate E&M 16 /min Jina corea Body Mass Index (Ratio) 41.05 kg/m2 Nataliya Lewis weight E&M 278 [lb_av] Jina josueer Body Mass Index (Ratio) 39.72 kg/m2 Anea migue Brown blood pressure, diastolic, left arm 98 mm [Hg] Aneatris Brown blood pressure, systolic, left arm 155 mm [Hg] Aneatris Brown blood pressure, diastolic, right arm 104 mm[Hg] Aneatris Brown blood pressure, systolic, right arm 182 m m[Hg] Aneatris [facility] blood pressure, diastolic 98 mm[Hg] An mauricioris [facility] blood pressure, systolic 155 mm[Hg] Ane atris [facility] pulse rate 82 /min Aneatris [facility] oxygen saturation, oximetry 98 % Aneatris [facility] respiratory rate E&M 18 /min Aneatri s [facility] weight E&M 269 [lb_av] Aneatris [facility] Body Mass Index (Ratio) 39.87 kg/m2 Anea migue [facility] blood pressure, diastolic 89 mm[Hg] An mauricioris [facility] blood pressure, systolic 150 mm[Hg] Ane atris [facility] pulse rate 81 /min Aneatris [facility] oxygen saturation, oximetry 97 % Aneatris [facility] respiratory rate E&M 18 /min Aneatri s [facility] weight E&M 270 [lb_av] Aneatris [facility] Body Mass Index (Ratio) 40.75 kg/m2 Dorian Khanna PODIATRIC PHYSICIAN weight E&M 276 [lb_av] Joyce Khanna NP blood pressure, diastolic, left arm 100 m m[Hg] Brinda Servin blood pressure, systolic, left arm 204 mm [Hg] Brinda Servin blood pressure, diastolic, right arm 102 mm[Hg] Brinda Servin blood pressure, systolic, right arm 199 m m[Hg] Brinda Servin Body Mass Index (Ratio) 41.20 kg/m2 Jenny ssa blood pressure, diastolic 100 mm[Hg] Nd rose Servin blood pressure, systolic 204 mm[Hg] Arianne natalie pulse rate 80 /min Brinda Servin oxygen saturation, oximetry 96 % Brinda Servin respiratory rate E&M 16 /min Brinda Servin weight E&M 279 [lb_av] Brinda Servin13 blood pressure, diastolic 96 mm[Hg] Mason Duke RN blood pressure, systolic 177 mm[Hg] Carlos Duke RN pulse rate 84 /min Carlos Duke RN oxygen saturation, oximetry 96 % Carlos Duke RN respiratory rate E&M 16 /min Carlos ledesmasergo RN Body Mass Index (Ratio) 42.09 kg/m2 Carlos Duke RN weight E&M 284 [lb_av] Carlos Duke RN Body Mass Index (Ratio) 40.96 kg/m2 Kwame Pepe blood pressure, diastolic, left arm 89 mm [Hg] Ramos Pepe blood pressure, systolic, left arm 162 mm [Hg] Ramos Pepe blood pressure, diastolic, right arm 105 mm[Hg] Ramos Pepe blood pressure, systolic, right arm 170 m m[Hg] Ramos Pepe blood pressure, diastolic 89 mm[Hg] [place] blood pressure, systolic 162 mm[Hg] Dangelo Pepe pulse rate 79 /min Ramos Pepe oxygen saturation, oximetry 97 % Ramos Pepe respiratory rate E&M 16 /min Ramos Pepe weight E&M 276.38 [lb_av] Ramos vieyra orthostatic blood pr essure, sitting, left arm, diastolic 88 [place] orthostatic blood pr essure, sitting, left arm, systolic 134 [place] orthostatic blood pr essure, sitting, right arm, diastolic 88 [place] orthostatic blood pr essure, sitting, right arm, systolic 148 [place] oxygen saturation, oximetry 93 % Golden Manacomarisela respiratory rate E&M 20 /min [place] pulse rate 91 /min [place] height E&M 69 [in_i] [place] height in centimeters E&M 175.26 cm Bhumika [place] blood pressure, diastolic 96 mm[Hg] Heri sanchez Debbie blood pressure, systolic 173 mm[Hg] Mor zackery Lewis pulse rate 65 /min Jina Alex josueer oxygen saturation, oximetry 96 % Jina Debbie respiratory rate E&M 16 /min Jina Dias nahomy weight E&M 286.2 [lb_av] Jina Clover smith JNC systolic blood pressure goal 130 m m/[Hg] Lacrkarena Menard PODIATRIC PHYSICIAN Body Mass Index (Ratio) 44.31 kg/m2 Lacr etia Menard PODIATRIC PHYSICIAN weight E&M 299 [lb_av] Lacretia Jignesh s PODIATRIC PHYSICIAN height E&M 69 [in_i] Lacretia Jignesh s PODIATRIC PHYSICIAN pulse rate 70 /min Lacretia Jignesh s PODIATRIC PHYSICIAN blood pressure, cuff size large La deondre Menard PODIATRIC PHYSICIAN blood pressure, diastolic 100 mm[Hg] La cretia Menard PODIATRIC PHYSICIAN blood pressure, systolic 150 mm[Hg] Lac retia Menard PODIATRIC PHYSICIAN blood pressure, diastolic, left arm 83 mm [Hg] Carlos Duke RN blood pressure, systolic, left arm 153 mm [Hg] Carlos Duke RN blood pressure, diastolic, right arm 87 m m[Hg] Carlos Duke RN blood pressure, systolic, right arm 166 m m[Hg] Carlos Duke RN blood pressure, diastolic 83 mm[Hg] Mason Duke RN blood pressure, systolic 153 mm[Hg] Carlos Duke RN pulse rate 69 /min Carlos Duke RN oxygen saturation, oximetry 96 % Carlos Duke RN respiratory rate E&M 18 /min Carlos june RN weight E&M 293 [lb_av] Carlos Duke RN blood pressure, diastolic, left arm 92 mm [Hg] [facility] blood pressure, systolic, left arm 152 mm [Hg] [facility] blood pressure, diastolic, right arm 92 m m[Hg] [facility] blood pressure, systolic, right arm 156 m m[Hg] [place] blood pressure, diastolic 92 mm[Hg] Bhumika seph [place] blood pressure, systolic 156 mm[Hg] Chris eph [place] pulse rate 69 /min [facility] oxygen saturation, oximetry 97 % [facility] respiratory rate E&M 20 /min [facility] weight E&M 284 [lb_av] [facility] oxygen saturation, oximetry 97 % Carlos uDke RN blood pressure, diastolic, left arm 72 [...] Gail kemp weight E&M 269 [lb_av] Gail Jon ALLERGIES Allergy Name Onset Date Reaction Criticality Status MORPHINE Low Criticality active CODEINE Low Criticality active PENICILLIN Low Criticality active RESULTS Date Observation Value Provider Reference Range Interpretation Location lipoprotein, beta, serum, point, quantitative, calculated 113 mg/dL LinkLogic 0-99 High HDL cholesterol, serum 54 mg/dL [facility] >39 triglyceride, serum, random 123 mg/dL [facility] 0-149 cholesterol, serum 189 mg/dL [facility] [id number]/11 /07 pro brain natriuretic peptide 191 pg/mL [...] Link[facility] 3.5-5.2 sodium, serum 140 mmol/L [facility] [id number]/11 /07 urea nitrogen/creatinine ratio, serum 14 [facility] 12-28 creatinine, serum 1.38 mg/dL [facility] 0.57-1.00 High urea nitrogen, blood 20 mg/dL [facility] 8-27 blood glucose, random 97 mg/dL [facility] 70-99 hemoglobin A1C, blood, as % of total hemoglobin 5.8 % [facility] 4.8-5.6 High Estimated Glomerular Filtration Rate (calc) 38 mL/min/{ 1.73_m2} Link[facility] >=[address] [address] NT-pro BNP 135 LinkLogic <=300 Normal C, [place] [address] aspartate aminotransferase (SGOT), serum 22 1/L [facility] 10-45 Normal C, [place] [address] alanine aminotransferase (SGPT), serum 16 1/L [facility] 7-45 Normal C, [place] [address] Alkaline phosphatase 45 [facility] 40-130 Normal C, [place] [address] albumin, serum 4.2 g/dL [facility] 3.5-5.0 Normal C, [place] [address] protein, total, serum 7.3 g/dL [facility] 6.5-8.5 Normal , [place] [address] bilirubin, serum, total 0.6 mg/dL [facility] 0.1-1.2 Normal C, [place] [address] calcium, serum 9.6 mg/dL [facility] 8.5-10.3 Normal C, [place] [address] blood glucose, random 93 mg/dL [facility] 70-199 Normal C, [place] [address] creatine, serum 1.48 mg/dL [facility] 0.60-1.10 High C, [place] [address] urea nitrogen, blood 15 mg/dL [facility] 6-25 Normal C, [place] [address] anion gap, serum 11 mmol/L [facility] 2-15 Normal C, [place] [address] carbon dioxide, venous blood 25 mmol/L [facility] 22-32 Normal C, [place] [address] chloride, serum 105 mmol/L [facility] 97-110 Normal C, [place] [address] potassium, serum 4.0 MMOL/L [facility] 3.3-4.9 Normal C, [place] [address] sodium, serum 141 mmol/L [facility] 135-145 Normal C, [place] [address] activated partial thromboplastin time (aPTT) 33 s [facility] 28-38 Normal C, [place] [address] international normalized ratio (INR) 0.98 [facility] 0.90-1.20 Normal C, [place] [address] prothrombin time (patient) 11.2 s [facility] 10.3-13.7 Normal C, [place] [address] Absolute Basophils 0.0 K/CUMM [facility] 0.0-0.1 Normal C, [place] [address] Absolute Monocytes 0.7 K/CUMM [facility] 0.2-0.8 Normal C, [place] [address] Absolute Lymphocytes 2.3 K/CUMM [facility] 0.8-3.3 Normal C, [place] [address] Absolute Neutrophils 2.9 K/CUMM [facility] 1.5-6.5 Normal C, [place] [address] nucleated red blood cells as percent of [...] LinkLogic 11.9-15.5 Normal platelet count 235 10*3/mm3 Ofelia Yun hematocrit, blood 40.7 % Ofelia Yun creatinine, serum 1.24 mg/dL Ofelia Yun potassium, serum 3.9 mmol/L [facility] sodium, serum 142 mmol/L [facility] Jama anion gap, serum 12.1 [facility] Jama estimated glomerular filtration rate 51 mL/min [facility] potassium, serum 3.1 mmol/L [facility] calcium, serum 9.1 mg/dL [facility] Jama blood glucose, fasting 104 mg/dL [facility] creatinine, serum 1.16 mg/dL [facility]un urea nitrogen, blood 16.5 mg/dL [facility] Jama carbon dioxide, serum, total 29 mmol/L [facility] Jama chloride, serum 104 mmol/L [facility] sodium, serum 141 mmol/L [facility] platelet count 216 10*3/uL [facility] red blood cell distribution width 13.8 % Ofelia Yun mean corpuscular hemoglobin concentration, RBC 32.8 g/dL Ofelia Yun mean corpuscular hemoglobin, RBC 28.8 pg [facility] mean corpuscular volume, RBC 97.9 fL [facility] hematocrit, blood 38.4 % Ofelia Yun hemoglobin, blood 12.6 g/dL Ofelia Yun erythrocyte (RBC) count 4.37 10*6/mm3 Ofelia Yun monocytes as percent of blood leukocytes 9.6 % [facility] lymphocytes as percent of blood leukocytes 37.7 % [facility] leukocyte count, blood 6.9 10*3/mm3 Ofelia [...] active TAKE ONE TABLET BY MOUTH DAILY [facility] Diflucan 100 mg tablet completed 1 tablet once a day 01/07 - 04/01 Beny Mosher NP nystatin 100,000 unit/gram cream completed Apply to affected areas twice daily 01/07 - 04/01 [facility] Jardiance 10 mg tablet active Take 1 tablet by mouth once a day 11/06 Disah ROSARIO Trulicity 0.75 mg/0.5 mL pen injector active INJECT THE CONTENTS OF 1 PEN UNDER THE SKIN ONCE WEEKLY 10/23 Tiffany Lamb fenofibrate 160 mg tablet active Take 1 tablet by mouth once a day 10/30 Alonzo Appiahity 0.75 mg/0.5 mL pen injector completed INJECT THE CONTENTS OF 1 PEN (0.75MG) UNDER THE SKIN ONCE WEEKLY - 10/23 [facility] Trulicity 0.75 mg/0.5 mL pen injector completed INJECT 0.75MG UNDER THE SKIN ONCE WEEKLY 03/23 - [facility] carvedilol 12.5 mg tablet active TAKE 1 TABLET BY MOUTH TWICE A DAY 02/06 Eric sulaiman Trulicity 0.75 mg/0.5 mL pen injector completed [...] TABLET completed ONE TAB. DAILY - Ramos ePpe COREG 25 MG ORAL TABLET completed ONE TAB. TWICE DAILY 03/20 - Ramos Pepe VITAMIN D 61652 IU TABS (CHOLECALCIFEROL TABS) completed 1 ON [...] TABLET completed 1 TAB. DAILY - 04/12 Luisaatris Chucho per med list METFORMIN HCL 1000 MG ORAL TABLET completed 1 tablet by mouth twice daily - 04/12 Jina Lewis per med list OMEPRAZOLE 20 MG ORAL CAPSULE DELAYED RELEASE completed Two tabs daily - 04/12 Luisaatris Brown per med list SOCIAL HISTORY Date Observation Value Provider personal history of marijuana use yes Alonzo Zaragoza MD drug use no Alonzo Low alcohol use no Alonzo Low passive cigarette sm pattie exposure no Alonzo Zaragoza MD smoking status Never smoker Alonzo Zaragoza MD personal history of marijuana use yes Alonzo Zaragoza MD drug use no Alonzo Low alcohol use no Alonzo Low passive cigarette sm pattie exposure no Alonzo Zaragoza MD smoking status Never smoker Alonzo Zaragoza MD personal history of marijuana use yes Alonzo Zaragoza MD drug use no Alonzo Low alcohol use no Alonzo Low passive cigarette sm pattie exposure no Alonzo Zaragoza MD smoking status Never smoker Alonzo Zaragoza MD personal history of marijuana use yes Beny Bonareri PODIATRIC PHYSICIAN drug use no Beny Bonareri PODIATRIC PHYSICIAN alcohol use no Beny Bonareri PODIATRIC PHYSICIAN passive cigarette sm pattie exposure no Beny Bonareri PODIATRIC PHYSICIAN smoking status Never smoker Beny Bauerrer i PODIATRIC PHYSICIAN personal history of marijuana use yes Alonzo Zaragoza MD drug use no Alonzo Low alcohol use no Alonzo Low passive cigarette sm pattie exposure no Alonzo Zaragoza MD smoking status Never smoker Alonzo Zaragoza MD personal history of marijuana use yes Disha Ventimiglia [facility] drug use no Disha Ventimig arnol [facility] alcohol use no Disha Ventimig arnol [facility] passive cigarette sm pattie exposure no Disha Ventimiglia [facility] smoking status Never smoker Disha Ventim iglia [facility] social history reviewed E&M revi ewed [...] exercise, frequency, days per week 3 /wk Tejalsage Howell caffeine use, averag e drinks per [...] Alonzo Zaragoza MD exercise type chores Gaby Hooper nd physical exercise, frequency, days per week 3 /wk Gaby [place] caffeine use, averag e drinks per day 0 /d Gaby [place] passive cigarette sm pattie exposure no Gaby [place] smoking status Never smoker Gaby Cuadra social history E&M Marital Statu s: Single L pennie alone E thnicity: R egular Exercise - no Smoking History: P franco has never smoked. Alonzo Zaragoza MD social history reviewed E&M revi ewed - no changes required Alonzo Zaragoza MD exercise type chores Edelmira Leblanc ll physical exercise, frequency, days per week 3 /wk Edelmira Dias caffeine use, averag e drinks per day 0 /d Edelmira Dias passive cigarette sm pattie exposure no Edelmira Dias smoking status Never smoker Edelmira Dueñas randy social history E&M Marital Statu s: Single L pennie alone E thnicity: R egular Exercise - no Smoking History: P franco has never smoked. Alonzo Zaragoza MD social history reviewed E&M revi ewed - no changes required Alonzo Zaragoza MD exercise type chores Shercarmen Omar joseph physical exercise, frequency, days per week 3 /wk Sherkeitha Blankenship caffeine use, averag e drinks per day 0 /d Sherkeitha Blankenship passive cigarette sm pattie exposure no Sherkeitha Blankenship smoking status Never smoker Rigo Madi valdovinos social history reviewed E&M revi ewed - no changes required Khanh Chaudhari MD number of grandchildren Khanh Vega alberto [place] exercise type chores [facility] physical exercise, frequency, days per week 3 /wk Longton Keller alcohol [facility] use, averag e drinks per day 0 /[facility] passive cigarette sm pattie exposure [facility] smoking status Never smoker True Shereenjayme m exercise type chores Ольга Culclager physical [...] egular Exercise - no Smoking History: Marisela gamez has never smoked. Silverio Deshawn smoking status Never smoker Jina osorio social history reviewed E&M revi ewed - no changes required Khanh Chaudhari MD alcohol use no Jina Johnson song smoking status Never smoker Jina osorio physical exercise, frequency, days per week no [...] egular Exercise - no Smoking History: Marisela gamez has never smoked. Joyce Khanna NP smoking status Never smoker Joyce tiwari NP social history reviewed E&M revi ewed - no changes required Archana Blunt physical exercise, frequency, days per week no Brinda Malathi caffeine use, averag e drinks per day no Brinda Malathi drug use no Brinda Malathi passive cigarette sm pattie exposure no Brnida Malathi smoking status Never smoker Brinda Steinerjarrell dominguez social history reviewed E&M reviewed Carlos Duke RN social history reviewed E&M reviewed Khanh Chaudhari MD drug use no Ramos Pepe passive cigarette sm pattie exposure no Ramos Pepe smoking status never smoker Ramos vieyra drug use none Khanh Chaudhari MD social history reviewed E&M reviewed Khanh Chaudhari MD smoking status never Lorna Ayers els PODIATRIC PHYSICIAN social history reviewed E&M reviewed Lorna Menard [...] Mood and affect are normal. Carlos Duke RESIDENT CARE ASSOCIATE HISTORY Family Member Condition Mother Family History of Ot her Medical Problems Mother Family History of Co ronary Artery Disease: Father Family History of Hy pertension: Father Family History of Di abetes: Father Family History of Co ronary Artery Disease: INSURANCE PROVIDERS Payer name Policy type / Coverage type [place] red libertarian ID [facility] COMPLETE CARE [id number] (PPO C-SNP) [employer] insurance [employer] [id number] [facility] Medicaid 0 [id number] ADVANCE DIRECTIVES Name Date DISCUSSED - NO DECISION MADE TREATMENT PLAN Date Name Performer [id number],S, Alonzo dominguez MD [id number],S, Alonzo dominguez MD [id number],SAlonzo MD [id number],S, Alonzo dominguez MD [id number],S, Alonzo dominguez MD [id number],W,N ow severe. Will need R/L cath and then likely TAVR. Area 0.8 by ECHO, was 1.3 a year ago. Alonzo Zaragoza MD [id number],S,T he patient is using CPAP on a regular basis. The patient has been benefiting from therapy and should continue use. Alonzo Zaragoza MD [id number],S, Alonzo dominguez MD [id number],S, Alonzo dominguez MD [id number],S, Alonzo dominguez MD [id number],S, Alonzo dominguez MD [id number],S,Recheck ECHO in 6 months Alonzo Zaragoza MD [id number],S, Alonzo dominguez MD [id number],C,T he patient is using CPAP on a regular basis. The patient has been benefiting from therapy and should continue use. Alonzo Zaragoza MD [id number],S, Alonzo Olvera alberto MEZA [id number],B, Alonzo Olvera alberto MEZA [id number],S, Alonzo Olvera alberto MEZA [id number],S, Alonzo Wade dominguez MD [id number],C,Check PFTs Ra french Mila MEZA [id number],S, Alonzoronna Ribeirogeneva dominguez MD [id number],C,T he patient is using CPAP on a regular basis. The patient has been benefiting from therapy and should continue use. Alonzo Zaragoza MD [id number],S, Alonzo dominguez MD [id number],S, Alonzo Wade dominguez MD [id number],B, Alonzo Wade dominguez MD [id number],C,V tye mild. Follow with yearly ECHO Alonzo Zaragoza MD [id number],S, Alonzo dominguez MD [id number],B, Alonzo Wade dominguez MD [id number],S,S tart Trulicity for weight loss and DM. Alonzo Zaragoza MD [id number],S, Alonzo Quintingeneva dominguez MD [id number],S,M oderate by ECHO. F/U ECHO in 1 year. Alonzo Zaragoza MD [id number],S,N ever received CPAP. Will do split night study. Alonzo Zaragoza MD [id number],S, Alonzo dominguez MD [id number],S,Stress test a nd ECHO Alonzo Zaragoza MD [id number],B, Alonzo dominguez MD [id number],S,Check ECHO Ra carterhilario Mila MEZA Cardiology: BP running normal at home. Alonzo Zaragoza MD Cardiology: T he patient is using CPAP on a regular basis. The patient has been benefiting from therapy and should continue use. Alonzo Zaragoza MD Cardiology: H er updated [...] Alonzo Zaragoza MD Cardiology Alonzo Zaragoza MD Cardiology: T his visit has been a part of the consistent, comprehensive, and ongoing management of the chronic medical condition(s) listed above for the patient. Symptoms now a little worse. ECHO this Sunday, likely will be ok. She is not getting any sleep and I think this is the problem. Alonzo Zaragoza MD Cardiology: R epeat ECHO shows normal function TAVR and normal EF. Last visit E CHO shows the AVR to be functioning normally and no AI. EF normal. F /U 6 months Alonzo Zaragoza MD Cardiology Alonzo Zaragoza MD Cardiology: T he patient is using CPAP on a regular basis. The patient has been benefiting from therapy and should continue use. Alonzo Zaragoza MD Cardiology: H er updated [...] mouth once a day Alonzo Zaragoza MD Cardiology:Repeat EC HO pending Last visit E CHO shows the AVR to be functioning normally and no AI. EF normal. F /U 6 months Alonzo Zaragoza MD Cardiology:This visi t has been a part of the consistent, comprehensive, and ongoing management of the chronic medical condition(s) listed above for the patient. Symptoms now a little worse. ECHO this Sunday, likely will be ok. She is not getting any sleep and I think this is the problem. Alonzo Zaragoza MD Cardiology:Did not t ana meds [...] ..... 1 tablet by mouth every night [facility] Cardiology: H er updated medication list for this problem includes: Trulicity 0.75 Mg/0.5 Ml Pen Injector (Dulaglutide) ..... Inject the contents of 1 pen under the skin once weekly Losartan 100 Mg Tablet (Losartan) ..... Take 1 tablet by mouth once a day [facility] Cardiology:The patie nt is using CPAP on a regular basis. The patient has been benefiting from therapy and should continue use. [facility] Cardiology:BP elevat ed today reports well controlled at home w ill have her bring recording readings to next visit a dd Jaridance and monitor H er updated medication list for this problem includes: Carvedilol 12.5 Mg Tablet (Carvedilol) ..... Take 1 tablet by mouth twice a day Losartan 100 Mg Tablet (Losartan) ..... Take 1 tablet by mouth once a day Nifedipine 30 Mg Tablet Extended Release (Nifedipine) ..... 1 tablet by mouth once a day [facility] Cardiology:mod-moder ately severe based on recent cath h er JAVAN was 1.[address] talked with TAVR coordinator and given her severity of her symptoms will begin work up for possible replacement [facility] Cardiology:she has c ontinued SOB that limits activity H as been progressive over the last couple of weeks S he had C 09/15 that showed normal coronaries and mod-severe [...] 1 tablet by mouth once a day Panaca Brendon [facility] Cardiology Alonzo Zaragoza MD Cardiology Alonzo Zaragoza MD Cardiology Alonzo Zaragoza MD Cardiology Alonzo Zaragoza MD Cardiology Alonzo Zaragoza MD Cardiology:Now ni hoang. Will need R/L cath and then likely [...] Tablet (Amlodipine besylate) ..... One tablet daily [facility] Cardiology:Orders: C omplete Echo (CPT-18296) Silverio [facility] Cardiology:Referred to pulmonary clinic. Silverio Deshawn Cardiology [...] Follow up :Orders: S leep Study Titration (CPT-69187) Khanh Chaudhari MD Cardiology Follow up :Orders: M obile Cardiac Tele (CPT-47844) Khanh Chaudhari MD Cardiology Follow up :Orders: S NOMED-CT: [id number] Current Medications Documented (SCT-[id number]) E KG (CPT-76920) C omplete Echo (CPT-85471) S TR - Nuclear (CPT-04552) Khanh Chaudhari MD Cardiology Follow up :Orders: S NOMED-CT: [id number] Current Medications Documented (SCT-[id number]) E KG (CPT-39439) C omplete Echo (CPT-43565) S TR - Nuclear (CPT-64551) Khanh Chaudhari MD Cardiology Follow up (LF) [...] breath, fatigue, dizziness, nausea, or diaphoresis) of [place] Cardiovascular Society Class III (defined as symptoms with everyday living activities, i.e. moderate limitation) or [place] Cardiovascular Society Class IV (defined as inability [...] besylate) ..... One tab. daily Joyce Khanna NP Date Name COMPREHENSIVE METABO LIC PANEL, W/EGFR [...] PROBNP, N TERMINAL Complete Echo DLCO - 94947 FRC - 97896 FVC - 18884 PROBNP, N TERMINAL BASIC METABOLIC PANE L [...] MD completed Complex e/m visit add on Alonzo Zaragoza [...] Monitor Khanh Chaudhari MD complet ed SNOMED-CT: [id number] Physical Exam, Performed: Pulse Exam of Foot Khanh Chaudhari MD completed EKG Khanh Chaudhari MD completed SNOMED-CT: 879754121 329016 Current Medications Documented Khanh Chaudhari MD completed SNOMED-CT: 844378614 Smoking Cessation Counseling Khanh Chaudhari MD completed SNOMED-CT: 70715809 Physical Exam, Performed: Pulse Exam of Foot Khanh Chaudhari MD completed SNOMED-CT: 548843377 524848 Current Medications Documented Khanh Chaudhari MD completed EKG Khanh Chaudhari MD completed EKG Khanh Chaudhari MD completed EKG Khanh Chaudhari MD completed ePrescribe - Check t his box if eRx is used Khanh Chaudhari MD completed EKG Khanh Chaudhari MD completed
--- OUTSIDE RECORDS SUMMARY | 2025-03-04 07:40 | XMS_ITS | Clinical Summary ---
Author Organization [facility] Address [address] [place], [address] [address] Phone Care Team Providers Care Technical Spec Name Role Phone John Street APRN, SHAD [...] topic Insurance MEDICARE MEDICAID [place] Care Teams Technical Spec Relationship Specialty Start Date End Date John Street, TRICIA, TRIM MACHINE ADJUSTER [address] [place] [address] [place] [address] PCP - General Advanced Practice Nurse 05/01/18
--- OUTSIDE RECORDS SUMMARY | 2025-03-04 07:40 | XMS_ITS | Clinical Summary ---
Author Organization [facility] [employer] Address [address] [place] [address] Care Team Providers Care [place] Customs And Border Officer Name Role Phone Anders Kendrick MD Primary Care Provider [phone] Source Comments [facility] [employer],non-owned Affiliates and Associated Physician Practices is amultiple site organization consisting of ambulatory clinics and hospital sitesin [place], [place], [place] and [place]. This disclosure is being madepursuant to the Care Everywhere program and may not contain all information available regarding this patient. Last updated 18.[facility] [employer] Allergies Active Allergy Reactions Criticality Noted Date Comments Adhesive Sensitivity Itching 05/02/2018 Transparent tape causes a rash Ampicillin Itching,Rash Medium 03/17/2016 Codeine Nausea and/or Vomiting Low 03/17/2016 Codeine Nausea and/or Vomiting 02/06/2017 Penicillins Itching,Rash Medium 03/17/2016 Hydrocodone-Acetaminoph en Itching High 12/11/2018 Medications * This document contains information received from the source organization and may not represent a complete record from that organization. * Be aware that medications may not be up to date on this document. Alwaysverify current medications with the patient. levothyroxine (SYNTHROID) 137 MCG tablet Take 1 tablet by mouth every morning 30 tablet 3 06/30/201 8 Active traZODone (DESYREL) 100 MG tablet TAKE 1 TABLET BY MOUTH EVERYDAY AT BEDTIME 30 tablet 1 0 Active carvedilol (COREG) 6.25 MG tablet Take 2 (two) tablets by mouth 2 times daily with morning and evening meal 0 Active DULoxetine (Cymbalta) 20 MG capsule Take 1 (one) capsule by mouth once daily 3 Active losartan (Cozaar) 100 MG tablet Take 1 (one) tablet by mouth once daily 2 Active NIFEdipine CR 24hr (Adalat CC) 30 MG tablet Take 1 (one) tablet by mouth daily before breakfast Active rosuvastatin (Crestor) 40 MG tablet Take 1 (one) tablet by mouth once daily 3 Active lurasidone (Latuda) 40 MG tablet Take 1 (one) tablet by mouth 2 Active Biotin 5000 MCG Take 1 (one) capsule by mouth once daily Active allopurinol (Zyloprim) 100 MG tablet Take 1 (one) tablet by mouth once daily 2 Active mirabegron ER 24hr (Myrbetriq) 50 MG tablet Take 1 (one) tablet by mouth once daily 30 tablet 2 3 Active Active Problems Problem Noted Date Diagnosed [...] at Not on file Legal Sex Female 11:06 AM CDT Gender Identity Female 05/01/2018 5:09 PM CDT [...] 11:09 AM CDT Height 172.7 cm (5' 8) 04/06/2023 11:09 AM CDT Body Mass Index [...] 2) 02/01/2004 SCREENING FOR DIABETES 05/14/2023 0, 03/09/2020, 05/02/2018, Additional history exists COVID-19 VACCINE ( season) 2024 DEPRESSION SCREENING 09/24/2024 MEDICARE AWV CALENDAR YEAR 2024 INFLUENZA VACCINE (Season Ended) 2025 Respiratory Syncytial Virus (RSV) Vaccine Pt: or [...] complete this topic MENINGOCOCCAL (Group B) VACCINE SHARED DECISION-MAKING Aged Out No longer eligible based on patient's age to complete this topic MENINGOCOCCAL GROUPS A/C/Y/W VACCINE Aged Out No longer eligible based on patient's age to complete this topic Procedures Procedure Name Priority Date/Time Associated Diagnosis Comments COMPREHENSIVE METABOLIC PANEL STAT 05/14/2020 1:16 AM CDT from Last 3 Months or Most Recently Relevant to Health Maintenance Results * (ABNORMAL) COMPREHENSIVE METABOLIC PANEL (05/14/2020 1:16 AM CDT) BUN 16 7 - 26 mg/dL 05/14/2020 1:51 AM [facility] Creatinine 1.0 0.6 - 1.2 mg/dL 05/14/2020 1:51 AM [facility] Sodium 139 136 - 145 mmol/L 05/14/2020 1:51 AM [facility] Potassium 3.7 3.5 - 4.5 mmol/L 05/14/2020 1:51 AM [facility] Chloride 100 98 - 107 mmol/L 05/14/2020 1:51 AM [facility] CO2 25 22 - 29 mmol/L 05/14/2020 1:51 AM [facility] Glucose 106 70 - 115 mg/dL 05/14/2020 1:51 AM [facility] Calcium 9.2 8.4 - 10.2 mg/dL 05/14/2020 1:51 AM [facility] Protein Total 7.3 6.0 - 8.3 g/dL 05/14/2020 1:51 AM [facility] Albumin 3.9 3.4 - 5.0 g/dL 05/14/2020 1:51 AM [facility] Bilirubin Total 0.6 0.2 - 1.2 mg/dL 05/14/2020 1:51 AM [facility] Alkaline Phosphatase 98 40 - 150 Units/L 05/14/2020 1:51 AM [facility] ALT 13 0 - 55 Units/L 05/14/2020 1:51 AM [facility] AST 15 5 - 34 Units/L 05/14/2020 1:51 AM [facility] Anion Gap 18 8 - 18 05/14/2020 1:51 AM [facility] BUN/Creatinine Ratio 16 7 - 23 05/14/2020 1:51 AM [facility] Osmolality Calculated 290 270 - 300 mOsm/kg 05/14/2020 1:51 AM [facility] Albumin/Globulin Ratio 1.1 1.1 - 2.3 05/14/2020 1:51 AM [facility] eGFR 55(L) >60 mL/min/1.7 3 m2 05/14/2020 1:51 AM [facility] Blood BLOOD SPECIMEN / Unknown Venipuncture / Unknown 05/14/2020 1:16 AM CDT 05/14/2020 1:30 AM T Ismael Shepherd MD LAB - CHEMISTRY ORDERABLES nal Result [facility] [address] [place] [phone] [phone] from Last 3 Months or Most Recently Relevant to Health Maintenance Insurance MEDICAID - OUT OF STATE [facility] MANAGED MEDICARE ADV MANAGED MEDICARE ADV Advance Directives * Full Code (Latest Code Status on File) Date Activated Date Inactivated Comments 05/02/2018 4:55 AM 05/02/2018 1:16 PM * Full Code Date Activated Date Inactivated Comments 05/02/2018 2:19 AM 05/02/2018 4:55 AM * Full Code Date Activated Date Inactivated Comments 03/17/2018 1:23 AM 03/22/2018 4:01 PM Care Teams Us Customs And Border Officer Relationship Specialty Start Date End Date Anders Kendrick MD [address] [place] [id number] PCP - General 05/21/18
--- NOTE | 2025-03-04 12:12 | WPDPFTINT ---
PFT Procedure Performed PFT Procedure Performed Spirometry with Pre/Post Bronchodilator Plethysmography (Lung Vol) Diffusing Cap (DLCO) Flow Vol Loop PFT Interpretation This is a pulmonary function test with pre and post-bronchodilator spirometry, plethysmography and diffusing capacity. The test was performed and results interpreted in accordance with the 2019 and 2005 ATS/ERS Task Force guidelines respectively using the Global Lung Function Initiative-2012 reference equations. Patient demonstrated good effort and cooperation. Reproducibility criteria were met. The quality of the pre bronchodilator spirometry maneuver was Grade A and post bronchodilator spirometry maneuver was Grade B. Findings: Spirometry: The contour the inspiratory and expiratory flow tracing are normal. The pre bronchodilator FVC is 2.72 L, 84% predicted. The pre bronchodilator FEV1 is 2.14 L, 86% predicted. The pre bronchodilator FEV1: FVC ratio 79%. The post bronchodilator FVC is 2.58 L, representing a 5% decrease. The post bronchodilator FEV1 is 2.00 L, representing a 7% decrease. The post bronchodilator FEV1: FVC ratio 77%. Plethysmography: The total lung capacity is 5.15 L, 91% predicted. The functional residual capacity is 2.41 L, 74% predicted. The residual volume is 2.39 L, 99% predicted. Diffusing capacity: The diffusing capacity unadjusted for hemoglobin and carboxyhemoglobin is 18.0, 82% predicted. The diffusing capacity adjusted for alveolar volume is 5.09, 124% predicted. Impression: The spirometry is normal without evidence of an obstructive abnormality. There is no significant improvement after inhaling a single dose of albuterol. The lung volumes are normal. The diffusing capacity is normal. There are no prior studies for comparison
== END 2025-03-04 07:36 | disposition home or self-care (01) ==
LOC: ANHPFT 07:38
PROVIDERS: PCP Emergency Medicine; Visit Provider Internal Medicine Pulmonary Disease
DX: R06.09 Other forms of dyspnea (principal); R05.3 Chronic cough; T78.40XA Allergy, unspecified, initial encounter; D89.9 Disorder involving the immune mechanism, unspecified
CPT/HCPCS: 94060; 94726; 94729

== ENCOUNTER 2025-03-16 10:18 | Outpatient (CLI) | payer MEDICARE, MEDICAID, SELFPAY ==
--- NOTE | ~2025-03-16 | XR_ITS ---
EXAM/PROCEDURE: XR chest 2V - 03/16/2025 10:58 CDT HISTORY: 70 years old Female with dyspnea on exertion TECHNIQUE: Two view(s) of the chest. COMPARISON: 11/02/2024 FINDINGS: LUNGS/ PLEURA: No focal consolidation. No appreciable pneumothorax or large pleural effusion. Unchang ed calcified nodules in the right middle lobe. HEART/ MEDIASTINUM: Heart appears normal in size. BONES: No acute osseous abnormality. OTHER: Visualized upper abdomen is unremarkable. Aortic stent is again seen IMPRESSION: No acute process. Reviewed, dictated and finalized at location A. IMPRESSION: No acute process.
[2025-03-16 11:55] LABS: Absolute Eosinophil Count 2.8 K/mm3 (0.0-0.3)
[2025-03-16 12:05] LABS: NT Pro B Type Natriuretic Pept 69 pg/mL (19.9-100)
[2025-03-17 02:28] LABS: Alpha-1-Antitrypsin, QN. 150 mg/dL (83-199)
[2025-03-17 15:28] LABS: Immunoglobulin E 49 kU/L (<OR=114)
[2025-03-17 15:38] LABS: Alternaria alternata IgE <0.10 kU/L; Alternaria alternata IgE Class 0; Aspergillus fumigatus IgE <0.10 kU/L; Bermuda Grass (G2) IgE <0.10 kU/L; Bermuda Grass (G2) IgE Class 0; Cat Dander IgE <0.10 kU/L; Cat Dander IgE Class 0; Cladosporium herbarum IgE <0.10 kU/L; Cladosporium herbarum IgE Clas 0; Cockroach IgE <0.10 kU/L; Cockroach IgE Clas 0; Common Ragweed IgE Class 0; Cottonwood IgE <0.10 kU/L; Dermatophagoides Farinae Class 0; Dermatophagoides Pterony Class 0; Dermatophagoides Pteronyssinus <0.10 kU/L; Dog Dander IgE <0.10 kU/L; Elm (T8) IgE <0.10 kU/L; Elm (T8) IgE Class 0; Hickory/Pecan IgE <0.10 kU/L; Hickory/Pecan IgE Class 0; Maple Box Elder IgE Class 0; Mountain Cedar IgE <0.10 kU/L; Mountain Cedar IgE Class 0; Mouse Urine Proteins IgE <0.10 kU/L; Mouse Urine Proteins IgE Class 0; Oak IgE <0.10 kU/L; Peniciliium notatum class 0; Penicillium notatum (M1) IgE <0.10 kU/L; Rough Marsh <0.10 kU/L; Rough Marsh Elder Class 0; Rough Pigweed (W14) IgE <0.10 kU/L; Rough Pigweed (W14) IgE Class 0; Russian Thistle <0.10 kU/L; Sycamore IgE <0.10 kU/L; Sycamore IgE Class 0; Timothy Grass IgE <0.10 kU/L; Timothy Grass IgE Class 0; Walnut Tree IgE <0.10 kU/L; Walnut Tree IgE Class 0; White Ash IgE Class 0; White Mulberry IgE <0.10 kU/L; White Mulberry IgE Class 0
[2025-03-18 09:44] LABS: Immunoglobulin G, Serum 1199 mg/dL (600-1540); Immunoglobulin G1 718 mg/dL (382-929); Immunoglobulin G2 228 mg/dL (241-700); Immunoglobulin G3 94 mg/dL (22-178); Immunoglobulin G4 22.5 mg/dL (4.0-86.0)
[2025-03-18 15:24] LABS: NIL 0.02 IU/mL; Quantiferon TB Plus, 1T NEGATIVE (NEGATIVE); TB1-NIL 0.01 IU/mL
== END 2025-03-16 10:19 | disposition home or self-care (01) ==
PROVIDERS: PCP Emergency Medicine; Visit Provider Internal Medicine Pulmonary Disease
DX: R06.09 Other forms of dyspnea (principal); R05.3 Chronic cough; D89.9 Disorder involving the immune mechanism, unspecified; T78.40XA Allergy, unspecified, initial encounter; X58.XXXA Exposure to other specified factors, initial encounter
CPT/HCPCS: 36415; 71046; 82103; 82784; 82785; 82787; 83880; 85048; 86003; 86480

== ENCOUNTER 2025-05-08 07:34 | Outpatient (CLI) | payer MEDICARE, MEDICAID, SELFPAY ==
--- NOTE | ~2025-05-08 | XR_ITS ---
EXAMINATION: XR ribs RT 2V w CXR 2V Exam Date/Time: 05/08/2025 9:45 CDT HISTORY: RIGHT RIB PAIN Comparison: 03/16/2025. RESULT: Lines, tubes, and devices: Cardiac valve replacement. Cholecystectomy clips. Lungs and pleura: Reticulonodular opacities in the right lower lung. Cardiothymic silhouette: Stable. Other: No acute osseous or upper abdominal finding. IMPRESSION: Reticulonodular opacities in the right lower lung, may represent infection in the appropriate clinica l context, including atypical infection. Consider low-dose noncontrast CT of the chest. No acute osseous finding in the right ribs Reviewed, dictated and finalized at location K. IMPRESSION: Reticulonodular opacities in the right lower lung, may represent infection in t he appropriate clinical context, including atypical infection. Consider low-dos e noncontrast CT of the chest. No acute osseous finding in the right ribs
--- OUTSIDE RECORDS SUMMARY | 2025-05-08 07:39 | XMS_ITS | Clinical Summary ---
Author Organization [facility] Address [address] [place] [address] Care Team Providers Care Health Data Analyst Name Role Phone Anders Kendrick MD Primary Care Provider [phone] Ryne Hoffman MD Unavailable [phone] Allergies Active Allergy Reactions Criticality Noted [...] mouth daily 90 tablet 3 03/20/2024 Active levothyroxine (SYNTHROID) 137 mcg tablet TAKE [...] 54 years) - Signed by Tejal Claudio, ONLINE ACTIVIST on 04/09/2018 Assessment & Plan (01/21/2024 2:50 [...] 04/02/2019 Surgical History Surgery Date Site/Laterality Comments RI TOTAL ABDOMINAL HYSTERECT W/WO RMVL TUBE OVARY [...] STAGE 2 Aortic stenosis Depression Bipolar disorder Suicide attempt GERD (gastroesophageal reflux disease) Anxiety Arthritis osteoarthritis Cancer (HCC) THYROID Glaucoma Type 2 diabetes mellitus Sleep apnea Crohn's disease (HCC) Diverticulosis Diverticulitis [...] drink = 0.6 oz pur e alcohol) [facility] Utilities Answer Date Recorded In the past 12 months has e electric, gas, oil, or water [place] threatened to shut off services in your home? No 03/19/2024 Social Connection and Isolation Panel Answer Date Recorded In a typical week, how many times do you talk on the phone with family, friends, or neighbors? More than three times a week 03/19/2024 How often do you get togethe r with friends or relatives? More than three times a week 03/19/2024 How often do you attend chur ch or restorationist services? Never 03/19/2024 Do you belong to any clubs o r organizations such as mu-ism groups, unions, fraternal or athletic groups, or [...] any time in the past 12 m [facility], were you homeless or living [...] on file Legal Sex Female 3:38 AM GLOBE CLEANER Gender Identity Female 04/07/2020 7:32 PM CDT [...] Assessment 03/19/2025 03/19/2024 Lipid Panel 03/19/2025 03/19/2024, 0602/2020, 02/25/2019 eGFR 03/19/2025 03/19/2024, 03/11/2024 Influenza Vaccine (#1) 2025 9, 07/25/2017, 07/28/2015, Additional history exists Medical Devices Implanted Type Area Top Lift And Automatic Window Repairer Device Identifier Shelf Expiration Date Model / Serial / Lot [employer] System Closure Repair Femoral Artery Suture Mediated Perclose Prostyle 06251-81 - [id number] Implanted:Qty: 1 on 03/18/2024 by Ryne Hoffman MD at [facility] [employer] 12/22/2025 [id number] / / [id number] [employer] System Closure Repair Femoral Artery Suture Mediated Perclose Prostyle 87197-12 - [id number] Implanted:Qty: 1 on 03/18/2024 by Ryne Hoffman MD at [facility] [employer] 12/22/2025 [id number] / / [id number] [employer] Valve Aortic Trnscath Shaggy 3 Ultra Resilia 23mm [id number] - [id number] - [id number] Implanted:Qty: 1 on 03/18/2024 by Ryne Hoffman MD at [facility] [employer] 04/11/2026 [id number] / [id number] / [employer] System Closure Repair Femoral Artery Suture Mediated Perclose Prostyle 74066-81 - [id number] Implanted:Qty: 1 on 03/18/2024 by Ryne Hoffman MD at [facility] [employer] 12/22/2025 [id number] / / [id number] Procedures Procedure Name Priority Date/Time Associated Diagnosis [...] 5:00 AM CDT 03/19/2024 5:20 AM CDT us Ryne Hoffman MD LAB BLOOD ORDERABLES Final Resu lt Performing Organization Address City/[facility]/ZIP Co de Phone Number JACKIE COHEN [address] Department [place] [address] * Hemoglobin A1c (03/11/2024 9:42 AM CDT) Hgb A1C 5.3 4.0 - 5.6 % Estimated Average Glucose 105 mg/dL JACKIE COHEN Comment: The ADA recommends reporting an estimated Average Glucose (eAG) with all Hemoglobin A1c results using the equation derived from a study of 507 normal and diabetic adults. Minority populations were underrepresented and children were not included. (Diabetes Care 31:0539-3354, 2008). The eAG is not equivalent to a fasting glucose. Blood 03/11/2024 9:42 AM CDT 03/11/2024 9:45 AM CDT us Ryne Hoffman MD LAB [place]LOOD [place] [address] [address] Department [place] [address] from Last 3 Months or Most Recently Relevant to Health Maintenance Insurance IDPA [facility] MEDICARE ADVANTAGE [facility] MEDICARE Address: [address] [address] [place] [address] IDKY [facility] MEDICARE ADVANTAGE [facility] MEDICARE ADVANTAGE IDPA Advance Directives For more information, please contact: [phone] Healthcare Agents on File Name Relationship Healthcare Agent [facility] p Communication Brenda Kelechi Sister Health Care Agent Care Teams Health Data Analyst Relationship Specialty Start Date End Date Anders Kendrick MD PCP - General Emergency Medicine 01/01/19 Ryne Hoffman MD [address] [place] [address] Consulting Physician Interventional Cardiology 03/19/24
--- OUTSIDE RECORDS SUMMARY | 2025-05-08 07:39 | XMS_ITS | Clinical Summary ---
Author Organization [facility] Address [address] [place], [address] [address] Phone Care Team Providers Care Lumber Checker Name Role Phone John Street APRN, SHAD Primary Care P rovider Social History Tobacco Use Types Packs/Day Years Used Date Smoking Tobacco: Never Assessed Comments Unknown Sex and Gender Information Value Date Recorded Sex Assigned at Not on file Legal Sex Female 10:49 PM CDT Gender Identity Not on file Sexual Orientation Not on file Plan of Treatment Health Maintenance Due Date Last Done Comments Hepatitis C Virus (HCV) Screening 1955 TdaP Immunization 1954 Cologuard 1999 Colonoscopy 1999 Colorectal Cancer Screening 1999 Immunochemical Fecal Occult Blood 1999 Pneumococcal Immunization (5 0+ years) (1 of 1 - PCV) 02/01/2004 Zoster Immunization (1 of 2) 02/01/2004 SARS-COV-2 Immunization ( - season) 2024 Influenza Immunization (#1) 2025 Respiratory Syncytial Virus (RSV) Immunization (Adult) (1 - 1-dose 75+ series) 2029 Hepatitis B Immunization Aged Out No longer eligible based on patient's age to complete this topic Human Papillomavirus (HPV) Immunization Aged Out No longer eligible b ased on patient's age to complete this topic Meningococcal Immunization (ACWY) Aged Out No longer eligible based on patient's age to complete this topic Rotavirus Immunization Aged Out No lo nger eligible based on patient's age to complete this topic Insurance MEDICARE MEDICAID [place] Care Teams Lumber Checker Relationship Specialty Start Date End Date John Street, TRICIA, PHYSICAL THERAPIST ASSISTANT [address] [place] [address] [place] [address] PCP - General Advanced Practice Nurse 05/01/18
--- OUTSIDE RECORDS SUMMARY | 2025-05-08 07:39 | XMS_ITS ---
Author Organization [facility] Address [address] [place] [address] Care Team Providers Care Piece Dyer Name Role Phone Anders Kendrick MD Primary Care Provider [phone] Active Problems * This document contains information [...]
--- OUTSIDE RECORDS SUMMARY | 2025-05-08 07:39 | XMS_ITS | Clinical Summary ---
Author Organization [facility] Address [address] [facility] [place] [address] Care Team Providers Care Buttonhole Marker Name Role Phone Anders Kendrick MD Primary Care Provider [phone] Source Comments [facility],non-owned Affiliates and Associated Physician Practices is amultiple site organization consisting of ambulatory clinics and hospital sitesin [place], [place], [place] and [place]. This disclosure is being madepursuant to the Care Everywhere program and may not contain all information available regarding this patient. Last updated 18.[facility] Allergies Active Allergy Reactions Criticality Noted Date [...] 03/09/2020, 05/02/2018, Additional history exists COVID-19 VACCINE (2023- season) 2024 DEPRESSION SCREENING 09/24/2024 MEDICARE AWV CALENDAR YEAR 2024 INFLUENZA VACCINE (#1) 2025 Respiratory Syncytial Virus (RSV) Vaccine Pt: [...] 7 - 26 mg/dL 05/14/2020 1:51 AM [facility] Creatinine 1.0 0.6 - 1.2 mg/dL 05/14/2020 1:51 AM [facility] Sodium 139 136 - 145 mmol/L 05/14/2020 1:51 AM [facility] Potassium 3.7 3.5 - 4.5 mmol/L 05/14/2020 1:51 AM [facility] Chloride 100 98 - 107 mmol/L 05/14/2020 1:51 AM [facility] CO2 25 22 - 29 mmol/L 05/14/2020 1:51 AM [facility] Glucose 106 70 - 115 mg/dL 05/14/2020 1:51 AM [facility] Calcium 9.2 8.4 - 10.2 mg/dL 05/14/2020 1:51 AM [facility] Protein Total 7.3 6.0 - 8.3 g/dL 05/14/2020 1:51 AM [facility] Albumin 3.9 3.4 - 5.0 g/dL 05/14/2020 1:51 AM [facility] Bilirubin Total 0.6 0.2 - 1.2 mg/dL 05/14/2020 1:51 AM [facility] Alkaline Phosphatase 98 40 - 150 Units/L 05/14/2020 1:51 AM [facility] ALT 13 0 - 55 Units/L 05/14/2020 1:51 AM [facility] AST 15 5 - 34 Units/L 05/14/2020 1:51 AM [facility] Anion Gap 18 8 - 18 05/14/2020 1:51 AM [facility] BUN/Creatinine Ratio 16 7 - 23 05/14/2020 1:51 AM [facility] Osmolality Calculated 290 270 - 300 mOsm/kg 05/14/2020 1:51 AM [facility] Albumin/Globulin Ratio 1.1 1.1 - 2.3 05/14/2020 1:51 AM [facility] eGFR 55(L) >60 mL/min/1.7 3 m2 05/14/2020 1:51 AM [facility] Blood BLOOD SPECIMEN / Unknown Venipuncture / Unknown 05/14/2020 1:16 AM CDT 05/14/2020 1:30 AM T Ismael Shepherd MD LAB - CHEMISTRY ORDERABLES nal Result [facility] [address] [place] [id number] [phone] from Last 3 Months or Most Recently Relevant to Health Maintenance Insurance MEDICAID - OUT OF STATE [facility] MANAGED MEDICARE ADV MANAGED MEDICARE ADV Advance Directives * Full Code (Latest Code Status on File) Date Activated Date Inactivated Comments 05/02/2018 4:55 AM 05/02/2018 1:16 PM * Full Code Date Activated Date Inactivated Comments 05/02/2018 2:19 AM 05/02/2018 4:55 AM * Full Code Date Activated Date Inactivated Comments 03/17/2018 1:23 AM 03/22/2018 4:01 PM Care Teams Buttonhole Marker Relationship Specialty Start Date End Date Anders Kendrick MD [address] [place] [address] PCP - General 05/21/18
--- OUTSIDE RECORDS SUMMARY | 2025-05-08 07:39 | XMS_ITS | Encounter Summary ---
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
--- OUTSIDE RECORDS SUMMARY | 2025-05-08 07:39 | XMS_ITS ---
Author Organization [facility] Address [address] [place] [address] Care Team Providers Care Cupola Charger Insulation Name Role Phone Anders Kendrick MD Primary Care Provider [phone] Ryne Hoffman MD Unavailable [phone] Active Problems Problem Noted Date Diagnosed [...]
--- OUTSIDE RECORDS SUMMARY | 2025-05-08 07:39 | XMS_ITS | Clinical Summary ---
Author Organization [facility] Address [address] [address] Phone Care Team Providers Care Technical Solutions Director Name Role Phone Anders Kendrick MD Primary Care Provider [phone] Allergies Active Allergy Reactions Criticality Noted Date Comments Ampicillin 06/26/2019 Codeine 06/26/2019 Penicillins 06/26/2019 Medications levothyroxine (SYNTHROID) 125 MCG tablet Take 125 mcg by mouth daily 8 Active pantoprazole (PROTONIX) 40 MG EC tablet Take 40 mg by mouth daily 9 Active losartan (COZAAR) 100 MG tablet Take [...] (BIOTENE DRY MOUTH DT) Apply to teeth Activ e alendronate (FOSAMAX) 35 MG tablet Take 35 [...] Date Resolved Date Urinary incontinence 03/07/2021 023 [place] stopped 10/28/2019 03/07/2021 Abnormal renal function test [...] of Binge Drinking Not on file 11/2018 Comments Unknown Sex and Gender Information Value Date Recorded Sex Assigned at Not on file Legal Sex Female 1:23 PM MDT Gender Identity Not on file Sexual Orientation Not on file Last Filed Vital Signs Vital Sign Reading Time Taken Comments Blood Pressure 149/75 01/02/2023 1:03 PM CDT Pulse 67 09/06/2021 1:07 PM DATABASE DEVELOPMENT PROJECT MANAGER Temperature 36.4 C (97.6 F) 09/06/2021 1:07 PM DATABASE DEVELOPMENT PROJECT MANAGER Respiratory Rate - - Oxygen Saturation - - Inhaled Oxygen Concentration - - Weight 111 kg (245 lb) 01/02/2023 1:03 PM CDT Height 172.7 cm (5' 8) 01/01/2023 1:08 PM CDT Body Mass Index 37.25 01/01/2023 1:08 PM CDT Plan of Treatment Health Maintenance Due Date Last Done Comments Diabetic Foot Exam 02/01/1964 Ophthalmology Exam 02/01/1964 Pneumococcal PPSV23/PCV13 65 + Years / High and Highest Risk (1 of 5 - PCV) 1973 Influenza Vaccine (#1) 2025 Insurance AARP MEDICARE ADVANTAGE [facility] [employer] MEDICARE Care Teams Technical Solutions Director Relationship Specialty Start Date End Date Anders Kendrick MD PCP - General 05/29/19
--- OUTSIDE RECORDS SUMMARY | 2025-05-08 07:39 | XMS_ITS | Clinical Summary ---
Author Organization [facility] Address [address] [place] [address] Care Team Providers Care Head Of Marketing Analytics Name Role Phone Idalmis Khan Provider Primary [...] 1 Tablet (137 mcg) by mouth daily incident response consultant. 90 Tablet 3 10/18/2017 Active Active Problems [...] Comments Blood Pressure 145/74 10/17/2017 11:26 AM SENIOR WEB DEVELOPER Pulse 62 10/17/2017 11:26 AM SENIOR WEB DEVELOPER Temperature 36.8 C (98.3 F) 10/17/2017 11:26 AM SENIOR WEB DEVELOPER Respiratory Rate 18 07/18/2017 9:18 AM CDT Oxygen Saturation - - Inhaled Oxygen Concentration - - Weight 115.2 kg (254 lb) 10/17/2017 11:26 AM SENIOR WEB DEVELOPER Height 175.3 cm (5' 9) 10/17/2017 11:26 AM SENIOR WEB DEVELOPER Body Mass Index 37.51 10/17/2017 11:26 AM SENIOR WEB DEVELOPER Plan of Treatment Health Maintenance Due Date Last Done Comments DTAP/TDAP/TD VACCINES (1 - Tdap) 1973 BREAST CANCER SCREENING 1994 FIT-DNA Q 3 years 1999 FIT/FOBT Q 1 year 1999 Flex Sig/CT Colonography Q 5 years 1999 PNEUMOCOCCAL VACCINE 50+ YEARS (1 of 1 - PCV) 02/01/20 04 ZOSTER VACCINE (1 of 2) 02/01/2004 OSTEOPOROSIS SCREENING 2019 INFLUENZA VACCINE (#1) 2025 COLORECTAL SCREENING 08/21/2028 08/21/2018 Colorectal Cancer Screening 08/21/2028 RSV VACCINE (60+ or ) (1 - 1-dose 75+ series) 2029 Insurance MEDICARE PART A AND B Care Teams Head Of Marketing Analytics Relationship Specialty Start Date End Date Idalmis Khan Provider PCP - General 10/17/17
--- OUTSIDE RECORDS SUMMARY | 2025-05-08 07:39 | XMS_ITS | Encounter Summary ---
Author Organization [facility] Address [address] [place] [address] Care Team Providers Care Rotary Drill Operator Name Role Phone Miscellaneous, Not In File Primary Care Provider Unavailable Minh Lobato MD Unavailable [phone] Unknown, Notinfile Primary Care Provider Unavail able Anders Kendrick MD Primary Care Provider Ryne Hoffman MD Unavailable [phone] Encounter Details Date Type Department Care Team (Late st Contact Info) Description 08/23/2010 Orders Only [facility] Health Information Management [address] [place] [address] Scanning, Provider Social History Tobacco Use Types Packs/Day Years Used Date Smoking Tobacco: Never Assessed Comments Unknown Sex and Gender Information Value Date Recorded Sex Assigned at Not on file Legal Sex Female 3:38 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
[2025-05-08] MEDS: METHACHOLINE CHLORIDE 18 ML VIAL.NEB INHALATION (08:44)
--- NOTE | 2025-05-08 10:28 | WPDMETH ---
Methacholine Procedure Perform Procedure Performed Methacholine Challenge Methacholine Challenge Methacholine Challenge: This is a methacholine challenge test. The test was performed and interpreted in accordance with the 2017 ERS technical standard, endorsed by the ATS, using the GLI 2012 reference equations. Testing was performed with increasing doses of nebulized methacholine following a quadrupling dosage protocol. The methacholine dose was delivered via the Mercent Corporationist nebulizer using a 1-minutes tidal breathing protocol. The best post-methacholine FEV1 values were used to determine the change from the post diluent FEV1. The delivered dose of methacholine was used to calculate the provocative dose causing a 20% fall in FEV1 (PD20). Findings: Baseline FEV1 2.19 L, 88% predicted. Post diluent FEV1 2.05 L Post 1.81 mcg methacholine FEV1 2.07 L, increased 1% Post 7.26 mcg methacholine FEV1 1.98 L, decreased 3% Post 29.03 mcg methacholine FEV1 1.90 L, decreased 8% Post 116.1 mcg methacholine FEV1 1.91 L, decreased 7% Post 464.4 mcg methacholine FEV1 1.53 L, decreased 26% Post albuterol nebulization FEV1 1.87 L Impression: The PD20 is 309 mcg which is categorized as borderline airway hyperresponsiveness. There are no prior methacholine challenge studies for comparison
== END 2025-05-08 07:35 | disposition home or self-care (01) ==
PROVIDERS: PCP Emergency Medicine; Visit Provider Internal Medicine Pulmonary Disease
DX: R05.3 Chronic cough (principal); R06.09 Other forms of dyspnea; D89.9 Disorder involving the immune mechanism, unspecified; R94.2 Abnormal results of pulmonary function studies
CPT/HCPCS: 71046; 71100; 94070; J7674

== ENCOUNTER 2025-09-01 15:59 | Outpatient (CLI) | payer MEDICARE, MEDICAID, SELFPAY ==
--- NOTE | ~2025-09-01 | XR_ITS ---
EXAMINATION: XR chest 2V, 09/01/2025 16:11 [employer]ANDING SUPPORT SPECIALIST HISTORY: pneumonia of right lobe COMPARISON: No comparisons available. Technique: 2 views obtained. Findings: The lungs are clear, no effusion. No pneumothorax. Heart is normal size. Mediastinal and hilar contours are within normal limits. Bony thorax no acute abnormality. Impression: No acute cardiopulmonary abnormality. Reviewed, dictated and finalized at location P. ING SUPPORT SPECIALIST Impression: No acute cardiopulmonary abnormality.
--- OUTSIDE RECORDS SUMMARY | 2025-09-01 18:46 | XMS_ITS | Continuity of Care Document ---
Author Organization [place] - [facility], [facility] [place] Address [address] [address] Care Team Providers Care Property Claims Manager Name Role Phone ANDERS KENDRICK Primary Care Provider [phone] ANDERS KENDRICK Referring Provider [phone] Assessment Encounter Date Assessment Date Assessment LastModified by Organization Details LastModified Time 08/04/2025 08/04/2025 Assessment: Marijuana use Hypogammaglobuline dianne (IgG2) Eosinophils 2800/uL Mild intermittent asthma RLL pneumonia Plan: The following were reviewed and explained to the patient: [place] split night sleep study 04/07/22 sleep onset = 28 minutes, REM onset = none, AHI = 18, ResMed medium AirTouch F20 full face mask @ 17/13 cmH2O, PLMI = 22 Lab data 03/16/25 eosinophilia, low IgG2 PFT 03/04/25 nl FEV1/FVC, FEV1 2.14 L (86%), BD -140 mL = -7%, TLC 5.15 L (91%), RV 2.39 L (99%), DLCO 82%, DLCO/VA 124% Methacholine challenge testing 05/08/25 (+) methacholine challenge at level 5 Chest 2 views 03/16/25 RML calcified nodules Chest 2 views 05/08/25 RLL reticulonodular opacities -> doxycycline 100 mg po BID 05/13/25 - 05/19/25 Repeat chest x-ray at [facility]. General information on bronchial asthma was covered. Patient will monitor peak flow daily at a set time and again when symptoms of chest tightness, cough, dyspnea or wheezing occur. Patient will bring peak flow record to subsequent visits. The color of a traffic light will guide the patient's use of asthma medications: (1) Green means Go Zone. Peak flow: above 80% of personal best. Symptoms: Breathing is good, no cough or wheeze present, patient sleeps through the night and can work and play. Plan: Patient will continue the use of preventative medicine. (2) Yellow means Caution Zone. Peak flow: between 50-80% of personal best. Symptoms: Presence of first signs of a cold, exposure to known trigger, mild wheeze, tight chest and coughing especially night. Plan: Patient will add quick-relief medicine to preventative medicine. (3) Red means Danger Zone. Peak flow: below 50% of personal best. Symptoms: Asthma is getting worse quickly and medicine is not helping, breathing is hard and fast, nose opens widely when breathing, ribs showing when breathing, and patient cannot speak in full sentences. Plan: Patient will get help from a physician immediately. Advised to continue not to smoke. Start albuterol HFA as needed. Adherence to therapy is advocated. Nonadherence may lead to treatment failure, further progression of the condition, and other complications. Hospitals admissions are often the result of individuals not taking prescription medications accurately. Alternatively, greater adherence to medication regimens have shown to lower rates of hospitalization and decrease total medical costs in patients with chronic medical conditions. Advocated influenza vaccination annually and pneumonia vaccination ED. Advocated weight loss through diet and exercise. Patient's ideal body weight according to height and gender is up to 150 lbs. Encouraged patient to adjust caloric intake to maintain/achieve ideal body weight, emphasizing on fruits, vegetables, whole grains, and fat-free or low-fat products. These include lean meats, poultry, fish, beans, eggs, and nuts and foods that are low in saturated fats, trans-fats, cholesterol, salt (sodium), and glycemic index. Stressed the importance of regular exercise up to the patient's capacity limits. In this case, we recommend 20 min daily walking, 2 days a week of resistance training. Patient to monitor BP daily and bring records to PCP for further management. Follow-up: 3 months, October 2025 Not available 08/04/2025 15:25:01 Plan of Treatment Reminders Order Date Submit Date Provider Last Modified By Organization Details Last Modified Time Details Appointments Establish ed Patient 10 2025 09:40A M Darvin Parker DPM Not available Not available Not available Any 30 2025 01:00P M Pavel Jensen MD Not available Not available Not available Lab None recorded. Referral None recorded. Procedures None recorded. Surgeries None recorded. Imaging XR, chest, 2 view 2024 025 [email or web address] Not available 08/10/2025 17:40:18 Medication Orders albuterol sulfate HFA 90 mcg/actua tion aerosol inhaler 2024 025 [facility] #[id number], [address], [place], [address], 08/04/2025 15:25:31 Patient TargetsNo targets recorded. Patient InstructionsNo instructions recorded. Reason for Referral None Reported. Problems Name Problem SNOMED Code Status Onset Date Resolution Date Notes Provider Name and Address Organization Details Recorded Time Malignant neoplasm of thyroid gland 971535921 Active s/p iodine ablation and thyroidect lenora Not Available [facility] 3 07:31:50 Hypertens fabio disorder 68032604 Active Not Available [facility] 3 07:31:50 Hypothyro idism 79129493 Active Not Available [facility] 3 07:31:50 Mixed urinary incontine nce 959307753 Active Not Available [facility] 3 07:31:50 Obesity 079321803 Active Not Available [facility] 3 07:31:50 Obstructi ve sleep apnea syndrome 04980288 Active Mild TESSA Not Available [facility] 3 07:31:51 Hyperchol esterolem ia 72895648 Active 2018 Not Available [facility] 3 07:31:48 Anxiety disorder 219109654 Active 2018 Not Available [facility] 3 07:31:48 Depressiv e disorder 77570307 Active 2018 Not Available [facility] 3 07:31:50 Attention deficit hyperacti vity disorder 107688434 Active 2018 Not Available [facility] 3 07:31:50 Gout 66811085 Active 2018 Not Available [facility] 3 07:31:52 Diabetic periphera l neuropath y 298729533 Active 2021 Not Available [facility] 3 07:31:51 Dystrophi a unguium 77955653 Active 2024 Darvin Parker DPM [address], [place], [address] , [email or web address] 5 10:46:04 Mild intermitt ent asthma 804558144 Active 2024 Pavel Jensen MD [address], [place], [address] , [email or web address] 5 14:30:18 Right lower zone pneumonia 835017522 Active 2024 Pavel Jensen MD [address], [place], [address] , [email or web address] 5 14:43:44 Notes:Medical History: Marij uana use Anxiety/Bipolar depression/ADHD Migraine headaches Cataracts Glaucoma Rhinitis IgE 49 IU/mL Eosinophils 2800/uL Hypogammaglobulinemia (IgG2) AAT PiMM 150 mg% Methacholine (+) mild intermittent asthma RML calcified nodules Treatment-emergent central apneas Obesity with complex SAHS, AHI = 18, off CPAP c/o Provider Plus due to claustrophobia T2DM with neuropathy Hypothyroidism Mixed hyperlipidemia Hypertension EF 60% Mild LAE Mild MR JOLENE Hepatic steatosis Diverticulosis Constipation-predominant IBS Stage 2 CKD Mixed urinary incontinence PLMD Vit D deficiency Osteopenia Gout Herpes zoster Procedure History: Appendectomy 1973 DUANE-BSO 1982 Cervical metallic plate placement 1998 Bilateral ankle surgeries 1999 Cholecystectomy 2001 Total thyroidectomy for ca + iodine ablation + radiation 2010 Left knee replacement 2010 Bladder sling placement 2013 Colonoscopy 2018 Right knee replacement 2019 AV replacement for mod 2023 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 Procedures Surgical History Date Name Laterality Status Provider Name and Address Organization Details Recorded Time 04/14/20 25 Nail Debridement completed Darvin Parker DPM [address], [place], [address], [email or web address] 04/14/2025 10:45:19 12/12/19 25 Nail Debridement completed Darvin Parker DPM [address], [address], [place], [address], [facility] 12/11/2024 10:39:26 12/12/19 25 Callus Debridement 2-4 completed Darvin Parker DPM [address], [address], [place], [address], [facility] 12/11/2024 10:39:17 07/08/20 24 Nail Debridement completed Darvin Parker DPM [address], [address], [place], [address], [facility] 07/08/2024 12:54:22 07/08/20 24 Callus Debridement 2-4 completed Darvin Parker DPM [address], [address], [place], [address], [facility] 07/08/2024 12:54:13 01/15/20 24 Callus Debridement 2-4 completed Darvin Parker DPM [address], [address], [place], [address], [facility] 01/15/2024 16:44:59 07/17/20 23 Nail Debridement completed Darvin Parker DPM [address], [address], [place], [address], [facility] 07/17/2023 12:12:13 07/17/20 23 Callus Debridement 2-4 completed Darvin Parker DPM [address], [address], [place], [address], [facility] 07/17/2023 12:12:03 01/17/20 23 Nail Debridement completed Darvin Parker DPM [address], [place], [address], [facility] 01/16/2023 15:02:31 Ankle Surgery completed Not Available [facility] 11/22/2022 07:27:16 Hysterectomy completed Not Available [facility] 11/22/2022 07:27:16 Imaging Results None recorded. Procedure Notes None recorded. Medical Equipment None Reported. Allergies Allergen ID Allergen Name Allergen Category Reaction Reaction Severity Criticality Documentation Date Start Date Code Code System Note Provider Name and Address Organization Details Recorded Time 59711 Product containin g penicilli n (product) medicatio n itching Not available Not available 11/22/2022 19535 8001 SNOMED Not Available Pending sale to [facility] 3 07:37:40 21345 codeine medicatio n nausea Not available Not available 11/22/2022 2670 RxNorm Not Available Pending sale to [facility] 3 07:37:40 20426 ampicilli n medicatio n itching Not available Not available 11/22/2022 733 RxNorm Not Available Pending sale to [facility] 3 07:37:40 05759 adhesive tape environme nt,medica tion rash Not available Not available 11/22/2022 Not Available Pending sale to [facility] 3 07:37:40 Medications Name Sig Start Date Stop Date Status Note LastModified by Organization Details LastModified Time losartan 50 mg tablet TK 1 T PO D 10/08 completed Not Available Not Available Not Available nifedipine ER 30 mg tablet,exte nded release 24 hr TAKE 1 TABLET BY MOUTH TWICE A DAY CHECK BLOOD PRESSURE BEFORE TAKING THIS MED 08/25 completed Not Available Not Available Not Available quetiapine 25 mg tablet TK 1 T PO HS 07/04 completed Not Available Not Available Not Available fluoxetine 40 mg capsule TAKE 1 CAPSULE BY MOUTH EVERY DAY IN THE MORNING 08/16 completed Not Available Not Available Not Available cyclobenzap rine 10 mg tablet 07/04 completed Not Available Not Available Not Available ziprasidone 80 mg capsule Take 1 capsule every day by oral route. 07/04 completed Not Available Not Available Not Available fluconazole 100 mg tablet TAKE 1 TABLET BY MOUTH EVERY DAY 02/17 completed Not Available Not Available Not Available atorvastati n 40 mg tablet TAKE 1 TABLET (40 MG) BY MOUTH DAILY BEDTIME 08/25 completed Not Available Not Available Not Available levothyroxi ne 137 mcg tablet TAKE 1 TABLET BY MOUTH EVERY MORNING. active Not Available Not Available No t Available clonidine HCl 0.1 mg tablet active Not Available Not Available Not Available carvedilol 6.25 mg tablet TAKE 1 TABLET BY MOUTH TWICE A DAY WITH MEALS 05/31 completed Not Available Not Available Not Available prednisone 10 mg tablet 08/28 completed Not Available Not Available Not Available venlafaxine ER 75 mg capsule,ext ended release 24 hr TK ONE C PO D WITH ALEXIS 07/04 completed Not Available Not Available Not Available doxycycline hyclate 100 mg capsule TK 1 C PO BID FOR 7 DAYS 07/04 completed Not Available Not Available Not Available atorvastati n 20 mg tablet TK 1 T PO QD 07/04 completed Not Available Not Available Not Available carvedilol 12.5 mg tablet TAKE 1 TABLET BY MOUTH TWICE A DAY active Not Available Not Available No t Available lamotrigine 200 mg tablet TK 1 T PO BID. 08/28 completed Not Available Not Available Not Available venlafaxine 75 mg tablet active Not Available Not Available Not Available clindamycin HCl 300 mg capsule TK 1 C PO TID TAT. 08/28 completed Not Available Not Available Not Available ammonium lactate 12 % lotion Apply 2 applicati ons every day by topical route to foot calluses as needed. active Not Available Not Available No t Available citalopram 40 mg tablet twice daily active Not Available Not Available No t Available divalproex 250 mg tablet,ishan yed release active Not Available Not Available Not Available trazodone 50 mg tablet TAKE 1 TABLET BY MOUTH EVERY DAY AT BEDTIME NEEDED active Not Available Not Available No t Available polyethylen e glycol 3350 17 gram oral powder packet 08/28 completed Not Available Not Available Not Available cetirizine 10 mg tablet TK 1 T PO QD 07/04 completed Not Available Not Available Not Available atorvastati n 10 mg tablet TK 1 T PO QD 08/28 completed Not Available Not Available Not Available Stool Softener 100 mg capsule TAKE 1 CAPSULE BY MOUTH TWICE A DAY 04/19 completed Not Available Not Available Not Available oxybutynin chloride ER 10 mg tablet,exte nded release 24 hr Take 1 tablet every day by oral route. active Not Available Not Available No t Available azithromyci n 250 mg tablet TAKE 2 TABLETS BY MOUTH TODAY, THEN TAKE 1 TABLET DAILY FOR 4 DAYS 03/15 completed Not Available Not Available Not Available ibuprofen 800 mg tablet TK 1 T PO Q 8 H WF PRN 10/20 completed Not Available Not Available Not Available ofloxacin 0.3 % eye drops INSTILL 1 DROP INTO AFFECTED EYE THREE TIMES A DAY DIRECTED TO BEGIN TWO DAYS PRIOR TO SURGERY 03/01 completed Not Available Not Available Not Available tizanidine 4 mg tablet 07/04 completed Not Available Not Available Not Available albuterol sulfate 1.25 mg/3 mL solution for nebulizatio n 1.25 MG (3 ML) INHALED EVERY 8 HOURS 02/17 completed Not Available Not Available Not Available hydrocodone 5 mg-acetamin ophen 325 mg tablet active Not Available Not Available No t Available phenazopyri dine 200 mg tablet active Not Available Not Available Not Available lisinopril 20 mg tablet TK 1 T PO D 10/08 completed Not Available Not Available Not Available prednisone 20 mg tablet active Not Available Not Available Not Available valsartan 160 mg-hydrochl orothiazide 12.5 mg tablet 07/04 completed Not Available Not Available Not Available venlafaxine ER 150 mg capsule,ext ended release 24 hr TK ONE C PO QAM 08/28 completed Not Available Not Available Not Available hydroxyzine pamoate 50 mg capsule TK ONE C PO BID PRF ANXIETY 07/04 completed Not Available Not Available Not Available Advair Diskus 100 mcg-50 mcg/dose powder for inhalation Inhale 1 puff twice a day by inhalatio n route. 07/04 completed Not Available Not Available Not Available lithium carbonate 150 mg capsule TK 1 C PO BID 07/04 completed Not Available Not Available Not Available metronidazo le 500 mg tablet TAKE 1 TABLET BY MOUTH EVERY 6 HOURS FOR 10 DAYS 08/25 completed Not Available Not Available Not Available hydroxyzine HCl 50 mg tablet TK 1 T PO TID PRN 08/28 completed Not Available Not Available Not Available nifedipine ER 30 mg tablet,exte nded release TAKE 1 TABLET BY MOUTH EVERY DAY ON AN EMPTY STOMACH 08/04 completed Not Available Not Available Not Available clopidogrel 75 mg tablet TAKE 1 TABLET BY MOUTH EVERY DAY active Not Available Not Available No t Available ciprofloxac in 250 mg tablet TAKE 1 TABLET (250 MG TOTAL) BY MOUTH IN THE MORNING AND IN THE EVENING FOR 5 DAYS 03/01 completed Not Available Not Available Not Available amlodipine 5 mg tablet Take 1 tablet every day by oral route. 07/04 completed Not Available Not Available Not Available allopurinol 100 mg tablet TAKE 1 TABLET BY MOUTH EVERY DAY 03/15 completed Not Available Not Available Not Available divalproex 500 mg tablet,ishan yed release TK 1 T PO BID 08/16 completed Not Available Not Available Not Available ciprofloxac in 500 mg tablet active Not Available Not Available Not Available sulfamethox azole 800 mg-trimetho prim 160 mg tablet TAKE 1 TABLET BY MOUTH TWICE A DAY FOR 7 DAYS 02/17 completed Not Available Not Available Not Available peg-electro lyte solution 420 gram oral solution MIX AND DRINK UTD 08/28 completed Not Available Not Available Not Available aspirin 81 mg tablet,ishan yed release Take 1 tablet every day by oral route. 03/15 completed Not Available Not Available Not Available tramadol 50 mg tablet 07/04 completed Not Available Not Available Not Available levothyroxi ne 25 mcg tablet active Not Available Not Available Not Available lamotrigine 25 mg tablet TK 1 T PO QD 07/04 completed Not Available Not Available Not Available ketorolac 0.5 % eye drops INSTILL 1 DROP INTO THE OPERATIVE EYE 3 TIMES DAILY BEGINNING 2 DAYS BEFORE SURGERY 04/19 completed Not Available Not Available Not Available meloxicam 7.5 mg tablet 07/04 completed Not Available Not Available Not Available alendronate 35 mg tablet TAKE 1 TABLET BY MOUTH WEEKLY 30 MINUTES BEFORE FIRST FOOD/DRIN K/MEDICIN E OF DAY WITH PLAIN WATER 03/01 completed Not Available Not Available Not Available oxycodone-a cetaminophe n 5 mg-325 mg tablet 10/08 completed Not Available Not Available Not Available levothyroxi ne 88 mcg tablet TK 1 T PO QD 07/04 completed Not Available Not Available Not Available citalopram 20 mg tablet 07/04 completed Not Available Not Available Not Available prednisolon e acetate 1 % eye drops,suspe nsion INSTILL 1 DROP INTO AFFECTED EYE THREE TIMES A DAY TO BEGIN AFTER SURGERY 03/01 completed Not Available Not Available Not Available lorazepam 0.5 mg tablet TK 1 T PO QD PRN 08/28 completed Not Available Not Available Not Available Ear Wax Removal Kit 6.5 % drops 07/04 completed Not Available Not Available Not Available trazodone 100 mg tablet TAKE 1.5 TABLETS BY MOUTH AT BEDTIME, NEEDED active Not Available Not Available No t Available OneTouch Ultra Test strips 07/04 completed Not Available Not Available Not Available amitriptyli ne 10 mg tablet TAKE 3 TABLETS BY MOUTH EACH NIGHT AT BEDTIME 08/25 completed Not Available Not Available Not Available amlodipine 10 mg tablet TAKE 1 TABLET BY MOUTH EVERY DAY 08/25 completed Not Available Not Available Not Available lithium carbonate 300 mg capsule TK ONE C PO BID 08/28 completed Not Available Not Available Not Available benzonatate 100 mg capsule TAKE 1 CAPSULE BY MOUTH 3 TIMES A DAY NEEDED FOR COUGH 02/17 completed Not Available Not Available Not Available levothyroxi ne 50 mcg tablet 07/04 completed Not Available Not Available Not Available hydrocodone 7.5 mg-acetamin ophen 325 mg tablet 10/08 completed Not Available Not Available Not Available pantoprazol e 40 mg tablet,ishan yed release TAKE 1 TABLET BY MOUTH EVERY DAY active Not Available Not Available No t Available venlafaxine 37.5 mg tablet TK 1 T PO QD 10/08 completed Not Available Not Available Not Available trazodone 150 mg tablet at night 2012 active Not Available Not Available Not Avai lable metformin 1,000 mg tablet Take 1 tablet every day by oral route. 07/04 completed Not Available Not Available Not Available levothyroxi ne 125 mcg tablet TAKE 1 TABLET BY MOUTH EVERY DAY 01/14 completed Not Available Not Available Not Available nystatin 100,000 unit/gram topical cream APPLY TO AFFECTED AREA TWICE A DAY 02/17 completed Not Available Not Available Not Available prednisone 50 mg tablet TAKE 1 TABLET BY MOUTH EVERY DAY 03/01 completed Not Available Not Available Not Available promethazin e 25 mg tablet TK 1/2 T PO Q 6 H 08/25 completed Not Available Not Available Not Available levothyroxi ne 150 mcg tablet TAKE 1 TABLET BY MOUTH ONCE EVERY DAY DELIVERY MAN BEFORE BREAKFAST active Not Available Not Available No t Available indomethaci n 25 mg capsule active Not Available Not Available Not Available oxybutynin chloride ER 5 mg tablet,exte nded release 24 hr Take 1 tablet every day by oral route. active Not Available Not Available No t Available diclofenac sodium 75 mg tablet,ishan yed release TAKE 1 TABLET BY MOUTH TWICE A DAY WITH FOOD active Not Available Not Available No t Available hydrocodone 5 mg-acetamin ophen 500 mg tablet active Not Available Not Available No t Available allopurinol 300 mg tablet TK 1 T PO QD 07/04 completed Not Available Not Available Not Available levothyroxi ne 200 mcg tablet daily active Not Available Not Available Not Available hydrochloro thiazide 25 mg tablet Take 1 tablet every day by oral route. active Not Available Not Available No t Available mupirocin 2 % topical ointment APPLY TOPICALLY TO AFFECTED AREA TID FOR 10 DAYS 10/08 completed Not Available Not Available Not Available ziprasidone 40 mg capsule TK 1 C PO BID. TK WITH FOOD active Not Available Not Available No t Available ergocalcife rol (vitamin D2) 1,250 mcg (50,000 unit) capsule TK 1 C PO ONCE A MONTH UTD 07/04 completed Not Available Not Available Not Available lorazepam 1 mg tablet TK 1 T PO TID PRN 07/04 completed Not Available Not Available Not Available levofloxaci n 500 mg tablet 07/04 completed Not Available Not Available Not Available levofloxaci n 750 mg tablet active Not Available Not Available Not Available methylpredn isolone 4 mg tablets in a dose pack TAKE 6 TABLETS ON DAY 1 DIRECTED ON PACKAGE AND DECREASE BY 1 TAB EACH DAY FOR A TOTAL OF 6 DAYS 01/14 completed Not Available Not Available Not Available albuterol sulfate HFA 90 mcg/actuati on aerosol inhaler Inhale 1 puff every 4 hours by inhalatio n route as needed. 2024 active Not Available Not Available Not Avai lable timolol maleate 0.5 % eye drops INT 1 GTT INTO OS BID 08/16 completed Not Available Not Available Not Available colchicine 0.6 mg tablet Take 3 tablets every day by oral route as directed for 1 day. 10/08 completed Not Available Not Available Not Available oxybutynin chloride 5 mg tablet active Not Available Not Available No t Available nifedipine ER 60 mg tablet,exte nded release TAKE 1 TABLET BY MOUTH EVERY DAY active Not Available Not Available No t Available ziprasidone 60 mg capsule active Not Available Not Available Not Available ondansetron 4 mg disintegrat ing tablet TAKE 1 TABLET BY MOUTH EVERY 8 HOURS 08/25 completed Not Available Not Available Not Available losartan 100 mg tablet TAKE 1 TABLET BY MOUTH EVERY DAY active Not Available Not Available No t Available fluoxetine 20 mg capsule TK 1 C PO QAM active Not Available Not Available No t Available fluticasone propionate 50 mcg/actuati on nasal spray,suspe nsion INHALE 1 SPRAY INTO EACH NOSTRIL 2 TIMES PER DAY active Not Available Not Available No t Available divalproex 125 mg capsule,del ayed release sprinkle TK 4 CS PO BID 08/28 completed Not Available Not Available Not Available doxepin 5 % topical cream 07/04 completed Not Available Not Available Not Available doxycycline hyclate 100 mg tablet TAKE 1 TABLET BY MOUTH EVERY 12 HOURS FOR 7 DAYS 05/19 completed Not Available Not Available Not Available lamotrigine 100 mg tablet active Not Available Not Available Not Available naproxen 500 mg tablet TAKE 1 TABLET BY MOUTH TWICE DAILY WITH FOOD 02/17 completed Not Available Not Available Not Available metoclopram lashonda 10 mg tablet TAKE 1 TABLET BY MOUTH BEFORE MEALS AND AT BEDTIME 08/25 completed Not Available Not Available Not Available levothyroxi ne 112 mcg tablet 07/04 completed Not Available Not Available Not Available hydroxyzine pamoate 25 mg capsule TAKE 1 CAPSULE BY MOUTH TWICE A DAY NEEDED 03/01 completed Not Available Not Available Not Available Zetia 10 mg tablet active Not Available Not Available Not Available divalproex ER 250 mg tablet,exte nded release 24 hr Take 2 tablets every day by oral route. 08/25 completed Not Available Not Available Not Available cyclobenzap rine 5 mg tablet 07/04 completed Not Available Not Available Not Available rosuvastati n 40 mg tablet TAKE 1 TABLET BY MOUTH EVERY DAY active Not Available Not Available No t Available lancing device 07/04 completed Not Available Not Available Not Available Alcohol Prep Pads 07/04 completed Not Available Not Available Not Available nitrofurant oin monohydrate /macrocryst als 100 mg capsule TAKE 1 CAPSULE BY MOUTH TWICE A DAY FOR 7 DAYS 08/25 completed Not Available Not Available Not Available trospium 20 mg tablet TK 1 T PO BID 10/08 completed Not Available Not Available Not Available duloxetine 20 mg capsule,del ayed release TAKE 1 CAPSULE BY MOUTH EVERY DAY active Not Available Not Available No t Available duloxetine 30 mg capsule,del ayed release TAKE 2 CAPSULES BY MOUTH EVERY DAY active Not Available Not Available No t Available duloxetine 60 mg capsule,del ayed release TAKE 1 CAPSULE BY MOUTH EVERY DAY IN THE MORNING active Not Available Not Available No t Available fenofibrate 160 mg tablet TAKE 1 TABLET BY MOUTH EVERY DAY active Not Available Not Available No t Available biotin 04/19 completed Not Available Not Available Not Available Celexa 40 mg daily 07/04 completed Not Available Not Available Not Available Indocin 50 mg as needed 07/04 completed Not Available Not Available Not Available omeprazole (bulk) 20 mg daily 2012 active Not Available Not Available Not Avai ignacio [employer]'s Us TechnologiesTouch Ultra2 Meter kit 07/04 completed Not Available Not Available Not Available quetiapine 50 mg tablet TK 1 T PO QD 08/28 completed Not Available Not Available Not Available fenofibrate nanocrystal lized 145 mg tablet 08/25 completed Not Available Not Available Not Available Travatan Z 0.004 % eye drops INT 1 GTT INTO OU HS. 08/16 completed Not Available Not Available Not Available levocetiriz ine 5 mg tablet TAKE 1 TABLET BY MOUTH EVERY DAY 02/18 completed Not Available Not Available Not Available Combigan 0.2 %-0.5 % eye drops INSTILL 1 DROP INTO BOTH EYES TWICE A DAY 03/01 completed Not Available Not Available Not Available fluticasone propionate (bulk) 50 mg daily 2012 active Not Available Not Available Not Avai lable venlafaxine ER 150 mg tablet,exte nded release 24 hr TK 1 T PO QD FOR DEPRESSIO N AND ANXIETY active Not Available Not Available No t Available Tussin 100 mg/5 mL oral liquid TAKE 10 ML BY MOUTH EVERY 6 HOURS NEEDED 03/15 completed Not Available Not Available Not Available Flovent Diskus 100 mcg/actuati on powder for inhalation Inhale 1 puff twice a day by inhalatio n route for 30 days. 07/04 completed Not Available Not Available Not Available levothyroxi ne 150 mcg capsule Take 1 capsule every day by oral route. 2012 active Not Available Not Available Not Avai lable lurasidone 40 mg tablet TAKE 1 TABLET BY MOUTH EVERYDAY AT BEDTIME active Not Available Not Available No t Available Xarelto 10 mg tablet 10/08 completed Not Available Not Available Not Available Latuda 20 mg tablet TAKE 1 TABLET BY MOUTH ONCE EVERY EVENING DIRECTED WITH FOOD active Not Available Not Available No t Available Myrbetriq 25 mg tablet,exte nded release Take 1 tablet every day by oral route for 30 days. 07/04 completed Not Available Not Available Not Available Myrbetriq 50 mg tablet,exte nded release 05/17 completed Not Available Not Available Not Available lancets 30 gauge 07/04 completed Not Available Not Available Not Available Ultra Thin Lancets 31 gauge 07/04 completed Not Available Not Available Not Available Creon 36,000 unit-114,00 0 unit-180,00 0 unit capsule,del ayed release TAKE 3 CAPSULES BY MOUTH 3 TIMES A DAY WITH MEALS AND 2 CAPSULES WITH EACH SNACK. SWALLOW WHOLE ONLY 08/25 completed Not Available Not Available Not Available Fluvirin 5844-0749 45 mcg (15 mcg x 3)/0.5 mL intramuscul ar suspension active Not Available Not Available N ot Available Fluvirin 45 mcg (15 mcg x 3)/0.5 mL intramuscul ar suspension active Not Available Not Available N ot Available Jardiance 10 mg tablet TAKE 1 TABLET BY MOUTH EVERY DAY active Not Available Not Available No t Available Trulicity 0.75 mg/0.5 mL subcutaneou s pen injector INJECT THE CONTENTS OF 1 PEN UNDER THE SKIN ONCE WEEKLY active Not Available Not Available No t Available Fluzone Quad 60 mcg (15 mcg x 4)/0.5 mL IM suspension 08/28 completed Not Available Not Available Not Available Afluria Qd 2018- (36 mos up)(PF)60 mcg (15 mcg x4)/0.5 mL IM syringe active Not Available Not Available N ot Available Vitals Date Recorded Heart rate Respiratory rate Provider N ronan and Address Organization Details Last Updated DateTime 08/04/2025 61 /min 15 /min Pavel Jensen MD [address], [address], [place], [address], [place] [facility] [place] [employer] [facility] 08/04/2025 15:28:47 Date Recorded Body height Body mass index (BMI) Body weight Body temperature Heart rate Oxygen saturation Systolic And Diastolic Provider Name and Address Organization Details Last Updated DateTime 5 172.72 cm 36 kg/m2 321731. 39 g 98.1 [degF] 61 /min 95 % 124/78 mm[Hg] Annalisa Ferrer MA [facility] 15:07:38 Social History Question Answer Notes LastModified by Organizat ion Details LastModified Time Tobacco Smoking Status Never Smoker Tiny colvin, [facility] 07/17/2023 11:24:09 What Is Your Level Of Caffeine Consumption? None [id number] Information not available 11/22/2022 In The 14 Days Before Symptom Onset, Have You Had Close Contact With A Laboratory-confirm ed COVID-19 While That Case Was Ill? No Information n ot available 02/18/2025 In The 14 Days Before Symptom Onset, Have You Had Close Contact With A Person Who Is Under Investigation For COVID-19 While That Person Was Ill? No Information not available 02/18/2025 What Type Of Diet Are You Following? REGULAR Information n ot available 05/19/2025 Which Illicit Or Recreational Drugs Have You Used? Chidi [email or web address] Information not available 07/17/2023 Do You Have An Electrostatic Air Filter? No Information not available 03/23/2025 Do You Have A Humidifier? No Information not available 03/23/2025 Do You Have Moisture Problems In Your Home? No Information not available 03/23/2025 What Was The Date Of Your Most Recent Tobacco Screening? 08/04/2025 Information not available 08/04/2025 Do You Have Any Pets? Yes Information not available 03/23/2025 What Is Your Relationship Status? Single [id number] Information not available 11/22/2022 Do You Use Your Seat Belt Or Car Seat Routinely? Yes Information not available 02/18/2025 Do You Have Smoke And Carbon Monoxide Detectors In Your Home? Yes Information not available 03/23/2025 Are You Passively Exposed To Smoke? No Information no t available 03/23/2025 Do You Use Sunscreen Routinely? Yes Information not available 03/23/2025 Has Tobacco Cessation Counseling Been Provided? No Information not available 07/17/2023 Have You Recently Traveled Abroad? No Information not available 02/18/2025 Have You Used IV Drugs? No Information not available 07/17/2023 Do You Have Any Dietary Restrictions? Yes Information not available 05/19/2025 Sex: Unknown Functional Status Question Answer Note LastModified by Organizat ion Details LastModified Time Do you use any illicit or recreational drugs? Yes Information not available 07/17/2023 Do you or have you ever used any other forms of tobacco or nicotine? No Information not available 07/17/2023 What is your level of alcohol consumption? None [id number] Information not available 11/22/2022 Have you been exposed to chemicals or toxins? not that aware of Information not available 03/23/2025 What is your occupation? disabled Information not available 07/17/2023 Mental Status Question Answer Note LastModified by Organization D etails LastModified Time Do you feel stressed (tense, restless, nervous, or anxious, or unable to sleep at night)? [id number] Information not available 03/23/2025 Family History Relationship Description Onset Age of this Age Resolved Age Notes LastModified by Organization Details LastModified Time Father Diabetes mellitus [id number] Not available 11/22/2022 07:27:19 Father Heart disease [id number] Not available 11/22/2022 07:27:19 Mother Heart disease [id number] Not available 11/22/2022 07:27:19 Father Hypertensive disorder [email or web address] Not available 2022 11:09:15 Paternal Grandmother Heart disease Not available 2024 19:53:42 Paternal Aunt Malignant neoplasm of lung [email or web address] Not available 2024 10:13:54 Paternal Uncle Congestive heart failure [email or web address] Not available 2024 10:13:54 Sister Heart disease Not available 2024 19:55:25 Mother Dementia Not available 1 10/04/2024 15:20:58 Medical History Condition Response HIGH CHOLESTEROL / HYPERLIPIDEMIA Y DEPRESSION (INCLUDING POST ) Y THYROID DISEASE Y URINARY/BLADDER/KIDNEY PROBLEMS Y ARTHRITIS Y DIABETES, TYPE Y HYPERTENSION Y CANCER: SPECIFY Y Gynecological HistoryNo gynecological history recorded. Obstetrics History GPAL:G 0 P 0 0 0 0 Past Encounters Encounter ID Performer Location Encounter Start Date Encounter Closed Date Diagnosis/Indication Diagnosis SNOMED-CT Code Diagnosis ICD10 Code Diagnosis IMO Codes Diagnosis Note [id number] Pavel Jensen MD [facility] [address] [address] 08/04/2025 14:31:49 08/10/2025 17:40:18 Mild intermittent asthma 226970588 J45.20 [id number] Right lowe r zone pneumonia 875799912 J18.9 [id number] Health Concerns Section Related Observation LastModified by Organization Detai ls LastModified Time None Recorded Concern Status LastModified by Organization Details LastModified Time None Recorded Payers Encounter Date Sequence Insurance Name Policy Number Policy Waite Covered Member ID Waite Member ID Guarantor Name 08/04/2025 1 [facility] (MEDICARE REPLACEMENT/AD VANTAGE - PPO) [id number] Margret Stallings [id number] Margret Stallings 08/04/2025 2 [place] WHEN MEDICARE OR MEDICARE REPLACEMENT PRIMARY) Margret Stallings [id number] Margret Stallings Notes Date Note Type Note Provider Name and Address Organization Details Recorded Time 08/04/2025 text/html Primary care/Referring provider: Anders Kendrick MD; Alonzo Zaragoza Jr, MD Patient is here to go over her asthma management. Initial development of shortness of breath: uration of shortness of breath: 4 yearsCondition of shortness of breath: stableTiming of shortness of breath: afternoonsFrequency: up to 1 time a dayLimits activities: yesAggravating factors: walking, winterAlleviating factors: rest Modified [employer] [place] (mMRC) Dyspnea Scale - Grade 1Grade 0 I only get breathless with strenuous exercise .Grade 1 I get short of breath when hurrying on the level or walking up a slight hill .Grade 2 I walk slower than people of the same age on the level because of breathlessness or have to stop for breath when walking at my own pace on the level .Grade 3 I stop for breath after walking about 100 yards or after a few minutes on the level .Grade 4 I am too breathless to leave the house or I am breathless when dressing . Patient's personal best peak flow remains at 240 L/min. Treatment history: Albuterol HFA as needed since 2012, only used once per month Other symptoms:Drooling: noDysarthria: noNeck pain: noOdynophagia: noDysphagia: noWeak mastication: noFacial weakness: noNasal speech: noProtruding tongue: noProductive cough: noWheezing: noChest tightness: yesOrthopnea: 3-pillow habit for neck problemsFrequent throat clearing or swallowing: noPalpitations: noHeartburn: noEdema: no Environmental exposures:Nicotine smoke: noPaint: noDye: noDust mites: yesMold: noDamp basement: noWood burning stove: noAnimal dander: dog and catCockroaches: noPollen: yesArsenic: noAsbestos: noBeryllium: noCadmium: noChromium: noCoal smoke: noDiesel fumes: noNickel: noSilica: noSoot: no EPWORTH SLEEPINESS SCALE (ESS) CHANCE OF DOZING SCORE0 = would never doze1 = slight chance of dozing2 = moderate chance of dozing3 = high chance of dozing SITUATION AND CHANCE OF DOZINGSitting and reading - 0Watching television - 0Sitting inactive in a public place (e.g. a theater or meeting) - 0As a passenger in a car for an hour without a break - 0Lying down to rest in the afternoon when circumstances permit - 1Sitting and talking to someone - 0Sitting quietly after lunch without alcohol - 0In a car, while stopped for a few minutes in the traffic - 0TOTAL SCORE 1Subjectively, patient has a slight chance of dozing. Pavel Jensen MD [address], [address] [facility] [address], [place], [address], [facility] - [facility] [place] [employer] [facility] 08/04/2025 15:50:54 OBGyn Episode No OBEpisode recorded.
--- OUTSIDE RECORDS SUMMARY | 2025-09-01 18:46 | XMS_ITS | Clinical Summary ---
Author Organization [facility] Address [address] [place] [address] Care Team Providers Care Eligibility Worker Name Role Phone Anders Kendrick MD Primary Care Provider [phone] Source Comments [facility],non-owned Affiliates and Associated Physician Practices is amultiple site organization consisting of ambulatory clinics and hospital sitesin [place], [place], [place] and [place]. This disclosure is being madepursuant to the Care Everywhere program and may not contain all information available regarding this patient. Last updated 18.[facility] Allergies Active Allergy Reactions Criticality Noted Date [...] 05/14/2023 0, 05/02/2018, 05/01/2018, Additional history exists DEPRESSION SCREENING 09/24/2024 MEDICARE AWV CALENDAR YEAR 2024 COVID-19 VACCINE ( - season) 2025 INFLUENZA VACCINE (#1) 2025 Respiratory Syncytial Virus [...] 7 - 26 mg/dL 05/14/2020 1:51 AM [facility] Creatinine 1.0 0.6 - 1.2 mg/dL 05/14/2020 1:51 AM [facility] Sodium 139 136 - 145 mmol/L 05/14/2020 1:51 AM [facility] Potassium 3.7 3.5 - 4.5 mmol/L 05/14/2020 1:51 AM [facility] Chloride 100 98 - 107 mmol/L 05/14/2020 1:51 AM [facility] CO2 25 22 - 29 mmol/L 05/14/2020 1:51 AM [facility] Glucose 106 70 - 115 mg/dL 05/14/2020 1:51 AM [facility] Calcium 9.2 8.4 - 10.2 mg/dL 05/14/2020 1:51 AM [facility] Protein Total 7.3 6.0 - 8.3 g/dL 05/14/2020 1:51 AM [facility] Albumin 3.9 3.4 - 5.0 g/dL 05/14/2020 1:51 AM [facility] Bilirubin Total 0.6 0.2 - 1.2 mg/dL 05/14/2020 1:51 AM [facility] Alkaline Phosphatase 98 40 - 150 Units/L 05/14/2020 1:51 AM [facility] ALT 13 0 - 55 Units/L 05/14/2020 1:51 AM [facility] AST 15 5 - 34 Units/L 05/14/2020 1:51 AM [facility] Anion Gap 18 8 - 18 05/14/2020 1:51 AM [facility] BUN/Creatinine Ratio 16 7 - 23 05/14/2020 1:51 AM [facility] Osmolality Calculated 290 270 - 300 mOsm/kg 05/14/2020 1:51 AM [facility] Albumin/Globulin Ratio 1.1 1.1 - 2.3 05/14/2020 1:51 AM [facility] eGFR 55(L) >60 mL/min/1.7 3 m2 05/14/2020 1:51 AM [facility] Blood BLOOD SPECIMEN / Unknown Venipuncture / Unknown 05/14/2020 1:16 AM CDT 05/14/2020 1:30 AM T Ismael Shepherd MD LAB - CHEMISTRY ORDERABLES nal Result [facility] [address] [place] [id number] [phone] from Last 3 Months or Most Recently Relevant to Health Maintenance Insurance MEDICAID - OUT OF STATE [facility] MANAGED MEDICARE ADV MANAGED MEDICARE ADV Advance Directives * Full Code (Latest Code Status on File) Date Activated Date Inactivated Comments 05/02/2018 4:55 AM 05/02/2018 1:16 PM * Full Code Date Activated Date Inactivated Comments 05/02/2018 2:19 AM 05/02/2018 4:55 AM * Full Code Date Activated Date Inactivated Comments 03/17/2018 1:23 AM 03/22/2018 4:01 PM Care Teams Eligibility Worker Relationship Specialty Start Date End Date Anders Kendrick MD [address] [place] [id number] PCP - General 05/21/18
--- OUTSIDE RECORDS SUMMARY | 2025-09-01 18:46 | XMS_ITS | Clinical Summary ---
Author Organization [facility] Address [address] [place] [address] Care Team Providers Care Inspector Integrated Circuits Name Role Phone Idalmis Khan Provider Primary [...] 1 Tablet (137 mcg) by mouth daily placement coordinator. 90 Tablet 3 10/18/2017 Active Active Problems [...] Comments Blood Pressure 145/74 10/17/2017 11:26 AM IMPORT/EXPORT CLERK Pulse 62 10/17/2017 11:26 AM IMPORT/EXPORT CLERK Temperature 36.8 C (98.3 F) 10/17/2017 11:26 AM IMPORT/EXPORT CLERK Respiratory Rate 18 07/18/2017 9:18 AM CDT Oxygen Saturation - - Inhaled Oxygen Concentration - - Weight 115.2 kg (254 lb) 10/17/2017 11:26 AM IMPORT/EXPORT CLERK Height 175.3 cm (5' 9) 10/17/2017 11:26 AM IMPORT/EXPORT CLERK Body Mass Index 37.51 10/17/2017 11:26 AM IMPORT/EXPORT CLERK Plan of Treatment Health Maintenance Due Date [...] MEDICARE PART A AND B Care Teams Inspector Integrated Circuits Relationship Specialty Start Date End Date Erin, Idalmis Provider PCP - General 10/17/17
--- OUTSIDE RECORDS SUMMARY | 2025-09-01 18:47 | XMS_ITS | Clinical Summary ---
Author Organization [facility] Address [address] [place] [address] Phone Care Team Providers Care Housing Property Manager Name Role Phone Anders Kendrick MD Primary Care Provider [phone] Allergies Active Allergy Reactions Criticality Noted Date [...] Date Resolved Date Urinary incontinence 03/07/2021 023 [place] stopped 10/28/2019 03/07/2021 Abnormal renal function test [...] PM CDT Pulse 67 09/06/2021 1:07 PM [employer] Temperature 36.4 C (97.6 F) 09/06/2021 1:07 PM [employer] Respiratory Rate - - Oxygen Saturation - [...] Vaccine (#1) 2025 Insurance [employer] MEDICARE ADVANTAGE [facility] [employer] MEDICARE Care Teams Housing Property Manager Relationship Specialty Start Date End Date Anders Kendrick MD PCP - General 05/29/19
--- OUTSIDE RECORDS SUMMARY | 2025-09-01 18:47 | XMS_ITS ---
Author Organization [facility] Address [address] [place] [address] Care Team Providers Care General Internist And Physician Leader Name Role Phone Anders Kendrick MD Primary Care Provider [phone] Active Problems * This document contains information [...]
--- OUTSIDE RECORDS SUMMARY | 2025-09-01 18:47 | XMS_ITS | Data Portability ---
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 Name Role Phone ANDERS KENDRICK Primary Care Provider [phone] ANDERS KENDRICK Referring Provider [phone] Assessment Encounter Date Assessment Date Assessment LastModified by Organization Details LastModified Time 02/18/2025 02/18/2025 Assessment: Marijuana use Cough Dyspnea Plan: The following were reviewed and explained to the patient: primary care/referral note Cough/Dyspnea workup will be done as follows: Respiratory allergen panel for [facility] Serum IgE Serum total IgG, IgG1, IgG2, IgG3, IgG4 Yhorh-4-njzsqlcvpu n phenotype and level TB stimulated gamma interferon B-type natriuretic peptide (BNP) Eosinophil count Complete pulmonary function testing (PFT) Chest x-ray PA and lateral Advised to continue not to smoke. Adherence to therapy is advocated. Nonadherence may [...] records to PCP for further management. Follow-up: 1 week after PFT Not available 02/18/2025 10:02:14 03/23/2025 03/23/2025 Assessment: Marijuana use Eosinophils 2800/uL Hypogammaglobuline dianne (IgG2) Plan: The following were reviewed and explained to the patient: [place] split night sleep study 04/07/22 sleep onset = 28 minutes, REM onset = none, AHI = 18, ResMed medium AirTouch F20 full face mask @ 17/13 cmH2O, PLMI = 22 Lab data 03/16/25 eosinophilia, low IgG2 Chest 2 views 03/16/25 RML calcified nodules PFT 03/04/25 nl FEV1/FVC, FEV1 2.14 L (86%), BD -140 mL = -7%, TLC 5.15 L (91%), RV 2.39 L (99%), DLCO 82%, DLCO/VA 124% Methacholine challenge testing ordered. Advised to continue not to smoke. Adherence to therapy is advocated. Nonadherence may [...] records to PCP for further management. Follow-up: 1 week after methacholine challenge testing Not available 03/23/2025 10:22:18 04/14/2025 04/14/2025 This note is dictated and transcribed by [employer]. Director Nurses[employer] variances may occur. Despite proofreading, typographical errors may occur. Occasional wrong-word or 'zkacf-l-wvix' substitutions may have occurred due to the inherent limitations of voice recording. Read the chart carefully and recognize, using context, where substitutions have occurred. [email or web address] Not available 04/14/2025 10:45:57 05/19/2025 05/19/2025 Assessment: Hypertension Marijuana use Hypogammaglobuline dianne (IgG2) Eosinophils 2800/uL Mild intermittent asthma RLL pneumonia Plan: The following were reviewed and explained to the patient: [place] split night sleep study 04/07/22 sleep onset [...] BID 05/13/25 - 05/19/25 Repeat chest x-ray one week before return. General information on bronchial asthma was covered. Educational video was shown. Peak flow meter usage instructed. Patient's personal best peak flow today is 240 L/min. Patient will monitor peak flow daily at [...] PCP for further management. Follow-up: 3 months, July 2025 Not available 05/19/2025 14:43:31 08/04/2025 08/04/2025 Assessment: Marijuana use Hypogammaglobuline dianne (IgG2) Eosinophils 2800/uL Mild intermittent asthma RLL pneumonia Plan: The following were reviewed and explained to the patient: Zeyad split night sleep study 04/07/22 sleep onset = 28 minutes, REM onset = none, AHI = 18, ResMed medium AirTouch F20 full face mask @ 17/13 cmH2O, PLMI = 22 Lab data 03/16/25 eosinophilia, low IgG2 PFT 06/11/25 nl FEV1/FVC, FEV1 2.14 L (86%), BD -140 mL = -7%, TLC 5.15 L (91%), RV 2.39 L (99%), DLCO 82%, DLCO/VA 124% Methacholine challenge testing 05/08/25 (+) methacholine challenge at level 5 Chest 2 views 03/16/25 RML calcified nodules Chest 2 views 05/08/25 RLL reticulonodular opacities -> doxycycline 100 mg po BID 05/13/25 - 05/19/25 Repeat chest x-ray at [facility]. General information on bronchial asthma was covered. [...] Appointments Establish ed Patient 10 2025 09:40A Howard Parker DPM Not available Not available Not available Any 30 2025 01:00P Howard Jensen MD Not available Not available Not available Lab alpha-1-a ntitrypsi n (aat) phenotype , serum 2024 025 [facility] (Lab), [address] [place], [address], 03/23/2025 12:25:04 BNP (B-type natriuret ic peptide), serum or plasma 2024 025 [facility] (Lab), [address] [place], [address], 08/31/2025 04:22:02 ige, total, serum 2024 025 [facility] (Lab), [address] [place], [address], 08/31/2025 04:22:02 tb (M tuberculo sis), ifn-gamma leonor, blood 2024 025 [facility] (Lab), [address] [place], [address], 08/31/2025 04:22:[address] 1+2+3+4, serum 2024 025 [facility] (Lab), [address] [place], [address], 08/31/2025 04:22:02 respirato ry allergen panel, [facility] A, serum 2024 025 [facility] (Lab), [address] [place], [address], 03/20/2025 15:29:24 respirato ry allergen panel - [facility] b 2024 025 [facility] (Lab), [address] [place], [address], 08/31/2025 04:22:03 eosinophi ls, quant, blood 2024 025 [facility] (Lab), [address] [place], [address], 08/31/2025 04:22:03 pro BNP (pro B-type natriuret ic peptide), serum or plasma 2024 025 [facility] (Lab), [address] [place], [address], 08/31/2025 04:22:03 Referral None recorded. Procedures None recorded. Surgeries None recorded. Imaging XR, chest, 2 view 2024 025 [email or web address] Not available 08/10/2025 17:40:18 XR, chest, 2 view [address] [facility], [address] [facility] [address], [address], 07/20/2025 10:14:37 XR, chest, 2 view 2024 025 [email or web address] Not available 03/23/2025 17:40:01 Medication Orders albuterol sulfate HFA 90 mcg/actua tion aerosol inhaler [address] [facility]/Pharmacy #[id number], [address], [place], [address], 08/04/2025 15:25:31 albuterol sulfate HFA 90 mcg/actua tion aerosol inhaler [address] [facility]/Pharmacy #[id number], [address], [place], [address], 05/19/2025 14:34:56 Patient TargetsNo targets recorded. Patient Instructions Encounter Date Encounter Id Patient Instructions Last Modified By Organization Details Last Modified Time 02/18/2025 [id number] complete PFT w/ post bronchodilator spirometry* - Please call patient to schedule. AMBER [id number] per payor portal, ref #[id number]. [email or web address] Not available 03/20/2025 15:29:23 03/23/2025 [id number] methacholine challenge* [email or web address] Not available 05/05/2025 16:18:02 Reason for Referral None Reported. Results Created Date Observation Date Name Description Value Unit Range Abnormal Flag Note LastModifiedBy Organization Detail LastModifiedTime 02/19/2004/07/2022 polys omnog sidney, split night No observ ation record ed. BARCODE Not Available 2024 16:13:25 03/20/20 25 03/04/2025 compl ete PFT w/ post [facility] hodil ator jayden metry * No observ ation record ed. [facility] (Pulmonary) [address], [place], [address], 03/20/2025 15:29:23 03/23/20 25 03/16/2025 XR, chest , 2 view No observ ation record ed. BARCODE Not Available 2024 17:40:01 05/14/20 25 05/08/2025 XR, ribs, unila teral , w/ PA chest No observ ation record ed. BARCODE Not Available 2024 13:57:04 05/18/20 25 05/08/2025 metha choli ne chall enge* No observ ation record ed. [facility] (Pulmonary) [address], [place], [address], 05/18/2025 20:29:44 Result Notes None recorded. Problems Name Problem SNOMED Code Status Onset Date Resolution Date Notes Provider Name and Address Organization Details Recorded Time Malignant neoplasm of thyroid gland 491086512 Active s/p iodine ablation and thyroidect lenora Not Available [facility] 3 07:31:50 Hypertens fabio disorder 06966182 Active Not Available [facility] 3 07:31:50 Hypothyro idism 02951805 Active Not Available [facility] 3 07:31:50 Mixed urinary incontine nce 339827274 Active Not Available [facility] 3 07:31:50 Obesity 066086284 Active Not Available [facility] 3 07:31:50 Obstructi ve sleep apnea syndrome 66950667 Active Mild TESSA Not Available [facility] 3 07:31:51 Hyperchol esterolem ia 92402188 Active 2018 Not Available [facility] 3 07:31:48 Anxiety disorder 912790219 Active 2018 Not Available [facility] 3 07:31:48 Depressiv e disorder 16240240 Active 2018 Not Available [facility] 3 07:31:50 Attention deficit hyperacti vity disorder 235593670 Active 2018 Not Available [facility] 3 07:31:50 Gout 81934851 Active 2018 Not Available [facility] 3 07:31:52 Diabetic periphera l neuropath y 361201276 Active 2021 Not Available [facility] 3 07:31:51 Dystrophi a unguium 46266714 Active 2024 Darvin Parker DPM [address] [facility] [facility] [address], [place], [address] , [place] - [facility] [employer] 5 10:46:04 Mild intermitt ent asthma 738125562 Active 2024 Pavel Jensen MD [address], [place], [address] , [facility] 14:30:18 Right lower zone pneumonia 484786103 Active 2024 Pavel Jensen MD [address], [address], [place], [address] , [employer] 14:43:44 Notes:Medical History: Marij uana use Anxiety/Bipolar [...] metallic plate placement 1998 Bilateral ankle surgeries 1998 Cholecystectomy 2000 Total thyroidectomy for ca + iodine ablation + radiation 2010 Left knee replacement 2009 Bladder sling placement 2013 Colonoscopy 2017 Right knee replacement 2019 AV replacement for mod 2023 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 Procedures Surgical History Date Name Laterality Status Provider Name and Address Organization Details Recorded Time 04/14/20 25 Nail Debridement completed Darvin Parker DPM [address], [address], [place], [address], Wally 04/14/2025 10:45:19 12/12/19 25 Nail Debridement completed Darvin Parker DPM [address], [place], [address], [facility]ally 12/11/2024 10:39:26 12/12/19 25 Callus Debridement 2-4 completed Darvin Parker DPM [address], [address], [place], [address], [facility]ally 12/11/2024 10:39:17 07/08/20 24 Nail Debridement completed Darvin Parker DPM [address], [address], [place], [address], [employer] [facility] [employer] [facility] 07/08/2024 12:54:22 07/08/20 Callus Debridement 2-4 completed Darvin Parker DPM [address], [place], [address], [facility] [employer] [facility] [employer] [facility] 07/08/2024 12:54:13 01/15/20 24 Callus Debridement 2-4 completed Darvin Parker DPM [address], [place], [address], [employer] [facility] [employer] [facility] 01/15/2024 16:44:59 07/17/20 Nail Debridement completed Darvin Parker DPM [address], [place], [address], [employer] [facility] [employer] [facility] 07/17/2023 12:12:13 07/17/20 Callus Debridement 2-4 completed Darvin Parker DPM [address], [place], [address], [employer] [facility] [employer] [facility] 07/17/2023 12:12:03 01/17/20 Nail Debridement completed Darvin Parker DPM [address], [place], [address], [employer] [facility] [employer] [facility] 01/16/2023 15:02:31 Ankle Surgery completed Not Available [facility] 11/22/2022 07:27:16 Hysterectomy completed Not Available [facility] 11/22/2022 07:27:16 Imaging Results None recorded. Procedure Notes None recorded. Medical Equipment None Reported. Allergies Allergen ID Allergen Name Allergen Category Reaction Reaction Severity Criticality Documentation Date Start Date Code Code System Note Provider Name and Address Organization Details Recorded Time 39202 Product containin g penicilli n (product) medicatio n itching Not available Not available 11/22/2022 73774 8001 SNOMED Not Available [facility] 07:37:40 61296 codeine medicatio n nausea Not available Not available 11/22/2022 2670 RxNorm Not Available [facility] 07:37:40 81532 ampicilli n medicatio n itching Not available Not available 11/22/2022 733 RxNorm Not Available [facility] 3 07:37:40 65960 adhesive tape environme nt,medica tion rash Not available Not available 11/22/2022 Not Available [facility] 3 07:37:40 Medications Name Sig Start Date [...] Available promethazin e 25 mg tablet TK /2 T PO Q 6 H 08/25 completed Not Available Not Available Not Available levothyroxi ne 150 mcg tablet TAKE 1 TABLET BY MOUTH ONCE EVERY DAY UPKEEP MECHANIC BEFORE BREAKFAST active Not Available Not Available [...] active Not Available Not Available Not [employer] labcharlene OneTouch Ultra2 Meter kit 07/04 completed Not Available [...] completed Not Available Not Available Not Available Cipriano 36,000 unit-114,00 0 unit-180,00 0 unit capsule,del ayed release TAKE 3 CAPSULES BY MOUTH 3 TIMES A DAY WITH MEALS AND 2 CAPSULES WITH EACH SNACK. SWALLOW WHOLE ONLY 08/25 completed Not Available Not Available Not Available Fluvirin 45 mcg (15 mcg x [...] ot Available Vitals Date Recorded Heart rate Heart rate Respiratory rate Provider Name and Address Organization Details Last Updated DateTime 02/18/2025 61 /min 61 /min 15 /min Pavel Jensen MD [address] [facility] [address], [place], [address], [facility] [employer] 02/18/2025 09:51:31 Date Recorded Body height Body mass index (BMI) Body weight Oxygen saturation Body temperature Systolic And Diastolic Provider Name and Address Organization Details Last Updated DateTime 172.72 cm 35.9 kg/m2 042476. 8 g 98 % 98.9 [degF] 128/76 mm[Hg] Annalisa Ferrer MA [facility] [employer] 09:34:12 Date Recorded Heart rate Oxygen saturation Heart rate Respiratory rate Provider Name and Address Organization Details Last Updated DateTime 03/23/2025 60 /min 95 % 60 /min 14 /min Pavel Jensen MD [address], [place], [address] , [place] [employer] [facility] [employer] 03/23/2025 10:22:52 Date Recorded Body height Body mass index (BMI) Body weight Body temperature Systolic And Diastolic Provider Name and Address Organization Details Last Updated DateTime 03/23/2025 172.72 cm 36.3 kg/m2 494680. 58 g 98.4 [degF] 110/68 mm[Hg] Annalisa Ferrer MA [place] [employer] [facility] 10:02:24 Date Recorded Body height Body mass index (BMI) Body weight Heart rate Respiratory rate Oxygen saturation Provider Name and Address Organization Details Last Updated DateTime 172.72 cm 36.3 kg/m2 232862. 58 g 89 /min 14 /min 98 % Nery Hobbs [place] [employer] [facility] 10:17:17 Date Recorded Heart rate Heart rate Respiratory rate Provider Name and Address Organization Details Last Updated DateTime 05/19/2025 61 /min 61 /min 15 /min Pavel Jensen MD [address], [place], [address], [place] [employer] [facility] 05/19/2025 14:21:18 Date Recorded Body height Body mass index (BMI) Body weight Body temperature Oxygen saturation Systolic And Diastolic Provider Name and Address Organization Details Last Updated DateTime 172.72 cm 36.5 kg/m2 706025. 17 g 98.2 [degF] 97 % 146/94 mm[Hg] Annalisa Ferrer MA [place] [employer] [facility] 14:16:03 Date Recorded Heart rate Respiratory rate Provider N ronan and Address Organization Details Last Updated DateTime 08/04/2025 61 /min 15 /min Pavel Jensen MD [address], [address], [place] [employer] [facility] 08/04/2025 15:28:47 Date Recorded Body height Body mass index (BMI) Body weight Body temperature Heart rate Oxygen saturation Systolic And Diastolic Provider Name and Address Organization Details Last Updated DateTime 172.72 cm 36 kg/m2 745815. 39 g 98.1 [degF] 61 /min 95 % 124/78 mm[Hg] Annalisa Ferrer MA [employer] 15:07:38 Social History Question Answer Notes LastModified by Organizat ion Details LastModified Time Tobacco Smoking Status Never Smoker [employer] colvin, [employer] 07/17/2023 11:24:09 What Is Your Level Of Caffeine Consumption? None [id number] Information not available 11/22/2022 In The 14 [...] Or Recreational Drugs Have You Used? Chidi [email or web address] Information not available 07/17/2023 Do You Have [...] 03/23/2025 What Is Your Relationship Status? Single [id number] Information not available 11/22/2022 Do You Use [...] is your level of alcohol consumption? None [id number] Information not available 11/22/2022 Have you been exposed to chemicals or toxins? not that aware of Information not available 03/23/2025 What is your occupation? disabled Information not available 07/17/2023 Mental Status Question Answer Note LastModified by Organization D etails LastModified Time Do you feel stressed (tense, restless, nervous, or anxious, or unable to sleep at night)? [id number] Information not available 03/23/2025 Family History Relationship Description Onset Age of this Age Resolved Age Notes LastModified by Organization Details LastModified Time Father Diabetes mellitus [id number] [id number] Not available 11/22/2022 07:27:19 Father Heart disease [id number] Not available 11/22/2022 07:27:19 Mother Heart disease [email or web address] [id number] Not available 11/22/2022 07:27:19 Father Hypertensive disorder Not available 2022 11:09:15 Paternal Grandmother Heart disease Not available 2024 19:53:42 Paternal Aunt Malignant neoplasm of lung [email or web address] Not available 2024 10:13:54 Paternal Uncle Congestive heart failure [email or web address] Not available 2024 10:13:54 Sister Heart disease Not available 2024 19:55:25 Mother Dementia Not available 10/04/2024 15:20:58 Medical History Condition Response ARTHRITIS Y CANCER: SPECIFY Y THYROID DISEASE Y DIABETES, TYPE Y URINARY/BLADDER/KIDNEY PROBLEMS Y DEPRESSION (INCLUDING POST ) Y HYPERTENSION Y HIGH CHOLESTEROL / HYPERLIPIDEMIA Y Gynecological HistoryNo gynecological history recorded. Obstetrics History GPAL:G 0 P 0 0 0 0 Past Encounters Encounter ID Performer Location Encounter Start Date Encounter Closed Date Diagnosis/Indication Diagnosis SNOMED-CT Code Diagnosis ICD10 Code Diagnosis IMO Codes Diagnosis Note [id number] Darvin Parker DPM [facility] [place] [address] [place] [id number] 12/13/2020 00:00:00 12/13/2020 11:56:28 [id number] Darvin Parker DPM [facility] [place] [address] [place] [id number] 03/14/2021 00:00:00 03/14/2021 10:28:33 [id number] Darvin Parker DPM [facility] [place] [address] [place] [id number] 06/13/2021 00:00:00 06/13/2021 10:10:17 [id number] Luh Hurt MD _ATHTED_M IGRATION_ DEFAULT_1 _1 , 08/25/2021 00:00:00 08/25/2021 11:00:32 [id number] Darvin Parker DPM [facility] [place] [address] [place] [id number] 11/24/2021 00:00:00 11/24/2021 14:05:42 [id number] Darvin Parker DPM [facility] [place] [address] [place] [id number] 07/13/2022 00:00:00 07/13/2022 09:19:54 [id number] Darvin Parker DPM [facility] [place] [address] [place] [id number] 09/07/2022 00:00:00 09/14/2022 08:33:26 [id number] Darvin Parker DPM [facility] [address] [address] 10/17/2022 00:00:00 10/17/2022 17:09:41 [id number] aDrvin Parker DPM [facility] [address] [place] [address] 01/16/2023 14:13:09 01/16/2023 15:05:15 Diabetic peripheral neuropathy 700083374 E11.40 Patient educated on neuropathy , diabetes, diabetic diet, and daily foot exams. Patient is to check feet daily for new wounds, blisters, redness to prevent infection and ulceration s to the feet. Patient will return to clinic in 3 months for diabetic foot workup. Foot callus 910456709 L8 4 Sub left foot- 5th metatarsal headdebrid ed without incidentco ntinue offloading with supportive shoe gearuse pumice stone on the area dailyfollo w-up in 3 months Dystrophia unguium 12855 009 L60.3 Nails 1 through 10 were debrided with sharp mechanical debridemen t without incident. Nails were debrided and greater than 50% length and thickness where needed. [id number] Tj Gunn MD [address] [address] 03/01/2023 10:49:34 03/01/2023 11:45:19 Pain of left ankle joint 9694659778 6034647 M25.572 [id number] Tj Gunn MD [address] [address] 03/15/2023 11:19:19 03/26/2023 09:23:46 Sprain of left ankle 6872828201 [id number] S93.402D [id number] Tj Gunn MD [address] [address] 04/19/2023 09:42:50 04/19/2023 10:49:46 Sprain of left ankle 8217395296 [id number] S93.402D [id number] Tj Gunn MD [address] [address] 05/17/2023 09:45:15 05/17/2023 10:50:53 Sprain of left ankle 5547359560 [id number] S93.402D [id number] Tj Gunn MD [facility] [address] 05/31/2023 09:44:48 05/31/2023 10:56:53 Pain of right shoulder joint 8017634571 0996779 M25.473 [id number] Tj Gunn MD [address] [address] 06/28/2023 10:18:36 06/28/2023 11:40:44 Contusion of right shoulder 9576350987 2461866 S40.011D [id number] Darvin Parker DPM [facility] [address] 07/17/2023 11:24:01 07/17/2023 12:24:18 Diabetic peripheral neuropathy 981677415 E11.40 Patient educated on neuropathy , diabetes, diabetic diet, and daily foot exams. Patient is to check feet daily for new wounds, blisters, redness to prevent infection and ulceration s to the feet. Patient will return to clinic in 3 months for diabetic foot workup. Foot callus 808935835 L8 4 [id number] without incidentco ntinue offloading with supportive shoe gearuse pumice stone on the area dailyfollo w-up in 3 months Dystrophia unguium 82293 009 L60.3 Nails 1 through 10 were debrided with sharp mechanical debridemen t without incident. Nails were debrided and greater than 50% length and thickness where needed. Hammer toe 770834135 M20 .40 continue offloading [id number] Darvin Parker DPM [facility] [address] [address] 01/15/2024 15:52:46 01/23/2024 13:18:41 Pain in bilateral feet 1783865898 0879422 M79.671 M79.672 recommend supportive shoe gear to prevent wounds Foot callus 277068639 L8 4 [id number] without incidentco ntinue offloading with supportive shoe gearuse pumice stone on the area dailyfollo w-up in 3 months Diabetes mellitus 773017 09 E11.9 continue diabetic control per PCP recommenda tions Diabetic p eripheral neuropathy 180674124 E11.40 Patient educated on neuropathy , diabetes, diabetic diet, and daily foot exams. Patient is to check feet daily for new wounds, blisters, redness to prevent infection and ulceration s to the feet. Patient will return to clinic in 3 months for diabetic foot workup. [id number] Darvin Parker DPM [facility] [place] [address] [facility] [address] [place] [address] 07/08/2024 11:13:33 07/08/2024 15:03:57 Diabetes mellitus 87986470 E11.9 continue diabetic control per PCP recommenda tions Dystrophia unguium 06969 009 L60.3 Nails 1 through 10 were debrided with sharp mechanical debridemen t without incident. Nails were debrided and greater than 50% length and thickness where needed. Foot callus 372547762 L8 4 [id number] without incidentco ntinue offloading with supportive shoe gearuse pumice stone on the area dailyfollo w-up in 3 months [id number] Darvin Parker DPM [facility] [address] [place] [address] 12/11/2024 10:14:44 12/11/2024 11:18:15 Diabetes mellitus [id number] E11.9 continue diabetic control per PCP recommenda tions Diabetic p eripheral neuropathy [id number] E11.40 Patient educated on neuropathy , diabetes, diabetic diet, and daily foot exams. Patient is to check feet daily for new wounds, blisters, redness to prevent infection and ulceration s to the feet. Patient will return to clinic in 3 months for diabetic foot workup. Foot callus [id number] L8 4 r0veyawceu without incidentco ntinue offloading with supportive shoe gearuse pumice stone on the area dailyfollo w-up in 3 months Hammer toe [id number] M20 .40 continue offloading educated on conservati ve offloading denies surgeryrec ommend diabetic shoe gear and insolesfol low-up 3 months Bunion [id number] M21.61 9 as above Long-term current use of drug therapy [id number] Z79.85 Dystrophia unguium 99999 009 L60.3 Nails 1 through 10 were debrided with sharp mechanical debridemen t without incident. Nails were debrided and greater than 50% length and thickness where needed. [id number] Pavel Jensen MD [place] [address] 02/18/2025 09:03:15 02/19/2025 15:21:56 Dyspnea on exertion [id number] R06.09 R05.3 T78.40XA D89.9 [id number] Pavel Jensen MD [place] [address] 03/23/2025 09:41:19 03/24/2025 11:23:03 Dyspnea on exertion [id number] R06.09 R05.3 D89.9 D72.10 [id number] Darvin Parker DPM [facility] [place] [address] 04/14/2025 10:13:42 04/21/2025 10:33:44 Diabetic peripheral neuropathy [id number] E11.40 Patient educated on neuropathy , diabetes, diabetic diet, and daily foot exams. Patient is to check feet daily for new wounds, blisters, redness to prevent infection and ulceration s to the feet. Patient will return to clinic in 3 months for diabetic foot workup. Dystrophia unguium 66054 009 L60.3 1010 Nails 1 through 10 were debrided with sharp mechanical debridemen t without incident. Nails were debrided and greater than 50% length and thickness where needed. [id number] Pavel Jensen MD [place] [address] 05/19/2025 13:52:00 05/21/2025 13:21:23 Mild intermittent asthma [id number] J45.20 [id number] Right lowe r zone pneumonia 785715350 J18.9 [id number] Pavel Jensen MD [facility] [address] [address] 08/04/2025 14:31:49 08/10/2025 17:40:18 Mild intermittent asthma 360810925 J45.20 [id number] Right lowe r zone pneumonia 921054712 J18.9 [id number] Health Concerns Section Related Observation LastModified by Organization Detai ls LastModified Time None Recorded Concern Status LastModified by Organization Details LastModified Time None Recorded Advance Directives Directive None Recorded Payers Insurance Date Sequence Insurance Name Policy Number Policy Waite Covered Member ID Waite Member ID Guarantor Name 08/04/2025 1 [facility] (MEDICARE REPLACEMENT/AD VANTAGE - PPO) [id number] Margret Low Chandrakant [id number] Margret Low Chandrakant 08/04/2025 2 [place] [facility] Margret Devante Chandrakant [id number] Margret Devante Chandrakant 08/04/2025 [place] DURABLE MEDICAL EQUIP[place] Margret D Chandrakant [id number] Margret D Chandrakant 08/04/2025 [place] Margret D Chandrakant [id number] Margret D Chandrakant 08/04/2025 [place] Margret D Chandrakant [id number] Margret D Chandrakant 08/04/2025 2 [place]CON[place] WHEN MEDICARE OR MEDICARE REPLACEMENT PRIMARY) Margret Devante Chandrakant [id number] Margret Devante Chandrakant Notes Date Note Type Note Provider Name and Address Organization Details Recorded Time 02/18/2025 text/html Primary care/Referring provider: Anders Kendrick MD; Alonzo Zaragoza Jr, MD CC: I have been smoking 3 marijuana blunt wraps a day on and off since 1997. Patient is here to go over shortness of breath evaluation/management. Initial development of shortness of breath: uration of shortness of breath: 4 yearsCondition of shortness of breath: stableTiming of shortness of breath: afternoonsFrequency: up to 1 time a dayLimits activities: yesAggravating factors: walking, winterAlleviating factors: rest Modified [employer] [place] (mMRC) Dyspnea Scale - Grade 1Grade 0 [...] or I am breathless when dressing . Treatment history:None Other symptoms:Drooling: noDysarthria: noNeck pain: noOdynophagia: noDysphagia: [...] chance of dozing. Pavel Jensen MD [address] [facility], [facility] [address], [place], [address], [place] [facility] 02/18/2025 10:12:31 03/23/2025 text/html Primary care/Referring provider: Anders Kendrick MD; Alonzo Zaragoza Jr, MD Patient is here to go over her lab data and PFT as part of her shortness of breath evaluation/management. Initial development of shortness of breath: uration of shortness of breath: 4 yearsCondition of shortness of breath: stableTiming of shortness of breath: afternoonsFrequency: up to 1 time a dayLimits activities: yesAggravating factors: walking, winterAlleviating factors: rest Modified [employer] [place] (mMRC) Dyspnea Scale - Grade 1Grade 0 [...] or I am breathless when dressing . Treatment history:None Other symptoms:Drooling: noDysarthria: noNeck pain: noOdynophagia: noDysphagia: [...] DOZINGSitting and reading - 0Watching television - 1Sitting inactive in a public place (e.g. a theater or meeting) - 0As a passenger in a car for an hour without a break - 0Lying down to rest in the afternoon when circumstances permit - 0Sitting and talking to someone - 0Sitting quietly after lunch without alcohol - 0In a car, while stopped for a few minutes in the traffic - 0TOTAL SCORE 1Subjectively, patient has a slight chance of dozing. Pavel Jensen MD [address], [place], [address], [place] 03/23/2025 10:23:08 04/14/2025 text/html . Patient is a 70-year-old female diabetic who returns for routine diabetic foot care. Patient states she is scheduled to get her new diabetic shoe she denies any open wounds would like her nails cut. Darvin Parker DPM [address], [place], [address], [place] 04/14/2025 10:47:13 05/19/2025 text/html Primary care/Referring provider: Anders Kendrick MD; Alonzo Zaragoza Jr, MD Patient is here to go over her methacholine challenge testing as part of her shortness of breath management. Initial development of shortness of breath: uration of shortness of breath: 4 yearsCondition of shortness of breath: stableTiming of shortness of breath: afternoonsFrequency: up to 1 time a dayLimits activities: yesAggravating factors: walking, winterAlleviating factors: rest Modified [employer] [place] (mMRC) Dyspnea Scale - Grade 1Grade 0 [...] or I am breathless when dressing . Treatment history:None Other symptoms:Drooling: noDysarthria: noNeck pain: noOdynophagia: noDysphagia: [...] slight chance of dozing. Pavel Jensen MD [address] [place] [address], [place], [address], [facility] [place] 05/19/2025 14:49:29 08/04/2025 text/html Primary care/Referring provider: Anders Kendrick MD; Alonzo Zaragoza Jr, MD Patient is here to go over her asthma management. Initial development of shortness of breath: uration of shortness of breath: 4 yearsCondition of shortness of breath: stableTiming of shortness of breath: afternoonsFrequency: up to 1 time a dayLimits activities: yesAggravating factors: walking, winterAlleviating factors: rest Modified [employer] [place] (mMRC) Dyspnea Scale - Grade 1Grade 0 [...] slight chance of dozing. Pavel Jensen MD [address] [place] [address], [place] [address], [place], [address], [place] [facility] 08/04/2025 15:50:54 OBGyn Episode No OBEpisode recorded.
--- OUTSIDE RECORDS SUMMARY | 2025-09-01 18:47 | XMS_ITS | Clinical Summary ---
Author Organization [facility] Address [address] [place], [address] [address] Phone Care Team Providers Care Corporate Risk Analyst Name Role Phone John Street APRN, SHAD [...] (1 of 2) 02/01/2004 Influenza Immunization (#1) 2025 SARS-COV-2 Immunization ( season) 2025 Respiratory Syncytial Virus (RSV) Immunization (Adult) [...] topic Insurance MEDICARE MEDICAID [place] Care Teams Corporate Risk Analyst Relationship Specialty Start Date End Date John Street APRN, CHILD AND ADOLESCENT PSYCHOLOGIST [address] [place] [address] [place] [address] PCP - General Advanced Practice Nurse 05/01/18
== END 2025-09-01 16:00 | disposition home or self-care (01) ==
PROVIDERS: PCP Emergency Medicine; Visit Provider Internal Medicine Pulmonary Disease
DX: J18.9 Pneumonia, unspecified organism (principal)
CPT/HCPCS: 71046